=== PATIENT | male | born 1970 | race American Indian/Alaskan Native ===

== ENCOUNTER 2017-10-07 09:20 | Inpatient (IN) | payer BC, OTHER ==
[2017-10-07] MEDS ORDERED: NITROSTAT SL ONE (10:22)
--- NOTE | 2017-10-07 10:27 | Emergency Department Report ---
ED Chest Pain HPI - General Chief Complaint: Chest Pain Stated Complaint: UNRESPONSIVE Time Seen by Provider: 10/07/17 10:16 Source: patient, EMS Mode of arrival: Stretcher Limitations: No Limitations - History of Present Illness Initial Comments: Patient is 47 years old male history of diabetes and hypertension, presented via EMS with a chief complaint of left-sided chest pain, patient described his pain as pressure and sometimes sharp radiate to his neck and left upper extremity, pain associated with exertion. Patient stated that his pain has been going on for a while, but since last night it became more intense and more frequent,also associated with palpitation. Patient received aspirin and nitroglycerin by EMS. Patient stated that his pain is much better after the nitroglycerin. Patient also added that his is mother at age 51 from heart attack. MD Complaint: chest pain -: Last night Onset: during rest, during exertion Pain Location: left chest Pain Radiation: LUE, neck Severity: moderate Severity scale (0 -10): 6 Quality: heaviness, sharp Consistency: intermittent Improves With: nitroglycerin Worsens With: exertion Treatments Prior to Arrival: aspirin, nitroglycerin Aspirin use within the Past 7 Days: (0) No - Related Data Home Medications Medication Instructions Recorded Confirmed Last Taken Insulin Lispro Prot/Lispro 70 units SUB-Q QAM 10/07/17 10/07/17 10/07/17 [HumaLOG MIX 75/25] Insulin Lispro Prot/Lispro 25 units SUB-Q HS 10/07/17 10/07/17 Unknown [HumaLOG Mix 75/25 Vial] NIFEdipine [] 90 mg PO DAILY 10/07/17 10/07/17 10/07/17 Allergies Allergy/AdvReac Type Severity Reaction Status Date / Time No Known Allergies Allergy Verified 11/02/15 11:52 Heart Score - HEART Score History: Moderately suspicious EKG: Non-specific Age: 45-65 Risk factors: > 3 risk factors or hx of atherosclerotic disease Troponin: < normal limit HEART Score: 5 - Critical Actions Critical Actions: 4-6 pts:12-16.6% risk of adverse cardiac event. Should be admitted ED Review of Systems ROS: Stated complaint: UNRESPONSIVE Other details as noted in HPI Comment: All other systems reviewed and negative Constitutional: denies: chills, fever ENT: denies: throat pain Respiratory: shortness of breath, SOB with exertion. denies: cough, SOB at rest , stridor, wheezing Cardiovascular: chest pain, palpitations, dyspnea on exertion Gastrointestinal: denies: abdominal pain, nausea, vomiting, diarrhea, constipation, hematemesis, melena, hematochezia Genitourinary: denies: urgency, frequency Musculoskeletal: denies: back pain Neurological: denies: headache, weakness, numbness, paresthesias, confusion, abnormal gait, vertigo ED Past Medical Hx - Past Medical History Previous Medical History?: Yes Hx Hypertension: Yes Hx Diabetes: Yes Additional medical history: ENLARGED PROSTATE. high cholesterol. CAD - Surgical History Past Surgical History?: Yes Additional Surgical History: LEFT KNEE SURGERY - Social History Smoking Status: Never Smoker Substance Use Type: Alcohol - Medications Home Medications: Home Medications Medication Instructions Recorded Confirmed Last Taken Type Insulin Lispro Prot/Lispro 70 units SUB-Q QAM 10/07/17 10/07/17 10/07/17 History [HumaLOG MIX 75/25] Insulin Lispro Prot/Lispro 25 units SUB-Q HS 10/07/17 10/07/17 Unknown History [HumaLOG Mix 75/25 Vial] NIFEdipine [] 90 mg PO DAILY 10/07/17 10/07/17 10/07/17 History ED Physical Exam - General Limitations: No Limitations General appearance: alert, in no apparent distress - Head Head exam: Present: normocephalic, normal inspection - Eye Eye exam: Present: normal appearance, PERRL - ENT ENT exam: Present: normal exam, normal orophraynx, mucous membranes moist - Neck Neck exam: Present: normal inspection, full ROM. Absent: tenderness, meningismus, lymphadenopathy - Respiratory Respiratory exam: Present: normal lung sounds bilaterally. Absent: respiratory distress, wheezes, rales, rhonchi, stridor, chest wall tenderness, accessory muscle use, decreased breath sounds, prolonged expiratory - Cardiovascular Cardiovascular Exam: Present: regular rate, normal rhythm, normal heart sounds - GI/Abdominal GI/Abdominal exam: Present: soft, normal bowel sounds. Absent: distended, tenderness, guarding, rebound, rigid, organomegaly, mass, bruit, pulsatile mass , hernia - Extremities Exam Extremities exam: Present: normal inspection, full ROM, normal capillary refill. Absent: tenderness, pedal edema, joint swelling, calf tenderness - Back Exam Back exam: Present: normal inspection. Absent: CVA tenderness (R), CVA tenderness (L), muscle spasm, paraspinal tenderness, vertebral tenderness - Neurological Exam Neurological exam: Present: alert, oriented X3, CN II-XII intact, normal gait - Skin Skin exam: Present: warm, intact, normal color ED Course Vital Signs 10/07/17 10/07/17 10/07/17 10:12 10:15 10:30 Temperature Pulse Rate 99 H 97 H 94 H Respiratory 15 19 14 Rate Blood Pressure 165/105 Blood Pressure [Left] O2 Sat by Pulse 96 98 Oximetry 10/07/17 10/07/17 10/07/17 10:46 10:48 11:00 Temperature 98.4 F Pulse Rate 91 H 92 H Respiratory 13 20 17 Rate Blood Pressure 138/99 155/104 Blood Pressure 165/105 [Left] O2 Sat by Pulse 99 95 Oximetry 10/07/17 10/07/17 10/07/17 11:16 11:30 11:46 Temperature Pulse Rate 92 H 97 H 98 H Respiratory 18 19 16 Rate Blood Pressure 155/104 155/104 155/104 Blood Pressure [Left] O2 Sat by Pulse 97 97 96 Oximetry 10/07/17 10/07/17 10/07/17 12:00 12:16 12:30 Temperature Pulse Rate 90 90 91 H Respiratory 18 23 15 Rate Blood Pressure 149/98 149/98 149/98 Blood Pressure [Left] O2 Sat by Pulse 98 99 96 Oximetry 10/07/17 10/07/17 10/07/17 12:46 13:00 13:16 Temperature Pulse Rate 89 89 87 Respiratory 19 16 16 Rate Blood Pressure 149/98 138/106 149/98 Blood Pressure [Left] O2 Sat by Pulse 98 98 97 Oximetry 10/07/17 10/07/17 10/07/17 13:30 13:46 14:00 Temperature Pulse Rate 89 92 H 85 Respiratory 18 19 20 Rate Blood Pressure 149/98 138/106 139/91 Blood Pressure [Left] O2 Sat by Pulse 97 97 95 Oximetry 10/07/17 10/07/17 10/07/17 14:12 14:16 14:30 Temperature Pulse Rate 90 95 H 96 H Respiratory 17 17 13 Rate Blood Pressure 139/91 139/91 Blood Pressure 139/91 [Left] O2 Sat by Pulse 98 97 98 Oximetry 10/07/17 10/07/17 10/07/17 14:46 15:00 15:16 Temperature Pulse Rate 94 H 93 H 98 H Respiratory 19 18 14 Rate Blood Pressure 139/91 146/101 146/101 Blood Pressure [Left] O2 Sat by Pulse 96 97 97 Oximetry - Reevaluation(s) Reevaluation #1: 10/07/17 13:27 Patient stated that he is feeling much better after the medication. ED Medical Decision Making - Lab Data Result diagrams: 10/07/17 12:49 10/07/17 12:59 - EKG Data -: EKG Interpreted by Me EKG shows normal: sinus rhythm Rate: normal - EKG Data Interpretation: no acute changes - Radiology Data Radiology results: report reviewed Chest x-ray unremarkable for acute findings. - Medical Decision Making Discussed with Dr. Garcia, I presented the patient to him he agreed to admit the patient to his service. Critical care attestation.: If time is entered above; I have spent that time in minutes in the direct care of this critically ill patient, excluding procedure time. ED Disposition Clinical Impression: Chest pain with high risk of acute coronary syndrome, Malignant hypertension, Hyperglycemia due to type 2 diabetes mellitus Disposition: OP ADMIT IP TO THIS HOSP Is pt being admited?: Yes Condition: Stable
[2017-10-07 10:32] LABS: Basophils % (Auto) 0.8 % (0.0-1.8); Eosinophils % (Auto) 2.5 % (0.0-4.3); Hematocrit 39.3 % (35.5-45.6); Hemoglobin 13.6 gm/dl (11.8-15.2); Mean Corpuscular HGB Conc 35 % (32-34); Mean Corpuscular Hemoglobin 30 pg (28-32); Mean Corpuscular Volume 86 fl (84-94); Platelet Count 269 K/mm3 (140-440); Red Blood Count 4.54 M/mm3 (3.65-5.03)
[2017-10-07 10:53] LABS: Anion Gap 24 mmol/L; BUN/Creatinine Ratio 13; Blood Urea Nitrogen 14 mg/dL (9-20); Calcium 9.6 mg/dL (8.4-10.2); Carbon Dioxide 21 mmol/L (22-30); Chloride 91.6 mmol/L (98-107); Glucose 420 mg/dL (75-100); Potassium 4.5 mmol/L (3.6-5.0); Sodium 132 mmol/L (137-145)
[2017-10-07] MEDS ORDERED: LASIX IV ONE (11:09)
[2017-10-07 11:12] LABS: Bilirubin,Urine NEG (Negative); Blood,Urine SM (Negative); Ketones,Urine NEG (Negative); Leukocyte Esterase,Urine NEG (Negative); Mucus,Urine FEW /HPF; Nitrite,Urine NEG (Negative); Protein,Urine <15 mg/dL mg/dL (Negative); Urobilinogen,Urine < 2.0 mg/dL (<2.0)
--- NOTE | 2017-10-07 11:20 | XRay Report ---
AP CHEST: HISTORY: chest pain AP view of the chest demonstrates a normal mediastinal and cardiac contour with clear lungs and normal bony and soft tissue structures. No significant change since 04/18/16. IMPRESSION: Unremarkable AP chest.
--- NOTE | 2017-10-07 12:35 | History and Physical Report ---
History of Present Illness Chief complaint: My chest hurts real bad History of present illness: 47 YO Male with HTN, DM,HLD,Obesity, BPH, Metabolic syndrome presents to ED for evaluation. Pt states that he experienced chest pain for pasw 2 weeks, with an acute worsening of symptoms over the past 6 hours. Pain is 6-9/10, Localized to the left side of the chest, radiates to the laft arm and meck, sharp, and compressing in nature, and has become more intense over time. Pain is relieved with nitro, but worsened with exertion, and is also associated with intermittent shortness of breath. Pt denies diaphoresis, fever, chills, palpitation, NVD, syncope, prolonged immobility/travel, individual/family history of DVT/PE, Vertigo, Skin rash, productive cough, orthopnea/pnd, or recent ill contacts. Patient also added that he is mother at age 51 from heart attack. Pt seen and evaluated in ED and found to have symptoms consistent with ACS as well as New onset Systolic/Diastolic CHF. Pt admitted to telemetry, and treated IAW chest pain protocol. Past History Past Medical History: diabetes, hypertension, hyperlipidemia Past Surgical History: Other (Left Knee surgery) Social history: , lives with family. denies: smoking, alcohol abuse, prescription drug abuse Family history: diabetes, hypertension Medications and Allergies Allergies Allergy/AdvReac Type Severity Reaction Status Date / Time No Known Allergies Allergy Verified 11/02/15 11:52 Home Medications Medication Instructions Recorded Confirmed Last Taken Type Insulin Lispro Prot/Lispro 25 units SUB-Q HS 10/07/17 10/07/17 Unknown History [HumaLOG Mix 75/25 Vial] Insulin Lispro Prot/Lispro 70 units SUB-Q QAM 10/07/17 10/07/17 10/07/17 History [HumaLOG Mix 75/25 Vial] NIFEdipine [Nifedipine ER] 90 mg PO DAILY 10/07/17 10/07/17 10/07/17 History Nitroglycerin [Nitrostat] 0.4 mg SL Q5M PRN #20 tablet 10/09/17 Unknown Rx Valsartan [Diovan] 160 mg PO DAILY #30 tablet 10/09/17 Unknown Rx Review of Systems Constitutional: no weight loss, no weight gain, no fever, no chills Ears, nose, mouth and throat: no ear pain, no ear discharge, no tinnitis, no decreased hearing, no nose pain, no nasal congestion, no nasal discharge Cardiovascular: chest pain, shortness of breath, no palpitations, no edema, no syncope, no lightheadedness Respiratory: no cough, no cough with sputum, no excessive sputum, no hemoptysis Gastrointestinal: no abdominal pain, no nausea, no vomiting, no diarrhea, no constipation Genitourinary Male: no hematuria, no flank pain, no discharge, no urinary frequency, no urinary hesitancy Rectal: no pain, no incontinence, no bleeding Musculoskeletal: no neck stiffness, no neck pain, no shooting arm pain, no arm numbness/tingling, no low back pain Integumentary: no rash, no pruritis, no redness, no sores, no wounds Neurological: no head injury, no paralysis, no weakness, no parathesias, no numbness, no tingling, no seizures Psychiatric: no memory loss, no change in sleep habits, no sleep disturbances, no insomnia, no hypersomnia, no change in appetite, no change in libido Endocrine: no cold intolerance, no heat intolerance, no polyphagia, no excessive thirst, no polydipsia, no polyuria Hematologic/Lymphatic: no easy bruising, no easy bleeding Allergic/Immunologic: no urticaria, no allergic rhinitis, no wheezing Exam - Constitutional Vitals: Temp Pulse Resp BP Pulse Ox 98.4 F 95 H 20 165/105 95 10/07/17 10:46 10/07/17 10:46 10/07/17 10:48 10/07/17 10:46 10/07/17 10:48 General appearance: Present: mild distress, obese - EENT Eyes: Present: PERRL ENT: hearing intact, clear oral mucosa - Neck Neck: Present: supple, normal ROM - Respiratory Respiratory: bilateral: diminished, rhonchi - Cardiovascular Heart Sounds: Present: S1 & S2. Absent: rub, click - Extremities Extremities: pulses symmetrical, No edema Peripheral Pulses: within normal limits - Abdominal General gastrointestinal: Present: soft, non-tender, non-distended, normal bowel sounds Male genitourinary: Present: normal - Integumentary Integumentary: Present: clear, warm, dry - Musculoskeletal Musculoskeletal: gait normal, strength equal bilaterally - Psychiatric Psychiatric: appropriate mood/affect, intact judgment & insight - Neurologic Neurologic: CNII-XII intact, moves all extremities Results - Labs CBC & Chem 7: 10/07/17 12:49 10/09/17 04:00 Labs: Abnormal lab results 10/07/17 10/07/17 10/07/17 Range/Units 10:18 10:18 10:33 MCHC 35 H (32-34) % RDW 13.0 L (13.2-15.2) % Sodium 132 L (137-145) mmol/L Chloride 91.6 L (98-107) mmol/L Carbon Dioxide 21 L (22-30) mmol/L Glucose 420 H (75-100) mg/dL NT-Pro-B Natriuret Pep 1060 H (0-450) pg/mL Assessment and Plan - Patient Problems (1) CHF (congestive heart failure) Status: Acute Qualifiers: Congestive heart failure type: combined Congestive heart failure chronicity : acute Qualified Code(s): I50.41 - Acute combined systolic (congestive) and diastolic (congestive) heart failure Plan to address problem: Afterload reduction, fluid restriction, diuresis, monitor uop q shift, Cardiology consulted, cardiac enzymes, ekg, telemetry, (2) ACS (acute coronary syndrome) Status: Acute Plan to address problem: Chest Pain protocol: Serial cardiac enzymes, EKG, telemetry, Echo, Cardiology consulted, Morphine, supplemental oxygen, nitro tabs, aspirin, D dimer, Chest X ray. (3) Diabetes Status: Acute Plan to address problem: ADA diet, insulin, accu check (4) Accelerated hypertension Status: Acute Plan to address problem: Monitor BP q shift, IV hydralazine prn, continue medical management, diuresis with lasix. (5) Metabolic syndrome Status: Acute Plan to address problem: Low cholesterol diet, lipid panel, increased physical activity as discharge (6) DVT prophylaxis Status: Acute
[2017-10-07] MEDS ORDERED: D50W (25GM) Syringe IV PRN (12:37)
[2017-10-07] MEDS ORDERED: ASPIRIN PR ONE (12:37)
[2017-10-07] MEDS ORDERED: SODIUM CHLORIDE FLUSH SYRINGE 10 ML IV PRN (12:37)
[2017-10-07] MEDS ORDERED: ZOFRAN IV PRN (12:37)
[2017-10-07] MEDS ORDERED: TYLENOL PO PRN (12:37)
[2017-10-07] MEDS ORDERED: NITROSTAT SL PRN (12:37)
[2017-10-07] MEDS ORDERED: PROVENTIL IH PRN (12:37)
[2017-10-07] MEDS ORDERED: D50W (25GM) Vial IV ONE (13:00)
[2017-10-07 13:15] LABS: Basophils % (Auto) 0.7 % (0.0-1.8); Eosinophils % (Auto) 2.4 % (0.0-4.3); Hematocrit 39.3 % (35.5-45.6); Hemoglobin 13.7 gm/dl (11.8-15.2); Mean Corpuscular HGB Conc 35 % (32-34); Mean Corpuscular Hemoglobin 30 pg (28-32); Mean Corpuscular Volume 85 fl (84-94); Platelet Count 258 K/mm3 (140-440); Red Blood Count 4.61 M/mm3 (3.65-5.03); Red Cell Distribution Width 13.1 % (13.2-15.2); White Blood Count 7.7 K/mm3 (4.5-11.0)
[2017-10-07 13:37] LABS: Anion Gap 23 mmol/L; BUN/Creatinine Ratio 14; Blood Urea Nitrogen 15 mg/dL (9-20); Calcium 9.5 mg/dL (8.4-10.2); Carbon Dioxide 23 mmol/L (22-30); Chloride 90.1 mmol/L (98-107); Glucose 323 mg/dL (75-100); Potassium 4.1 mmol/L (3.6-5.0); Sodium 132 mmol/L (137-145)
[2017-10-07] MEDS ORDERED: MORPHINE IV PRN (17:10)
[2017-10-07] MEDS: LASIX IV SCH (19:17)
[2017-10-07] MEDS ORDERED: [UNRECOGNIZED DRUG - OTHER] SUB-Q SCH (22:00)
[2017-10-07] MEDS ORDERED: INSULIN LISPRO PROTAMINE SUB-Q SCH (22:00)
[2017-10-07] MEDS ORDERED: PERCOCET 5/325 ONE (23:21)
[2017-10-08] MEDS: LASIX IV SCH ×2 (06:17→18:28)
[2017-10-08] MEDS ORDERED: [UNRECOGNIZED DRUG - OTHER] SUB-Q SCH (10:00)
[2017-10-08] MEDS ORDERED: NON-FORMULARY (Nifedipine [Nifedipine Er] 90 MG) PO SCH (10:00)
[2017-10-08] MEDS ORDERED: INSULIN LISPRO PROTAMINE SUB-Q SCH (10:00)
[2017-10-08] MEDS: PERCOCET 5/325 PO PRN ×2 (10:55→21:41)
[2017-10-08] MEDS: PROCARDIA XL PO SCH (10:56)
--- NOTE | 2017-10-08 10:56 | Progress Note ---
<YOEL CRAIG - Last Filed: 10/08/17 14:20> Assessment and Plan Assessment and plan: 47 YO Male with HTN, DM,HLD,Obesity, BPH, Metabolic syndrome presents to ED for evaluation. Pt states that he experienced chest pain for pasw 2 weeks, with an acute worsening of symptoms over the past 6 hours. Pain is 6-9/10, Localized to the left side of the chest, radiates to the laft arm and meck, sharp, and compressing in nature, and has become more intense over time. Pain is relieved with nitro, but worsened with exertion, and is also associated with intermittent shortness of breath. Pt denies diaphoresis, fever, chills, palpitation, NVD, syncope, prolonged immobility/travel, individual/family history of DVT/PE, Vertigo, Skin rash, productive cough, orthopnea/pnd, or recent ill contacts. Patient also added that he is mother at age 51 from heart attack. Assessment and Plan CHF (congestive heart failure) Congestive heart failure type: combined Congestive heart failure chronicity : acute Qualified Code(s): I50.41 - Acute combined systolic (congestive) and diastolic (congestive) heart failure Chest Pain Echo EF 60-65% Nitro tabs PRN, Continue Aspirin Cardiology following - No significant coronary disease, EF 45% on C 03/2017 at [facility] No further ischemic cardiac workup is indicated at the current time per cardiology. Diabetes Mellitus with hyperglycemia Continue insulin Novolin QHS, QAM Accu check, ADA diet Hypertension Monitor BP q shift IV hydralazine prn, continue medical management, diuresis with lasix. Metabolic syndrome Low cholesterol diet, lipid panel, increased physical activity as discharge DVT prophylaxis SCDs History Interval history: Patient is awake and alert resting comfortably in bed. He denies chest pain, SOB , N/V. Only complains of L ankle pain, denies injury or prior pain. Pain 8-9/10 Hospitalist Physical - Constitutional Vitals: Temp Pulse Resp BP Pulse Ox 98.3 F 97 H 18 151/94 95 10/08/17 08:54 10/08/17 08:54 10/08/17 08:54 10/08/17 08:54 10/08/17 08:54 General appearance: Present: no acute distress, obese - EENT Eyes: Present: PERRL, EOM intact ENT: hearing intact, clear oral mucosa, dentition normal - Neck Neck: Present: supple, normal ROM - Respiratory Respiratory effort: normal Respiratory: bilateral: CTA - Cardiovascular Rhythm: regular Heart Sounds: Present: S1 & S2 - Extremities Extremities: No edema Extremity abnormal: other (L ankle pain and tenderness, mildly swollen) Peripheral Pulses: within normal limits - Abdominal General gastrointestinal: soft, non-tender - Integumentary Integumentary: Present: clear, warm, erythema - Psychiatric Psychiatric: appropriate mood/affect, cooperative - Neurologic Neurologic: CNII-XII intact, moves all extremities - Allied Health Allied health notes reviewed: nursing Results - Labs CBC & Chem 7: 10/07/17 12:49 10/07/17 12:59 Labs: Laboratory Last Values WBC 7.7 K/mm3 (4.5-11.0) 10/07/17 12:49 RBC 4.61 M/mm3 (3.65-5.03) 10/07/17 12:49 Hgb 13.7 gm/dl (11.8-15.2) 10/07/17 12:49 Hct 39.3 % (35.5-45.6) 10/07/17 12:49 MCV 85 fl (84-94) 10/07/17 12:49 MCH 30 pg (28-32) 10/07/17 12:49 MCHC 35 % (32-34) H 10/07/17 12:49 RDW 13.1 % (13.2-15.2) L 10/07/17 12:49 Plt Count 258 K/mm3 (140-440) 10/07/17 12:49 Lymph % (Auto) 27.7 % (13.4-35.0) 10/07/17 12:49 [place] % (Auto) 6.6 % (0.0-7.3) 10/07/17 12:49 Eos % (Auto) 2.4 % (0.0-4.3) 10/07/17 12:49 Baso % (Auto) 0.7 % (0.0-1.8) 10/07/17 12:49 Lymph # 2.1 K/mm3 (1.2-5.4) 10/07/17 12:49 [place] # 0.5 K/mm3 (0.0-0.8) 10/07/17 12:49 Eos # 0.2 K/mm3 (0.0-0.4) 10/07/17 12:49 Baso # 0.1 K/mm3 (0.0-0.1) 10/07/17 12:49 Seg Neutrophils % 62.6 % (40.0-70.0) 10/07/17 12:49 Seg Neutrophils # 4.8 K/mm3 (1.8-7.7) 10/07/17 12:49 D-Dimer < 135.00 ng/mlDDU (0-234) 10/07/17 12:49 Sodium 132 mmol/L (137-145) L 10/07/17 12:59 Potassium 4.1 mmol/L (3.6-5.0) 10/07/17 12:59 Chloride 90.1 mmol/L (98-107) L 10/07/17 12:59 Carbon Dioxide 23 mmol/L (22-30) 10/07/17 12:59 Anion Gap 23 mmol/L 10/07/17 12:59 BUN 15 mg/dL (9-20) 10/07/17 12:59 Creatinine 1.1 mg/dL (0.8-1.5) 10/07/17 12:59 Estimated GFR > 60 ml/min 10/07/17 12:59 BUN/Creatinine Ratio 14 % 10/07/17 12:59 Glucose 323 mg/dL (75-100) H 10/07/17 12:59 POC Glucose 415 (70-105) H 10/08/17 00:22 Hemoglobin A1c 12.1 % (4-6) H 10/07/17 12:49 Calcium 9.5 mg/dL (8.4-10.2) 10/07/17 12:59 Troponin T < 0.010 ng/mL (0.00-0.029) 10/07/17 20:08 NT-Pro-B Natriuret Pep 1060 pg/mL (0-450) H 10/07/17 10:33 Urine Color Yellow (Yellow) 10/07/17 10:11 Urine Turbidity Clear (Clear) 10/07/17 10:11 Urine pH 5.0 (5.0-7.0) 10/07/17 10:11 Ur Specific [place] 1.027 (1.003-1.030) 10/07/17 10:11 Urine Protein <15 mg/dl mg/dL (Negative) 10/07/17 10:11 Urine Glucose (UA) >=500 mg/dL (Negative) 10/07/17 10:11 Urine Ketones Neg mg/dL (Negative) 10/07/17 10:11 Urine Blood Sm (Negative) 10/07/17 10:11 Urine Nitrite Neg (Negative) 10/07/17 10:11 Urine Bilirubin Neg (Negative) 10/07/17 10:11 Urine Urobilinogen < 2.0 mg/dL (<2.0) 10/07/17 10:11 Ur Leukocyte Esterase Neg (Negative) 10/07/17 10:11 Urine WBC (Auto) 1.0 /HPF (0.0-6.0) 10/07/17 10:11 Urine RBC (Auto) 1.0 /HPF (0.0-6.0) 10/07/17 10:11 U Epithel Cells (Auto) < 1.0 /HPF (0-13.0) 10/07/17 10:11 Urine Mucus Few /HPF 10/07/17 10:11 - Imaging and Cardiology Chest x-ray: report reviewed (Unremarkable) Imaging and Cardiology: Echocardiogram EF 60-65% <JEFF HERNANDEZ - Last Filed: 10/08/17 17:29> Assessment and Plan Assessment and plan: I saw and evaluated the patient. I agree with the findings and the plan of care as documented in the Nurse Practitioner's~note, with the following corrections and additions. No further workup recommended by cardiology as patient had a recent heart cath and [facility] Patient's blood sugars are uncontrolled, secondary to noncompliance add sliding scale coverage with NovoLog high-dose and increase 7030 insulin dose Counseling done patient strongly advised to comply with medications, diet and follow-up visits Patient's hemoglobin A1c is more than 12, they recommend outpatient endocrine evaluation for better control of diabetes mellitus upon discharge in 1-2 days Hospitalist Physical - Constitutional Vitals: Temp Pulse Resp BP Pulse Ox 98.6 F 98 H 18 167/102 96 10/08/17 16:41 10/08/17 16:41 10/08/17 16:41 10/08/17 16:41 10/08/17 16:41 Results - Labs CBC & Chem 7: 10/07/17 12:49 10/07/17 12:59 Labs: Laboratory Last Values WBC 7.7 K/mm3 (4.5-11.0) 10/07/17 12:49 RBC 4.61 M/mm3 (3.65-5.03) 10/07/17 12:49 Hgb 13.7 gm/dl (11.8-15.2) 10/07/17 12:49 Hct 39.3 % (35.5-45.6) 10/07/17 12:49 MCV 85 fl (84-94) 10/07/17 12:49 MCH 30 pg (28-32) 10/07/17 12:49 MCHC 35 % (32-34) H 10/07/17 12:49 RDW 13.1 % (13.2-15.2) L 10/07/17 12:49 Plt Count 258 K/mm3 (140-440) 10/07/17 12:49 Lymph % (Auto) 27.7 % (13.4-35.0) 10/07/17 12:49 [place] % (Auto) 6.6 % (0.0-7.3) 10/07/17 12:49 Eos % (Auto) 2.4 % (0.0-4.3) 10/07/17 12:49 Baso % (Auto) 0.7 % (0.0-1.8) 10/07/17 12:49 Lymph # 2.1 K/mm3 (1.2-5.4) 10/07/17 12:49 [place] # 0.5 K/mm3 (0.0-0.8) 10/07/17 12:49 Eos # 0.2 K/mm3 (0.0-0.4) 10/07/17 12:49 Baso # 0.1 K/mm3 (0.0-0.1) 10/07/17 12:49 Seg Neutrophils % 62.6 % (40.0-70.0) 10/07/17 12:49 Seg Neutrophils # 4.8 K/mm3 (1.8-7.7) 10/07/17 12:49 D-Dimer < 135.00 ng/mlDDU (0-234) 10/07/17 12:49 Sodium 132 mmol/L (137-145) L 10/07/17 12:59 Potassium 4.1 mmol/L (3.6-5.0) 10/07/17 12:59 Chloride 90.1 mmol/L (98-107) L 10/07/17 12:59 Carbon Dioxide 23 mmol/L (22-30) 10/07/17 12:59 Anion Gap 23 mmol/L 10/07/17 12:59 BUN 15 mg/dL (9-20) 10/07/17 12:59 Creatinine 1.1 mg/dL (0.8-1.5) 10/07/17 12:59 Estimated GFR > 60 ml/min 10/07/17 12:59 BUN/Creatinine Ratio 14 % 10/07/17 12:59 Glucose 323 mg/dL (75-100) H 10/07/17 12:59 POC Glucose 326 (70-105) H 10/08/17 15:59 Hemoglobin A1c 12.1 % (4-6) H 10/07/17 12:49 Calcium 9.5 mg/dL (8.4-10.2) 10/07/17 12:59 Troponin T < 0.010 ng/mL (0.00-0.029) 10/07/17 20:08 NT-Pro-B Natriuret Pep 1060 pg/mL (0-450) H 10/07/17 10:33 Urine Color Yellow (Yellow) 10/07/17 10:11 Urine Turbidity Clear (Clear) 10/07/17 10:11 Urine pH 5.0 (5.0-7.0) 10/07/17 10:11 Ur Specific [place] 1.027 (1.003-1.030) 10/07/17 10:11 Urine Protein <15 mg/dl mg/dL (Negative) 10/07/17 10:11 Urine Glucose (UA) >=500 mg/dL (Negative) 10/07/17 10:11 Urine Ketones Neg mg/dL (Negative) 10/07/17 10:11 Urine Blood Sm (Negative) 10/07/17 10:11 Urine Nitrite Neg (Negative) 10/07/17 10:11 Urine Bilirubin Neg (Negative) 10/07/17 10:11 Urine Urobilinogen < 2.0 mg/dL (<2.0) 10/07/17 10:11 Ur Leukocyte Esterase Neg (Negative) 10/07/17 10:11 Urine WBC (Auto) 1.0 /HPF (0.0-6.0) 10/07/17 10:11 Urine RBC (Auto) 1.0 /HPF (0.0-6.0) 10/07/17 10:11 U Epithel Cells (Auto) < 1.0 /HPF (0-13.0) 10/07/17 10:11 Urine Mucus Few /HPF 10/07/17 10:11
--- NOTE | 2017-10-08 13:31 | Consultation ---
History of Present Illness Consult date: 10/08/17 Consult reason: chest pain History of present illness: This is a 47yr old man who presents to this hospital with complaints of chest pain. Patient associates chest pain with shortness of breath, left shoulder and neck pain. Patient has a history of Diabetes and Hypertension. Initial workup in the ER shows a blood glucose of 420. Serial troponins were negative. His ECG is a sinus rhythm with LVH. Cardiac consultation was requested for further evaluation of chest pain. Past History Past Medical History: diabetes, hypertension, hyperlipidemia Past Surgical History: Other (Left Knee surgery) Social history: , lives with family. denies: smoking, alcohol abuse, prescription drug abuse Family history: diabetes, hypertension Medications and Allergies Allergies Allergy/AdvReac Type Severity Reaction Status Date / Time No Known Allergies Allergy Verified 11/02/15 11:52 Home Medications Medication Instructions Recorded Confirmed Last Taken Type Insulin Lispro Prot/Lispro 70 units SUB-Q QAM 10/07/17 10/07/17 10/07/17 History [HumaLOG MIX 75/25] Insulin Lispro Prot/Lispro 25 units SUB-Q HS 10/07/17 10/07/17 Unknown History [HumaLOG Mix 75/25 Vial] NIFEdipine [] 90 mg PO DAILY 10/07/17 10/07/17 10/07/17 History Active Meds: Active Medications Acetaminophen (Tylenol) 650 mg PO Q4H PRN PRN Reason: Pain MILD(1-3)/Fever >100.5/VAUGHN Albuterol (Proventil) 2.5 mg IH Q4HRT PRN PRN Reason: Shortness Of Breath Furosemide (Lasix) 20 mg IV BID@0600,1800 [facility] Last Admin: 10/08/17 06:17 Dose: 20 mg Insulin Human Isoph/Insulin Regular (Novolin 70/30) 70 unit SUB-Q QAMDIAB [facility] Last Admin: 10/08/17 11:50 Dose: 70 unit Insulin Human Isoph/Insulin Regular (Novolin 70/30) 25 unit SUB-Q QHS [facility] Last Admin: 10/08/17 00:45 Dose: 25 unit Morphine Sulfate (Morphine) 2 mg IV Q4H PRN PRN Reason: Chest Pain Last Admin: 10/07/17 19:18 Dose: 2 mg Nifedipine (Procardia Xl) 90 mg PO QDAY [facility] Last Admin: 10/08/17 10:56 Dose: 90 mg Nitroglycerin (Nitrostat) 0.4 mg SL Q5M PRN PRN Reason: Chest Pain Ondansetron HCl (Zofran) 4 mg IV Q8H PRN PRN Reason: N/V unrelieved by Reglan Oxycodone/Acetaminophen (Percocet 5/325) 1 tab PO Q4H PRN PRN Reason: Pain, Moderate (4-6) Last Admin: 10/08/17 10:55 Dose: 1 tab Sodium Chloride (Sodium Chloride Flush Syringe 10 Ml) 10 ml IV PRN PRN PRN Reason: LINE FLUSH Physical Examination Vital Signs Pulse Resp Pulse Ox 99 H 15 96 10/07/17 10:12 10/07/17 10:12 10/07/17 10:12 General appearance: no acute distress HEENT: Positive: PERRL Cardiac: Positive: Reg Rate and Rhythm Lungs: Positive: Decreased Breath Sounds Neuro: Positive: Grossly Intact Results 10/07/17 12:49 10/07/17 12:59 Comprehensive Metabolic Panel 10/07/17 Range/Units 12:59 Sodium 132 L (137-145) mmol/L Potassium 4.1 (3.6-5.0) mmol/L Chloride 90.1 L (98-107) mmol/L Carbon Dioxide 23 (22-30) mmol/L BUN 15 (9-20) mg/dL Creatinine 1.1 (0.8-1.5) mg/dL Glucose 323 H (75-100) mg/dL Calcium 9.5 (8.4-10.2) mg/dL Assessment and Plan Atypical chest pain Hypertension Diabetes mellitus -uncontrolled EF 60-65% on echocardiogram this admission. No significant coronary disease, EF 45% on C 03/2017 at [facility].
[2017-10-08] MEDS ORDERED: D50W (25GM) Syringe IV PRN (17:39)
[2017-10-08] MEDS ORDERED: D50W (25GM) Vial IV ONE (18:00)
[2017-10-08] MEDS: NOVOLOG SUB-Q SCH (18:28)
[2017-10-08] MEDS ORDERED: NOVOLOG SUB-Q SCH (22:00)
[2017-10-09 06:05] LABS: Anion Gap 20 mmol/L; BUN/Creatinine Ratio 16; Blood Urea Nitrogen 16 mg/dL (9-20); Calcium 9.1 mg/dL (8.4-10.2); Carbon Dioxide 27 mmol/L (22-30); Chloride 92.4 mmol/L (98-107); Glucose 193 mg/dL (75-100); Potassium 3.7 mmol/L (3.6-5.0); Sodium 136 mmol/L (137-145)
[2017-10-09] MEDS: LASIX IV SCH (06:49)
--- NOTE | 2017-10-09 09:05 | Discharge Summary ---
<YOEL CRAIG - Last Filed: 10/09/17 09:57> Providers - Providers Date of Admission: 10/07/17 12:37 Date of discharge: 10/09/17 Attending physician: JEFF HERNANDEZ 10/07/17 Consult to Cardiac Rehabilitation [CONS] Routine Reason For Exam: Phase I 10/07/17 17:03 Consult to Physician [CONS] Routine Consulting Provider: OLGA TOLEDO Reason For Exam: acs Place consult to:: answering service Notified:: yes Phone number called:: [phone] Was contact made?: Yes If yes, spoke with:: Meka Time called:: 17:53 10/08/17 17:39 Consult to Dietitian/Nutrition [CONS] Routine Physician Instructions: Reason For Exam: Reason for Consult: Diet education Primary care physician: DATABASE MANAGEMENT SYSTEM SPECIALIST Hospitalization Condition: Stable Disposition: DC-01 TO HOME OR SELFCARE Exam - Constitutional Vitals: Temp Pulse Resp BP Pulse Ox 97.9 F 91 H 20 170/110 97 10/09/17 07:59 10/09/17 08:00 10/09/17 07:59 10/09/17 07:59 10/09/17 08:00 Plan Activity: fall precautions Weight Bearing Status: Weight Bear as Tolerated Diet: low fat, low cholesterol, low salt, diabetic Additional Instructions: Increase insulin dose to 80 units in the morning and 30 units at night. Compliance with medication and follow up appointments are pertinent in managing your diabetes. See [facility] for optimal control of diabetes Follow up with: PRIMARY MD ENRIQUE [Primary Care Provider] - 3-5 Days ALVA DAVEY MD [Staff Physician] - 7 Days OLGA TOLEDO MD [Staff Physician] - 7 Days Prescriptions: Nitroglycerin [Nitrostat] 0.4 mg SL Q5M PRN #20 tablet PRN Reason: Chest Pain Valsartan [Diovan] 160 mg PO DAILY #30 tablet <JEFF HERNANDEZ - Last Filed: 10/25/17 08:17> Providers - Providers Date of Admission: 10/07/17 12:37 Attending physician: JEFF HERNANDEZ 10/07/17 Consult to Cardiac Rehabilitation [CONS] Routine Reason For Exam: Phase I 10/07/17 17:03 Consult to Physician [CONS] Routine Consulting Provider: OLGA TOLEDO Reason For Exam: acs Place consult to:: answering service Notified:: yes Phone number called:: [phone] Was contact made?: Yes If yes, spoke with:: Meka Time called:: 17:53 10/08/17 17:39 Consult to Dietitian/Nutrition [CONS] Routine Physician Instructions: Reason For Exam: Reason for Consult: Diet education Primary care physician: DAT[employer] MANAGEMENT SYSTEM SPECIALIST Hospitalization Reason for admission: Chest pain/Malignant Hypertension Pertinent studies: ECHO CXR Hospital course: Patient was admitted with chest pain,symptomatically managed, Evaluated by organic preparation analyst, no further workup recommended by cardiology as patient had a recent heart cath and [facility] Patient's blood sugars were uncontrolled, secondary to noncompliance, medications optimised Diabetes was uncontrolled ,Insulin dose adjusted. Counseling done patient strongly advised to comply with medications, diet and follow-up visits Patient's hemoglobin A1c is more than 12, recommend outpatient endocrine evaluation for better control of diabetes mellitus upon discharge. Discharge Diagnosis : Atypical chest pain due to GERD Malignant Hypertension Uncontrolled DM type2[now well controlled] Medical non compliance Obesity :BMI 31.5 Time spent for discharge: 31 min Core Measure Documentation - Palliative Care Palliative Care/ Comfort Measures: Not Applicable - Core Measures Any of the following diagnoses?: none Exam - Constitutional Vitals: Temp Pulse Resp BP Pulse Ox 97.9 F 76 20 172/98 98 10/09/17 07:59 10/09/17 11:47 10/09/17 07:59 10/09/17 11:47 10/09/17 10:00 General appearance: Present: no acute distress, well-nourished, obese - EENT Eyes: Present: PERRL, EOM intact - Neck Neck: Present: supple, normal ROM - Respiratory Respiratory effort: normal Respiratory: bilateral: diminished, negative: rales, rhonchi, wheezing - Cardiovascular Rhythm: regular Heart Sounds: Present: S1 & S2 - Extremities Extremities: no ischemia, No edema - Abdominal General gastrointestinal: Present: soft, non-tender, non-distended, normal bowel sounds - Integumentary Integumentary: Present: clear, warm - Musculoskeletal Musculoskeletal: strength equal bilaterally - Psychiatric Psychiatric: appropriate mood/affect, cooperative - Neurologic Neurologic: moves all extremities Plan Activity: no restrictions Diet: low salt, diabetic
--- NOTE | 2017-10-09 11:35 | Progress Note ---
Assessment and Plan Atypical chest pain Hypertension - uncontrolled Diabetes mellitus -uncontrolled EF 60-65% on echocardiogram this admission. No significant coronary disease, EF 45% on [facility] 03/2017 at [facility]. Recommendations: Add valsartan to nifedipine therapy for better blood pressure control No further cardiac work-up Subjective Date of service: 10/09/17 Principal diagnosis: Chest Pain Interval history: Patient denies chest pain or shortness of breath Objective Vital Signs Temp Pulse Resp BP BP Pulse Ox 10/09/17 11:32 83 10/09/17 08:00 91 H 97 10/09/17 07:59 97.9 F 93 H 20 170/110 97 10/09/17 05:56 98.0 F 76 18 172/98 84 10/08/17 23:48 98.3 F 88 18 151/94 94 10/08/17 21:00 86 10/08/17 20:11 98.5 F 94 H 18 141/101 96 10/08/17 16:41 98.6 F 98 H 18 167/102 96 10/08/17 12:22 89 10/08/17 12:19 87 154/109 97 - Physical Examination HEENT: Positive: PERRL Neck: Positive: neck supple Cardiac: Positive: Reg Rate and Rhythm Lungs: Positive: Normal Exam Neuro: Positive: Grossly Intact - Labs and Meds Comprehensive Metabolic Panel 10/09/17 Range/Units 04:00 Sodium 136 L (137-145) mmol/L Potassium 3.7 (3.6-5.0) mmol/L Chloride 92.4 L (98-107) mmol/L Carbon Dioxide 27 (22-30) mmol/L BUN 16 (9-20) mg/dL Creatinine 1.0 (0.8-1.5) mg/dL Glucose 193 H (75-100) mg/dL Calcium 9.1 (8.4-10.2) mg/dL
[2017-10-09] MEDS: PROCARDIA XL PO SCH (11:45)
[2017-10-09] MEDS: NOVOLOG SUB-Q SCH (11:48)
[2017-10-09 11:51] VITALS: BP 172/98
[2017-10-09] MEDS ORDERED: DIOVAN PO SCH (12:00)
--- NOTE | 2017-10-15 13:31 | Query- Chest Pain ---
Rosa Ellis Jose Date:____10/15/17 Instruction Librarian/CDS: Matthew / Eulogio Phone#:___[phone] Exercise your independent professional judgment when responding to query. Questions asked do not imply a particular answer is desired or expected. We greatly appreciate your clarification on this issue. Clinical Documentation States: 47 year old male was admitted on 10/07/17 The H&P (Dr. Garcia) states " (2) ACS (acute coronary syndrome) Chest Pain protocol: Serial cardiac enzymes, EKG, telemetry, Echo, Cardiology consulted, Morphine, supplemental oxygen, nitro tabs, aspirin, D dimer, Chest X ray. " The cardiology progress note (Dr. Gallardo 10/09/17) states " Atypical chest pain Hypertension - uncontrolled Diabetes mellitus -uncontrolled EF 60-65% on echocardiogram this admission. No significant coronary disease " Please document the etiology of Chest Pain: [ ] Myocardial Infarction [ ] Pneumonia [ ] Mediastinitis [ ] Costochondritis [ ] Pulmonary Embolism [ ] Coronary Artery Disease [ x] GERD [ ] Other: [ ] Comment/Explanation: Present on Admission: [x ] Yes (Y) [ ] Clinically undeterminable (W) [ ] No(N) Please document response in your Progress Notes and/or Discharge Summary and indicate if the condition was present on admission. TEE
== END 2017-10-09 13:25 | disposition home or self-care (01) | DRG 391 ==
LOC: ED 09:20 → 4A 12:37
PROVIDERS: ADMIT Internal Medicine; ATTEND Internal Medicine
DX: K21.9 Gastro-esophageal reflux disease without esophagitis (principal); I50.41 Acute combined systolic (congestive) and diastolic (congestive) heart failure; E88.81 Metabolic syndrome and other insulin resistance; I11.0 Hypertensive heart disease with heart failure; E78.00 Pure hypercholesterolemia, unspecified; I25.10 Atherosclerotic heart disease of native coronary artery without angina pectoris; E11.65 Type 2 diabetes mellitus with hyperglycemia; E78.5 Hyperlipidemia, unspecified; N40.0 Benign prostatic hyperplasia without lower urinary tract symptoms; Z79.4 Long term (current) use of insulin; Z79.899 Other long term (current) drug therapy; Z83.3 Family history of diabetes mellitus; Z82.49 Family history of ischemic heart disease and other diseases of the circulatory system; Z91.19 Patient's noncompliance with other medical treatment and regimen
CPT/HCPCS: 36415; 71010; 80048; 81001; 82962; 83036; 83880; 84484; 85025; 85379; 93005; 93010; 93306; 96372; 96374; 96375; J1815; J1940; J2270

== ENCOUNTER 2019-01-31 02:07 | Inpatient (IN) | payer BC, OTHER ==
--- NOTE | 2019-01-31 03:16 | Emergency Department Report ---
ED Upper Extremity Inj HPI - General Chief Complaint: Extremity Injury, Upper Stated Complaint: LEFT HAND/ARM NUMBNESS Time Seen by Provider: 01/31/19 02:39 Source: patient Mode of arrival: Ambulatory Limitations: No Limitations - History of Present Illness Initial Comments: 48-year-old male, history of diabetes and hypertension, presents to the ED with complaint of left hand weakness. Patient states he awoke one hour, and was unable to lift his left wrist or fingers. Patient denies pain, numbness or tingling. Patient able to flex and extend at the left elbow, able to abduct and abduct at the left shoulder. Patient denies slurred speech or facial droop. MD Complaint: Injury to:: left, wrist -: hour(s) (1), During the night Place: home Improves With: none Worsens With: none Associated Symptoms: denies other symptoms - Related Data Home Medications Medication Instructions Recorded Confirmed Last Taken Valsartan 01/31/19 Unknown metFORMIN [Glucophage] 1,000 mg PO DAILY 01/31/19 01/31/19 Unknown Allergies Allergy/AdvReac Type Severity Reaction Status Date / Time No Known Allergies Allergy Verified 11/02/15 11:52 ED Review of Systems ROS: Stated complaint: LEFT HAND/ARM NUMBNESS Other details as noted in HPI Comment: All other systems reviewed and negative Neurological: weakness. denies: headache, numbness, paresthesias ED Past Medical Hx - Past Medical History Previous Medical History?: Yes Hx Hypertension: Yes Hx Congestive Heart Failure: No Hx Diabetes: Yes Hx Asthma: No Hx COPD: No Additional medical history: ENLARGED PROSTATE. high cholesterol. CAD, Heart stents - Surgical History Past Surgical History?: Yes Additional Surgical History: LEFT KNEE SURGERY - Social History Smoking Status: Never Smoker Substance Use Type: Alcohol - Medications Home Medications: Home Medications Medication Instructions Recorded Confirmed Last Taken Type Valsartan 01/31/19 Unknown History metFORMIN [Glucophage] 1,000 mg PO DAILY 01/31/19 01/31/19 Unknown History ED Physical Exam - General Limitations: No Limitations General appearance: alert, in no apparent distress - Head Head exam: Present: atraumatic, normocephalic - Eye Eye exam: Present: normal appearance - ENT ENT exam: Present: mucous membranes moist - Neck Neck exam: Present: normal inspection - Respiratory Respiratory exam: Present: normal lung sounds bilaterally. Absent: respiratory distress - Cardiovascular Cardiovascular Exam: Present: regular rate, normal rhythm - GI/Abdominal GI/Abdominal exam: Present: soft. Absent: distended, tenderness - Extremities Exam Extremities exam: Present: normal inspection - Neurological Exam Neurological exam: Present: alert, oriented X3, CN II-XII intact, motor sensory deficit (pt unable to extend left wrist or fingers), other (NIH=0) - Psychiatric Psychiatric exam: Present: normal affect, normal mood - Skin Skin exam: Present: warm, dry, intact, normal color. Absent: rash ED Course Vital Signs 01/31/19 01/31/19 01/31/19 02:13 02:49 04:46 Temperature 97.4 F L 98.2 F Pulse Rate 70 60 74 Respiratory 16 15 13 Rate Blood Pressure 137/75 125/73 Blood Pressure 117/72 [Right] O2 Sat by Pulse 100 100 98 Oximetry 01/31/19 01/31/19 01/31/19 05:00 06:00 07:04 Temperature Pulse Rate 60 62 Respiratory 14 13 Rate Blood Pressure 126/70 132/66 132/94 Blood Pressure [Right] O2 Sat by Pulse 99 96 100 Oximetry 01/31/19 01/31/19 01/31/19 07:06 07:08 07:10 Temperature Pulse Rate Respiratory Rate Blood Pressure 132/94 132/94 132/94 Blood Pressure [Right] O2 Sat by Pulse 99 99 98 Oximetry 01/31/19 01/31/19 01/31/19 07:12 07:14 07:16 Temperature Pulse Rate Respiratory Rate Blood Pressure 132/94 132/94 132/94 Blood Pressure [Right] O2 Sat by Pulse 99 99 99 Oximetry 01/31/19 01/31/19 01/31/19 07:18 07:20 07:22 Temperature Pulse Rate Respiratory Rate Blood Pressure 132/94 132/94 132/94 Blood Pressure [Right] O2 Sat by Pulse 99 99 96 Oximetry 01/31/19 01/31/19 01/31/19 07:24 07:26 07:28 Temperature Pulse Rate 74 76 Respiratory 16 16 Rate Blood Pressure 132/94 132/94 132/94 Blood Pressure [Right] O2 Sat by Pulse 99 99 99 Oximetry 01/31/19 01/31/19 01/31/19 07:30 07:32 07:34 Temperature Pulse Rate 69 83 76 Respiratory 19 17 19 Rate Blood Pressure 132/94 132/94 132/94 Blood Pressure [Right] O2 Sat by Pulse 99 100 100 Oximetry 01/31/19 01/31/19 01/31/19 07:36 07:38 07:40 Temperature Pulse Rate 82 70 77 Respiratory 18 12 14 Rate Blood Pressure 132/94 132/94 132/94 Blood Pressure [Right] O2 Sat by Pulse 99 99 99 Oximetry 01/31/19 01/31/19 01/31/19 07:42 07:44 07:46 Temperature Pulse Rate 75 72 81 Respiratory 19 15 16 Rate Blood Pressure 132/94 132/94 132/94 Blood Pressure [Right] O2 Sat by Pulse 99 100 99 Oximetry 01/31/19 01/31/19 01/31/19 07:48 07:50 07:52 Temperature Pulse Rate 78 75 81 Respiratory 16 15 16 Rate Blood Pressure 132/94 132/94 132/94 Blood Pressure [Right] O2 Sat by Pulse 99 99 100 Oximetry 01/31/19 01/31/19 01/31/19 07:54 07:56 07:58 Temperature Pulse Rate 68 78 73 Respiratory 12 12 10 L Rate Blood Pressure 132/94 132/94 132/94 Blood Pressure [Right] O2 Sat by Pulse 100 98 99 Oximetry 01/31/19 01/31/19 01/31/19 08:00 08:02 08:04 Temperature Pulse Rate 68 73 74 Respiratory 16 17 13 Rate Blood Pressure 129/76 129/76 129/76 Blood Pressure [Right] O2 Sat by Pulse 97 100 99 Oximetry 01/31/19 01/31/19 01/31/19 08:06 08:08 08:10 Temperature Pulse Rate 83 77 82 Respiratory 13 17 18 Rate Blood Pressure 129/76 129/76 129/76 Blood Pressure [Right] O2 Sat by Pulse 99 100 96 Oximetry 01/31/19 01/31/19 01/31/19 08:12 08:13 08:14 Temperature Pulse Rate 76 67 71 Respiratory 16 15 18 Rate Blood Pressure 129/76 129/76 129/76 Blood Pressure [Right] O2 Sat by Pulse 97 100 Oximetry - Consultations Consultation #1: 01/31/19 04:16 Pt seen and evaluated by teleneurologist. States seems to be radial nerve pals y, but there is a stroke syndrome that can mimic wrist drop, so wants admission for MRI. ED Medical Decision Making - Lab Data Result diagrams: 01/31/19 04:37 01/31/19 04:37 - Radiology Data Radiology results: report reviewed, image reviewed - Medical Decision Making 48-year-old male presents with weakness of the left arm. CT head negative. It appears to be left wrist drop. Patient is able to the left entire left arm drift, however when asked to extend the left wrist and fingers, he is unable to. Patient's NIH score is 0. Neurology consult was obtained, and feels that this is likely consistent with a radial nerve palsy, however like to get an MRI to r ule out CVA in a particular area of the brain that can mimic wrist drop. - Differential Diagnosis radial nerve palsy, CVA Critical care attestation.: If time is entered above; I have spent that time in minutes in the direct care of this critically ill patient, excluding procedure time. ED Disposition Clinical Impression: Wrist drop Disposition: -09 OP ADMIT IP TO THIS HOSP Is pt being admited?: Yes Condition: Stable Time of Disposition: 05:03
--- NOTE | 2019-01-31 04:31 | Emergency Department Report ---
ED Neuro Deficit HPI - General Chief Complaint: Extremity Injury, Upper Stated Complaint: LEFT HAND/ARM NUMBNESS Time Seen by Provider: 01/31/19 02:39 Source: patient Mode of arrival: Ambulatory Limitations: No Limitations - History of Present Illness Initial Comments: [facility] Impression: Wrist drop - Possibly peripheral, but cannot r/o central process- stroke - No sensory loss on dorsum of hand and brachioradialis seems spared on exam- reasonable to r/o stroke - Out of therapeutic window for tpa and not a candidate for neuro ir clinically not lvo Recommendations: admit stroke/telemetry neuro checks dvt prophy dysphagia screen asa if no contraindications head of bed flat iv fluids ns inhouse neurology consult for follow up further stroke workup per inhouse neurology and IM discussed with edmd CC: left hand weakness History of Present Illness: 48 year old man who comes to the hospital for left hand weakness. The patient describes that he fell asleep on his chair around 2300, before this he was fine. However, he then woke up later in the evening and noticed his left hand was weak. This has not improved. He denies any sensory loss or other focal symptoms. This has not happened before. Diagnostic Testing: Ct head without contrast: no acute findings per my read. Pending rad read Exam: Mental Status: Awake, alert, oriented Naming: Intact Repetition: Intact Speech: fluent Cranial Nerves: Extraocular movements: Intact in all cardinal gaze Ptosis: Absent Visual garza: Intact to finger counting Facial sensation: Intact to pin and light touch Facial movements: Intact and symmetric Motor Exam: No drift left wrist/finger extensors 2/5, flexor 5/5 proximal left arm 5/5 brachioradialis full strength on left Tremor/Abnormal Movements: Resting tremor: Absent Intention tremor: Absent Postural tremor: Absent Sensory Exam: Light touch: Intact Pinprick: Intact Coordination: Finger to nose: Intact Heel to oh: Intact Medical Decision Making: - Extensive number of diagnosis or management options are considered above. - Extensive amount of complex data reviewed. - High risk of complication and/or morbidity or mortality are associated with differential diagnostic considerations above. - There may be uncertain outcome and increased probability of prolonged functional impairment or high probability of severe prolonged functional impairment associated with some of these differential diagnosis. Medical Data Reviewed: 1.Data reviewed include clinical labs, radiology, Medical Tests; 2.Tests results discussed w/performing or interpreting physician; 3.Obtaining/reviewing old medical records; 4.Obtaining case history from another source; 5.Independent review of image, tracing or specimen. Patient was informed the Neurology Consult would happen via telehealth (remote video) and consented to receiving care in this manner. Place: home - Related Data Home Medications: Home Medications Medication Instructions Recorded Confirmed Last Taken Valsartan 01/31/19 Unknown metFORMIN [Glucophage] 1,000 mg PO DAILY 01/31/19 01/31/19 Unknown Allergies/Adverse Reactions: Allergies Allergy/AdvReac Type Severity Reaction Status Date / Time No Known Allergies Allergy Verified 11/02/15 11:52 ED Review of Systems ROS: Stated complaint: LEFT HAND/ARM NUMBNESS Other details as noted in HPI Neurological: weakness. denies: headache, numbness, paresthesias ED Past Medical Hx - Past Medical History Previous Medical History?: Yes Hx Hypertension: Yes Hx Congestive Heart Failure: No Hx Diabetes: Yes Hx Asthma: No Hx COPD: No Additional medical history: ENLARGED PROSTATE. high cholesterol. CAD, Heart stents - Surgical History Past Surgical History?: Yes Additional Surgical History: LEFT KNEE SURGERY - Social History Smoking Status: Never Smoker Substance Use Type: Alcohol - Medications Home Medications: Home Medications Medication Instructions Recorded Confirmed Last Taken Type Valsartan 01/31/19 Unknown History metFORMIN [Glucophage] 1,000 mg PO DAILY 01/31/19 01/31/19 Unknown History ED Neuro Physical Exam - General Limitations: No Limitations General appearance: alert, in no apparent distress Suspected Stroke: Yes - NIHSS Assessment Interval: Baseline 1a. Level of Consciousness: alert/keenly responsive 1b. LOC Questions: answers both correctly 1c. LOC Commands: performs tasks correctly 2. Best Gaze: normal 3. Visual: no visual loss 4. Facial Palsy: normal symmetrical movement 5b. Motor Arm Right: no drift 5a. Motor Arm Left: no drift 6a. Motor Leg Left: no drift 6b. Motor Leg Right: no drift 7. Limb Ataxia: absent 8. Sensory: normal 9. Best Language: no aphasia 10. Dysarthria: normal 11. Extinction/Inattention: no abnormality Total Score: 0 Stroke Severity: No Stroke Symptoms ED Course Vital Signs 01/31/19 01/31/19 02:13 02:49 Temperature 97.4 F L 98.2 F Pulse Rate 70 60 Respiratory 16 15 Rate Blood Pressure 137/75 Blood Pressure 117/72 [Right] O2 Sat by Pulse 100 100 Oximetry - Lab Data Lab Results 01/31/19 Range/Units 03:38 POC Glucose 163 H (70-105) Critical care attestation.: If time is entered above; I have spent that time in minutes in the direct care of this critically ill patient, excluding procedure time. ED Disposition Clinical Impression: Wrist drop Disposition: - OP ADMIT IP TO THIS HOSP Is pt being admited?: Yes Condition: Stable Referrals: ZACHARY SUAZO MD [Primary Care Provider] - 3-5 Days
--- NOTE | 2019-01-31 04:42 | Cat Scan Report ---
PROCEDURE: CT HEAD/BRAIN WO CON TECHNIQUE: CT imaging is obtained through the brain without contrast. HISTORY: left arm weakness COMPARISONS: None FINDINGS: The ventricles, cisterns and sulci are within normal limits. No intra parenchymal or extra-axial mas s, hemorrhage, or mass effect. Caruso and white-matter differentiation is within normal limits. Normal spherical shape of the globes. Paranasal sinuses and mastoid air cells are clear. No skull o r facial fracture visualized. IMPRESSION: No acute intracranial abnormality. This document is electronically signed by Abraham Barger MD., January 31 2019 04:40:41 AM ET
[2019-01-31 04:59] LABS: Hematocrit 34.6 % (35.5-45.6); Hemoglobin 11.6 gm/dl (11.8-15.2); Mean Corpuscular HGB Conc 34 % (32-34); Mean Corpuscular Volume 88 fl (84-94); Platelet Count 284 K/mm3 (140-440); Red Blood Count 3.91 M/mm3 (3.65-5.03); Red Cell Distribution Width 12.4 % (13.2-15.2)
[2019-01-31 05:08] LABS: INR 0.89 (0.87-1.13)
[2019-01-31 05:09] LABS: Partial Thromboplastin Time 24.3 Sec. (24.2-36.6)
[2019-01-31 05:20] LABS: Alanine Aminotransferase 25 units/L (7-56); Albumin 4.2 g/dL (3.9-5); BUN/Creatinine Ratio 14; Blood Urea Nitrogen 17 mg/dL (9-20); Calcium 9.6 mg/dL (8.4-10.2); Hemolysis Index 16
[2019-01-31] MEDS ORDERED: TYLENOL PO PRN (05:32)
[2019-01-31] MEDS ORDERED: ZOFRAN IV PRN (05:32)
[2019-01-31] MEDS ORDERED: MILK OF MAGNESIA PO PRN (05:32)
[2019-01-31] MEDS ORDERED: DULCOLAX PR PRN (05:32)
[2019-01-31] MEDS ORDERED: REGLAN PO PRN (05:32)
[2019-01-31] MEDS ORDERED: SODIUM CHLORIDE FLUSH SYRINGE 10 ML IV PRN (05:32)
[2019-01-31] MEDS ORDERED: D50W (25GM) Syringe IV PRN (05:35)
--- NOTE | 2019-01-31 05:36 | History and Physical Report ---
History of Present Illness Date of examination: 01/31/19 History of present illness: 48-year-old man with history of hypertension, diabetes, hyperlipidemia comes to emergency room complaining of left hand weakness started at 11:30. He came to the emergency room for further evaluation Review of systems Constitutional: no weight loss, chills, fever Ears, eyes, nose, mouth and throat: no nasal congestion, no nasal discharge, no sinus pressure, no vision change, no red eye. Neck: No neck pain or rigidity. Cardiovascular: no palpitations, chest pain Respiratory: no cough, shortness of breath Gastrointestinal: no hematochezia, abdominal pain Genitourinary : no frequency , no hematuria Musculoskeletal: no joint swelling or muscle ache Integumentary: no rash, no pruritis Neurological: no parathesias, + focal weakness Endocrine: no cold or heat intolerance, no polyuria or polydipsia Hematologic/Lymphatic: no easy bruising, no easy bleeding, no gland swelling Allergic/Immunologic: no urticaria, no angioedema. PAST MEDICAL HISTORY:hypertension, diabetes, hyperlipidemia PAST SURGICAL HISTORY: Left knee SOCIAL HISTORY: Denies alcohol, drugs, tobacco FAMILY HISTORY: Hypertension Medications and Allergies Allergies Allergy/AdvReac Type Severity Reaction Status Date / Time No Known Allergies Allergy Verified 11/02/15 11:52 Home Medications Medication Instructions Recorded Confirmed Last Taken Type Gabapentin [Neurontin] 800 mg PO QHS 01/31/19 01/31/19 Unknown History Valsartan 320 mg PO DAILY 01/31/19 01/31/19 Unknown History metFORMIN [Glucophage] 1,000 mg PO DAILY 01/31/19 01/31/19 Unknown History AtorvaSTATin [Lipitor] 40 mg PO QHS #30 tablet 02/01/19 Unknown Rx Insulin Glargine,Hum.rec.anlog 10 units SQ QHS #5 pen 02/01/19 Unknown Rx [Lantus Solostar] Active Meds: Active Medications Acetaminophen (Tylenol) 650 mg PO Q4H PRN PRN Reason: Pain, Mild (1-3) Aspirin (Aspirin) 325 mg PO QDAY [facility] Atorvastatin Calcium (Lipitor) 40 mg PO QHS TANIKA Bisacodyl (Dulcolax) 10 mg NC QDAY PRN PRN Reason: Constipation Enoxaparin Sodium (Lovenox) 30 mg SUB-Q QDAY TANIKA Exam - Physical Exam Narrative exam: General Apperance: The patient lying in bed, breathing comfortable HEENT: Normocephalic, atraumatic. Pupils equally round and reactive to light, E NATALIE, no sclericterus or JVD or thyromegaly or nodule. , no carotid bruit, mucous membranes moist, no exudate or erythema Heart: S1-S2, regular is rhythm Lungs: Clear to auscultation bilaterally, breathing comfortable Abdomen: Positive bowel sounds, soft, nontender, nondistended, no organomegaly Extremities: No edema cyanosis clubbing Skin: no rash, nodule, warm and dry Neuro: cranial nerves 2-12 intact, speech is fluent, Left hand 4/5 otherwise unremarkable/sensory intact - Constitutional Vitals: Temp Pulse Resp BP Pulse Ox 98.2 F 74 13 125/73 98 01/31/19 02:49 01/31/19 04:46 01/31/19 04:46 01/31/19 04:46 01/31/19 04:46 Results - Labs CBC & Chem 7: 01/31/19 04:37 01/31/19 04:37 Labs: Abnormal lab results 01/31/19 01/31/19 01/31/19 Range/Units 03:38 04:37 04:37 Hgb 11.6 L (11.8-15.2) gm/dl Hct 34.6 L (35.5-45.6) % RDW 12.4 L (13.2-15.2) % Carbon Dioxide 20 L (22-30) mmol/L Glucose 186 H (75-100) mg/dL POC Glucose 163 H (70-105) - Imaging and Cardiology CT Scan - head: report reviewed Assessment and Plan Assessment Acute CVA hypertension diabetes hyperlipidemia Plan Admit medicine Obtain MRI of the head, carotid Doppler, echo Doing neuro checks, swallow screen Consult physical therapy,neurology, occupational, urology Start aspirin, statin, IV hydralazine as needed for blood pressure control Check fingersticks, hemoglobin A1c, initiate insulin sliding scale DVT prophylaxis
[2019-01-31 06:06] LABS: Basophils % (Manual) 0 % (0.0-1.8); Platelet Estimate Consistent w Auto; RBC Morphology Normal; Total Cells Counted 100
[2019-01-31] MEDS ORDERED: APRESOLINE IV PRN (06:15)
[2019-01-31] MEDS ORDERED: LOVENOX SUB-Q ONE (07:52)
[2019-01-31] MEDS ORDERED: ASPIRIN ONE (07:53)
[2019-01-31] MEDS: HumaLOG SUB-Q SCH ×4 (07:59→22:22)
[2019-01-31] MEDS ORDERED: GLUCOPHAGE PO SCH (08:00)
--- NOTE | 2019-01-31 09:53 | Vascular Lab Report ---
EXAM: VL CAROTID DUPLEX BILAT HISTORY: stroke TECHNIQUE: The carotid arteries and vertebral arteries were interrogated with a high-frequency linear transducer, employing grayscale imaging, duplex Doppler and color flow Doppler imaging. COMPARISON: None available. FINDINGS: The common carotid arteries and carotid bulbs appear widely patent on grayscale imaging. There is imani dence for bilateral mural plaque formation in the carotid bulbs with mild luminal encroachments. Carotid velocities are as follows: RIGHT LEFT Distal CCA: 143 cm/s 174 cm/s Proximal ICA: 86 cm/s 88 cm/s ICA/CCA ratio: 0.6 0.51 The above findings constitute bilateral mild, less than 50%, nonhemodynamically significant ICA origi n stenosis. There is no hemodynamically significant ECA stenosis. Both vertebral arteries are patent and demonstrate antegrade blood flow and normal Doppler waveforms. There is an approximately 3.2 cm x 1.7 cm left thyroid mass incidentally noted. Recommend clinical co rrelation and follow-up dedicated nuclear medicine thyroid imaging to rule out a cold nodule or hyper functioning adenoma as clinically warranted. IMPRESSION: 1. Bilateral carotid bulb atherosclerotic mural plaques with mild luminal encroachment. 2. Estimated mild, less than 50%, bilateral ICA origin stenoses; no hemodynamically significant ICA or ECA stenosis. 3. Patent vertebral arteries with antegrade blood flow. 4. Approximately 3.2 cm x 1.7 cm left thyroid mass incidentally noted. Recommend clinical correlatio n and follow-up dedicated nuclear medicine thyroid imaging to rule out a cold nodule or hyperfunction ing adenoma as clinically warranted. This document is electronically signed by Rocío Duffy MD., January 31 2019 09:51:02 AM ET
[2019-01-31] MEDS ORDERED: ASPIRIN PO SCH (10:00)
[2019-01-31] MEDS ORDERED: LOVENOX SUB-Q SCH (10:00)
--- NOTE | 2019-01-31 13:26 | Magnetic Resonance Report ---
PROCEDURE: MR BRAIN WO CON TECHNIQUE: MRI brain examination without IV contrast HISTORY: stroke COMPARISONS: Head CT 01/31/2019 FINDINGS: Multifocal mucosal thickening is severe in the ethmoid sinuses, moderate in the maxillary sinuses, mo derate in the sphenoid sinuses, and slight to moderate in the frontal sinuses. Clear mastoid air cell s and middle ear cavities. No acute fluid level in the included air filled sinuses. The brain is without mass, mass effect, hemorrhage, or acute infarct. There is no midline shift or brain edema. There are no areas of brain restricted diffusion to suggest an acute ischemic infarct. Ventricles and sulci are age-appropriate. IMPRESSION: No acute CVA or brain mass Extensive paranasal sinus disease without MRI evidence of acute fluid level This document is electronically signed by Babar Perez MD., January 31 2019 01:24:26 PM ET
--- NOTE | 2019-01-31 13:31 | Magnetic Resonance Report ---
PROCEDURE: MRA HEAD WO CON TECHNIQUE: MRA examination of the brain HISTORY: cva COMPARISONS: Brain MRI 01/31/[address] 01/31/2019 FINDINGS: Note: Assessment of carotid artery stenosis is based on measurement of the distal internal carotid a rtery diameter as the denominator for stenosis calculations and the [place] Symptomatic Caroti d Endarterectomy Trial (NASCET) stenosis criteria. Intracranial vessels: Carotid siphon: Normal. Anterior cerebral: Normal. Middle cerebral: Normal. Posterior cerebral: Normal. Vertebral: Normal. Basilar: Normal. Occlusion: None. Vascular malformations: None. Aneurysm: None. Extensive paranasal sinus disease with mucosal thickening in the maxillary, ethmoid, sphenoid, and fr ontal sinuses. No acute fluid level noted. IMPRESSION: No MRA evidence of brain vascular pathology Extensive paranasal sinus disease without visible acute fluid level This document is electronically signed by Babar Perez MD., January 31 2019 01:29:08 PM ET
--- NOTE | 2019-01-31 15:01 | Progress Note ---
Subjective Date of service: 01/31/19 Interval history: the wrist and distal forearm exam is strongly c/w left radial nerve palsy likely contributed to by diabetes the MRI and MRA are both negative as is the CT of the head lab's indicate diabetes may be fitted with wrist splint and can be discharged to f/u in the office explained the dx to the patient I have dictated a full consult note on this patient Thanks Objective - Vital Sign Vital Signs - 12hr 01/31/19 01/31/19 01/31/19 04:46 05:00 06:00 Temperature Pulse Rate 74 60 62 Respiratory 13 14 13 Rate Respiratory Rate [chest] Blood Pressure 125/73 126/70 132/66 O2 Sat by Pulse 98 99 96 Oximetry 01/31/19 01/31/19 01/31/19 07:04 07:06 07:08 Temperature Pulse Rate Respiratory Rate Respiratory Rate [chest] Blood Pressure 132/94 132/94 132/94 O2 Sat by Pulse 100 99 99 Oximetry 01/31/19 01/31/19 01/31/19 07:10 07:12 07:14 Temperature Pulse Rate Respiratory Rate Respiratory Rate [chest] Blood Pressure 132/94 132/94 132/94 O2 Sat by Pulse 98 99 99 Oximetry 01/31/19 01/31/19 01/31/19 07:16 07:18 07:20 Temperature Pulse Rate Respiratory Rate Respiratory Rate [chest] Blood Pressure 132/94 132/94 132/94 O2 Sat by Pulse 99 99 99 Oximetry 01/31/19 01/31/19 01/31/19 07:22 07:24 07:26 Temperature Pulse Rate 74 Respiratory 16 Rate Respiratory Rate [chest] Blood Pressure 132/94 132/94 132/94 O2 Sat by Pulse 96 99 99 Oximetry 01/31/19 01/31/19 01/31/19 07:28 07:30 07:32 Temperature Pulse Rate 76 69 83 Respiratory 16 19 17 Rate Respiratory Rate [chest] Blood Pressure 132/94 132/94 132/94 O2 Sat by Pulse 99 99 100 Oximetry 01/31/19 01/31/19 01/31/19 07:34 07:36 07:38 Temperature Pulse Rate 76 82 70 Respiratory 19 18 12 Rate Respiratory Rate [chest] Blood Pressure 132/94 132/94 132/94 O2 Sat by Pulse 100 99 99 Oximetry 01/31/19 01/31/19 01/31/19 07:40 07:42 07:44 Temperature Pulse Rate 77 75 72 Respiratory 14 19 15 Rate Respiratory Rate [chest] Blood Pressure 132/94 132/94 132/94 O2 Sat by Pulse 99 99 100 Oximetry 01/31/19 01/31/19 01/31/19 07:46 07:48 07:50 Temperature Pulse Rate 81 78 75 Respiratory 16 16 15 Rate Respiratory Rate [chest] Blood Pressure 132/94 132/94 132/94 O2 Sat by Pulse 99 99 99 Oximetry 01/31/19 01/31/19 01/31/19 07:52 07:54 07:56 Temperature Pulse Rate 81 68 78 Respiratory 16 12 12 Rate Respiratory Rate [chest] Blood Pressure 132/94 132/94 132/94 O2 Sat by Pulse 100 100 98 Oximetry 01/31/19 01/31/19 01/31/19 07:58 08:00 08:02 Temperature Pulse Rate 73 68 73 Respiratory 10 L 16 17 Rate Respiratory Rate [chest] Blood Pressure 132/94 129/76 129/76 O2 Sat by Pulse 99 97 100 Oximetry 01/31/19 01/31/19 01/31/19 08:04 08:06 08:08 Temperature Pulse Rate 74 83 77 Respiratory 13 13 17 Rate Respiratory Rate [chest] Blood Pressure 129/76 129/76 129/76 O2 Sat by Pulse 99 99 100 Oximetry 01/31/19 01/31/19 01/31/19 08:10 08:12 08:13 Temperature Pulse Rate 82 76 67 Respiratory 18 16 15 Rate Respiratory Rate [chest] Blood Pressure 129/76 129/76 129/76 O2 Sat by Pulse 96 97 100 Oximetry 01/31/19 01/31/19 01/31/19 08:14 10:00 10:10 Temperature 97.9 F Pulse Rate 71 78 73 Respiratory 18 20 Rate Respiratory Rate [chest] Blood Pressure 129/76 140/87 O2 Sat by Pulse 98 Oximetry 01/31/19 11:30 Temperature Pulse Rate Respiratory 20 Rate Respiratory 18 Rate [chest] Blood Pressure O2 Sat by Pulse Oximetry - Laboratory Findings CBC and BMP: 01/31/19 04:37 01/31/19 04:37 Abnormal Lab Findings: Abnormal Labs 01/31/19 01/31/19 01/31/19 03:38 04:37 04:37 Hgb 11.6 L Hct 34.6 L RDW 12.4 L Seg Neuts % (Manual) 35.0 L Lymphocytes % (Manual) 52.0 H Monocytes % (Manual) 8.0 H Eosinophils % (Manual) 5.0 H Seg Neutrophils # Man 1.6 L Carbon Dioxide 20 L Glucose 186 H POC Glucose 163 H 01/31/19 07:49 Hgb Hct RDW Seg Neuts % (Manual) Lymphocytes % (Manual) Monocytes % (Manual) Eosinophils % (Manual) Seg Neutrophils # Man Carbon Dioxide Glucose POC Glucose 172 H
[2019-01-31] MEDS ORDERED: NEURONTIN PO SCH (22:00)
--- NOTE | 2019-02-01 03:38 | Consultation ---
HISTORY OF PRESENT ILLNESS: This is a 48-year-old black male who enters [facility] for onset of weakness of his left arm. He apparently awoke with his left arm being weak, numbness in hand, weakness in his distal left arm without speech difficulty, without facial weakness. Denied any headache. Apparently, he has been lifting weights recently, but did not injure his arm, did not injure his neck. He has no associated bowel or bladder symptoms. There is no associated weakness of limbs. The patient has at this point no noted allergies. Review of his MRA, MRI was unremarkable. He has also had a CT scan of the head, which has well been assessed and which has been entirely normal. In the interval since admission, he has had some improvement in strength. At this point, laboratories show his hematocrit to be 34.6. He has 8% monocytes. His chemistries show a sodium of 139, glucose of 186. Other glucose is 163 and 172. PHYSICAL EXAMINATION: VITAL SIGNS: His blood pressure is 114/80, pulse rate 80, respirations 18. NEUROLOGIC: Cranial nerves 2 through 12 are intact. Clearly, he does not have any facial weakness. He has a very clear cut wrist drop on the left side, doing a very detailed evaluation of distal muscles in his left arm. The extensor pollicis is weak to nonworking. He has weakness of his wrist dorsiflexion, but has minimal movement and he has also some minimal movement of his fingertip extension. He has no movement at all in his brachioradialis, but his biceps is very strong and easily flexes his arm, but on direct palpation of the brachioradialis muscle, there was no contractility of this muscle. I did a very careful palpation along the radial groove, ____. The nerve is not tender there. There is no cyst. No bony structures in the upper arm, posterior ulnar bone. He does not have Pillo's pupil. IMPRESSION: This patient has classical symptoms of a pure wrist drop; motor findings and sensory exam are also consistent with a radial palsy from the back of the forearm. I recommend ____ wrist drop. I do not think he has had a stroke at least based on MRI criteria and direct examination. I advised that he be started on ____ doses of B complex vitamins. I should note that he could be fitted with a distal wrist splint with occupational therapy. This often does improve recovery process. I explained the diagnosis to the patient, told him I do not think that this represents a stroke. Obviously, the patients who are diabetic, they are more prone to peripheral nerve injury and may have exacerbated weakness related to the presence of diabetes and glucose control with that and other medical management should be optimized. JOB# [id number] KARLEE/NTS
[2019-02-01 08:04] VITALS: BP 173/101
[2019-02-01 09:22] LABS: Chol/HDL Ratio 5.43 %
--- NOTE | 2019-02-01 09:23 | Discharge Summary ---
Providers - Providers Date of Admission: 01/31/19 05:32 Attending physician: RONALDO OLIVIA MD 01/31/19 Consult to Physician [CONS] Routine Comment: Consulting Provider: YORDY FERREIRA Physician Instructions: Reason For Exam: cvva 01/31/19 05:32 Occupational Therapy Evaluate and Treat [CONS] Routine Comment: Reason For Exam: Neuro deficits Physical Therapy Evaluation and Treat [CONS] Routine Comment: Reason For Exam: Neuro deficits Primary care physician: ZACHARY SUAZO Hospitalization Condition: Stable Hospital course: 48-year-old man with history of hypertension, diabetes and hyperlipidemia. Who presented to the hospital complaining of left hand weakness. The patient was admitted on stroke protocol. MRI and MRA of his head were negative. He received a neurology consult. His symptoms were consistent with left radial nerve palsy which is likely a consequence of uncontrolled diabetes. Neurology recommended re-splinting and outpatient follow-up -Patient had poorly controlled diabetes with hemoglobin A1c of 13.4, uncontrolled hyperlipidemia with LDL of 201. His medications were optimized and he was subsequently discharged. Diagnoses Stroke ruled out Left radial nerve palsy Uncontrolled type 2 diabetes Uncontrolled hyperlipidemia Hypertension Disposition: DC-01 TO HOME OR SELFCARE Time spent for discharge: 35 minutes Core Measure Documentation - Palliative Care Palliative Care/ Comfort Measures: Not Applicable - Core Measures Any of the following diagnoses?: none Exam - Constitutional Vitals: Temp Pulse Resp BP Pulse Ox 97.9 F 56 L 20 173/101 98 02/01/19 07:58 02/01/19 07:58 02/01/19 07:58 02/01/19 07:58 02/01/19 07:58 General appearance: Present: no acute distress, well-nourished - EENT Eyes: Present: PERRL ENT: hearing intact, clear oral mucosa - Neck Neck: Present: supple, normal ROM - Respiratory Respiratory effort: normal Respiratory: bilateral: CTA - Cardiovascular Heart Sounds: Present: S1 & S2. Absent: rub, click - Extremities Extremities: pulses symmetrical, No edema Peripheral Pulses: within normal limits - Abdominal General gastrointestinal: Present: soft, non-tender, non-distended, normal bowel sounds Male genitourinary: Present: normal - Integumentary Integumentary: Present: clear, warm, dry - Musculoskeletal Musculoskeletal: gait normal, strength equal bilaterally - Psychiatric Psychiatric: appropriate mood/affect, intact judgment & insight - Neurologic Neurologic: CNII-XII intact, moves all extremities Plan Follow up with: ZACHARY SUAZO MD [Primary Care Provider] - 3-5 Days YORDY FERREIRA MD [Staff Physician] - 7 Days Prescriptions: Insulin Glargine,Hum.rec.anlog [Lantus Solostar] 10 units SQ QHS #5 pen AtorvaSTATin [Lipitor] 40 mg PO QHS #30 tablet
== END 2019-02-01 13:10 | disposition home or self-care (01) | DRG 74 ==
LOC: ED 02:07 → SUATTDRO 02:07 → 4A 05:32
PROVIDERS: ADMIT Internal Medicine; ATTEND Internal Medicine
DX: G56.32 Lesion of radial nerve, left upper limb (principal); I10 Essential (primary) hypertension; E11.9 Type 2 diabetes mellitus without complications; I25.10 Atherosclerotic heart disease of native coronary artery without angina pectoris; M21.332 Wrist drop, left wrist; E78.5 Hyperlipidemia, unspecified; Z82.49 Family history of ischemic heart disease and other diseases of the circulatory system; Z79.899 Other long term (current) drug therapy; Z79.4 Long term (current) use of insulin; Z95.5 Presence of coronary angioplasty implant and graft; Z72.89 Other problems related to lifestyle
CPT/HCPCS: 36415; 70450; 70544; 70551; 80053; 80061; 82962; 83036; 85007; 85025; 85610; 85730; 93005; 93010; 93306; 93880; 96372; G0378; A9270-GY; J1650; J1815

== ENCOUNTER 2019-05-29 14:21 | Emergency (ER) | payer BC ==
--- NOTE | 2019-05-29 14:36 | Event Note ---
ED Screening Note Date of service: 05/29/19 Time: 14:31 ED Screening Note: This is a 48 y.o. M. that presents to the ER for elevated blood pressure and feeling jittery while at work. He checked blood pressure at [employer] while at work and reading 189/104. He remember taking multivitamins and insulin but can't recall if he took blood pressure medication. PMH of DM2 & HTN This initial assessment/diagnostic orders/clinical plan/treatment(s) is/are subject to change based on patients health status, clinical progression and re- assessment by fellow clinical providers in the ED. Further treatment and workup at subsequent clinical providers discretion. Patient/guardian urged not to elope from the ED as their condition may be serious if not clinically assessed and managed. Initial orders include: Accucheck 462 Labs
[2019-05-29] MEDS ORDERED: NACL 0.9% 1000 ML 1,000 ML IV ONE ×4 (14:52→16:50)
[2019-05-29] MEDS ORDERED: NORMODYNE IV ONE (14:52)
[2019-05-29] MEDS ORDERED: HumuLIN R IV ONE (14:52)
[2019-05-29 15:14] LABS: Basophils % (Auto) 0.8 % (0.0-1.8); Eosinophils # (Auto) 0.2 K/mm3 (0.0-0.4); Eosinophils % (Auto) 3.6 % (0.0-4.3); Hemoglobin 12.3 gm/dl (11.8-15.2); Lymphocytes # (Auto) 1.9 K/mm3 (1.2-5.4); Mean Corpuscular HGB Conc 34 % (32-34); Mean Corpuscular Volume 87 fl (84-94); Monocytes # (Auto) 0.4 K/mm3 (0.0-0.8); Monocytes % (Auto) 6.8 % (0.0-7.3); Platelet Count 289 K/mm3 (140-440); Red Blood Count 4.16 M/mm3 (3.65-5.03); Red Cell Distribution Width 13.4 % (13.2-15.2)
[2019-05-29 15:28] VITALS: BP 146/84
[2019-05-29 15:28] LABS: BUN/Creatinine Ratio 15; Blood Urea Nitrogen 16 mg/dL (9-20); Calcium 10.1 mg/dL (8.4-10.2); Hemolysis Index 9
[2019-05-29 16:06] LABS: Bilirubin,Urine NEG (Negative); Blood,Urine NEG (Negative); Color,Urine Colorless (Yellow); Protein,Urine <15 mg/dL mg/dL (Negative); Urobilinogen,Urine < 2.0 mg/dL (<2.0)
--- NOTE | 2019-05-29 16:55 | Emergency Department Report ---
ED General Adult HPI - General Chief complaint: High BP Stated complaint: HIGH BP Time Seen by Provider: 05/29/19 14:31 Source: patient Mode of arrival: Ambulatory Limitations: No Limitations - History of Present Illness Initial comments: Patient is a 48-year-old male with past medical history of insulin-dependent diabetes and hypertension who stated he felt very jittery earlier today. Patient states that after eating he stood up and felt as though he was going to pass out. The patient did not actually lose consciousness. Patient came to the emergency department to see with his issue may be. Patient states he did forget to take his blood pressure medicine this morning. Patient denies any chest pain shortness of breath fevers chills nausea vomiting. - Related Data Home Medications Medication Instructions Recorded Confirmed Last Taken Gabapentin [Neurontin] 800 mg PO QHS 01/31/19 01/31/19 Unknown Valsartan 320 mg PO DAILY 01/31/19 01/31/19 Unknown metFORMIN [Glucophage] 1,000 mg PO DAILY 01/31/19 01/31/19 Unknown Previous Rx's Medication Instructions Recorded Last Taken Type AtorvaSTATin [Lipitor] 40 mg PO QHS #30 tablet 02/01/19 Unknown Rx Insulin Glargine,Hum.rec.anlog 10 units SQ QHS #5 pen 02/01/19 Unknown Rx [Lantus Solostar] Allergies Allergy/AdvReac Type Severity Reaction Status Date / Time lisinopril Allergy Angioedema Verified 05/29/19 14:22 ED Review of Systems ROS: Stated complaint: HIGH BP Other details as noted in HPI Comment: All other systems reviewed and negative ED Past Medical Hx - Past Medical History Hx Hypertension: Yes Hx Congestive Heart Failure: No Hx Diabetes: Yes Hx Asthma: No Hx COPD: No Additional medical history: ENLARGED PROSTATE. high cholesterol. CAD, Heart stents - Surgical History Additional Surgical History: LEFT KNEE SURGERY - Social History Smoking Status: Never Smoker Substance Use Type: Alcohol - Medications Home Medications: Home Medications Medication Instructions Recorded Confirmed Last Taken Type Gabapentin [Neurontin] 800 mg PO QHS 01/31/19 01/31/19 Unknown History Valsartan 320 mg PO DAILY 01/31/19 01/31/19 Unknown History metFORMIN [Glucophage] 1,000 mg PO DAILY 01/31/19 01/31/19 Unknown History AtorvaSTATin [Lipitor] 40 mg PO QHS #30 tablet 02/01/19 Unknown Rx Insulin Glargine,Hum.rec.anlog 10 units SQ QHS #5 pen 02/01/19 Unknown Rx [Lantus Solostar] ED Physical Exam - General Limitations: No Limitations General appearance: alert, in no apparent distress - Head Head exam: Present: atraumatic, normocephalic - Eye Eye exam: Present: normal appearance - ENT ENT exam: Present: mucous membranes moist - Neck Neck exam: Present: normal inspection - Respiratory Respiratory exam: Present: normal lung sounds bilaterally. Absent: respiratory distress, wheezes, rales, rhonchi - Cardiovascular Cardiovascular Exam: Present: regular rate, normal rhythm. Absent: systolic murmur, diastolic murmur, rubs, gallop - GI/Abdominal GI/Abdominal exam: Present: soft, normal bowel sounds. Absent: distended, tenderness, guarding, rebound - Rectal Rectal exam: Present: deferred - Extremities Exam Extremities exam: Present: normal inspection - Back Exam Back exam: Present: normal inspection - Neurological Exam Neurological exam: Present: alert, oriented X3 - Psychiatric Psychiatric exam: Present: normal affect, normal mood - Skin Skin exam: Present: warm, dry, intact, normal color. Absent: rash ED Course Vital Signs 05/29/19 05/29/19 14:32 15:26 Temperature 98.0 F Pulse Rate 97 H 78 Respiratory 16 Rate Blood Pressure 184/98 146/84 O2 Sat by Pulse 99 Oximetry ED Medical Decision Making - Lab Data Result diagrams: 05/29/19 14:53 05/29/19 14:59 Lab Results 05/29/19 05/29/19 05/29/19 Range/Units 14:43 14:43 14:53 WBC 6.4 (4.5-11.0) K/mm3 RBC 4.16 (3.65-5.03) M/mm3 Hgb 12.3 (11.8-15.2) gm/dl Hct 36.0 (35.5-45.6) % MCV 87 (84-94) fl MCH 30 (28-32) pg MCHC 34 (32-34) % RDW 13.4 (13.2-15.2) % Plt Count 289 (140-440) K/mm3 Lymph % (Auto) 30.0 (13.4-35.0) % [place] % (Auto) 6.8 (0.0-7.3) % Eos % (Auto) 3.6 (0.0-4.3) % Baso % (Auto) 0.8 (0.0-1.8) % Lymph # 1.9 (1.2-5.4) K/mm3 [place] # 0.4 (0.0-0.8) K/mm3 Eos # 0.2 (0.0-0.4) K/mm3 Baso # 0.0 (0.0-0.1) K/mm3 Seg Neutrophils % 58.8 (40.0-70.0) % Seg Neutrophils # 3.7 (1.8-7.7) K/mm3 Sodium (137-145) mmol/L Potassium (3.6-5.0) mmol/L Chloride (98-107) mmol/L Carbon Dioxide (22-30) mmol/L Anion Gap mmol/L BUN (9-20) mg/dL Creatinine (0.8-1.5) mg/dL Estimated GFR ml/min BUN/Creatinine Ratio % Glucose (75-100) mg/dL POC Glucose 462 H (70-105) Calcium (8.4-10.2) mg/dL Urine Color Colorless (Yellow) Urine Turbidity Clear (Clear) Urine pH 6.0 (5.0-7.0) Ur Specific Morton 1.022 (1.003-1.030) Urine Protein <15 mg/dl (Negative) mg/dL Urine Glucose (UA) >=500 (Negative) mg/dL Urine Ketones Neg (Negative) mg/dL Urine Blood Neg (Negative) Urine Nitrite Neg (Negative) Urine Bilirubin Neg (Negative) Urine Urobilinogen < 2.0 (<2.0) mg/dL Ur Leukocyte Esterase Neg (Negative) Urine WBC (Auto) 0.0 (0.0-6.0) /HPF Urine RBC (Auto) 1.0 (0.0-6.0) /HPF 05/29/19 05/29/19 Range/Units 14:59 16:45 WBC (4.5-11.0) K/mm3 RBC (3.65-5.03) M/mm3 Hgb (11.8-15.2) gm/dl Hct (35.5-45.6) % MCV (84-94) fl MCH (28-32) pg MCHC (32-34) % RDW (13.2-15.2) % Plt Count (140-440) K/mm3 Lymph % (Auto) (13.4-35.0) % [place] % (Auto) (0.0-7.3) % Eos % (Auto) (0.0-4.3) % Baso % (Auto) (0.0-1.8) % Lymph # (1.2-5.4) K/mm3 [place] # (0.0-0.8) K/mm3 Eos # (0.0-0.4) K/mm3 Baso # (0.0-0.1) K/mm3 Seg Neutrophils % (40.0-70.0) % Seg Neutrophils # (1.8-7.7) K/mm3 Sodium 127 L (137-145) mmol/L Potassium 4.2 (3.6-5.0) mmol/L Chloride 88.9 L (98-107) mmol/L Carbon Dioxide 23 (22-30) mmol/L Anion Gap 19 mmol/L BUN 16 (9-20) mg/dL Creatinine 1.1 (0.8-1.5) mg/dL Estimated GFR > 60 ml/min BUN/Creatinine Ratio 15 % Glucose 460 H (75-100) mg/dL POC Glucose 289 H (70-105) Calcium 10.1 (8.4-10.2) mg/dL Urine Color (Yellow) Urine Turbidity (Clear) Urine pH (5.0-7.0) Ur Specific Morton (1.003-1.030) Urine Protein (Negative) mg/dL Urine Glucose (UA) (Negative) mg/dL Urine Ketones (Negative) mg/dL Urine Blood (Negative) Urine Nitrite (Negative) Urine Bilirubin (Negative) Urine Urobilinogen (<2.0) mg/dL Ur Leukocyte Esterase (Negative) Urine WBC (Auto) (0.0-6.0) /HPF Urine RBC (Auto) (0.0-6.0) /HPF - Medical Decision Making He is a 48-year-old male who is presenting with elevated blood pressure and hyperglycemia. Patient blood pressure did improve before needing aggressive antihypertensive therapies. Patient's did have a blood glucose of 46 2. Patient likely is very dehydrated secondary to the elevated pressure. Patient was given IV fluids and insulin and he is feeling much improved. Patient discharged home. Critical care attestation.: If time is entered above; I have spent that time in minutes in the direct care of this critically ill patient, excluding procedure time. ED Disposition Clinical Impression: Hyperglycemia, Dehydration, Hypertensive urgency Disposition: DC-01 TO HOME OR SELFCARE Is pt being admited?: No Does the pt Need Aspirin: No Condition: Stable Instructions: Diabetes Mellitus Type 2 in Adults (ED) Referrals: PRIMARY CARE, [Primary Care Provider] - 3-5 Days Time of Disposition: 16:56
== END 2019-05-29 17:48 | disposition home or self-care (01) ==
LOC: ED 14:21
DX: I16.0 Hypertensive urgency (principal); I10 Essential (primary) hypertension; E86.0 Dehydration; E11.65 Type 2 diabetes mellitus with hyperglycemia; E78.00 Pure hypercholesterolemia, unspecified; I25.10 Atherosclerotic heart disease of native coronary artery without angina pectoris; Z95.5 Presence of coronary angioplasty implant and graft; Z98.890 Other specified postprocedural states; Z79.899 Other long term (current) drug therapy; Z88.8 Allergy status to other drugs, medicaments and biological substances
CPT/HCPCS: 36415; 80048; 81001; 82962; 85025; 96361; 96374; 99283; J7030; J1815

== ENCOUNTER 2020-09-29 06:05 | Inpatient (IN) | payer BC ==
--- NOTE | 2020-09-29 06:51 | XRay Report ---
CHEST 1 VIEW INDICATION: Chest Pain. COMPARISON: 10/07/2017 FINDINGS: SUPPORT DEVICES: None. HEART: Within normal limits. LUNGS/PLEURA: Patchy right basilar airspace disease with otherwise clear lungs. ADDITIONAL FINDINGS: None. IMPRESSION: 1. Pulmonary findings as above. Signer Name: Lenin Carreno MD Signed: 09/29/2020 6:47 AM Workstation Name: [id number]
[2020-09-29] MEDS ORDERED: MORPHINE 4 MG/1 ML INJ IV ONE (06:57)
[2020-09-29] MEDS ORDERED: ONDANSETRON 4 MG/2 ML INJ IV ONE (06:57)
[2020-09-29] MEDS ORDERED: LACTATED RINGERS 500 ML IV ONE (06:57)
[2020-09-29] MEDS ORDERED: cefTRIAXone/NS 1 GM/50 ML 1 GM/50 ML BAG IV ONE (07:00)
[2020-09-29] MEDS ORDERED: SODIUM CHLORIDE 0.9% 1000 ML 1,000 ML IV ONE (07:01)
[2020-09-29] MEDS ORDERED: amLODIPine 5 MG TAB PO ONE (07:01)
--- NOTE | 2020-09-29 07:02 | Emergency Department Report ---
ED General Adult HPI - General Chief complaint: Chest Pain Stated complaint: RIGHT SIDE PAIN PUI?: No Time Seen by Provider: 09/29/20 06:37 Source: patient, RN notes reviewed, old records reviewed Mode of arrival: Ambulatory Limitations: No Limitations - History of Present Illness Initial comments: The patient was evaluated in the emergency department for symptoms described in the history of present illness. He/she was evaluated in the context of the global COVID-19 pandemic, which necessitated consideration that the patient might be at risk for infection with the virus that causes COVID-19. Institutional protocols and algorithms that pertain to the evaluation of patients at risk for COVID-19 are in a state of rapid change based on information released by regulatory bodies including the CDC and federal and state organizations. These policies and algorithms were followed during the patient's care in the emergency department. Please note that these policies, procedures and recommendations changed on a rapid basis. The patient is a 50-year-old gentleman. He is not known to myself previously. He does not have a primary care doctor currently. He is a past medical history of radial nerve palsy, hypertension, hyperlipidemia, type 2 diabetes. In 2017, had a cardiac catheterization at [facility], found to have ejection fraction 45 to 50%, with mild nonobstructive lesions of the LAD and circumflex vessels. The patient presents to the ER today with a complaint of nontraumatic right upper quadrant/right inferior thoracic, right lateral thoracic, and right posterior thoracic back pain. The pain increases with palpation, deep inspiration and coughing. No fever, no nausea, vomiting or diaphoresis, no central or left-sided chest pain, denies exertional shortness of breath, travel, surgery, oral contraceptive use, denies DVT and pulmonary embolism risk factors. He states that he is taking his friend's antihypertensive medication, occasionally. He does not have a primary care doctor at this time, and does not have prescriptions on his own that he is taking at this time. He has not really taken anything for pain. The patient states that he wears a mask at work, and has no loss of taste, no loss of smell. He has not been around any Covid positive individuals that he is aware of, and he also endorses that he frequently gets tested at work for Covid. -: Gradual, week(s) (1) Location: abdomen Radiation: back Quality: aching Consistency: constant Improves with: movement, rest, other (As per history of present illness) - Related Data Home Medications Medication Instructions Recorded Confirmed Last Taken Gabapentin [Neurontin] 800 mg PO QHS 01/31/19 01/31/19 Unknown metFORMIN [Glucophage] 1,000 mg PO DAILY 01/31/19 01/31/19 Unknown Previous Rx's Medication Instructions Recorded Last Taken Type AtorvaSTATin [Lipitor] 40 mg PO QHS #30 tablet 02/01/19 Unknown Rx Insulin Glargine,Hum.rec.anlog 10 units SQ QHS #5 pen 02/01/19 Unknown Rx [Lantus Solostar] Acetaminophen [Non-Aspirin Extra 500 mg PO Q6HR PRN #30 tablet 09/29/20 Unknown Rx Strength] Amlodipine Besylate [Norvasc] 5 mg PO QDAY #30 tablet 09/29/20 Unknown Rx Amoxicillin [Trimox CAP] 1,000 mg PO Q8H #28 capsule 09/29/20 Unknown Rx Azithromycin [Zithromax TAB] 250 mg PO QDAY #4 tablet 09/29/20 Unknown Rx Ibuprofen [Motrin] 400 mg PO Q8H PRN #30 tablet 09/29/20 Unknown Rx metFORMIN [Glucophage] 500 mg PO BID #60 tablet 09/29/20 Unknown Rx Allergies Allergy/AdvReac Type Severity Reaction Status Date / Time lisinopril Allergy Angioedema Verified 05/29/19 14:22 ED Review of Systems ROS: Stated complaint: RIGHT SIDE PAIN Other details as noted in HPI Constitutional: denies: fever, malaise, weakness Eyes: denies: vision change ENT: denies: epistaxis Respiratory: cough, shortness of breath Cardiovascular: denies: chest pain, palpitations, syncope Gastrointestinal: abdominal pain. denies: vomiting, hematemesis, melena, vinay tochezia Genitourinary: denies: urgency Musculoskeletal: back pain Skin: denies: lesions Neurological: denies: weakness Hematological/Lymphatic: denies: easy bleeding ED Past Medical Hx - Past Medical History Previous Medical History?: Yes Hx Hypertension: Yes Hx Congestive Heart Failure: No Hx Diabetes: Yes Hx Asthma: No Hx COPD: No Additional medical history: ENLARGED PROSTATE. high cholesterol. CAD, Heart stents - Surgical History Past Surgical History?: Yes Additional Surgical History: LEFT KNEE SURGERY - Social History Smoking Status: Never Smoker Substance Use Type: None - Medications Home Medications: Home Medications Medication Instructions Recorded Confirmed Last Taken Type Gabapentin [Neurontin] 800 mg PO QHS 01/31/19 01/31/19 Unknown History metFORMIN [Glucophage] 1,000 mg PO DAILY 01/31/19 01/31/19 Unknown History AtorvaSTATin [Lipitor] 40 mg PO QHS #30 tablet 02/01/19 Unknown Rx Insulin Glargine,Hum.rec.anlog 10 units SQ QHS #5 pen 02/01/19 Unknown Rx [Lantus Solostar] Acetaminophen [Non-Aspirin Extra 500 mg PO Q6HR PRN #30 tablet 09/29/20 Unknown Rx Strength] Amlodipine Besylate [Norvasc] 5 mg PO QDAY #30 tablet 09/29/20 Unknown Rx Amoxicillin [Trimox CAP] 1,000 mg PO Q8H #28 capsule 09/29/20 Unknown Rx Azithromycin [Zithromax TAB] 250 mg PO QDAY #4 tablet 09/29/20 Unknown Rx Ibuprofen [Motrin] 400 mg PO Q8H PRN #30 tablet 09/29/20 Unknown Rx metFORMIN [Glucophage] 500 mg PO BID #60 tablet 09/29/20 Unknown Rx ED Physical Exam - General Limitations: No Limitations General appearance: alert, in no apparent distress - Head Head exam: Present: atraumatic, normocephalic - Eye Eye exam: Present: normal appearance, EOMI. Absent: nystagmus - ENT ENT exam: Present: normal exam, normal orophraynx, mucous membranes moist, normal external ear exam - Neck Neck exam: Present: normal inspection, full ROM. Absent: tenderness, meningismus - Respiratory Respiratory exam: Present: rhonchi (Rhonchi noted in the right lower thorax, right posterior thorax, and right anterior thorax). Absent: respiratory distress, wheezes, rales, stridor - Cardiovascular Cardiovascular Exam: Present: normal rhythm, tachycardia, normal heart sounds. Absent: bradycardia, systolic murmur, diastolic murmur, rubs, gallop - GI/Abdominal GI/Abdominal exam: Present: soft, tenderness, normal bowel sounds, other (There is right upper quadrant tenderness.). Absent: distended, guarding, rebound, rigid, pulsatile mass - Rectal Rectal exam: Present: deferred - Extremities Exam Extremities exam: Present: normal inspection, full ROM, other (2+ pulses noted in the bilateral upper and lower extremities. There is no palpable cord. negative Homans sign. Muscular compartments are soft. The pelvis is stable.). Absent: pedal edema, calf tenderness - Back Exam Back exam: Present: normal inspection, full ROM. Absent: tenderness, CVA tenderness (R), CVA tenderness (L), paraspinal tenderness, vertebral tenderness - Neurological Exam Neurological exam: Present: alert, oriented X3, normal gait, other (No facial droop. Tongue midline. Extraocular movements intact bilaterally. Facial sensation intact to light touch in V1, V2, V3 distribution bilaterally. 5 and a 5 strength in 4 extremities. Sensation intact to light touch in 4 extremities.). Absent: motor sensory deficit - Psychiatric Psychiatric exam: Present: normal affect, normal mood - Skin Skin exam: Present: warm, dry, intact, normal color. Absent: rash ED Course Vital Signs 09/29/20 09/29/20 09/29/20 06:16 06:17 07:27 Temperature 98.2 F Pulse Rate 119 H Respiratory 18 18 Rate Blood Pressure 194/114 111/74 O2 Sat by Pulse 97 Oximetry 09/29/20 09/29/20 09/29/20 07:29 07:30 08:10 Temperature Pulse Rate 104 H 110 H 102 H Respiratory 22 28 H Rate Blood Pressure 111/74 126/104 O2 Sat by Pulse 95 95 Oximetry 09/29/20 09/29/20 09/29/20 08:16 08:32 08:46 Temperature Pulse Rate 104 H 102 H 103 H Respiratory 20 27 H 26 H Rate Blood Pressure 126/104 126/104 155/89 O2 Sat by Pulse 92 94 94 Oximetry 09/29/20 09/29/20 09:00 09:02 Temperature Pulse Rate 101 H Respiratory 21 18 Rate Blood Pressure 144/84 O2 Sat by Pulse 93 100 Oximetry - Reevaluation(s) Reevaluation #1: 09/29/20 07:26 Differential diagnosis, including but not limited to: Pneumonia, cholecystitis, medication noncompliance, hypoglycemia, electrolyte derangement Assessment and plan: 50-year-old gentleman with right inferior thoracic pain, increasing with coughing, right upper quadrant tenderness, has focal rhonchi in his right inferior hemithorax, suspicious for community-acquired pneumonia. He denies DVT and pulmonary embolism risk factors and I find him to be low risk by Wells criteria. Given history of noncompliance, check basic laboratory studies, obtain right upper quadrant ultrasound, initiate antibiotic therapy for clinical and radiographic pneumonia, and reassess. Not clinically suspect Covid at this time. Based off of the history, physical, EKG, do not suspect acute coronary syndrome at this time. Reevaluation #2: 09/29/20 08:34 Patient resting comfortably in stretcher at this time and in no acute distress. Right upper quadrant ultrasound negative for acute significant pathology, he did not have a sonographic Oscar sign, and his ultrasound is not suggestive of cholecystitis. I suspect that his right upper quadrant pain is secondary to diaphragmatic irritation, secondary to clinical and radiographic pneumonia. Hyponatremia is pseudohyponatremia, likely secondary to poorly controlled hyperglycemia. Insulin will be ordered, sodium correction is as follows: 132 mEq/L Corrected Sodium ([place], 1999) I have gone back to reevaluate the patient. He is increasing in his tachypnea, and he is tachycardic. He is ruling in for systemic inflammatory response syndrome, without severe sepsis, by manifestation of tachypnea, and tachycardia. He is also saturating at 91% on room air. He is not able to closely follow-up with an outpatient physician. Given presence of sepsis, hypoxia, it is my opinion that the patient would be best served by hospitalization for supportive care, fluids, antibiotics Do not suspect Covid at this time. I have discussed this plan of care with the patient, and he is amenable to adm ission/hospitalization. Inpatient team has requested Covid swab. Dr Wilton Hinojosa to admit Arterial blood gas is requested 09/29/20 08:38 09/29/20 08:40 09/29/20 08:41 09/29/20 08:57 09/29/20 09:41 Arterial blood gas demonstrates hypoxemic respiratory failure, PaO2 of 54.4 mmHg. Port/PSI score: 102 points Risk Class IV, 8.2-9.3% mortality. Hospitalization recommended based on risk. ED Medical Decision Making - Lab Data Result diagrams: 09/29/20 07:02 09/29/20 07:02 Vital Signs 09/29/20 09/29/20 06:16 06:17 Temperature 98.2 F Pulse Rate 119 H Respiratory 18 18 Rate Blood Pressure 194/114 O2 Sat by Pulse 97 Oximetry Lab Results 09/29/20 Range/Units 07:02 WBC 11.0 (4.5-11.0) K/mm3 RBC 3.66 (3.65-5.03) M/mm3 Hgb 10.9 L (11.8-15.2) gm/dl Hct 31.8 L (35.5-45.6) % MCV 87 (84-94) fl MCH 30 (28-32) pg MCHC 34 (32-34) % RDW 13.5 (13.2-15.2) % Plt Count 398 (140-440) K/mm3 Lymph % (Auto) 9.0 L (13.4-35.0) % [place] % (Auto) 5.8 (0.0-7.3) % Eos % (Auto) 0.7 (0.0-4.3) % Baso % (Auto) 0.3 (0.0-1.8) % Lymph # (Auto) 1.0 L (1.2-5.4) K/mm3 [place] # (Auto) 0.6 (0.0-0.8) K/mm3 Eos # (Auto) 0.1 (0.0-0.4) K/mm3 Baso # (Auto) 0.0 (0.0-0.1) K/mm3 Seg Neutrophils % 84.2 H (40.0-70.0) % Seg Neutrophils # 9.2 H (1.8-7.7) K/mm3 - EKG Data -: EKG Interpreted by Or EKG shows normal: sinus rhythm Rate: tachycardia - EKG Data Interpretation: unchanged when compared t 09/29/20 07:23 EKG today is compared to prior EKG from January 2019. Sinus tachycardia, rate 112 bpm, left axis deviation, left anterior fascicular block, poor R wave progression. Abnormal EKG. Not a STEMI. - Radiology Data Radiology results: report reviewed, image reviewed Print Report Referring Physician: KERRY GALAVIZ Patient Name: JOHNNA CORRAL Date of : 1970 Sex: Male Report Date: 2020-09-29 Report Status: Finalized Findings [facility] [address] [place] [address] XRay Report Signed Patient: JOHNNA CORRAL MR#: [id number] : 1970 Acct:[id number] Age/Sex: 50 / M ADM Date: 09/29/20 Loc: ED Attending Dr: Ordering Physician: KERRY GALAVIZ MD Date of Service: 09/29/20 Procedure(s): XR chest 1V ap Accession Number(s): [id number] cc: KERRY GALAVIZ MD Fluoro Time In Minutes: CHEST 1 VIEW INDICATION: Chest Pain. COMPARISON: 10/07/2017 FINDINGS: SUPPORT DEVICES: None. HEART: Within normal limits. LUNGS/PLEURA: Patchy right basilar airspace disease with otherwise clear lungs. ADDITIONAL FINDINGS: None. IMPRESSION: 1. Pulmonary findings as above. Signer Name: Lenin Carreno MD Signed: 09/29/2020 6:47 AM Workstation Name: [id number] Transcribed By: JW Dictated By: Lenin Carreno MD Electronically Authenticated By: Lenin Carreno MD Signed Date/Time: 09/29/20646 DD/ 5 Print Report Referring Physician: KERRY GALAVIZ Patient Name: JOHNNA CORRAL Date of : 1970 Sex: Male Report Date: 2020-09-29 Report Status: Finalized Findings [address] [address] Ultrasound Report Signed Patient: JOHNNA CORRAL MR#: [id number] : 1970 Acct:[id number] Age/Sex: 50 / M ADM Date: 09/29/20 Loc: ED Attending Dr: Ordering Physician: KERRY GALAVIZ MD Date of Service: 09/29/20 Procedure(s): US abdomen limited Accession Number(s): [id number] cc: KERRY GALAVIZ MD US abdomen limited INDICATION / CLINICAL INFORMATION: ruq pain. COMPARISON: None available. FINDINGS: Sludge are seen in the gallbladder with gallbladder wall thickness at the upper limits of normal measuring 3 mm. No definite stones are seen in the gallbladder. Common bile duct is normal measuring 5 mm. Diffuse fatty infiltration is seen in the liver without focal abnormality. The right kidney is normal in appearance. The pancreas was not well visualized. IMPRESSION: 1. Sludge in the gallbladder with gallbladder wall thickness at the upper limits of normal measuring 3 mm. No stones are seen in the gallbladder. 2. Diffuse fatty infiltration in the liver without focal abnormality Signer Name: Babar Zaldivar MD FACR Signed: 09/29/2020 8:24 AM Workstation Name: [id number] Transcribed By: MS Dictated By: Babar Zaldivar MD Electronically Authenticated By: Babar Zaldivar MD Signed Date/Time: 09/29/20823 DD/ 2 TD/TT: Critical care attestation.: If time is entered above; I have spent that time in minutes in the direct care of this critically ill patient, excluding procedure time. ED Disposition Clinical Impression: Non-compliance, Hyperglycemia, Elevated blood pressure reading, Right upper quadrant abdominal pain, SIRS (systemic inflammatory response syndrome), Acute hypoxemic respiratory failure Community acquired pneumonia Qualifiers: Laterality: right Lung location: lower lobe of lung Qualified Code(s): J18.9 - Pneumonia, unspecified organism Disposition: OP ADMIT IP TO THIS HOSP Is pt being admited?: Yes Does the pt Need Aspirin: No Condition: Fair
[2020-09-29 07:20] LABS: Basophils % (Auto) 0.3 % (0.0-1.8); Eosinophils # (Auto) 0.1 K/mm3 (0.0-0.4); Eosinophils % (Auto) 0.7 % (0.0-4.3); Hematocrit 31.8 % (35.5-45.6); Hemoglobin 10.9 gm/dl (11.8-15.2); Mean Corpuscular HGB Conc 34 % (32-34); Mean Corpuscular Volume 87 fl (84-94); Monocytes # (Auto) 0.6 K/mm3 (0.0-0.8); Monocytes % (Auto) 5.8 % (0.0-7.3); Platelet Count 398 K/mm3 (140-440); Red Blood Count 3.66 M/mm3 (3.65-5.03); Red Cell Distribution Width 13.5 % (13.2-15.2)
[2020-09-29] MEDS ORDERED: AZITHROMYCIN 500 MG in SODIUM CHLORIDE 0.9% 250ML 250 ML IV SCH (07:30)
[2020-09-29 07:34] LABS: INR 1.05 (0.87-1.13)
[2020-09-29 07:35] LABS: BUN/Creatinine Ratio 9; Blood Urea Nitrogen 9 mg/dL (9-20); Calcium 9.6 mg/dL (8.4-10.2); Hemolysis Index 2
[2020-09-29 07:37] LABS: Alanine Aminotransferase 12 units/L (7-56); Albumin 3.5 g/dL (3.9-5)
[2020-09-29 08:06] LABS: Bilirubin,Direct < 0.2 mg/dL (0-0.2)
--- NOTE | 2020-09-29 08:28 | Ultrasound Report ---
US abdomen limited INDICATION / CLINICAL INFORMATION: ruq pain. COMPARISON: None available. FINDINGS: Sludge are seen in the gallbladder with gallbladder wall thickness at the upper limits of normal fermin uring 3 mm. No definite stones are seen in the gallbladder. Common bile duct is normal measuring 5 mm . Diffuse fatty infiltration is seen in the liver without focal abnormality. The right kidney is norm al in appearance. The pancreas was not well visualized. IMPRESSION: 1. Sludge in the gallbladder with gallbladder wall thickness at the upper limits of normal measuring 3 mm. No stones are seen in the gallbladder. 2. Diffuse fatty infiltration in the liver without focal abnormality Signer Name: Babar Zaldivar MD FACR Signed: 09/29/2020 8:24 AM Workstation Name: [id number]
[2020-09-29] MEDS ORDERED: INSULIN REGULAR, HUMAN 100 UNIT/ML 3ML VIAL IV ONE (08:40)
[2020-09-29] MEDS ORDERED: INSULIN REGULAR, HUMAN 100 UNITS/1 ML ONE (09:00)
[2020-09-29] MEDS ORDERED: ONDANSETRON 4 MG/2 ML INJ IV PRN (09:20)
[2020-09-29] MEDS ORDERED: DEXTROSE 50% IN WATER (25GM) 50 ML SYRINGE IV PRN (09:20)
--- NOTE | 2020-09-29 09:43 | History and Physical Report ---
<HENRY WHITMAN - Last Filed: 09/29/20 11:22> History of Present Illness Date of examination: 09/29/20 History of present illness: This is 50 year old male with hypertension, diabetes, enlarged prostate, HLD, radial nerve palsy and noncompliance who presented to the emergency department with right sided pleurtic pain with right sided posterior and lateral with inspiration and movement for about 1 week associated with nonproductive cough and shortness of breath. Patient denies left sided chest pain, fevers, chills, hemoptysis, weight loss, fatigue, loss of sense of taste or smell, nausea, vomiting, or diarrhea. Patient denies any recent sick contacts or known exposure to COVID-19. Work-up in the emergency department included a CXR which shows patchy right lower lobe infiltrates, abdominal ultrasound shows sludge in the gallbladder with gallbladder wall thickness without cholelithiasis and diffuse fatty infiltration of the liver, labs show hyponatremiaat 129 (corrected sodium for hyperglycemia is 131), hypochloremia and 91.3, and hyperglycemia 226. COVID-19 PCR pending. Patient will be admitted to the hospital service for community-acquired pneumonia, COVID-19 PUI and infectious disease has been consulted. Prior visits reviewed, home medications reconciled and advanced care planning conducted in the emergency department Past History Past Medical History: diabetes, hypertension, hyperlipidemia Past Surgical History: Other (Meniscus tear repair) Social history: , lives with family, full code. denies: smoking, alcohol abuse, prescription drug abuse, IV drug use Family history: hypertension Medications and Allergies Allergies Allergy/AdvReac Type Severity Reaction Status Date / Time lisinopril Allergy Angioedema Verified 05/29/19 14:22 Home Medications Medication Instructions Recorded Confirmed Last Taken Type Lispro Insulin [HumaLOG] 10 unit SQ TID 09/29/20 09/29/20 Unknown History Valsartan/Hydrochlorothiazide 1 each PO QDAY 09/29/20 09/29/20 Unknown History [Valsartan-Hctz 80-12.5 mg Tab] Active Meds: Active Medications Acetaminophen (Tylenol) 650 mg PO Q4H PRN PRN Reason: Pain MILD(1-3)/Fever >100.5/VAUGHN Amlodipine Besylate (Amlodipine) 5 mg PO QDAY [facility] Atorvastatin Calcium (Lipitor) 40 mg PO QHS [facility] Dextrose (D50w (25gm) Syringe) 50 ml IV Q30MIN PRN; Protocol PRN Reason: Hypoglycemia Docusate Sodium (Colace) 100 mg PO BID [facility] Gabapentin (Gabapentin) 800 mg PO QHS [facility] Azithromycin 500 mg/ Sodium (Chloride) 250 mls @ 250 mls/hr IV ONCE [facility]; Protocol Stop: 09/29/20 10:30 Last Admin: 09/29/20 08:35 Dose: 250 mls/hr Documented by: Azithromycin 500 mg/ Sodium (Chloride) 250 mls @ 250 mls/hr IV Q24HR [facility]; Protocol Ceftriaxone Sodium (Rocephin/Ns 2 Gm/100 Ml) 2 gm in 100 mls @ 200 mls/hr IV Q24HR [facility]; Protocol Ceftriaxone Sodium (Rocephin/Ns 1 Gm/50 Ml) 1 gm in 50 mls @ 100 mls/hr IV ONCE [facility]; Protocol Stop: 09/29/20 12:00 Insulin Glargine (Lantus) 10 units SUB-Q QHS [facility] Insulin Human Lispro (Humalog) 0 unit SUB-Q ACHS [facility]; Protocol Ondansetron HCl (Zofran) 4 mg IV Q6HR PRN PRN Reason: Nausea And Vomiting Oxycodone/Acetaminophen (Percocet 5/325) 1 tab PO Q6H PRN PRN Reason: Pain, Moderate (4-6) Sodium Chloride (Sodium Chloride Flush Syringe 10 Ml) 10 ml IV BID [facility] Sodium Chloride (Sodium Chloride Flush Syringe 10 Ml) 10 ml IV PRN PRN PRN Reason: LINE FLUSH Review of Systems Constitutional: no weight loss, no weight gain, no fever, no chills, no sweats, no night sweats, no anorexia, no fatigue, no weakness, no malaise, no lethargy, no poor appetite Ears, nose, mouth and throat: no ear pain, no ear discharge, no tinnitis, no decreased hearing, no nose pain, no nasal congestion, no nasal discharge, no sinus pressure, no sinus pain, no epistaxis, no bleeding gums, no hoarseness, no sore throat Cardiovascular: shortness of breath, high blood pressure, no chest pain, no orthopnea, no palpitations, no rapid/irregular heart beat, no edema, no syncope, no lightheadedness, no leg edema Respiratory: cough, shortness of breath, pleurisy, pain on inspiration Gastrointestinal: no abdominal pain, no nausea, no vomiting, no diarrhea, no constipation, no change in bowel habits, no hematemesis, no coffee ground emesis, no BRBPR, no melena, no hematochezia, no loss of appetite, no heartburn Genitourinary Male: no dysuria, no hematuria, no flank pain, no discharge, no urinary frequency, no urinary hesitancy, no nocturia Rectal: no pain Musculoskeletal: no neck stiffness, no neck pain, no shooting arm pain, no arm numbness/tingling, no low back pain, no shooting leg pain, no leg numbness/tingling, no frequent falls, no fractures Integumentary: no rash, no pruritis, no redness, no sores, no wounds, no jaundice, no blisters Neurological: tingling, no head injury, no transient paralysis, no paralysis, no weakness, no parathesias, no numbness, no seizures, no syncope, no tremors, no vertigo, no headaches, no convulsions, no change in speech, no change in mentation, no changes in smell/taste, no sensory deficit, no double vision Psychiatric: no anxiety, no memory loss, no change in sleep habits, no sleep disturbances, no insomnia Endocrine: no cold intolerance, no heat intolerance, no polyphagia, no excessive thirst, no polydipsia, no polyuria, no nocturia, no excessive sweating, no high blood sugars, no low blood sugars Hematologic/Lymphatic: no easy bruising, no lymphadenopathy Allergic/Immunologic: no urticaria, no allergic rhinitis, no wheezing Exam - Constitutional Vitals: Temp Pulse Resp BP Pulse Ox 98.2 F 101 H 18 144/84 100 09/29/20 06:16 09/29/20 09:00 09/29/20 09:02 09/29/20 09:00 09/29/20 09:02 General appearance: Present: no acute distress - EENT Eyes: Present: PERRL, EOM intact ENT: hearing intact, clear oral mucosa - Neck Neck: Present: supple, normal ROM - Respiratory Respiratory effort: normal Respiratory: right: diminished - Cardiovascular Rhythm: regular Heart Sounds: Present: S1 & S2. Absent: systolic murmur, diastolic murmur - Extremities Extremities: no ischemia, pulses intact, pulses symmetrical, No edema, normal temperature, normal color, Full ROM Peripheral Pulses: within normal limits - Abdominal General gastrointestinal: Present: soft, non-tender, non-distended, normal bowel sounds - Integumentary Integumentary: Present: clear, warm, dry - Musculoskeletal Musculoskeletal: strength equal bilaterally - Psychiatric Psychiatric: cooperative - Neurologic Neurologic: CNII-XII intact, no focal deficits, moves all extremities - Allied Health Allied health notes reviewed: nursing HEART Score - HEART Score Troponin: WBC 11.0 K/mm3 (4.5-11.0) 09/29/20 07:02 RBC 3.66 M/mm3 (3.65-5.03) 09/29/20 07:02 Hgb 10.9 gm/dl (11.8-15.2) L 09/29/20 07:02 Hct 31.8 % (35.5-45.6) L 09/29/20 07:02 MCV 87 fl (84-94) 09/29/20 07:02 MCH 30 pg (28-32) 09/29/20 07:02 MCHC 34 % (32-34) 09/29/20 07:02 RDW 13.5 % (13.2-15.2) 09/29/20 07:02 Plt Count 398 K/mm3 (140-440) 09/29/20 07:02 Lymph % (Auto) 9.0 % (13.4-35.0) L 09/29/20 07:02 Cascade % (Auto) 5.8 % (0.0-7.3) 09/29/20 07:02 Eos % (Auto) 0.7 % (0.0-4.3) 09/29/20 07:02 Baso % (Auto) 0.3 % (0.0-1.8) 09/29/20 07:02 Lymph # (Auto) 1.0 K/mm3 (1.2-5.4) L 09/29/20 07:02 Cascade # (Auto) 0.6 K/mm3 (0.0-0.8) 09/29/20 07:02 Eos # (Auto) 0.1 K/mm3 (0.0-0.4) 09/29/20 07:02 Baso # (Auto) 0.0 K/mm3 (0.0-0.1) 09/29/20 07:02 Seg Neutrophils % 84.2 % (40.0-70.0) H 09/29/20 07:02 Seg Neutrophils # 9.2 K/mm3 (1.8-7.7) H 09/29/20 07:02 PT 13.5 Sec. (12.2-14.9) 09/29/20 07:02 INR 1.05 (0.87-1.13) 09/29/20 07:02 Sodium 129 mmol/L (137-145) L 09/29/20 07:02 Potassium 4.2 mmol/L (3.6-5.0) 09/29/20 07:02 Chloride 91.3 mmol/L (98-107) L 09/29/20 07:02 Carbon Dioxide 29 mmol/L (22-30) 09/29/20 07:02 Anion Gap 13 mmol/L 09/29/20 07:02 BUN 9 mg/dL (9-20) 09/29/20 07:02 Creatinine 1.0 mg/dL (0.8-1.3) 09/29/20 07:02 Estimated GFR > 60 ml/min 09/29/20 07:02 BUN/Creatinine Ratio 9 % 09/29/20 07:02 Glucose 226 mg/dL (75-100) H 09/29/20 07:02 Lactic Acid 1.80 mmol/L (0.7-2.0) 09/29/20 07:07 Calcium 9.6 mg/dL (8.4-10.2) 09/29/20 07:02 Magnesium 2.00 mg/dL (1.7-2.3) 09/29/20 07:02 Total Bilirubin 0.50 mg/dL (0.1-1.2) 09/29/20 07:02 Direct Bilirubin < 0.2 mg/dL (0-0.2) 09/29/20 07:02 Indirect Bilirubin 0.3 mg/dL 09/29/20 07:02 AST 12 units/L (5-40) 09/29/20 07:02 ALT 12 units/L (7-56) 09/29/20 07:02 Alkaline Phosphatase 120 units/L (35-129) 09/29/20 07:02 Total Creatine Kinase 127 units/L (55-170) 09/29/20 07:02 Troponin T < 0.010 ng/mL (0.00-0.029) 09/29/20 07:02 Total Protein 8.0 g/dL (6.3-8.2) 09/29/20 07:02 Albumin 3.5 g/dL (3.9-5) L 09/29/20 07:02 Albumin/Globulin Ratio 0.8 % 09/29/20 07:02 Lipase 19 units/L (13-60) 09/29/20 07:02 Results - Labs CBC & Chem 7: 09/29/20 07:02 09/29/20 07:02 Labs: Abnormal lab results 09/29/20 09/29/20 09/29/20 Range/Units 07:02 07:02 07:02 Hgb 10.9 L (11.8-15.2) gm/dl Hct 31.8 L (35.5-45.6) % Lymph % (Auto) 9.0 L (13.4-35.0) % Lymph # (Auto) 1.0 L (1.2-5.4) K/mm3 Seg Neutrophils % 84.2 H (40.0-70.0) % Seg Neutrophils # 9.2 H (1.8-7.7) K/mm3 Sodium 129 L (137-145) mmol/L Chloride 91.3 L (98-107) mmol/L Glucose 226 H (75-100) mg/dL Albumin 3.5 L (3.9-5) g/dL - Imaging and Cardiology Chest x-ray: report reviewed (Patchy right basilar airspace disease with otherwise clear lungs. ), image reviewed US - abdomen: report reviewed (1. Sludge in the gallbladder with gallbladder wall thickness at the upper limits of normal ) Assessment and Plan - Patient Problems (1) Sepsis Current Visit: Yes Status: Acute Plan to address problem: Presented with tachycardia, tachypnea, with pneumonia on CXR Antibiotic therapy Trend CBC Infectious disease consult 09/29 Blood culture x2 09/29 UA pending (2) Community acquired pneumonia Current Visit: Yes Status: Acute Qualifiers: Laterality: right Lung location: lower lobe of lung Qualified Code(s): J18.9 - Pneumonia, unspecified organism Plan to address problem: 10/26 CXR shows patchy right basilar airspace disease with otherwise clear lungs. Antibiotic therapy: Ceftriaxone, azithromycin Infectious disease consulted Supplementary oxygen as needed Pulmonary hygiene CXR Pneumonia protocol activated (3) Person under investigation for COVID-19 Current Visit: Yes Status: Acute Plan to address problem: 09/28 COVID-19 PCR pending Droplet/contact isolation OOB 3 times daily Patient is on room air therefore no indication for dexamethasone Azithromycin and ceftriaxone initiated Infectious disease Pulmonary hygiene Supplemental oxygenation as needed Trend Covid markers: LDH, ferritin, D-dimer, CRP, procalcitonin pending Continuous SPO2 monitoring (5) Diabetes mellitus Current Visit: Yes Status: Chronic Plan to address problem: Patient home blood glucose monitoring machine malfunctions intermittently 09/29 hemoglobin A1c pending CC cardiac diet Accu-Cheks before meals and at bedtime SSI Restarted home Lantus (6) Non-compliance Current Visit: Yes Status: Chronic Plan to address problem: Patient does not have a PCP Patient has been noncompliant with his medications Case management consult Patient states that his blood glucose monitor at home malfunctions occasionally (7) Hypertension Current Visit: Yes Status: Chronic Plan to address problem: S/p Norvasc in the ED for hypertension Takes valsartan at home however has been noncompliant Restarted home antihypertensive regimen Blood pressure monitoring per protocol Hydralazine IV as needed for SBP >160 (8) Hypochloremia Current Visit: Yes Status: Acute Plan to address problem: Presented with a chloride of 91.3 Continue to monitor s/p 1500 mL bolus in the emergency department Trend BMP (9) Hyponatremia Current Visit: No Status: Acute Plan to address problem: Presented with a sodium of 129 with hyperglycemia of 226 Corrected sodium 132 Continue to monitor s/p 1500 mL bolus in the emergency department Trend BMP (11) Hyperlipidemia Current Visit: No Status: Chronic Plan to address problem: Restarted home statin therapy (12) DVT prophylaxis Current Visit: No Status: Acute Plan to address problem: Heparin subcu SCDs to bilateral lower extremities while in bed (13) Full code status Current Visit: Yes Status: Acute <ARACELY PARRISH R - Last Filed: 10/01/20 01:18> History of Present Illness Date of admission: 09/30/20 11:30 Chief complaint: rightsided chest pain, cough and SOB Medications and Allergies Active Meds: Active Medications Acetaminophen (Tylenol) 650 mg PO Q4H PRN PRN Reason: Pain MILD(1-3)/Fever >100.5/VAUGHN Last Admin: 09/30/20 17:38 Dose: 650 mg Documented by: Atorvastatin Calcium (Lipitor) 40 mg PO QHS [facility] Last Admin: 09/30/20 22:04 Dose: 40 mg Documented by: Dextrose (D50w (25gm) Syringe) 50 ml IV Q30MIN PRN; Protocol PRN Reason: Hypoglycemia Docusate Sodium (Colace) 100 mg PO BID [facility] Last Admin: 09/30/20 22:04 Dose: 100 mg Documented by: Gabapentin (Gabapentin) 800 mg PO QHS [facility] Last Admin: 09/30/20 22:04 Dose: 800 mg Documented by: Heparin Sodium (Porcine) (Heparin) 5,000 unit SUB-Q Q8HR [facility] Last Admin: 09/30/20 22:05 Dose: 5,000 unit Documented by: Azithromycin 500 mg/ Sodium (Chloride) 250 mls @ 250 mls/hr IV Q24HR [facility]; Protocol Last Admin: 09/30/20 11:11 Dose: 250 mls/hr Documented by: Ceftriaxone Sodium (Rocephin/Ns 2 Gm/100 Ml) 2 gm in 100 mls @ 200 mls/hr IV Q24HR [facility]; Protocol Last Admin: 09/30/20 10:06 Dose: 200 mls/hr Documented by: Insulin Glargine (Lantus) 10 units SUB-Q QHS [facility] Last Admin: 10/01/20 00:34 Dose: Not Given Documented by: Insulin Human Lispro (Humalog) 0 unit SUB-Q [facility]; Protocol Last Admin: 10/01/20 00:33 Dose: Not Given Documented by: Morphine Sulfate (Morphine) 2 mg IV Q4H PRN PRN Reason: Pain, Moderate (4-6) Last Admin: 09/30/20 14:13 Dose: 2 mg Documented by: Ondansetron HCl (Zofran) 4 mg IV Q6HR PRN PRN Reason: Nausea And Vomiting Oxycodone/Acetaminophen (Percocet 5/325) 1 tab PO Q6H PRN PRN Reason: Pain, Moderate (4-6) Last Admin: 09/30/20 22:05 Dose: 1 tab Documented by: Sodium Chloride (Sodium Chloride Flush Syringe 10 Ml) 10 ml IV BID [facility] Last Admin: 10/01/20 00:35 Dose: 10 ml Documented by: Sodium Chloride (Sodium Chloride Flush Syringe 10 Ml) 10 ml IV PRN PRN PRN Reason: LINE FLUSH Tramadol HCl (Ultram) 50 mg PO Q6H PRN PRN Reason: Pain, Moderate (4-6) Last Admin: 09/30/20 13:00 Dose: 50 mg Documented by: Valsartan (Diovan) 80 mg PO QDAY [facility] Last Admin: 09/30/20 10:04 Dose: 80 mg Documented by: Exam - Constitutional Vitals: Temp Pulse Resp BP Pulse Ox 99.5 F 99 H 20 158/94 96 09/30/20 22:33 09/30/20 22:33 09/30/20 22:33 09/30/20 22:33 09/30/20 22:33 HEART Score - HEART Score Troponin: Troponin T < 0.010 ng/mL (0.00-0.029) 09/29/20 07:02 Results - Labs CBC & Chem 7: 09/30/20 05:11 09/30/20 05:11 Labs: Abnormal lab results 09/30/20 09/30/20 09/30/20 Range/Units 05:11 05:11 08:09 WBC 11.9 H (4.5-11.0) K/mm3 RBC 3.14 L (3.65-5.03) M/mm3 Hgb 9.0 L (11.8-15.2) gm/dl Hct 27.9 L (35.5-45.6) % Lymph % (Auto) 12.4 L (13.4-35.0) % Cascade % (Auto) 8.7 H (0.0-7.3) % Cascade # (Auto) 1.0 H (0.0-0.8) K/mm3 Seg Neutrophils % 77.8 H (40.0-70.0) % Seg Neutrophils # 9.2 H (1.8-7.7) K/mm3 Sodium 136 L D (137-145) mmol/L Chloride 96.1 L (98-107) mmol/L Glucose 136 H (75-100) mg/dL POC Glucose 112 H (70-105) mg/dL 09/30/20 Range/Units 12:09 WBC (4.5-11.0) K/mm3 RBC (3.65-5.03) M/mm3 Hgb (11.8-15.2) gm/dl Hct (35.5-45.6) % Lymph % (Auto) (13.4-35.0) % Cascade % (Auto) (0.0-7.3) % Cascade # (Auto) (0.0-0.8) K/mm3 Seg Neutrophils % (40.0-70.0) % Seg Neutrophils # (1.8-7.7) K/mm3 Sodium (137-145) mmol/L Chloride (98-107) mmol/L Glucose (75-100) mg/dL POC Glucose 181 H (70-105) mg/dL Assessment and Plan I saw and evaluated the patient. I agree with the findings and the plan of care as documented in the Nurse Practitioner's~note.
[2020-09-29] MEDS ORDERED: cefTRIAXone/NS 1 GM/50 ML 1 GM/50 ML BAG IV SCH (10:00)
[2020-09-29] MEDS ORDERED: VALSARTAN 40 MG TAB PO SCH (10:00)
[2020-09-29] MEDS ORDERED: cefTRIAXone/NS 2 GM/100 ML 2 GM/100 ML BAG IV SCH (10:00)
[2020-09-29] MEDS ORDERED: DOCUSATE SODIUM 100 MG CAP ONE (11:59)
[2020-09-29] MEDS: DOCUSATE SODIUM 100 MG CAP PO SCH ×2 (12:02→22:13)
[2020-09-29] MEDS: INSULIN LISPRO 100 UNIT/ML VIAL 3 mL SUB-Q SCH ×3 (12:03→22:20)
--- NOTE | 2020-09-29 12:42 | Consultation ---
History of Present Illness - Reason for Consult Consult date: 09/29/20 - History of Present Illness 50-year-old man past medical history hypertension, diabetes, BPH, hyperlipidemia presented to hospital complaining of right-sided pleuritic pain with associated cough and shortness of breath. Denies any fevers, sweats, chills. He denies any recent known exposures to Covid. Found to have right lower lobe infiltrates and hyponatremia on admission. Afebrile with a white count of 11. Covid testing pending blood cultures pending. Currently on ceftriaxone azithromycin. Imaging personally viewed: Chest x-ray: Patchy right basilar airspace disease. Abdominal ultrasound: Sludge in the gallbladder Review of Systems: Bold if positive, otherwise negative General: fevers, chills, rigors HEENT: visual disturbance, diplopia, eye pain Respiratory: cough, sputum, hemoptysis, shortness of breath Cardiovascular: chest pain, syncope Gastrointestinal: nausea, vomiting, diarrhea, abdominal pain Genitourinary: dysuria, hematuria, flank pain Musculoskeletal: neck pain, back pain, joint pain, edema Neurologic: headaches, seizures Hematologic: easy bruising or bleeding Endocrine: night sweats, acute weight loss Skin: rash, jaundice, redness Psychiatric: suicidal, homicidal ideation Past History Past Medical History: diabetes, hypertension, hyperlipidemia Past Surgical History: Other (Meniscus tear repair) Social history: , lives with family, full code. denies: smoking, alcohol abuse, prescription drug abuse, IV drug use Family history: hypertension Medications and Allergies Allergies Allergy/AdvReac Type Severity Reaction Status Date / Time lisinopril Allergy Angioedema Verified 05/29/19 14:22 Home Medications Medication Instructions Recorded Confirmed Last Taken Type Lispro Insulin [HumaLOG] 10 unit SQ TID 09/29/20 09/29/20 Unknown History Valsartan/Hydrochlorothiazide 1 each PO QDAY 09/29/20 09/29/20 Unknown History [Valsartan-Hctz 80-12.5 mg Tab] Active Meds: Active Medications Acetaminophen (Tylenol) 650 mg PO Q4H PRN PRN Reason: Pain MILD(1-3)/Fever >100.5/VAUGHN Atorvastatin Calcium (Lipitor) 40 mg PO QHS [facility] Dextrose (D50w (25gm) Syringe) 50 ml IV Q30MIN PRN; Protocol PRN Reason: Hypoglycemia Docusate Sodium (Colace) 100 mg PO BID [facility] Gabapentin (Gabapentin) 800 mg PO QHS [facility] Heparin Sodium (Porcine) (Heparin) 5,000 unit SUB-Q Q12HR [facility] Azithromycin 500 mg/ Sodium (Chloride) 250 mls @ 250 mls/hr IV Q24HR [facility]; Protocol Ceftriaxone Sodium (Rocephin/Ns 2 Gm/100 Ml) 2 gm in 100 mls @ 200 mls/hr IV Q24HR [facility]; Protocol Insulin Glargine (Lantus) 10 units SUB-Q QHS [facility] Insulin Human Lispro (Humalog) 0 unit SUB-Q ACHS [facility]; Protocol Last Admin: 09/29/20 12:03 Dose: Not Given Documented by: Ondansetron HCl (Zofran) 4 mg IV Q6HR PRN PRN Reason: Nausea And Vomiting Oxycodone/Acetaminophen (Percocet 5/325) 1 tab PO Q6H PRN PRN Reason: Pain, Moderate (4-6) Sodium Chloride (Sodium Chloride Flush Syringe 10 Ml) 10 ml IV BID [facility] Sodium Chloride (Sodium Chloride Flush Syringe 10 Ml) 10 ml IV PRN PRN PRN Reason: LINE FLUSH Valsartan (Diovan) 80 mg PO QDAY [facility] Physical Examination - Physical Exam Narrative exam: Physical exam deferred due to PPE conservation strategy. Please refer to primary team's note. - Constitutional Vitals: Vital Signs Temp Pulse Resp BP Pulse Ox 98.2 F 101 H 18 144/84 100 09/29/20 06:16 09/29/20 09:00 09/29/20 09:02 09/29/20 09:00 09/29/20 09:02 Temperature -Last 24 Hours Temperature 98.2 F Results - Labs CBC & Chem 7: 09/29/20 07:02 09/29/20 07:02 Labs: Abnormal lab results 09/29/20 09/29/20 09/29/20 Range/Units 07:02 07:02 07:02 Hgb 10.9 L (11.8-15.2) gm/dl Hct 31.8 L (35.5-45.6) % Lymph % (Auto) 9.0 L (13.4-35.0) % Lymph # (Auto) 1.0 L (1.2-5.4) K/mm3 Seg Neutrophils % 84.2 H (40.0-70.0) % Seg Neutrophils # 9.2 H (1.8-7.7) K/mm3 POC ABG pO2 (83-108) mmHg ABG Oxyhemoglobin (94-98) ABG Sodium (136.0-145.0) mmol/L ABG Chloride (98-107) mmol/L ABG Glucose (65-95) mg/dL Carboxyhemoglobin (0.5-1.5) Sodium 129 L (137-145) mmol/L Chloride 91.3 L (98-107) mmol/L Glucose 226 H (75-100) mg/dL Albumin 3.5 L (3.9-5) g/dL Arterial Blood Glucose (65-95) mg/dL 09/29/20 Range/Units 09:18 Hgb (11.8-15.2) gm/dl Hct (35.5-45.6) % Lymph % (Auto) (13.4-35.0) % Lymph # (Auto) (1.2-5.4) K/mm3 Seg Neutrophils % (40.0-70.0) % Seg Neutrophils # (1.8-7.7) K/mm3 POC ABG pO2 54.4 L (83-108) mmHg ABG Oxyhemoglobin 88.8 L (94-98) ABG Sodium 130.2 L (136.0-145.0) mmol/L ABG Chloride 97.0 L (98-107) mmol/L ABG Glucose 197 H (65-95) mg/dL Carboxyhemoglobin 1.6 H (0.5-1.5) Sodium (137-145) mmol/L Chloride (98-107) mmol/L Glucose (75-100) mg/dL Albumin (3.9-5) g/dL Arterial Blood Glucose 197 H (65-95) mg/dL Assessment and Plan Cultures: Blood culture 09/29/2020 pending A/P: 50-year-old man past medical history hypertension, diabetes, BPH, hype rlipidemia admitted as Covid PUI, right-sided pneumonia #Community-acquired pneumonia: Continue antibiotics pending procalcitonin #Covid PUI: Follow-up PCR #Diabetes: tight glycemic control for best outcomes. #Obesity: Associated with worse COVID-19 outcomes. Recs: -Follow-up Covid PCR -Follow-up procalcitonin, if less than 0.25, would stop ceftriaxone and azithromycin. -Continue isolation precautions pending Covid test -Further recommendations to follow Covid result. Thank you for the consult, we will continue to follow. Maureen Rai MD [facility] O: [phone] F: [phone]
[2020-09-29 13:03] LABS: C-Reactive Protein 26.3 mg/dL (0.00-1.30)
[2020-09-29] MEDS ORDERED: oxyCODONE /ACETAMINOPHEN 5-325MG TAB ONE (14:30)
[2020-09-29] MEDS: oxyCODONE /ACETAMINOPHEN 5-325MG TAB PO PRN ×2 (14:33→22:13)
--- NOTE | 2020-09-29 16:01 | Cat Scan Report ---
CTA CHEST WITH CONTRAST INDICATION / CLINICAL INFORMATION: r/o PE. TECHNIQUE: Axial CT images were obtained through the chest after injection of IV contrast. 3 plane MIP and/or 3D reconstructions were produced. All CT scans at this location are performed using CT dose reduction f or ALARA by means of automated exposure control. COMPARISON: Recent chest radiograph dated 09/29/2020. No prior CTA of the chest. FINDINGS: PULMONARY ARTERIES: No pulmonary emboli. THORACIC AORTA: Mild atherosclerotic calcification without acute abnormality. HEART: No right heart strain. CORONARY ARTERIES: Mild coronary artery calcic ages. MEDIASTINUM / ARNALDO: Reactive appearing lymph nodes in the mediastinum. PLEURA: Small partially loculated pleural effusion noted on the right. No pneumothorax. LUNGS: Consolidation is noted of the right lung base. Groundglass opacities noted in the right middle lobe. There is a focal area in the right lung base measuring 6.7 x 3.9 cm (series 2 image 63) which demonstrating complexity and internal air pocket. ADDITIONAL FINDINGS: None. UPPER ABDOMEN: No acute findings. SKELETAL STRUCTURES: No significant osseous abnormality. IMPRESSION: 1. No CT evidence for pulmonary embolism or right heart strain. 2. Findings consistent with right middle and lower lobe pneumonia. There is a well-formed air-fluid c ollection in the posterior aspect of the right lower lobe which appears to be within the pulmonary pa renchyma and may represent developing pulmonary abscess. 3. Partially loculated right pleural effusion. Signer Name: Khoa Bello MD Signed: 09/29/2020 3:57 PM Workstation Name: [id number]
--- NOTE | 2020-09-29 16:41 | Event Note ---
Patient's D-dimer resulted at 1450 and given symptoms of shortness of breath and pleuritic chest pain a CTA chest was obtained which showed no evidence of a pulmonary embolism or right heart strain, right middle lobe and lower lobe groundglass opacities consistent with pneumonia, partially loculated right pleural effusion and a well-formed air-fluid collection in the posterior aspect of the right lower lobe which appears to be within the pulmonary parenchyma and may represent developing pulmonary abscess. Therefore pulmonology was consulted. The patient is tachycardic and tachypneic however he remains on room air with SPO2 in the high 90s. We will continue to monitor.
--- NOTE | 2020-09-29 16:59 | Vascular Lab Report ---
VL venous duplex LE BILAT INDICATION / CLINICAL INFORMATION: r/o dvt. TECHNIQUE: Duplex doppler imaging was performed using venous compression and other maneuvers. COMPARISON: None available. FINDINGS: No venous thrombosis is identified within the visualized extremity vasculature. ADDITIONAL FINDINGS: None. IMPRESSION: 1. No sonographic evidence for DVT in the visualized bilateral lower extremity vasculature.. Signer Name: Peter Yeung MD Signed: 09/29/2020 4:54 PM Workstation Name: [id number]
[2020-09-29] MEDS: ACETAMINOPHEN 325 MG TAB PO PRN ×2 (17:39→22:21)
[2020-09-29] MEDS ORDERED: HEPARIN 5,000 UNIT/1 ML VIAL SUB-Q SCH (22:00)
[2020-09-29] MEDS: GABAPENTIN 400 MG CAP PO SCH (22:13)
[2020-09-29] MEDS: HEPARIN 5,000 UNIT/1 ML VIAL SUB-Q SCH (22:13)
[2020-09-29] MEDS: INSULIN GLARGINE 100 UNITS/ML SUB-Q SCH (23:21)
[2020-09-30 06:20] LABS: Basophils % (Auto) 0.3 % (0.0-1.8); Eosinophils # (Auto) 0.1 K/mm3 (0.0-0.4); Eosinophils % (Auto) 0.8 % (0.0-4.3); Hematocrit 27.9 % (35.5-45.6); Lymphocytes # (Auto) 1.5 K/mm3 (1.2-5.4); Lymphocytes % (Auto) 12.4 % (13.4-35.0); Mean Corpuscular HGB Conc 32 % (32-34); Mean Corpuscular Volume 89 fl (84-94); Monocytes % (Auto) 8.7 % (0.0-7.3); Platelet Count 341 K/mm3 (140-440); Red Blood Count 3.14 M/mm3 (3.65-5.03); Red Cell Distribution Width 13.4 % (13.2-15.2)
[2020-09-30 06:41] LABS: BUN/Creatinine Ratio 11; Blood Urea Nitrogen 10 mg/dL (9-20); Hemolysis Index 0
[2020-09-30] MEDS: HEPARIN 5,000 UNIT/1 ML VIAL SUB-Q SCH ×3 (08:07→22:05)
[2020-09-30] MEDS: oxyCODONE /ACETAMINOPHEN 5-325MG TAB PO PRN ×2 (08:07→22:05)
[2020-09-30] MEDS ORDERED: amLODIPine 5 MG TAB PO SCH (10:00)
[2020-09-30] MEDS: INSULIN LISPRO 100 UNIT/ML VIAL 3 mL SUB-Q SCH ×3 (10:01→17:38)
[2020-09-30] MEDS: DOCUSATE SODIUM 100 MG CAP PO SCH ×2 (10:04→22:04)
[2020-09-30] MEDS: VALSARTAN 40 MG TAB PO SCH (10:04)
[2020-09-30] MEDS: cefTRIAXone/NS 2 GM/100 ML 2 GM/100 ML BAG IV SCH (10:06)
[2020-09-30] MEDS: AZITHROMYCIN 500 MG in SODIUM CHLORIDE 0.9% 250ML 250 ML IV SCH (11:11)
[2020-09-30 12:16] LABS: Bilirubin,Urine NEG (Negative); Blood,Urine NEG (Negative); Color,Urine Yellow (Yellow); Mucus,Urine FEW /HPF; Urobilinogen,Urine < 2.0 mg/dL (<2.0)
--- NOTE | 2020-09-30 12:32 | Progress Note ---
<J CARLOSHENRY CamachoYolanda - Last Filed: 09/30/20 14:05> Assessment and Plan - Patient Problems (1) Sepsis Current Visit: Yes Status: Acute Plan to address problem: Presented with tachycardia, tachypnea, with pneumonia on CXR Antibiotic therapy Trend CBC Infectious disease consult 09/29 Blood culture x2 09/29 UA negative for leukocyte esterase and nitrates (2) Community acquired pneumonia Current Visit: Yes Status: Acute Qualifiers: Laterality: right Lung location: lower lobe of lung Qualified Code(s): J18.9 - Pneumonia, unspecified organism Plan to address problem: 10/26 CXR shows patchy right basilar airspace disease with otherwise clear l ungs. Antibiotic therapy: Ceftriaxone, azithromycin Infectious disease consulted Supplementary oxygen as needed Pulmonary hygiene CXR Pneumonia protocol activated (3) Person under investigation for COVID-19 Current Visit: Yes Status: Ruled-out Plan to address problem: 09/28 COVID-19 PCR negative (4) Loculated pleural effusion Current Visit: Yes Status: Acute Plan to address problem: 09/29 CTA chest shows no evidence of a pulmonary embolism or right heart strain, right middle lobe and lower lobe groundglass opacities consistent with pneumonia, partially loculated right pleural effusion and a well-formed air- fluid collection in the posterior aspect of the right lower lobe which appears to be within the pulmonary parenchyma and may represent developing pulmonary abscess. Pulmonology consulted Pulmonary hygiene Supplemental oxygen as needed (5) Diabetes mellitus Current Visit: Yes Status: Chronic Plan to address problem: Patient home blood glucose monitoring machine malfunctions intermittently 09/29 hemoglobin A1c 13.7 CC cardiac diet Accu-Cheks before meals and at bedtime SSI Restarted home Lantus (6) Non-compliance Current Visit: Yes Status: Chronic Plan to address problem: Patient does not have a PCP Patient has been noncompliant with his medications Case management consult Patient states that his blood glucose monitor at home malfunctions occasionally (7) Hypertension Current Visit: Yes Status: Chronic Plan to address problem: S/p Norvasc in the ED for hypertension Takes valsartan at home however has been noncompliant Restarted home antihypertensive regimen Blood pressure monitoring per protocol Hydralazine IV as needed for SBP >160 (8) Hypochloremia Current Visit: Yes Status: Acute Plan to address problem: Presented with a chloride of 91.3 , 09/30 Cl 96.1 Continue to monitor s/p 1500 mL bolus in the emergency department Trend BMP (9) Hyponatremia Current Visit: No Status: Acute Plan to address problem: Presented with a sodium of 129 with hyperglycemia of 226 Corrected sodium 132 Continue to monitor s/p 1500 mL bolus in the emergency department Trend BMP 09/30 Na 136 (10) Elevated d-dimer Current Visit: Yes Status: Acute Plan to address problem: 09/29 D-dimer 1450 09/29 CTA chest showed no pulmonary embolism 09/29 Bilateral lower extremity Dopplers showed no acute DVT or SVT (11) Hyperlipidemia Current Visit: No Status: Chronic Plan to address problem: Restarted home statin therapy (12) DVT prophylaxis Current Visit: No Status: Acute Plan to address problem: Heparin subcu SCDs to bilateral lower extremities while in bed History Interval history: This is 50 year old male with hypertension, diabetes, enlarged prostate, HLD, radial nerve palsy and noncompliance who presented to the emergency department with right sided pleurtic pain with right sided posterior and lateral back pain with inspiration and movement for about 1 week associated with nonproductive cough and shortness of breath. Work-up in the emergency department included a CXR which shows patchy right lower lobe infiltrates, abdominal ultrasound shows sludge in the gallbladder with gallbladder wall thickness without cholelithiasis and diffuse fatty infiltration of the liver, labs show hyponatremia at 129 (corrected sodium for hyperglycemia is 131), hypochloremia and 91.3, and hyperglycemia 226. COVID-19 PCR pending. Patient will be admitted to the hospital service for community-acquired pneumonia, COVID-19 PUI and infectious disease has been consulted. Pulmonology was consulted yesterday given CTA chest findings of loculated pleural effusion and possible pleural abscess. Patient's COVID-19 PCR resulted as negative today. Patient remains hyponatremic, hypochloremic and has leukocytosis. Today at the time of my examination he remains supplemental oxygenation and complains of right-sided thoracic, flank and back pain with inspiration and tramadol was started. 09/30: COVID 10 PCR negative Hospitalist Physical - Constitutional Vitals: Temp Pulse Resp BP Pulse Ox 99.3 F 93 H 18 147/88 94 09/30/20 06:03 09/30/20 06:03 09/30/20 06:03 09/30/20 10:04 09/30/20 06:03 General appearance: Present: no acute distress - EENT Eyes: Present: PERRL, EOM intact ENT: hearing intact, clear oral mucosa - Neck Neck: Present: normal ROM - Respiratory Respiratory effort: normal Respiratory: bilateral: CTA, diminished (Bilateral bases) - Cardiovascular Rhythm: regular Heart Sounds: Present: S1 & S2. Absent: systolic murmur, diastolic murmur - Extremities Extremities: no ischemia, pulses intact, pulses symmetrical, No edema, normal temperature, normal color, Full ROM Peripheral Pulses: within normal limits - Abdominal General gastrointestinal: soft, non-tender, non-distended, normal bowel sounds - Integumentary Integumentary: Present: clear, warm, dry - Psychiatric Psychiatric: appropriate mood/affect, cooperative - Neurologic Neurologic: CNII-XII intact, no focal deficits, moves all extremities - Allied Health Allied health notes reviewed: nursing HEART Score - HEART Score Troponin: Troponin T < 0.010 ng/mL (0.00-0.029) 09/29/20 07:02 Results - Labs CBC & Chem 7: 09/30/20 05:11 09/30/20 05:11 Labs: Laboratory Last Values WBC 11.9 K/mm3 (4.5-11.0) H 09/30/20 05:11 RBC 3.14 M/mm3 (3.65-5.03) L 09/30/20 05:11 Hgb 9.0 gm/dl (11.8-15.2) L 09/30/20 05:11 Hct 27.9 % (35.5-45.6) L 09/30/20 05:11 MCV 89 fl (84-94) 09/30/20 05:11 MCH 29 pg (28-32) 09/30/20 05:11 MCHC 32 % (32-34) 09/30/20 05:11 RDW 13.4 % (13.2-15.2) 09/30/20 05:11 Plt Count 341 K/mm3 (140-440) 09/30/20 05:11 Lymph % (Auto) 12.4 % (13.4-35.0) L 09/30/20 05:11 [place] % (Auto) 8.7 % (0.0-7.3) H 09/30/20 05:11 Eos % (Auto) 0.8 % (0.0-4.3) 09/30/20 05:11 Baso % (Auto) 0.3 % (0.0-1.8) 09/30/20 05:11 Lymph # (Auto) 1.5 K/mm3 (1.2-5.4) 09/30/20 05:11 [place] # (Auto) 1.0 K/mm3 (0.0-0.8) H 09/30/20 05:11 Eos # (Auto) 0.1 K/mm3 (0.0-0.4) 09/30/20 05:11 Baso # (Auto) 0.0 K/mm3 (0.0-0.1) 09/30/20 05:11 Seg Neutrophils % 77.8 % (40.0-70.0) H 09/30/20 05:11 Seg Neutrophils # 9.2 K/mm3 (1.8-7.7) H 09/30/20 05:11 PT 13.5 Sec. (12.2-14.9) 09/29/20 07:02 INR 1.05 (0.87-1.13) 09/29/20 07:02 D-Dimer 1450.54 ng/mlDDU (0-234) H 09/29/20 07:02 ABG pH 7.432 (7.320-7.450) 09/29/20 09:18 POC ABG pCO2 41.0 mmHg (32.0-48.0) 09/29/20 09:18 POC ABG pO2 54.4 mmHg (83-108) L 09/29/20 09:18 POC ABG HCO3 26.7 09/29/20 09:18 POC ABG Base Excess 2.3 09/29/20 09:18 ABG Hemoglobin 14.4 (12.0-17.5) 09/29/20 09:18 ABG Oxyhemoglobin 88.8 (94-98) L 09/29/20 09:18 ABG Methemoglobin 0 (0.0-1.5) 09/29/20 09:18 ABG Sodium 130.2 mmol/L (136.0-145.0) L 09/29/20 09:18 ABG Potassium 4.4 mmol/L (3.40-4.50) 09/29/20 09:18 ABG Chloride 97.0 mmol/L (98-107) L 09/29/20 09:18 ABG Glucose 197 mg/dL (65-95) H 09/29/20 09:18 Carboxyhemoglobin 1.6 (0.5-1.5) H 09/29/20 09:18 FiO2 21.0 09/29/20 09:18 Sodium 136 mmol/L (137-145) L D 09/30/20 05:11 Potassium 4.3 mmol/L (3.6-5.0) 09/30/20 05:11 Chloride 96.1 mmol/L (98-107) L 09/30/20 05:11 Carbon Dioxide 28 mmol/L (22-30) 09/30/20 05:11 Anion Gap 16 mmol/L 09/30/20 05:11 BUN 10 mg/dL (9-20) 09/30/20 05:11 Creatinine 0.9 mg/dL (0.8-1.3) 09/30/20 05:11 Estimated GFR > 60 ml/min 09/30/20 05:11 BUN/Creatinine Ratio 11 % 09/30/20 05:11 Glucose 136 mg/dL (75-100) H 09/30/20 05:11 POC Glucose 181 mg/dL (70-105) H 09/30/20 12:09 Hemoglobin A1c 13.7 % (4-6) H 09/29/20 07:20 Lactic Acid 1.80 mmol/L (0.7-2.0) 09/29/20 07:07 Calcium 9.0 mg/dL (8.4-10.2) 09/30/20 05:11 Magnesium 2.00 mg/dL (1.7-2.3) 09/29/20 07:02 Ferritin 408.7 ng/mL (30.0-300.0) H 09/29/20 12:05 Total Bilirubin 0.50 mg/dL (0.1-1.2) 09/29/20 07:02 Direct Bilirubin < 0.2 mg/dL (0-0.2) 09/29/20 07:02 Indirect Bilirubin 0.3 mg/dL 09/29/20 07:02 AST 12 units/L (5-40) 09/29/20 07:02 ALT 12 units/L (7-56) 09/29/20 07:02 Alkaline Phosphatase 120 units/L (35-129) 09/29/20 07:02 Lactate Dehydrogenase 154 units/L (91-180) 09/29/20 12:05 Total Creatine Kinase 127 units/L (55-170) 09/29/20 07:02 Troponin T < 0.010 ng/mL (0.00-0.029) 09/29/20 07:02 C-Reactive Protein 26.30 mg/dL (0.00-1.30) H 09/29/20 12:05 Total Protein 8.0 g/dL (6.3-8.2) 09/29/20 07:02 Albumin 3.5 g/dL (3.9-5) L 09/29/20 07:02 Albumin/Globulin Ratio 0.8 % 09/29/20 07:02 Lipase 19 units/L (13-60) 09/29/20 07:02 Arterial Blood Glucose 197 mg/dL (65-95) H 09/29/20 09:18 Arterial Blood Ionized Calcium 4.6 mg/dL (4.6-5.3) 09/29/20 09:18 Urine Color Yellow (Yellow) 09/30/20 Unknown Urine Turbidity Clear (Clear) 09/30/20 Unknown Urine pH 6.0 (5.0-7.0) 09/30/20 Unknown Ur Specific [place] 1.021 (1.003-1.030) 09/30/20 Unknown Urine Protein 100 mg/dl mg/dL (Negative) 09/30/20 Unknown Urine Glucose (UA) 50 mg/dL (Negative) 09/30/20 Unknown Urine Ketones Neg mg/dL (Negative) 09/30/20 Unknown Urine Blood Neg (Negative) 09/30/20 Unknown Urine Nitrite Neg (Negative) 09/30/20 Unknown Urine Bilirubin Neg (Negative) 09/30/20 Unknown Urine Urobilinogen < 2.0 mg/dL (<2.0) 09/30/20 Unknown Ur Leukocyte Esterase Neg (Negative) 09/30/20 Unknown Urine WBC (Auto) 1.0 /HPF (0.0-6.0) 09/30/20 Unknown Urine RBC (Auto) 1.0 /HPF (0.0-6.0) 09/30/20 Unknown U Epithel Cells (Auto) 1.0 /HPF (0-13.0) 09/30/20 Unknown Urine Mucus Few /HPF 09/30/20 Unknown Microbiology: Microbiology 09/29/20 07:02 Peripheral/Venous Blood Culture - Preliminary NO GROWTH AFTER 24 HOURS 09/29/20 07:02 Peripheral/Venous Blood Culture - Preliminary NO GROWTH AFTER 24 HOURS Marshall/IV: Voiding Method Toilet IV Catheter Type [Left Forearm INT / Saline Lock ] Active Medications - Current Medications Current Medications: Generic Name Dose Route Start Last Admin Trade Name Freq PRN Reason Stop Dose Admin Acetaminophen 650 mg 09/29/20 09:20 09/29/20 22:21 Tylenol PO 650 mg Q4H PRN Administration Pain MILD(1-3)/Fever >100.5/VAUGHN Atorvastatin Calcium 40 mg 09/29/20 22:00 09/29/20 22:13 Lipitor PO 40 mg QHS TANIKA Administration Dextrose 50 ml 09/29/20 09:20 D50w (25gm) Syringe IV Q30MIN PRN Hypoglycemia Protocol Docusate Sodium 100 mg 09/29/20 10:00 09/30/20 10:04 Colace PO 100 mg BID TANIKA Administration Gabapentin 800 mg 09/29/20 22:00 09/29/20 22:13 Gabapentin PO 800 mg QHS TANIKA Administration Heparin Sodium (Porcine) 5,000 unit 09/29/20 22:00 09/30/20 08:07 Heparin SUB-Q 5,000 unit Q8HR TANIKA Administration Azithromycin 500 mg/ Sodium 250 mls @ 250 mls/hr 09/30/20 10:00 09/30/20 11:11 Chloride IV 250 mls/hr Q24HR TANIKA Administration Protocol Ceftriaxone Sodium 2 gm in 100 mls @ 200 mls/hr 09/30/20 10:00 09/30/20 10:06 Rocephin/Ns 2 Gm/100 Ml IV 200 mls/hr Q24HR TANIKA Administration Protocol Insulin Glargine 10 units 09/29/20 22:00 09/29/20 23:21 Lantus SUB-Q 10 units QHS TANIKA Administration Insulin Human Lispro 0 unit 09/29/20 11:30 09/30/20 10:01 Humalog SUB-Q Not Given ACHS TANIKA Protocol Morphine Sulfate 2 mg 09/29/20 17:31 Morphine IV Q4H PRN Pain, Moderate (4-6) Ondansetron HCl 4 mg 09/29/20 09:20 Zofran IV Q6HR PRN Nausea And Vomiting Oxycodone/Acetaminophen 1 tab 09/29/20 09:20 09/30/20 08:07 Percocet 5/325 PO 1 tab Q6H PRN Administration Pain, Moderate (4-6) Sodium Chloride 10 ml 09/29/20 10:00 09/30/20 10:06 Sodium Chloride Flush Syringe 10 Ml IV 10 ml BID TANIKA Administration Sodium Chloride 10 ml 09/29/20 09:20 Sodium Chloride Flush Syringe 10 Ml IV PRN PRN LINE FLUSH Tramadol HCl 50 mg 09/30/20 12:00 Ultram PO Q6H PRN Pain, Moderate (4-6) Valsartan 80 mg 09/30/20 10:00 09/30/20 10:04 Diovan PO 80 mg QDAY TANIKA Administration <ARACELY PARRISH R - Last Filed: 09/30/20 15:31> Assessment and Plan Assessment and plan: I saw and evaluated the patient. I agree with the findings and the plan of care as documented in the Nurse Practitioner's~note, Hospitalist Physical - Constitutional Vitals: Temp Pulse Resp BP Pulse Ox 99.3 F 98 H 18 133/86 95 09/30/20 11:51 09/30/20 11:51 09/30/20 11:51 09/30/20 11:51 09/30/20 15:12 HEART Score - HEART Score Troponin: Troponin T < 0.010 ng/mL (0.00-0.029) 09/29/20 07:02 Results - Labs CBC & Chem 7: 09/30/20 05:11 09/30/20 05:11 Labs: Laboratory Last Values WBC 11.9 K/mm3 (4.5-11.0) H 09/30/20 05:11 RBC 3.14 M/mm3 (3.65-5.03) L 09/30/20 05:11 Hgb 9.0 gm/dl (11.8-15.2) L 09/30/20 05:11 Hct 27.9 % (35.5-45.6) L 09/30/20 05:11 MCV 89 fl (84-94) 09/30/20 05:11 MCH 29 pg (28-32) 09/30/20 05:11 MCHC 32 % (32-34) 09/30/20 05:11 RDW 13.4 % (13.2-15.2) 09/30/20 05:11 Plt Count 341 K/mm3 (140-440) 09/30/20 05:11 Lymph % (Auto) 12.4 % (13.4-35.0) L 09/30/20 05:11 [place] % (Auto) 8.7 % (0.0-7.3) H 09/30/20 05:11 Eos % (Auto) 0.8 % (0.0-4.3) 09/30/20 05:11 Baso % (Auto) 0.3 % (0.0-1.8) 09/30/20 05:11 Lymph # (Auto) 1.5 K/mm3 (1.2-5.4) 09/30/20 05:11 [place] # (Auto) 1.0 K/mm3 (0.0-0.8) H 09/30/20 05:11 Eos # (Auto) 0.1 K/mm3 (0.0-0.4) 09/30/20 05:11 Baso # (Auto) 0.0 K/mm3 (0.0-0.1) 09/30/20 05:11 Seg Neutrophils % 77.8 % (40.0-70.0) H 09/30/20 05:11 Seg Neutrophils # 9.2 K/mm3 (1.8-7.7) H 09/30/20 05:11 PT 13.5 Sec. (12.2-14.9) 09/29/20 07:02 INR 1.05 (0.87-1.13) 09/29/20 07:02 D-Dimer 1450.54 ng/mlDDU (0-234) H 09/29/20 07:02 ABG pH 7.432 (7.320-7.450) 09/29/20 09:18 POC ABG pCO2 41.0 mmHg (32.0-48.0) 09/29/20 09:18 POC ABG pO2 54.4 mmHg (83-108) L 09/29/20 09:18 POC ABG HCO3 26.7 09/29/20 09:18 POC ABG Base Excess 2.3 09/29/20 09:18 ABG Hemoglobin 14.4 (12.0-17.5) 09/29/20 09:18 ABG Oxyhemoglobin 88.8 (94-98) L 09/29/20 09:18 ABG Methemoglobin 0 (0.0-1.5) 09/29/20 09:18 ABG Sodium 130.2 mmol/L (136.0-145.0) L 09/29/20 09:18 ABG Potassium 4.4 mmol/L (3.40-4.50) 09/29/20 09:18 ABG Chloride 97.0 mmol/L (98-107) L 09/29/20 09:18 ABG Glucose 197 mg/dL (65-95) H 09/29/20 09:18 Carboxyhemoglobin 1.6 (0.5-1.5) H 09/29/20 09:18 FiO2 21.0 09/29/20 09:18 Sodium 136 mmol/L (137-145) L D 09/30/20 05:11 Potassium 4.3 mmol/L (3.6-5.0) 09/30/20 05:11 Chloride 96.1 mmol/L (98-107) L 09/30/20 05:11 Carbon Dioxide 28 mmol/L (22-30) 09/30/20 05:11 Anion Gap 16 mmol/L 09/30/20 05:11 BUN 10 mg/dL (9-20) 09/30/20 05:11 Creatinine 0.9 mg/dL (0.8-1.3) 09/30/20 05:11 Estimated GFR > 60 ml/min 09/30/20 05:11 BUN/Creatinine Ratio 11 % 09/30/20 05:11 Glucose 136 mg/dL (75-100) H 09/30/20 05:11 POC Glucose 181 mg/dL (70-105) H 09/30/20 12:09 Hemoglobin A1c 13.7 % (4-6) H 09/29/20 07:20 Lactic Acid 1.80 mmol/L (0.7-2.0) 09/29/20 07:07 Calcium 9.0 mg/dL (8.4-10.2) 09/30/20 05:11 Magnesium 2.00 mg/dL (1.7-2.3) 09/29/20 07:02 Ferritin 408.7 ng/mL (30.0-300.0) H 09/29/20 12:05 Total Bilirubin 0.50 mg/dL (0.1-1.2) 09/29/20 07:02 Direct Bilirubin < 0.2 mg/dL (0-0.2) 09/29/20 07:02 Indirect Bilirubin 0.3 mg/dL 09/29/20 07:02 AST 12 units/L (5-40) 09/29/20 07:02 ALT 12 units/L (7-56) 09/29/20 07:02 Alkaline Phosphatase 120 units/L (35-129) 09/29/20 07:02 Lactate Dehydrogenase 154 units/L (91-180) 09/29/20 12:05 Total Creatine Kinase 127 units/L (55-170) 09/29/20 07:02 Troponin T < 0.010 ng/mL (0.00-0.029) 09/29/20 07:02 C-Reactive Protein 26.30 mg/dL (0.00-1.30) H 09/29/20 12:05 Total Protein 8.0 g/dL (6.3-8.2) 09/29/20 07:02 Albumin 3.5 g/dL (3.9-5) L 09/29/20 07:02 Albumin/Globulin Ratio 0.8 % 09/29/20 07:02 Lipase 19 units/L (13-60) 09/29/20 07:02 Arterial Blood Glucose 197 mg/dL (65-95) H 09/29/20 09:18 Arterial Blood Ionized Calcium 4.6 mg/dL (4.6-5.3) 09/29/20 09:18 Urine Color Yellow (Yellow) 09/30/20 Unknown Urine Turbidity Clear (Clear) 09/30/20 Unknown Urine pH 6.0 (5.0-7.0) 09/30/20 Unknown Ur Specific [place] 1.021 (1.003-1.030) 09/30/20 Unknown Urine Protein 100 mg/dl mg/dL (Negative) 09/30/20 Unknown Urine Glucose (UA) 50 mg/dL (Negative) 09/30/20 Unknown Urine Ketones Neg mg/dL (Negative) 09/30/20 Unknown Urine Blood Neg (Negative) 09/30/20 Unknown Urine Nitrite Neg (Negative) 09/30/20 Unknown Urine Bilirubin Neg (Negative) 09/30/20 Unknown Urine Urobilinogen < 2.0 mg/dL (<2.0) 09/30/20 Unknown Ur Leukocyte Esterase Neg (Negative) 09/30/20 Unknown Urine WBC (Auto) 1.0 /HPF (0.0-6.0) 09/30/20 Unknown Urine RBC (Auto) 1.0 /HPF (0.0-6.0) 09/30/20 Unknown U Epithel Cells (Auto) 1.0 /HPF (0-13.0) 09/30/20 Unknown Urine Mucus Few /HPF 09/30/20 Unknown Coronavirus (PCR) Negative (Negative) 09/30/20 Unknown Microbiology: Microbiology 09/29/20 07:02 Peripheral/Venous Blood Culture - Preliminary NO GROWTH AFTER 24 HOURS 09/29/20 07:02 Peripheral/Venous Blood Culture - Preliminary NO GROWTH AFTER 24 HOURS Marshall/IV: Voiding Method Toilet IV Catheter Type [Left Forearm INT / Saline Lock ] Active Medications - Current Medications Current Medications: Generic Name Dose Route Start Last Admin Trade Name Freq PRN Reason Stop Dose Admin Acetaminophen 650 mg 09/29/20 09:20 09/29/20 22:21 Tylenol PO 650 mg Q4H PRN Administration Pain MILD(1-3)/Fever >100.5/VAUGHN Atorvastatin Calcium 40 mg 09/29/20 22:00 09/29/20 22:13 Lipitor PO 40 mg QHS TANIKA Administration Dextrose 50 ml 09/29/20 09:20 D50w (25gm) Syringe IV Q30MIN PRN Hypoglycemia Protocol Docusate Sodium 100 mg 09/29/20 10:00 09/30/20 10:04 Colace PO 100 mg BID TANIKA Administration Gabapentin 800 mg 09/29/20 22:00 09/29/20 22:13 Gabapentin PO 800 mg QHS TANIKA Administration Heparin Sodium (Porcine) 5,000 unit 09/29/20 22:00 09/30/20 14:16 Heparin SUB-Q 5,000 unit Q8HR TANIKA Administration Azithromycin 500 mg/ Sodium 250 mls @ 250 mls/hr 09/30/20 10:00 09/30/20 11:11 Chloride IV 250 mls/hr Q24HR TANIKA Administration Protocol Ceftriaxone Sodium 2 gm in 100 mls @ 200 mls/hr 09/30/20 10:00 09/30/20 10:06 Rocephin/Ns 2 Gm/100 Ml IV 200 mls/hr Q24HR TANIKA Administration Protocol Insulin Glargine 10 units 09/29/20 22:00 09/29/20 23:21 Lantus SUB-Q 10 units QHS TANIKA Administration Insulin Human Lispro 0 unit 09/29/20 11:30 09/30/20 12:57 Humalog SUB-Q 2 unit ACHS TANIKA Administration Protocol Morphine Sulfate 2 mg 09/29/20 17:31 09/30/20 14:13 Morphine IV 2 mg Q4H PRN Administration Pain, Moderate (4-6) Ondansetron HCl 4 mg 09/29/20 09:20 Zofran IV Q6HR PRN Nausea And Vomiting Oxycodone/Acetaminophen 1 tab 09/29/20 09:20 09/30/20 08:07 Percocet 5/325 PO 1 tab Q6H PRN Administration Pain, Moderate (4-6) Sodium Chloride 10 ml 09/29/20 10:00 09/30/20 10:06 Sodium Chloride Flush Syringe 10 Ml IV 10 ml BID TANIKA Administration Sodium Chloride 10 ml 09/29/20 09:20 Sodium Chloride Flush Syringe 10 Ml IV PRN PRN LINE FLUSH Tramadol HCl 50 mg 09/30/20 12:00 09/30/20 13:00 Ultram PO 50 mg Q6H PRN Administration Pain, Moderate (4-6) Valsartan 80 mg 09/30/20 10:00 09/30/20 10:04 Diovan PO 80 mg QDAY TANIKA Administration
[2020-09-30] MEDS: traMADol 50 MG TAB PO PRN (13:00)
--- NOTE | 2020-09-30 13:15 | Consultation ---
History of Present Illness Consult date: 09/30/20 Requesting physician: HENRY WHITMAN Reason for consult: pleural effusion (Loculated) History of present illness: PCCM CONSULT NOTE (Full dictation # [id number]) Please see dictated notes for full details - get diagnostic thoracentesis - he will likely need transfer for VATS procedure with CTSU facility - empiric AB's to cover anerobes Past History Past Medical History: diabetes, hypertension, hyperlipidemia Past Surgical History: Other (Meniscus tear repair) Social history: , lives with family, full code. denies: smoking, alcohol abuse, prescription drug abuse, IV drug use Family history: hypertension Medications and Allergies Allergies Allergy/AdvReac Type Severity Reaction Status Date / Time lisinopril Allergy Angioedema Verified 05/29/19 14:22 Home Medications Medication Instructions Recorded Confirmed Last Taken Type Lispro Insulin [HumaLOG] 10 unit SQ TID 09/29/20 09/29/20 Unknown History Valsartan/Hydrochlorothiazide 1 each PO QDAY 09/29/20 09/29/20 Unknown History [Valsartan-Hctz 80-12.5 mg Tab] Active Meds: Active Medications Acetaminophen (Tylenol) 650 mg PO Q4H PRN PRN Reason: Pain MILD(1-3)/Fever >100.5/VAUGHN Last Admin: 09/29/20 22:21 Dose: 650 mg Documented by: Atorvastatin Calcium (Lipitor) 40 mg PO QHS [facility] Last Admin: 09/29/20 22:13 Dose: 40 mg Documented by: Dextrose (D50w (25gm) Syringe) 50 ml IV Q30MIN PRN; Protocol PRN Reason: Hypoglycemia Docusate Sodium (Colace) 100 mg PO BID [facility] Last Admin: 09/30/20 10:04 Dose: 100 mg Documented by: Gabapentin (Gabapentin) 800 mg PO QHS [facility] Last Admin: 09/29/20 22:13 Dose: 800 mg Documented by: Heparin Sodium (Porcine) (Heparin) 5,000 unit SUB-Q Q8HR [facility] Last Admin: 09/30/20 08:07 Dose: 5,000 unit Documented by: Azithromycin 500 mg/ Sodium (Chloride) 250 mls @ 250 mls/hr IV Q24HR [facility]; Protocol Last Admin: 09/30/20 11:11 Dose: 250 mls/hr Documented by: Ceftriaxone Sodium (Rocephin/Ns 2 Gm/100 Ml) 2 gm in 100 mls @ 200 mls/hr IV Q 24HR [facility]; Protocol Last Admin: 09/30/20 10:06 Dose: 200 mls/hr Documented by: Insulin Glargine (Lantus) 10 units SUB-Q QHS [facility] Last Admin: 09/29/20 23:21 Dose: 10 units Documented by: Insulin Human Lispro (Humalog) 0 unit SUB-Q ACHS [facility]; Protocol Last Admin: 09/30/20 12:57 Dose: 2 unit Documented by: Morphine Sulfate (Morphine) 2 mg IV Q4H PRN PRN Reason: Pain, Moderate (4-6) Ondansetron HCl (Zofran) 4 mg IV Q6HR PRN PRN Reason: Nausea And Vomiting Oxycodone/Acetaminophen (Percocet 5/325) 1 tab PO Q6H PRN PRN Reason: Pain, Moderate (4-6) Last Admin: 09/30/20 08:07 Dose: 1 tab Documented by: Sodium Chloride (Sodium Chloride Flush Syringe 10 Ml) 10 ml IV BID [facility] Last Admin: 09/30/20 10:06 Dose: 10 ml Documented by: Sodium Chloride (Sodium Chloride Flush Syringe 10 Ml) 10 ml IV PRN PRN PRN Reason: LINE FLUSH Tramadol HCl (Ultram) 50 mg PO Q6H PRN PRN Reason: Pain, Moderate (4-6) Last Admin: 09/30/20 13:00 Dose: 50 mg Documented by: Valsartan (Diovan) 80 mg PO QDAY [facility] Last Admin: 09/30/20 10:04 Dose: 80 mg Documented by: Physical Examination Vital signs: Vital Signs Temp Resp BP 98.2 F 18 194/114 09/29/20 06:16 09/29/20 06:16 09/29/20 06:16 Results - Laboratory Findings CBC and BMP: 10/01/20 04:55 10/01/20 04:55 ABG ABG pH 7.432 (7.320-7.450) 09/29/20 09:18 POC ABG pCO2 41.0 mmHg (32.0-48.0) 09/29/20 09:18 POC ABG pO2 54.4 mmHg (83-108) L 09/29/20 09:18 POC ABG HCO3 26.7 09/29/20 09:18 PT/INR, D-dimer PT 13.5 Sec. (12.2-14.9) 09/29/20 07:02 INR 1.05 (0.87-1.13) 09/29/20 07:02 D-Dimer 1450.54 ng/mlDDU (0-234) H 09/29/20 07:02 Abnormal lab findings: Abnormal Labs 09/29/20 09/29/20 09/29/20 07:02 07:02 07:02 WBC RBC Hgb 10.9 L Hct 31.8 L Lymph % (Auto) 9.0 L [place] % (Auto) Lymph # (Auto) 1.0 L [place] # (Auto) Seg Neutrophils % 84.2 H Seg Neutrophils # 9.2 H D-Dimer POC ABG pO2 ABG Oxyhemoglobin ABG Sodium ABG Chloride ABG Glucose Carboxyhemoglobin Sodium 129 L Chloride 91.3 L Glucose 226 H POC Glucose Hemoglobin A1c Ferritin C-Reactive Protein Albumin 3.5 L Arterial Blood Glucose 09/29/20 09/29/20 09/29/20 07:02 07:20 09:18 WBC RBC Hgb Hct Lymph % (Auto) [place] % (Auto) Lymph # (Auto) [place] # (Auto) Seg Neutrophils % Seg Neutrophils # D-Dimer 1450.54 H POC ABG pO2 54.4 L ABG Oxyhemoglobin 88.8 L ABG Sodium 130.2 L ABG Chloride 97.0 L ABG Glucose 197 H Carboxyhemoglobin 1.6 H Sodium Chloride Glucose POC Glucose Hemoglobin A1c 13.7 H Ferritin C-Reactive Protein Albumin Arterial Blood Glucose 197 H 09/29/20 09/29/20 09/29/20 12:05 12:05 17:33 WBC RBC Hgb Hct Lymph % (Auto) [place] % (Auto) Lymph # (Auto) [place] # (Auto) Seg Neutrophils % Seg Neutrophils # D-Dimer POC ABG pO2 ABG Oxyhemoglobin ABG Sodium ABG Chloride ABG Glucose Carboxyhemoglobin Sodium Chloride Glucose 203 H POC Glucose 201 H Hemoglobin A1c Ferritin 408.7 H C-Reactive Protein 26.30 H Albumin Arterial Blood Glucose 09/29/20 09/30/20 09/30/20 21:17 05:11 05:11 WBC 11.9 H RBC 3.14 L Hgb 9.0 L Hct 27.9 L Lymph % (Auto) 12.4 L [place] % (Auto) 8.7 H Lymph # (Auto) [place] # (Auto) 1.0 H Seg Neutrophils % 77.8 H Seg Neutrophils # 9.2 H D-Dimer POC ABG pO2 ABG Oxyhemoglobin ABG Sodium ABG Chloride ABG Glucose Carboxyhemoglobin Sodium 136 L D Chloride 96.1 L Glucose 136 H POC Glucose 243 H Hemoglobin A1c Ferritin C-Reactive Protein Albumin Arterial Blood Glucose 09/30/20 09/30/20 08:09 12:09 WBC RBC Hgb Hct Lymph % (Auto) [place] % (Auto) Lymph # (Auto) [place] # (Auto) Seg Neutrophils % Seg Neutrophils # D-Dimer POC ABG pO2 ABG Oxyhemoglobin ABG Sodium ABG Chloride ABG Glucose Carboxyhemoglobin Sodium Chloride Glucose POC Glucose 112 H 181 H Hemoglobin A1c Ferritin C-Reactive Protein Albumin Arterial Blood Glucose
[2020-09-30] MEDS: MORPHINE 2 MG/1 ML INJ IV PRN (14:13)
--- NOTE | 2020-09-30 15:06 | Event Note ---
I spoke to his , Mitchell Anders, and updated her about test results and treatment plan. All questions answered. Her number is [phone] and asked RN to get it updated in the system. The number listed is not Mrs. Pozo.
--- NOTE | 2020-09-30 15:42 | Progress Note ---
Assessment and Plan Cultures: Blood culture 09/29/2020 pending COVID-19 negative A/P: 50-year-old man past medical history hypertension, diabetes, BPH, hyperli pidemia admitted as Covid PUI, right-sided pneumonia #Community-acquired pneumonia: Continue antibiotics pending procalcitonin #Pulmonary abscess: Possibly developing, needs follow-up imaging and potential long-term antibiotics. #Diabetes: tight glycemic control for best outcomes. #Obesity: Associated with worse COVID-19 outcomes. Recs: -Continue ceftriaxone azithromycin. Total duration depending on abscess development. -Follow-up procalcitonin, though with possible developing abscess would not recommend stopping at this time. Dr. Vazquez taking over tomorrow Thank you for the consult, we will continue to follow. Maureen Rai MD [facility] O: [phone] F: [phone] Subjective Date of service: 09/30/20 Interval history: Last night but afebrile since waking elevated at 12. COVID-19 negative. Currently on 2 L nasal cannula. Imaging personally reviewed: Chest CTA: No PE, right middle and lower lobe pneumonia. Possible developing pulmonary abscess. Objective - Exam Narrative Exam: Physical exam deferred due to PPE conservation strategy. Please refer to primary team's note. - Constitutional Vitals: Vital Signs Temp Pulse Resp BP Pulse Ox 99.3 F 98 H 18 133/86 95 09/30/20 11:51 09/30/20 11:51 09/30/20 11:51 09/30/20 11:51 09/30/20 15:12 Temperature -Last 24 Hours Temperature 99.3 F Temperature 99.3 F Temperature 99.1 F Temperature 100.3 F Temperature 100.9 F - Labs CBC & Chem 7: 09/30/20 05:11 09/30/20 05:11 Labs: Abnormal lab results 09/29/20 09/29/20 09/30/20 Range/Units 17:33 21:17 05:11 WBC 11.9 H (4.5-11.0) K/mm3 RBC 3.14 L (3.65-5.03) M/mm3 Hgb 9.0 L (11.8-15.2) gm/dl Hct 27.9 L (35.5-45.6) % Lymph % (Auto) 12.4 L (13.4-35.0) % [place] % (Auto) 8.7 H (0.0-7.3) % [place] # (Auto) 1.0 H (0.0-0.8) K/mm3 Seg Neutrophils % 77.8 H (40.0-70.0) % Seg Neutrophils # 9.2 H (1.8-7.7) K/mm3 Sodium (137-145) mmol/L Chloride (98-107) mmol/L Glucose (75-100) mg/dL POC Glucose 201 H 243 H (70-105) mg/dL 09/30/20 09/30/20 09/30/20 Range/Units 05:11 08:09 12:09 WBC (4.5-11.0) K/mm3 RBC (3.65-5.03) M/mm3 Hgb (11.8-15.2) gm/dl Hct (35.5-45.6) % Lymph % (Auto) (13.4-35.0) % [place] % (Auto) (0.0-7.3) % [place] # (Auto) (0.0-0.8) K/mm3 Seg Neutrophils % (40.0-70.0) % Seg Neutrophils # (1.8-7.7) K/mm3 Sodium 136 L D (137-145) mmol/L Chloride 96.1 L (98-107) mmol/L Glucose 136 H (75-100) mg/dL POC Glucose 112 H 181 H (70-105) mg/dL
[2020-09-30] MEDS: ACETAMINOPHEN 325 MG TAB PO PRN (17:38)
--- NOTE | 2020-09-30 18:00 | Ultrasound Report ---
RIGHT CHEST ULTRASOUND HISTORY: Pleural effusion. COMPARISON: CT chest angiogram 09/29/2020 TECHNIQUE: Multiple real-time ultrasonographic grayscale images were obtained of the right chest. FINDINGS: Pleural fluid: Moderate-large amount of loculated right pleural fluid. Additional findings: None. IMPRESSION: 1. Moderate-large amount of right-sided loculated pleural fluid likely similar when compared to CT an giogram from 09/29/2020. Signer Name: Mejia Pang MD Signed: 09/30/2020 5:55 PM Workstation Name: [id number]
[2020-09-30] MEDS: GABAPENTIN 400 MG CAP PO SCH (22:04)
[2020-10-01] MEDS: INSULIN LISPRO 100 UNIT/ML VIAL 3 mL SUB-Q SCH ×4 (00:33→18:00)
[2020-10-01] MEDS: INSULIN GLARGINE 100 UNITS/ML SUB-Q SCH (00:34)
[2020-10-01 06:33] LABS: Hematocrit 26.5 % (35.5-45.6); Hemoglobin 9.4 gm/dl (11.8-15.2); Mean Corpuscular HGB Conc 36 % (32-34); Mean Corpuscular Volume 87 fl (84-94); Platelet Count 390 K/mm3 (140-440); Red Blood Count 3.05 M/mm3 (3.65-5.03)
[2020-10-01] MEDS: HEPARIN 5,000 UNIT/1 ML VIAL SUB-Q SCH ×3 (06:59→23:58)
[2020-10-01 07:06] LABS: BUN/Creatinine Ratio 10; Blood Urea Nitrogen 9 mg/dL (9-20); Calcium 9.4 mg/dL (8.4-10.2); Hemolysis Index 0
--- NOTE | 2020-10-01 08:12 | Progress Note ---
Assessment and Plan - Patient Problems (1) Sepsis Current Visit: Yes Status: Acute Plan to address problem: Presented with tachycardia, tachypnea, with pneumonia on CXR Antibiotic therapy - Sepsis is resolved Trend CBC Infectious disease consult 09/29 Blood culture x2 09/29 UA negative for leukocyte esterase and nitrates (2) Community acquired pneumonia Current Visit: Yes Status: Acute Qualifiers: Laterality: right Lung location: lower lobe of lung Qualified Code(s): J18.9 - Pneumonia, unspecified organism Plan to address problem: 10/26 CXR shows patchy right basilar airspace disease with otherwise clear lungs. Antibiotic therapy: Ceftriaxone, azithromycin Infectious disease consulted Supplementary oxygen as needed Pulmonary hygiene CXR Pneumonia protocol activated (3) Person under investigation for COVID-19 Current Visit: Yes Status: Ruled-out Plan to address problem: 09/28 COVID-19 PCR negative (4) Loculated pleural effusion Current Visit: Yes Status: Acute Plan to address problem: 09/29 CTA chest shows no evidence of a pulmonary embolism or right heart strain, right middle lobe and lower lobe groundglass opacities consistent with pneumonia, partially loculated right pleural effusion and a well-formed air- fluid collection in the posterior aspect of the right lower lobe which appears to be within the pulmonary parenchyma and may represent developing pulmonary abscess. Pulmonology consulted Pulmonary hygiene Supplemental oxygen as needed (5) Diabetes mellitus Current Visit: Yes Status: Chronic Plan to address problem: Patient home blood glucose monitoring machine malfunctions intermittently 09/29 hemoglobin A1c 13.7 uncontrolled. May more susceptible to loculated pleural effusion and abscess. CC cardiac diet Accu-Cheks before meals and at bedtime SSI Restarted home Lantus (6) Non-compliance Current Visit: Yes Status: Chronic Plan to address problem: Patient does not have a PCP Patient has been noncompliant with his medications Case management consult Patient states that his blood glucose monitor at home malfunctions occasionally (7) Hypertension Current Visit: Yes Status: Chronic Plan to address problem: -Uncontrolled start back on Norvasc today 10 mg. Takes valsartan at home however has been noncompliant Restarted home antihypertensive regimen Blood pressure monitoring per protocol Hydralazine IV as needed for SBP >160. Patient's blood pressure remains high despite valsartan. (8) Hypochloremia Current Visit: Yes Status: Acute Plan to address problem: Presented with a chloride of 91.3 , 09/30 Cl 96.1 Continue to monitor s/p 1500 mL bolus in the emergency department Trend BMP (9) Hyponatremia Current Visit: No Status: Acute Plan to address problem: Presented with a sodium of 129 with hyperglycemia of 226 Corrected sodium 132 Continue to monitor s/p 1500 mL bolus in the emergency department Trend BMP 09/30 Na 136 (10) Elevated d-dimer Current Visit: Yes Status: Acute Plan to address problem: 09/29 D-dimer 1450 09/29 CTA chest showed no pulmonary embolism 09/29 Bilateral lower extremity Dopplers showed no acute DVT or SVT (11) Hyperlipidemia Current Visit: No Status: Chronic Plan to address problem: Restarted home statin therapy (12) DVT prophylaxis Current Visit: No Status: Acute Plan to address problem: Heparin subcu SCDs to bilateral lower extremities while in bed Subjective Date of service: 10/01/20 Principal diagnosis: Chest pain loculated pleural effusion Interval history: his is 50 year old male with hypertension, diabetes, enlarged prostate, HLD, radial nerve palsy and noncompliance who presented to the emergency department with right sided pleurtic pain with right sided posterior and lateral back pain with inspiration and movement for about 1 week associated with nonproductive cough and shortness of breath. Work-up in the emergency department included a CXR which shows patchy right lower lobe infiltrates, abdominal ultrasound shows sludge in the gallbladder with gallbladder wall thickness without cholelithiasis and diffuse fatty infiltration of the liver, labs show hyponatremia at 129 (corrected sodium for hyperglycemia is 131), hypochloremia and 91.3, and hyperglycemia 226. COVID-19 PCR pending. Patient will be admitted to the hospital service for community-acquired pneumonia, COVID-19 PUI and infectious disease has been consulted. Pulmonology was consulted yesterday given CTA chest findings of loculated pleural effusion and possible pleural absces. Patient has significant right-sided pleuritic pain every time he coughs. Pain is severe. Will add Cheratussin. Objective - Constitutional Vitals: Vital Signs - 12hr 09/30/20 09/30/20 10/01/20 20:32 22:33 05:22 Temperature 99.5 F 98.8 F Pulse Rate 99 H 97 H Respiratory 20 18 Rate Blood Pressure 158/94 174/101 O2 Sat by Pulse 97 96 93 Oximetry 10/01/20 06:59 Temperature Pulse Rate 97 H Respiratory Rate Blood Pressure 174/97 O2 Sat by Pulse Oximetry General appearance: Present: mild distress, well-nourished - EENT Eyes: PERRL, EOM intact - Respiratory Respiratory: bilateral: diminished, rhonchi - Cardiovascular Rhythm: regular Heart Sounds: Present: S1 & S2 Extremities: pulses intact, No edema, normal color, Full ROM - Gastrointestinal General gastrointestinal: Present: soft, non-tender, non-distended, normal bowel sounds - Integumentary Integumentary: clear, warm, dry - Musculoskeletal Musculoskeletal: strength equal bilaterally, other (Right-sided pain with minimal inspiration and cough.) - Psychiatric Psychiatric: memory intact, appropriate mood/affect, intact judgment & insight - Labs CBC & Chem 7: 10/01/20 04:55 10/01/20 04:55 Labs: Abnormal lab results 09/30/20 10/01/20 10/01/20 Range/Units 12:09 04:55 04:55 RBC (3.65-5.03) M/mm3 Hgb (11.8-15.2) gm/dl Hct (35.5-45.6) % MCHC (32-34) % D-Dimer 2130.42 H (0-234) ng/mlDDU Sodium 133 L (137-145) mmol/L Chloride 94.0 L (98-107) mmol/L Carbon Dioxide 31 H (22-30) mmol/L Glucose 111 H (75-100) mg/dL POC Glucose 181 H (70-105) mg/dL Ferritin (30.0-300.0) ng/mL C-Reactive Protein 42.40 H (0.00-1.30) mg/dL 10/01/20 10/01/20 Range/Units 04:55 04:55 RBC 3.05 L (3.65-5.03) M/mm3 Hgb 9.4 L (11.8-15.2) gm/dl Hct 26.5 L (35.5-45.6) % MCHC 36 H (32-34) % D-Dimer (0-234) ng/mlDDU Sodium (137-145) mmol/L Chloride (98-107) mmol/L Carbon Dioxide (22-30) mmol/L Glucose (75-100) mg/dL POC Glucose (70-105) mg/dL Ferritin 665.1 H (30.0-300.0) ng/mL C-Reactive Protein (0.00-1.30) mg/dL HEART Score - HEART Score Troponin: Troponin T < 0.010 ng/mL (0.00-0.029) 09/29/20 07:02
[2020-10-01] MEDS: MORPHINE 2 MG/1 ML INJ IV PRN (11:02)
[2020-10-01] MEDS: cefTRIAXone/NS 2 GM/100 ML 2 GM/100 ML BAG IV SCH (11:09)
[2020-10-01] MEDS: VALSARTAN 40 MG TAB PO SCH (11:18)
[2020-10-01] MEDS: DOCUSATE SODIUM 100 MG CAP PO SCH (11:19)
[2020-10-01] MEDS: AZITHROMYCIN 500 MG in SODIUM CHLORIDE 0.9% 250ML 250 ML IV SCH (11:21)
[2020-10-01] MEDS: ACETAMINOPHEN 325 MG TAB PO PRN (11:53)
--- NOTE | 2020-10-01 13:13 | Progress Note ---
Assessment and Plan Community acquired pneumonia Chest Pain (Pleuritic) Person under investigation for COVID-19 Loculated pleural effusion (Para-pneumonic vs Empyema) Hypertensive Urgency DM II Obesity H/O Medical Non-compliance Hypochloremia Hyponatremia (SIADH) Elevated d-dimer Hyperlipidemia - continue empiric CAP AB's and de-escalate based on clinical but also radiographic propgress - US chest reveals pocket for thoracentesis - will likely need CTSU management (determination once thoracentesis done and results back) - prn supplemental oxygen to keep O2 sats > 90% - prn bronchodilators (ABRAM) with pulm hygiene per RT - avoid nephrotoxins, renally dose all medications - mobility protocols to prevent pressure ulcers - PT/OT as tolerated - prn analgesia per pain score - accuchecks with glycemic control per SSI for target blood glucose < 180 mg/dL - GI & VTE prophylaxis - Flu & pneumovax per protocol - continue other care per attending / other consultants ... re-evaluate in am & prn Subjective Date of service: 10/01/20 Principal diagnosis: CAP; Chest Pain; PUI COVID-19; Loculated R. pleural effusion; DM II;Obesity Interval history: Patient is seen today for: CAP; Chest Pain; PUI COVID-19; Loculated R. pleural effusion; Hypertensive Urgency; DM II; Obesity Seen and examined at bedside; 24hour events reviewed; nursing and respiratory care staff consulted; no adverse overnight events reported to me; resting in bed; feels a little better; pleurisy improving; no hemoptysis Objective Vital Signs - 12hr 10/01/20 10/01/20 10/01/20 05:22 06:59 11:18 Temperature 98.8 F Pulse Rate 97 H 97 H 104 H Respiratory 18 Rate Blood Pressure 174/101 174/97 165/90 O2 Sat by Pulse 93 Oximetry Constitutional: appears uncomfortable (less so), other (middle aged obese male with mildly increased respiratory effort at rest) Eyes: non-icteric ENT: oropharynx moist, other (mallampati 3) Neck: supple, no lymphadenopathy, no JVD, other (large circumference) Effort: mildly labored Ascultation: Right: diminished breath sounds (base), rales (scant) Percussion: Right: dull (base) Cardiovascular: regular rate and rhythm Gastrointestinal: normoactive bowel sounds, soft, non-tender, non-distended (protuberant) Integumentary: normal Extremities: no cyanosis, no edema, pulses normal, no ischemia or petechiae Neurologic: normal mental status, non-focal exam, pupils equal and round, motor strength normal and Psychiatric: mood appropriate, affect normal CBC and BMP: 10/01/20 04:55 10/01/20 04:55 ABG, PT/INR, D-dimer: ABG ABG pH 7.432 (7.320-7.450) 09/29/20 09:18 POC ABG pCO2 41.0 mmHg (32.0-48.0) 09/29/20 09:18 POC ABG pO2 54.4 mmHg (83-108) L 09/29/20 09:18 POC ABG HCO3 26.7 09/29/20 09:18 PT/INR, D-dimer PT 13.5 Sec. (12.2-14.9) 09/29/20 07:02 INR 1.05 (0.87-1.13) 09/29/20 07:02 D-Dimer 2130.42 ng/mlDDU (0-234) H 10/01/20 04:55 Abnormal lab findings: Abnormal Labs 09/29/20 09/29/20 09/29/20 07:02 07:02 07:02 WBC RBC Hgb 10.9 L Hct 31.8 L MCHC Lymph % (Auto) 9.0 L [place] % (Auto) Lymph # (Auto) 1.0 L [place] # (Auto) Seg Neutrophils % 84.2 H Seg Neutrophils # 9.2 H D-Dimer POC ABG pO2 ABG Oxyhemoglobin ABG Sodium ABG Chloride ABG Glucose Carboxyhemoglobin Sodium 129 L Chloride 91.3 L Carbon Dioxide Glucose 226 H POC Glucose Hemoglobin A1c Ferritin C-Reactive Protein Albumin 3.5 L Arterial Blood Glucose 09/29/20 09/29/20 09/29/20 07:02 07:20 09:18 WBC RBC Hgb Hct MCHC Lymph % (Auto) [place] % (Auto) Lymph # (Auto) [place] # (Auto) Seg Neutrophils % Seg Neutrophils # D-Dimer 1450.54 H POC ABG pO2 54.4 L ABG Oxyhemoglobin 88.8 L ABG Sodium 130.2 L ABG Chloride 97.0 L ABG Glucose 197 H Carboxyhemoglobin 1.6 H Sodium Chloride Carbon Dioxide Glucose POC Glucose Hemoglobin A1c 13.7 H Ferritin C-Reactive Protein Albumin Arterial Blood Glucose 197 H 09/29/20 09/29/20 09/29/20 12:05 12:05 17:33 WBC RBC Hgb Hct MCHC Lymph % (Auto) [place] % (Auto) Lymph # (Auto) [place] # (Auto) Seg Neutrophils % Seg Neutrophils # D-Dimer POC ABG pO2 ABG Oxyhemoglobin ABG Sodium ABG Chloride ABG Glucose Carboxyhemoglobin Sodium Chloride Carbon Dioxide Glucose 203 H POC Glucose 201 H Hemoglobin A1c Ferritin 408.7 H C-Reactive Protein 26.30 H Albumin Arterial Blood Glucose 09/29/20 09/30/20 09/30/20 21:17 05:11 05:11 WBC 11.9 H RBC 3.14 L Hgb 9.0 L Hct 27.9 L MCHC Lymph % (Auto) 12.4 L [place] % (Auto) 8.7 H Lymph # (Auto) [place] # (Auto) 1.0 H Seg Neutrophils % 77.8 H Seg Neutrophils # 9.2 H D-Dimer POC ABG pO2 ABG Oxyhemoglobin ABG Sodium ABG Chloride ABG Glucose Carboxyhemoglobin Sodium 136 L D Chloride 96.1 L Carbon Dioxide Glucose 136 H POC Glucose 243 H Hemoglobin A1c Ferritin C-Reactive Protein Albumin Arterial Blood Glucose 09/30/20 09/30/20 10/01/20 08:09 12:09 04:55 WBC RBC Hgb Hct MCHC Lymph % (Auto) [place] % (Auto) Lymph # (Auto) [place] # (Auto) Seg Neutrophils % Seg Neutrophils # D-Dimer 2130.42 H POC ABG pO2 ABG Oxyhemoglobin ABG Sodium ABG Chloride ABG Glucose Carboxyhemoglobin Sodium Chloride Carbon Dioxide Glucose POC Glucose 112 H 181 H Hemoglobin A1c Ferritin C-Reactive Protein Albumin Arterial Blood Glucose 10/01/20 10/01/20 10/01/20 04:55 04:55 04:55 WBC RBC 3.05 L Hgb 9.4 L Hct 26.5 L MCHC 36 H Lymph % (Auto) [place] % (Auto) Lymph # (Auto) [place] # (Auto) Seg Neutrophils % Seg Neutrophils # D-Dimer POC ABG pO2 ABG Oxyhemoglobin ABG Sodium ABG Chloride ABG Glucose Carboxyhemoglobin Sodium 133 L Chloride 94.0 L Carbon Dioxide 31 H Glucose 111 H POC Glucose Hemoglobin A1c Ferritin 665.1 H C-Reactive Protein 42.40 H Albumin Arterial Blood Glucose 10/01/20 11:28 WBC RBC Hgb Hct MCHC Lymph % (Auto) [place] % (Auto) Lymph # (Auto) [place] # (Auto) Seg Neutrophils % Seg Neutrophils # D-Dimer POC ABG pO2 ABG Oxyhemoglobin ABG Sodium ABG Chloride ABG Glucose Carboxyhemoglobin Sodium Chloride Carbon Dioxide Glucose POC Glucose 161 H Hemoglobin A1c Ferritin C-Reactive Protein Albumin Arterial Blood Glucose Prior PFT's, U/S of legs: other (US Chest with complex moderate effusion) Allied health notes reviewed: nursing
[2020-10-01] MEDS ORDERED: amLODIPine 5 MG TAB PO ONE (15:14)
[2020-10-01] MEDS: oxyCODONE /ACETAMINOPHEN 5-325MG TAB PO PRN (18:18)
[2020-10-01] MEDS: GABAPENTIN 400 MG CAP PO SCH (23:57)
[2020-10-01] MEDS: traMADol 50 MG TAB PO PRN (23:58)
[2020-10-01] MEDS: guaiFENesin/CODEINE 100-10MG ORAL LIQD 5 ML PO PRN (23:59)
[2020-10-02] MEDS: INSULIN GLARGINE 100 UNITS/ML SUB-Q SCH ×2 (00:04→22:31)
[2020-10-02] MEDS: INSULIN LISPRO 100 UNIT/ML VIAL 3 mL SUB-Q SCH ×5 (00:08→22:34)
[2020-10-02] MEDS: DOCUSATE SODIUM 100 MG CAP PO SCH ×3 (00:10→22:29)
[2020-10-02] MEDS: HEPARIN 5,000 UNIT/1 ML VIAL SUB-Q SCH ×3 (06:09→22:29)
[2020-10-02] MEDS: oxyCODONE /ACETAMINOPHEN 5-325MG TAB PO PRN ×2 (06:09→18:22)
--- NOTE | 2020-10-02 09:26 | Progress Note ---
Assessment and Plan - Patient Problems (1) Sepsis Current Visit: Yes Status: Acute Plan to address problem: Presented with tachycardia, tachypnea, with pneumonia on CXR Sepsis has now resolved. Continue empiric antibiotic therapy for loculated effusion. Antibiotic therapy - Sepsis is resolved CBC stable Infectious disease consult 09/29 Blood culture x2 09/29 UA negative for leukocyte esterase and nitrates (2) Community acquired pneumonia Current Visit: Yes Status: Acute Qualifiers: Laterality: right Lung location: lower lobe of lung Qualified Code(s): J18.9 - Pneumonia, unspecified organism Plan to address problem: 10/26 CXR shows patchy right basilar airspace disease with otherwise clear lungs. Antibiotic therapy: Ceftriaxone, azithromycin Continue present antibiotic coverage transfer for VATS procedure [place] Saturday. Oxygen now as needed Pulmonary hygiene CXR Pneumonia protocol activated (3) Person under investigation for COVID-19 Current Visit: Yes Status: Ruled-out Plan to address problem: 09/28 COVID-19 PCR negative (4) Loculated pleural effusion Current Visit: Yes Status: Acute Plan to address problem: 09/29 CTA chest shows no evidence of a pulmonary embolism or right heart strain, right middle lobe and lower lobe groundglass opacities consistent with pn eumonia, partially loculated right pleural effusion and a well-formed air-fluid collection in the posterior aspect of the right lower lobe which appears to be within the pulmonary parenchyma and may represent developing pulmonary abscess. Pulmonology consulted plan is to transfer for VATS procedure Saturday. Pulmonary hygiene Supplemental oxygen as needed (5) Diabetes mellitus Current Visit: Yes Status: Chronic Plan to address problem: Patient home blood glucose monitoring machine malfunctions intermittently 09/29 hemoglobin A1c 13.7 uncontrolled. May more susceptible to loculated pleural effusion and abscess. CC cardiac diet Accu-Cheks before meals and at bedtime SSI Restarted home Lantus Much better control since restarted on her home Lantus. Accu-Cheks 10 8-1 28. (6) Non-compliance Current Visit: Yes Status: Chronic Plan to address problem: Patient does not have a PCP Patient has been noncompliant with his medications Case management consult Patient states that his blood glucose monitor at home malfunctions occasionally (7) Hypertension Current Visit: Yes Status: Chronic Plan to address problem: -Uncontrolled start back on Norvasc today 10 mg. Takes valsartan at home however has been noncompliant Remains suboptimal will increase valsartan to 160 mg. Blood pressure monitoring per protocol Hydralazine IV as needed (8) Hypochloremia Current Visit: Yes Status: Acute Plan to address problem: Presented with a chloride of 91.3 , 09/30 Cl 96.1 Continue to monitor s/p 1500 mL bolus in the emergency department Trend BMP (9) Hyponatremia Current Visit: No Status: Acute Plan to address problem: Presented with a sodium of 129 with hyperglycemia of 226 Corrected sodium 132 Continue to monitor s/p 1500 mL bolus in the emergency department Trend BMP 09/30 Na 136 -10/01 sodium 133 this is with hyperglycemia controlled. Short trial of normal saline. (10) Elevated d-dimer Current Visit: Yes Status: Acute Plan to address problem: 09/29 D-dimer 1450 09/29 CTA chest showed no pulmonary embolism 09/29 Bilateral lower extremity Dopplers showed no acute DVT or SVT (11) Hyperlipidemia Current Visit: No Status: Chronic Plan to address problem: Restarted home statin therapy (12) DVT prophylaxis Current Visit: No Status: Acute Plan to address problem: Heparin subcu SCDs to bilateral lower extremities while in bed Subjective Date of service: 10/02/20 Principal diagnosis: Chest pain loculated pleural effusion Interval history: his is 50 year old male with hypertension, diabetes, enlarged prostate, HLD, radial nerve palsy and noncompliance who presented to the emergency department with right sided pleurtic pain with right sided posterior and lateral back pain with inspiration and movement for about 1 week associated with nonproductive cough and shortness of breath. Work-up in the emergency department included a CXR which shows patchy right lower lobe infiltrates, abdominal ultrasound shows sludge in the gallbladder with gallbladder wall thickness without cholelithiasis and diffuse fatty infiltration of the liver, labs show hyponatremia at 129 (corrected sodium for hyperglycemia is 131), hypochloremia and 91.3, and hyperglycemia 226. COVID-19 PCR pending. Patient will be admitted to the hospital service for community-acquired pneumonia, Patient is Covid negative. Patient today feels much better since starting Robitussin-AC and cough is limited. The majority of patient's pain was secondary to pleuritic chest pain. Plans is to transfer to [place] for VATS procedure on Saturday. Accu-Cheks much better this a.m. average 10 8-1 28. Afebrile. Objective - Constitutional Vitals: Vital Signs - 12hr 10/01/20 10/01/20 10/01/20 21:42 22:00 23:45 Temperature 101.0 F H Pulse Rate 106 H Respiratory 18 Rate Respiratory 15 Rate [chest] Blood Pressure 173/99 Blood Pressure [Right] O2 Sat by Pulse 94 96 Oximetry 10/01/20 10/01/20 10/02/20 23:52 23:58 00:58 Temperature 99.1 F Pulse Rate 97 H Respiratory 17 17 16 Rate Respiratory Rate [chest] Blood Pressure Blood Pressure 160/95 [Right] O2 Sat by Pulse 96 Oximetry 10/02/20 10/02/20 10/02/20 02:00 05:28 06:05 Temperature 98.8 F Pulse Rate 106 H 106 H Respiratory 16 17 Rate Respiratory Rate [chest] Blood Pressure 184/93 Blood Pressure 145/87 [Right] O2 Sat by Pulse 96 93 97 Oximetry 10/02/20 10/02/20 06:09 07:09 Temperature Pulse Rate Respiratory 17 17 Rate Respiratory Rate [chest] Blood Pressure Blood Pressure [Right] O2 Sat by Pulse Oximetry General appearance: Present: no acute distress, well-nourished - EENT Eyes: PERRL, EOM intact ENT: hearing intact, clear oral mucosa Ears: bilateral: normal - Neck Neck: supple, normal ROM - Respiratory Respiratory effort: normal Respiratory: right: diminished, rhonchi - Breasts Breasts: normal - Cardiovascular Rhythm: regular Heart Sounds: Present: S1 & S2. Absent: gallop, rub Extremities: pulses intact, No edema, normal color, Full ROM - Gastrointestinal General gastrointestinal: Present: soft, non-tender, non-distended, normal bowel sounds - Genitourinary Male genitourinary: normal - Integumentary Integumentary: clear, warm, dry - Musculoskeletal Musculoskeletal: 1, strength equal bilaterally - Neurologic Neurologic: moves all extremities - Psychiatric Psychiatric: memory intact, appropriate mood/affect, intact judgment & insight - Labs CBC & Chem 7: 10/01/20 04:55 10/01/20 04:55 Labs: Abnormal lab results 10/01/20 10/01/20 10/01/20 Range/Units 11:28 16:22 22:46 POC Glucose 161 H 174 H 134 H (70-105) mg/dL 10/02/20 Range/Units 07:58 POC Glucose 129 H (70-105) mg/dL HEART Score - HEART Score Troponin: Troponin T < 0.010 ng/mL (0.00-0.029) 09/29/20 07:02
[2020-10-02] MEDS: cefTRIAXone/NS 2 GM/100 ML 2 GM/100 ML BAG IV SCH (09:30)
[2020-10-02] MEDS: VALSARTAN 40 MG TAB PO SCH (09:31)
[2020-10-02] MEDS: AZITHROMYCIN 250 MG TAB PO SCH (09:32)
[2020-10-02] MEDS ORDERED: VALSARTAN 40 MG TAB PO SCH (13:18)
--- NOTE | 2020-10-02 14:05 | Progress Note ---
Assessment and Plan Community acquired pneumonia Chest Pain (Pleuritic) Person under investigation for COVID-19 Loculated pleural effusion (Para-pneumonic vs Empyema) Hypertensive Urgency DM II Obesity H/O Medical Non-compliance Hypochloremia Hyponatremia (SIADH) Elevated d-dimer Hyperlipidemia - for thoracentesis in am (US chest reveals pocket for thoracentesis) - hold am Heparin dose - continue empiric CAP AB's and de-escalate based on clinical but also radiographic progress - continue care as below otherwise; - will likely need CTSU management (determination once thoracentesis done and results back) - prn supplemental oxygen to keep O2 sats > 90% - prn bronchodilators (ABRAM) with pulm hygiene per RT - avoid nephrotoxins, renally dose all medications - mobility protocols to prevent pressure ulcers - PT/OT as tolerated - prn analgesia per pain score - accuchecks with glycemic control per SSI for target blood glucose < 180 mg/dL - GI & VTE prophylaxis - Flu & pneumovax per protocol - continue other care per attending / other consultants ... re-evaluate in am & prn Subjective Date of service: 10/02/20 Principal diagnosis: CAP; Chest Pain; PUI COVID-19; Loculated R. pleural effusion; DM II;Obesity Interval history: Patient is seen today for: CAP; Chest Pain; PUI COVID-19; Loculated R. pleural effusion; Hypertensive Urgency; DM II; Obesity Seen and examined at bedside; 24hour events reviewed; nursing and respiratory care staff consulted; no adverse overnight events reported to me; resting in bed; feels a lot better; no chest pain; No N/V/F/C Objective Vital Signs - 12hr 10/02/20 10/02/20 10/02/20 05:28 06:05 06:09 Temperature 98.8 F Pulse Rate 106 H 106 H Respiratory 16 17 17 Rate Blood Pressure 184/93 Blood Pressure 145/87 [Right] O2 Sat by Pulse 93 97 Oximetry 10/02/20 10/02/20 10/02/20 07:09 09:10 09:31 Temperature Pulse Rate 100 H Respiratory 17 Rate Blood Pressure 155/90 Blood Pressure [Right] O2 Sat by Pulse 93 Oximetry 10/02/20 11:22 Temperature 98.6 F Pulse Rate 98 H Respiratory 20 Rate Blood Pressure 149/94 Blood Pressure [Right] O2 Sat by Pulse 96 Oximetry Constitutional: no acute distress, other (middle aged obese male with mildly increased respiratory effort at rest) Eyes: non-icteric ENT: oropharynx moist, other (mallampati 3) Neck: supple, no lymphadenopathy, no JVD, other (large circumference) Effort: mildly labored Ascultation: Right: diminished breath sounds (base), rales (scant) Percussion: Right: dull (base) Cardiovascular: regular rate and rhythm Gastrointestinal: normoactive bowel sounds, soft, non-tender, non-distended (protuberant) Integumentary: normal Extremities: no cyanosis, no edema, pulses normal, no ischemia or petechiae Neurologic: normal mental status, non-focal exam, pupils equal and round, motor strength normal and Psychiatric: mood appropriate, affect normal CBC and BMP: 10/01/20 04:55 10/01/20 04:55 ABG, PT/INR, D-dimer: ABG ABG pH 7.432 (7.320-7.450) 09/29/20 09:18 POC ABG pCO2 41.0 mmHg (32.0-48.0) 09/29/20 09:18 POC ABG pO2 54.4 mmHg (83-108) L 09/29/20 09:18 POC ABG HCO3 26.7 09/29/20 09:18 PT/INR, D-dimer PT 13.5 Sec. (12.2-14.9) 09/29/20 07:02 INR 1.05 (0.87-1.13) 09/29/20 07:02 D-Dimer 2130.42 ng/mlDDU (0-234) H 10/01/20 04:55 Abnormal lab findings: Abnormal Labs 09/29/20 09/29/20 09/29/20 07:02 07:02 07:02 WBC RBC Hgb 10.9 L Hct 31.8 L MCHC Lymph % (Auto) 9.0 L [place] % (Auto) Lymph # (Auto) 1.0 L [place] # (Auto) Seg Neutrophils % 84.2 H Seg Neutrophils # 9.2 H D-Dimer POC ABG pO2 ABG Oxyhemoglobin ABG Sodium ABG Chloride ABG Glucose Carboxyhemoglobin Sodium 129 L Chloride 91.3 L Carbon Dioxide Glucose 226 H POC Glucose Hemoglobin A1c Ferritin C-Reactive Protein Albumin 3.5 L Arterial Blood Glucose 09/29/20 09/29/20 09/29/20 07:02 07:20 09:18 WBC RBC Hgb Hct MCHC Lymph % (Auto) [place] % (Auto) Lymph # (Auto) [place] # (Auto) Seg Neutrophils % Seg Neutrophils # D-Dimer 1450.54 H POC ABG pO2 54.4 L ABG Oxyhemoglobin 88.8 L ABG Sodium 130.2 L ABG Chloride 97.0 L ABG Glucose 197 H Carboxyhemoglobin 1.6 H Sodium Chloride Carbon Dioxide Glucose POC Glucose Hemoglobin A1c 13.7 H Ferritin C-Reactive Protein Albumin Arterial Blood Glucose 197 H 09/29/20 09/29/20 09/29/20 12:05 12:05 17:33 WBC RBC Hgb Hct MCHC Lymph % (Auto) [place] % (Auto) Lymph # (Auto) [place] # (Auto) Seg Neutrophils % Seg Neutrophils # D-Dimer POC ABG pO2 ABG Oxyhemoglobin ABG Sodium ABG Chloride ABG Glucose Carboxyhemoglobin Sodium Chloride Carbon Dioxide Glucose 203 H POC Glucose 201 H Hemoglobin A1c Ferritin 408.7 H C-Reactive Protein 26.30 H Albumin Arterial Blood Glucose 09/29/20 09/30/20 09/30/20 21:17 05:11 05:11 WBC 11.9 H RBC 3.14 L Hgb 9.0 L Hct 27.9 L MCHC Lymph % (Auto) 12.4 L [place] % (Auto) 8.7 H Lymph # (Auto) [place] # (Auto) 1.0 H Seg Neutrophils % 77.8 H Seg Neutrophils # 9.2 H D-Dimer POC ABG pO2 ABG Oxyhemoglobin ABG Sodium ABG Chloride ABG Glucose Carboxyhemoglobin Sodium 136 L D Chloride 96.1 L Carbon Dioxide Glucose 136 H POC Glucose 243 H Hemoglobin A1c Ferritin C-Reactive Protein Albumin Arterial Blood Glucose 09/30/20 09/30/20 10/01/20 08:09 12:09 04:55 WBC RBC Hgb Hct MCHC Lymph % (Auto) [place] % (Auto) Lymph # (Auto) [place] # (Auto) Seg Neutrophils % Seg Neutrophils # D-Dimer 2130.42 H POC ABG pO2 ABG Oxyhemoglobin ABG Sodium ABG Chloride ABG Glucose Carboxyhemoglobin Sodium Chloride Carbon Dioxide Glucose POC Glucose 112 H 181 H Hemoglobin A1c Ferritin C-Reactive Protein Albumin Arterial Blood Glucose 10/01/20 10/01/20 10/01/20 04:55 04:55 04:55 WBC RBC 3.05 L Hgb 9.4 L Hct 26.5 L MCHC 36 H Lymph % (Auto) [place] % (Auto) Lymph # (Auto) [place] # (Auto) Seg Neutrophils % Seg Neutrophils # D-Dimer POC ABG pO2 ABG Oxyhemoglobin ABG Sodium ABG Chloride ABG Glucose Carboxyhemoglobin Sodium 133 L Chloride 94.0 L Carbon Dioxide 31 H Glucose 111 H POC Glucose Hemoglobin A1c Ferritin 665.1 H C-Reactive Protein 42.40 H Albumin Arterial Blood Glucose 10/01/20 10/01/20 10/01/20 11:28 16:22 22:46 WBC RBC Hgb Hct MCHC Lymph % (Auto) [place] % (Auto) Lymph # (Auto) [place] # (Auto) Seg Neutrophils % Seg Neutrophils # D-Dimer POC ABG pO2 ABG Oxyhemoglobin ABG Sodium ABG Chloride ABG Glucose Carboxyhemoglobin Sodium Chloride Carbon Dioxide Glucose POC Glucose 161 H 174 H 134 H Hemoglobin A1c Ferritin C-Reactive Protein Albumin Arterial Blood Glucose 10/02/20 10/02/20 07:58 11:21 WBC RBC Hgb Hct MCHC Lymph % (Auto) [place] % (Auto) Lymph # (Auto) [place] # (Auto) Seg Neutrophils % Seg Neutrophils # D-Dimer POC ABG pO2 ABG Oxyhemoglobin ABG Sodium ABG Chloride ABG Glucose Carboxyhemoglobin Sodium Chloride Carbon Dioxide Glucose POC Glucose 129 H 177 H Hemoglobin A1c Ferritin C-Reactive Protein Albumin Arterial Blood Glucose Allied health notes reviewed: nursing
[2020-10-02] MEDS: SODIUM CHLORIDE 0.9% 1000 ML 1,000 ML IV SCH (14:34)
[2020-10-02] MEDS: guaiFENesin/CODEINE 100-10MG ORAL LIQD 5 ML PO PRN (14:55)
[2020-10-02] MEDS: ACETAMINOPHEN 325 MG TAB PO PRN (16:46)
[2020-10-02] MEDS: GABAPENTIN 400 MG CAP PO SCH (22:29)
[2020-10-02] MEDS: traMADol 50 MG TAB PO PRN (22:36)
--- NOTE | 2020-10-03 05:34 | Consultation ---
PULMONARY CONSULTATION CONSULTING PHYSICIAN: Dr. Lizet Andres. REASON FOR CONSULTATION: Loculated pleural effusion. CHIEF COMPLAINT AND HISTORY OF PRESENT ILLNESS: The patient is a 50-year-old male with a past medical history significant amongst other things for a diagnosis of obesity and diabetes and some element of noncompliance. According to the records, he presented to the Emergency Department yesterday complaining of right-sided pleuritic chest pain that really had been going on for about a week. He had a nonproductive cough, shortness of breath. He denied any gross or streaky hemoptysis. He denied significant weight loss. He denied anosmia or loss of taste. He denied nausea, vomiting, diarrhea. Denied any known exposure to COVID-19. Denied tobacco use or abuse whatsoever. He was evaluated in the Emergency Room amongst other things. He was found with hyponatremia where the chest x-ray essentially revealed a loculated right pleural effusion that was confirmed by a CT angiogram which was negative for pulmonary emboli. He was admitted to the hospital with a diagnosis of loculated effusion, community-acquired pneumonia, put under investigation for COVID-19 infection. We are asked to assist with management. When I stopped by to see him, he was sitting up on the side of the bed, still complaining of [id number] pleuritic-type chest pain. Still no hemoptysis. Denies any history of venous thromboembolic phenomena. As mentioned above, nonsmoker. No new onset of leg pain or swelling either unilaterally or bilaterally. No recent long distance travel. He denies any new lumps, bumps or swellings on his body otherwise. There really is not as much of the history of presentation as I have. PAST MEDICAL HISTORY: Diabetes, hypertension, hyperlipidemia, benign prostatic hyperplasia, radial nerve palsy, reported medication noncompliance and obesity. PAST SURGICAL HISTORY: He had a repair of meniscus. MEDICATIONS: Medications he was on at the time I stopped by to see him were reviewed. Pertinent meds included the following: Tylenol 650 mg p.o. q. 4 hours p.r.n. mild pain or fevers, Lipitor 40 mg p.o. at bedtime, Neurontin 800 mg p.o. at bedtime, heparin 5000 units subQ q. 8 hours, Zithromax 500 mg IV daily, Rocephin 2 g IV daily, Lantus insulin 10 units subQ at bedtime as well as insulin via sliding scale, morphine sulfate 2 mg IV q. 4 hours p.r.n. moderate pain as well as p.r.n. Percocet 5/325 for moderate pain, Diovan 80 mg p.o. daily. ALLERGIES: LISINOPRIL, nature of this allergy is unknown. DIET: Obese gentleman. Denies significant weight loss or gain preceding few weeks to months. FAMILY AND SOCIAL HISTORY: Lives in the community. , nonsmoker. Denies illicit drug use or abuse. Denies alcohol abuse. There is a family history of hypertension. REVIEW OF SYSTEMS: No loss of consciousness. No new onset of seizures. No new onset of focal weakness. No gross hematochezia or melena. No gross hematuria or dysuria. No hematemesis. No hemoptysis, no seizures. He denies polydipsia or polyuria. Denies heat or cold intolerance. Complete 13-system review of systems obtained. Pertinent positives and/or negatives as in body of history above, otherwise they are noncontributory. PHYSICAL EXAMINATION: VITAL SIGNS: At presentation in the Emergency Room, he was afebrile, temperature 98.2 degrees Fahrenheit with a pulse of 119, respiratory rate of 18, blood pressure 194/114. O2 sats were 97%. Inspired oxygen concentration at the time was not recorded. When I stopped by to see him, his O2 sats were 98%, that was on 2 liters nasal cannula. Of note, he has had low-grade fevers up to 100.9 degrees Fahrenheit. GENERAL: This is a middle-aged obese gentleman, normocephalic, atraumatic, talking to me with mildly increased respiratory effort at rest. HEAD, EYES, EARS, NOSE AND THROAT: Anicteric. No conjunctival erythema. Oropharynx was moist. Mallampati #3 oropharynx. NECK: No gross jugular venous distention. No thyromegaly. He does have a large neck circumference. Grossly, there were no palpable lymph nodes in the supraclavicular or submandibular lymph node chains. LUNGS: Auscultation of both lung garza revealed diminished right lower lobe air entry, right lower lobe rales. No wheezing. HEART: Heart sounds 1 and 2 are heard, regular rate and rhythm at the time of my evaluation without overt rubs or murmurs. ABDOMEN: Soft, full, protuberant. Bowel sounds are positive, nontender, no palpable hepatosplenomegaly. EXTREMITIES: Without overt digital clubbing or cyanosis, no pedal edema. Pedal pulses were 2+ bilaterally. NEUROLOGIC: Pupils are equal, round, about 4 mm, reactive to light. Extraocular muscle movements were intact. He moves all 4 extremities spontaneously. SKIN: Normal turgor without overt cellulitis or rash. Please see the wound care nurse's notes for full description of his skin. PSYCHIATRIC: Mood and affect were anxious. LABORATORY DATA: From my review are as follows: On admission, white cell count 11,000, hemoglobin 10.9, hematocrit 31.8, platelet count 398. No manual differential. D-dimer elevated at 1450. Arterial blood gas showed a pH of 7.43, pCO2 of 41 and a pO2 of 54 on room air. Serum sodium was 129, potassium 4.2, chloride 91, bicarb 29, BUN 9, creatinine 1.0, glucose 226. Hemoglobin A1c 13.7. Liver function test within normal limits. CRP was up at 26.3. COVID-19 test was negative. Two sets of blood cultures, no growth to date. I have reviewed the chest x-ray and the CT angio. I do agree with the radiologist's interpretation. I do not see any gross filling defects compatible with large order pulmonary emboli; however, the contrast phase timing is ____and I cannot rule out smaller pulmonary emboli. He does have a loculated pleural effusion that does not lay appropriately, perhaps approachable more towards the mid lung zone areas. No gross pneumothorax, no gross bony fractures. Perhaps the development of air fluid level in the right lower lobe loculation, but no real consolidation that I can see. The left lung is relatively free of disease. ASSESSMENT: 1. Acute hypoxemic respiratory failure, likely secondary to community-acquired pneumonia with loculated pleural effusion. 2. Parapneumonic effusion versus empyema versus other pathology. 3. Obesity. 4. Diabetes type 2, poorly controlled. 5. History of noncompliance. 6. Hypertension. 7. Benign prostatic hypertrophy. 8. History of radial nerve palsy. 9. Elevated serum D-dimers. 10. Likely SIADH, syndrome of inappropriate antidiuretic hormone secretion. 11. Hyponatremia. PLAN: I actually do believe this gentleman will need to see a cardiothoracic surgeon for likely VATS procedure and lysis of adhesions. In the meantime, we will go for thoracentesis to try and get a diagnostic impression of the fluid. I will also be sending the fluid for cytology in addition to cultures and other routine tests to determine whether it is transudative or exudative. In the meantime, I will also get an upright ultrasound of the chest to better evaluate if there is going to be a safe window for thoracentesis. Oxygen should be weaned to keep sats greater than or equal to about 90%. Aspiration precautions should be maintained. He will benefit from p.r.n. bilevel positive air pressure ventilation therapy and I have also encouraged an outpatient sleep study. I will also get a procalcitonin level. He should be placed on GI prophylaxis. He is on DVT prophylaxis. Flu and pneumonia vaccination will be addressed per protocol. Thank you very much for the consult. We will follow along and make further recommendations as the picture progresses/becomes clearer. Continued tobacco abstinence has been encouraged. I will defer to the attending physician for improvement in his glycemic control. JOB# [id number] AMANDEEP/STACEY
[2020-10-03] MEDS: HEPARIN 5,000 UNIT/1 ML VIAL SUB-Q SCH ×3 (06:08→21:22)
[2020-10-03] MEDS: SODIUM CHLORIDE 0.9% 1000 ML 1,000 ML IV SCH (06:13)
[2020-10-03 06:35] LABS: Basophils % (Auto) 0.2 % (0.0-1.8); Eosinophils # (Auto) 0.2 K/mm3 (0.0-0.4); Eosinophils % (Auto) 1.6 % (0.0-4.3); Hematocrit 29.4 % (35.5-45.6); Hemoglobin 9.8 gm/dl (11.8-15.2); Lymphocytes % (Auto) 10.1 % (13.4-35.0); Mean Corpuscular HGB Conc 33 % (32-34); Mean Corpuscular Volume 88 fl (84-94); Monocytes # (Auto) 1.3 K/mm3 (0.0-0.8); Monocytes % (Auto) 12.4 % (0.0-7.3); Platelet Count 558 K/mm3 (140-440); Red Blood Count 3.33 M/mm3 (3.65-5.03)
[2020-10-03 06:57] LABS: BUN/Creatinine Ratio 11; Blood Urea Nitrogen 10 mg/dL (9-20); Calcium 9.7 mg/dL (8.4-10.2); Hemolysis Index 16
[2020-10-03] MEDS: ACETAMINOPHEN 325 MG TAB PO PRN (07:03)
[2020-10-03 07:22] LABS: C-Reactive Protein 40.1 mg/dL (0.00-1.30)
[2020-10-03] MEDS: MORPHINE 2 MG/1 ML INJ IV PRN ×2 (08:39→17:38)
[2020-10-03] MEDS: INSULIN LISPRO 100 UNIT/ML VIAL 3 mL SUB-Q SCH ×4 (08:45→22:14)
--- NOTE | 2020-10-03 09:13 | Procedure Note ---
Date of procedure: 10/03/20 Pre-op diagnosis: right pleural effusion Post-op diagnosis: same Procedure: US thoracentesis Findings: small complex right pleural effusion Anesthesia: local Surgeon: AMERICA ZAMUDIO Estimated blood loss: none Pathology: list (120cc) Specimen disposition: to lab Condition: stable Disposition: floor
--- NOTE | 2020-10-03 09:35 | Ultrasound Report ---
Ultrasound-guided thoracentesis HISTORY: right complex effusion; diagnostic. COMPARISON: PROCEDURE: The risks (including but not limited to bleeding, infection, and pneumothorax) and benefi ts were explained to the patient and informed consent was obtained. A time out procedure was perform ed. Ultrasound was used to evaluate the right pleural effusion and locate the optimal site for needle ent ry. Images of the right pleural effusion demonstrate moderate complexity with multiple fine internal septa. Once the skin was marked, the procedure site was prepped and draped in the usual sterile fashi on and lidocaine was used for local anesthesia. A skin larissa was made and a 6-Kazakh thoracentesis ca theter was placed. The patient was monitored closely throughout the procedure, and a total of 200 mL of yellow, slightly cloudy fluid was aspirated. Samples were sent to the lab for further evaluation per the primary clinicians orders. The patient tolerated the procedure well with no complications. A post-procedure chest x-ray was imm ediately ordered. IMPRESSION: Successful thoracentesis as above with a total of 200 mL of yellow, slightly cloudy fluid aspirated. Signer Name: Du Covington Jr, MD Signed: 10/03/2020 9:30 AM Workstation Name: [id number]
--- NOTE | 2020-10-03 09:51 | XRay Report ---
XR chest 1V ap INDICATION / CLINICAL INFORMATION: complex right pleural effusion, recent thora. COMPARISON: Ultrasound from 09/30/2020. CTA from 09/29/2020. FINDINGS: SUPPORT DEVICES: None HEART /PULMONARY VASCULATURE: Unchanged. LUNGS / PLEURA: Slight improvement in right basilar pleural fluid collection status post thoracentesi s. Right basilar airspace opacity remains. Left lung is clear. No evidence of pneumothorax. ADDITIONAL FINDINGS: No significant additional findings. IMPRESSION: Slight improvement in right basilar pleural fluid collection status post thoracentesis. No pneumothor ax. Signer Name: Zoltan Johnson MD Signed: 10/03/2020 9:47 AM Workstation Name: [id number]
[2020-10-03] MEDS ORDERED: amLODIPine 5 MG TAB PO SCH ×2 (10:00→17:21)
[2020-10-03] MEDS: DOCUSATE SODIUM 100 MG CAP PO SCH ×2 (10:10→21:22)
[2020-10-03] MEDS: VALSARTAN 160MG TAB PO SCH (10:10)
[2020-10-03] MEDS: cefTRIAXone/NS 2 GM/100 ML 2 GM/100 ML BAG IV SCH (10:11)
[2020-10-03] MEDS: AZITHROMYCIN 250 MG TAB PO SCH (10:12)
[2020-10-03] MEDS: oxyCODONE /ACETAMINOPHEN 5-325MG TAB PO PRN (13:30)
--- NOTE | 2020-10-03 14:16 | Progress Note ---
Assessment and Plan Patient alert, awake. Complaining joint pains. O 2 litres O2. O2 saturation 93%. ABG on room air. ABG pH 7.432 (7.320-7.450) 09/29/20 09:18 POC ABG pCO2 41.0 mmHg (32.0-48.0) 09/29/20 09:18 POC ABG pO2 54.4 mmHg (83-108) L 09/29/20 09:18 POC ABG HCO3 26.7 09/29/20 09:18 Patient placed on 2 litres O2. Patient complaining cough which is non productive and has some shortness of breath. Patient afebrile. No leukocytosis. Chest xray done to day 10/03/20 reported Slight improvement in right basilar pleural fluid collection status post thoracentesis. No pneumothorax. Patient is on Zosyn. No history of smoking, or drug abuse. Patient says drinks alcohol. Works for [employer]. . Children 1. Allergic to lisinopril. - Patient Problems (1) Acute hypoxemic respiratory failure Current Visit: Yes Status: Acute Plan to address problem: O2 2 litres via nasal canula. Albuterol/atrovent aerosol treatments q 6 hours. Continue Zosyn. Continue S/C heparin. (2) Community acquired pneumonia Current Visit: Yes Status: Acute Qualifiers: Laterality: right Lung location: lower lobe of lung Qualified Code(s): J18.9 - Pneumonia, unspecified organism Plan to address problem: Patient is on zosyn. (3) Loculated pleural effusion Current Visit: Yes Status: Acute Plan to address problem: Patient undergone thoracentesis. Pleural fluid cell count wbc 193, RBC 695 Rest of the pleural fluid results pending. (4) Hypertension Current Visit: Yes Status: Chronic (5) Person under investigation for COVID-19 Current Visit: Yes Status: Ruled-out Plan to address problem: Ricardo virus reported negative. (6) Accelerated hypertension Current Visit: No Status: Acute Plan to address problem: Management as per primary care. (7) CHF (congestive heart failure) Current Visit: No Status: Acute Plan to address problem: Management as per cardiology. Subjective Date of service: 10/03/20 Principal diagnosis: CAP; Chest Pain; PUI COVID-19; Loculated R. pleural effusion; DM II;Obesity Interval history: Patient alert, awake. Complaining joint pains. O 2 litres O2. O2 saturation 93%. ABG on room air. ABG pH 7.432 (7.320-7.450) 09/29/20 09:18 POC ABG pCO2 41.0 mmHg (32.0-48.0) 09/29/20 09:18 POC ABG pO2 54.4 mmHg (83-108) L 09/29/20 09:18 POC ABG HCO3 26.7 09/29/20 09:18 Patient placed on 2 litres O2. Patient complaining cough which is non productive and has some shortness of breath. Patient afebrile. No leukocytosis. Chest xray done to day 10/03/20 reported Slight improvement in right basilar pleural fluid collection status post thoracentesis. No pneumothorax. Patient is on Zosyn. No history of smoking, or drug abuse. Patient says drinks alcohol. Works for [employer] . Children 1. Allergic to lisinopril. Objective Vital Signs - 12hr 10/03/20 10/03/20 10/03/20 06:44 07:03 07:05 Temperature 100.1 F H Pulse Rate 106 H 105 H Respiratory 20 17 17 Rate Blood Pressure 179/92 Blood Pressure 162/94 [Right] O2 Sat by Pulse 95 96 Oximetry 10/03/20 10/03/20 10/03/20 08:03 10:10 13:11 Temperature 98.3 F Pulse Rate 92 H 101 H Respiratory 17 20 Rate Blood Pressure 141/79 163/92 Blood Pressure [Right] O2 Sat by Pulse 96 Oximetry Constitutional: alert, appears uncomfortable, other (Complaining joint pains.) Eyes: non-icteric ENT: oropharynx moist, other (mallampati 3) Neck: supple, no lymphadenopathy, no JVD, other (large circumference) Effort: mildly labored Ascultation: Right: diminished breath sounds (base), rales (scant) Percussion: Right: dull (base) Cardiovascular: regular rate and rhythm Gastrointestinal: normoactive bowel sounds, soft, non-tender, non-distended (protuberant) Integumentary: normal Extremities: no cyanosis, no edema, pulses normal, no ischemia or petechiae Neurologic: normal mental status, non-focal exam, pupils equal and round, motor strength normal and Psychiatric: mood appropriate, affect normal CBC and BMP: 10/03/20 05:35 10/03/20 05:35 ABG, PT/INR, D-dimer: ABG ABG pH 7.432 (7.320-7.450) 09/29/20 09:18 POC ABG pCO2 41.0 mmHg (32.0-48.0) 09/29/20 09:18 POC ABG pO2 54.4 mmHg (83-108) L 09/29/20 09:18 POC ABG HCO3 26.7 09/29/20 09:18 PT/INR, D-dimer PT 13.5 Sec. (12.2-14.9) 09/29/20 07:02 INR 1.05 (0.87-1.13) 09/29/20 07:02 D-Dimer 6409.06 ng/mlDDU (0-234) H 10/03/20 05:35 Abnormal lab findings: Abnormal Labs 09/29/20 09/29/20 09/29/20 07:02 07:02 07:02 WBC RBC Hgb 10.9 L Hct 31.8 L MCHC Plt Count Lymph % (Auto) 9.0 L [place] % (Auto) Lymph # (Auto) 1.0 L [place] # (Auto) Seg Neutrophils % 84.2 H Seg Neutrophils # 9.2 H D-Dimer POC ABG pO2 ABG Oxyhemoglobin ABG Sodium ABG Chloride ABG Glucose Carboxyhemoglobin Sodium 129 L Chloride 91.3 L Carbon Dioxide Glucose 226 H POC Glucose Hemoglobin A1c Ferritin C-Reactive Protein Albumin 3.5 L Arterial Blood Glucose 09/29/20 09/29/20 09/29/20 07:02 07:20 09:18 WBC RBC Hgb Hct MCHC Plt Count Lymph % (Auto) [place] % (Auto) Lymph # (Auto) [place] # (Auto) Seg Neutrophils % Seg Neutrophils # D-Dimer 1450.54 H POC ABG pO2 54.4 L ABG Oxyhemoglobin 88.8 L ABG Sodium 130.2 L ABG Chloride 97.0 L ABG Glucose 197 H Carboxyhemoglobin 1.6 H Sodium Chloride Carbon Dioxide Glucose POC Glucose Hemoglobin A1c 13.7 H Ferritin C-Reactive Protein Albumin Arterial Blood Glucose 197 H 09/29/20 09/29/20 09/29/20 12:05 12:05 17:33 WBC RBC Hgb Hct MCHC Plt Count Lymph % (Auto) [place] % (Auto) Lymph # (Auto) [place] # (Auto) Seg Neutrophils % Seg Neutrophils # D-Dimer POC ABG pO2 ABG Oxyhemoglobin ABG Sodium ABG Chloride ABG Glucose Carboxyhemoglobin Sodium Chloride Carbon Dioxide Glucose 203 H POC Glucose 201 H Hemoglobin A1c Ferritin 408.7 H C-Reactive Protein 26.30 H Albumin Arterial Blood Glucose 09/29/20 09/30/20 09/30/20 21:17 05:11 05:11 WBC 11.9 H RBC 3.14 L Hgb 9.0 L Hct 27.9 L MCHC Plt Count Lymph % (Auto) 12.4 L [place] % (Auto) 8.7 H Lymph # (Auto) [place] # (Auto) 1.0 H Seg Neutrophils % 77.8 H Seg Neutrophils # 9.2 H D-Dimer POC ABG pO2 ABG Oxyhemoglobin ABG Sodium ABG Chloride ABG Glucose Carboxyhemoglobin Sodium 136 L D Chloride 96.1 L Carbon Dioxide Glucose 136 H POC Glucose 243 H Hemoglobin A1c Ferritin C-Reactive Protein Albumin Arterial Blood Glucose 09/30/20 09/30/20 10/01/20 08:09 12:09 04:55 WBC RBC Hgb Hct MCHC Plt Count Lymph % (Auto) [place] % (Auto) Lymph # (Auto) [place] # (Auto) Seg Neutrophils % Seg Neutrophils # D-Dimer 2130.42 H POC ABG pO2 ABG Oxyhemoglobin ABG Sodium ABG Chloride ABG Glucose Carboxyhemoglobin Sodium Chloride Carbon Dioxide Glucose POC Glucose 112 H 181 H Hemoglobin A1c Ferritin C-Reactive Protein Albumin Arterial Blood Glucose 10/01/20 10/01/20 10/01/20 04:55 04:55 04:55 WBC RBC 3.05 L Hgb 9.4 L Hct 26.5 L MCHC 36 H Plt Count Lymph % (Auto) [place] % (Auto) Lymph # (Auto) [place] # (Auto) Seg Neutrophils % Seg Neutrophils # D-Dimer POC ABG pO2 ABG Oxyhemoglobin ABG Sodium ABG Chloride ABG Glucose Carboxyhemoglobin Sodium 133 L Chloride 94.0 L Carbon Dioxide 31 H Glucose 111 H POC Glucose Hemoglobin A1c Ferritin 665.1 H C-Reactive Protein 42.40 H Albumin Arterial Blood Glucose 10/01/20 10/01/20 10/01/20 11:28 16:22 22:46 WBC RBC Hgb Hct MCHC Plt Count Lymph % (Auto) [place] % (Auto) Lymph # (Auto) [place] # (Auto) Seg Neutrophils % Seg Neutrophils # D-Dimer POC ABG pO2 ABG Oxyhemoglobin ABG Sodium ABG Chloride ABG Glucose Carboxyhemoglobin Sodium Chloride Carbon Dioxide Glucose POC Glucose 161 H 174 H 134 H Hemoglobin A1c Ferritin C-Reactive Protein Albumin Arterial Blood Glucose 10/02/20 10/02/20 10/02/20 07:58 11:21 16:33 WBC RBC Hgb Hct MCHC Plt Count Lymph % (Auto) [place] % (Auto) Lymph # (Auto) [place] # (Auto) Seg Neutrophils % Seg Neutrophils # D-Dimer POC ABG pO2 ABG Oxyhemoglobin ABG Sodium ABG Chloride ABG Glucose Carboxyhemoglobin Sodium Chloride Carbon Dioxide Glucose POC Glucose 129 H 177 H 149 H Hemoglobin A1c Ferritin C-Reactive Protein Albumin Arterial Blood Glucose 10/02/20 10/03/20 10/03/20 21:11 05:35 05:35 WBC RBC Hgb Hct MCHC Plt Count Lymph % (Auto) [place] % (Auto) Lymph # (Auto) [place] # (Auto) Seg Neutrophils % Seg Neutrophils # D-Dimer 6409.06 H POC ABG pO2 ABG Oxyhemoglobin ABG Sodium ABG Chloride ABG Glucose Carboxyhemoglobin Sodium Chloride Carbon Dioxide Glucose 146 H POC Glucose 208 H Hemoglobin A1c Ferritin C-Reactive Protein 40.10 H Albumin Arterial Blood Glucose 10/03/20 10/03/20 10/03/20 05:35 05:35 05:35 WBC RBC 3.33 L Hgb 9.8 L Hct 29.4 L MCHC Plt Count 558 H Lymph % (Auto) 10.1 L [place] % (Auto) 12.4 H Lymph # (Auto) 1.0 L [place] # (Auto) 1.3 H Seg Neutrophils % 75.7 H Seg Neutrophils # 7.8 H D-Dimer POC ABG pO2 ABG Oxyhemoglobin ABG Sodium ABG Chloride ABG Glucose Carboxyhemoglobin Sodium 133 L Chloride 93.2 L Carbon Dioxide Glucose 146 H POC Glucose Hemoglobin A1c Ferritin 895.9 H C-Reactive Protein Albumin Arterial Blood Glucose 10/03/20 10/03/20 07:52 12:26 WBC RBC Hgb Hct MCHC Plt Count Lymph % (Auto) [place] % (Auto) Lymph # (Auto) [place] # (Auto) Seg Neutrophils % Seg Neutrophils # D-Dimer POC ABG pO2 ABG Oxyhemoglobin ABG Sodium ABG Chloride ABG Glucose Carboxyhemoglobin Sodium Chloride Carbon Dioxide Glucose POC Glucose 147 H 200 H Hemoglobin A1c Ferritin C-Reactive Protein Albumin Arterial Blood Glucose Chest x-ray: report reviewed, image reviewed Additional Studies: XR chest 1V ap 10/03/20 INDICATION / CLINICAL INFORMATION: complex right pleural effusion, recent thora. COMPARISON: Ultrasound from 09/30/2020. CTA from 09/29/2020. FINDINGS: SUPPORT DEVICES: None HEART /PULMONARY VASCULATURE: Unchanged. LUNGS / PLEURA: Slight improvement in right basilar pleural fluid collection status post thoracentesis. Right basilar airspace opacity remains. Left lung is clear. No evidence of pneumothorax. ADDITIONAL FINDINGS: No significant additional findings. IMPRESSION: Slight improvement in right basilar pleural fluid collection status post thoracentesis. No pneumothorax. Allied health notes reviewed: nursing
--- NOTE | 2020-10-03 14:47 | Progress Note ---
Assessment and Plan Cultures: Blood culture 09/29/2020 no growth today COVID-19 negative A/P: 50-year-old man past medical history hypertension, diabetes, BPH, hyperlipidemia admitted as Covid PUI, right-sided pneumonia #Sepsis: With persistent high fever ? Pneumonia/pulmonary abscess +/- gouty attack #Complicated pneumonia with right loculated pleural effusion/lung abscess: Status post thoracentesis 100 cc out 10/03/2020, worsening procalcitonin and CRP at 40 #Pulmonary abscess: Possibly developing, needs follow-up imaging and potential long-term antibiotics. #Diabetes: tight glycemic control for best outcomes. #Obesity #Polarticular gouty attack Recs: -Follow pleural fluid studies and cultures -Stop ceftriaxone azithromycin -Start Zosyn -Check MRSA PCR -Consult CT surgery -Treat gouty attack D/w Dr Hinojosa will follow MD [facility] ([facility]) Office [phone] Subjective Date of service: 10/03/20 Principal diagnosis: CAP; Chest Pain; PUI COVID-19; Loculated R. pleural effusion; DM II;Obesity Interval history: Remains with fever, c/o severe right elbow and left knee pain and edema Objective - Exam Narrative Exam: eneral appearance: Alert in NAD pleasant Eyes: anicteric sclerae, moist conjunctivae; no lid-lag; PERRLA HENT: Normocephalic, Atraumatic; normal external ears, nares open, oropharynx clear Neck: supple, tracheal midline, no JVD Lungs: diminished breath sounds codi CV: RRR no murmur Abdomen: Soft, non-tender; no masses or hepatosplenomegaly Extremities: left knee severe edema and tenderness, right elbow edema and tendernes Skin: right mastectomy Psych: no agitated Neuro: alert and oriented x 3. Moving all extermities - Constitutional Vitals: Vital Signs Temp Pulse Resp BP Pulse Ox 98.3 F 101 H 20 163/92 95 10/03/20 13:11 10/03/20 13:11 10/03/20 13:11 10/03/20 13:11 10/03/20 14:05 Temperature -Last 24 Hours Temperature 98.3 F Temperature 100.1 F Temperature 98.9 F Temperature 98.5 F Temperature 102.2 F - Labs CBC & Chem 7: 10/03/20 05:35 10/03/20 05:35 Labs: Abnormal lab results 10/02/20 10/02/20 10/03/20 Range/Units 16:33 21:11 05:35 RBC (3.65-5.03) M/mm3 Hgb (11.8-15.2) gm/dl Hct (35.5-45.6) % Plt Count (140-440) K/mm3 Lymph % (Auto) (13.4-35.0) % [place] % (Auto) (0.0-7.3) % Lymph # (Auto) (1.2-5.4) K/mm3 [place] # (Auto) (0.0-0.8) K/mm3 Seg Neutrophils % (40.0-70.0) % Seg Neutrophils # (1.8-7.7) K/mm3 D-Dimer 6409.06 H (0-234) ng/mlDDU Sodium (137-145) mmol/L Chloride (98-107) mmol/L Glucose (75-100) mg/dL POC Glucose 149 H 208 H (70-105) mg/dL Ferritin (30.0-300.0) ng/mL C-Reactive Protein (0.00-1.30) mg/dL 10/03/20 10/03/20 10/03/20 Range/Units 05:35 05:35 05:35 RBC 3.33 L (3.65-5.03) M/mm3 Hgb 9.8 L (11.8-15.2) gm/dl Hct 29.4 L (35.5-45.6) % Plt Count 558 H (140-440) K/mm3 Lymph % (Auto) 10.1 L (13.4-35.0) % [place] % (Auto) 12.4 H (0.0-7.3) % Lymph # (Auto) 1.0 L (1.2-5.4) K/mm3 [place] # (Auto) 1.3 H (0.0-0.8) K/mm3 Seg Neutrophils % 75.7 H (40.0-70.0) % Seg Neutrophils # 7.8 H (1.8-7.7) K/mm3 D-Dimer (0-234) ng/mlDDU Sodium (137-145) mmol/L Chloride (98-107) mmol/L Glucose 146 H (75-100) mg/dL POC Glucose (70-105) mg/dL Ferritin 895.9 H (30.0-300.0) ng/mL C-Reactive Protein 40.10 H (0.00-1.30) mg/dL 10/03/20 10/03/20 10/03/20 Range/Units 05:35 07:52 12:26 RBC (3.65-5.03) M/mm3 Hgb (11.8-15.2) gm/dl Hct (35.5-45.6) % Plt Count (140-440) K/mm3 Lymph % (Auto) (13.4-35.0) % [place] % (Auto) (0.0-7.3) % Lymph # (Auto) (1.2-5.4) K/mm3 [place] # (Auto) (0.0-0.8) K/mm3 Seg Neutrophils % (40.0-70.0) % Seg Neutrophils # (1.8-7.7) K/mm3 D-Dimer (0-234) ng/mlDDU Sodium 133 L (137-145) mmol/L Chloride 93.2 L (98-107) mmol/L Glucose 146 H (75-100) mg/dL POC Glucose 147 H 200 H (70-105) mg/dL Ferritin (30.0-300.0) ng/mL C-Reactive Protein (0.00-1.30) mg/dL
[2020-10-03] MEDS ORDERED: hydrALAZINE 20 MG/1 ML INJ IV PRN (16:39)
--- NOTE | 2020-10-03 16:57 | Progress Note ---
<J CARLOSHENRY CamachoYolanda - Last Filed: 10/03/20 17:27> Assessment and Plan - Patient Problems (1) Sepsis Current Visit: Yes Status: Resolved Plan to address problem: Presented with tachycardia, tachypnea, with pneumonia on CXR Antibiotic therapy Trend CBC Infectious disease consult 09/29 Blood culture x2 09/29 UA negative for leukocyte esterase and nitrates (2) Community acquired pneumonia Current Visit: Yes Status: Acute Qualifiers: Laterality: right Lung location: lower lobe of lung Qualified Code(s): J18.9 - Pneumonia, unspecified organism Plan to address problem: 10/26 CXR shows patchy right basilar airspace disease with otherwise clear lungs. Antibiotic therapy: Ceftriaxone, azithromycin; stopped 10/03 Infectious disease consulted Supplementary oxygen as needed Pulmonary hygiene Pneumonia protocol activated (3) Loculated pleural effusion Current Visit: Yes Status: Acute Plan to address problem: 09/29 CTA chest shows no evidence of a pulmonary embolism or right heart strain, right middle lobe and lower lobe groundglass opacities consistent with pneumonia, partially loculated right pleural effusion and a well-formed air-fluid collection in the posterior aspect of the right lower lobe which appears to be within the pulmonary parenchyma and may represent developing pulmonary abscess. Pulmonology consulted Pulmonary hygiene Supplemental oxygen as needed 10/03 CT-guided thoracentesis with drainage of 200 mL of pleural fluid; follow- up studies 10/03 ceftriaxone and azithromycin stopped and started on Zosyn given worsening procalcitonin and CRP at 40 10/03 MRSA PCR pending Possible consult to CTS 10/03 post thoracentesis CXR shows slight improvement in right basilar pleural fluid collection status post thoracentesis. No pneumothorax. (4) Hypochloremia Current Visit: Yes Status: Acute Plan to address problem: Presented with a chloride of 91.3 , 09/30 Cl 96.1, 10/01 chloride 94, 10/03 chloride 93.2 Continue to monitor S/p 1500 mL bolus in the emergency department S/p MIVF with normal saline which was stopped due to recent hypotension on 10/03 Trend BMP (5) Hyponatremia Current Visit: No Status: Acute Plan to address problem: Presented with a sodium of 129 with hyperglycemia of 226 Corrected sodium 132 Continue to monitor s/p 1500 mL bolus in the emergency department and MIVF x1 day for patient's hyponatremia which was stopped on 10/03 for hypertension Trend BMP 09/30 Na 136, 10/01 sodium 133, 10/03 sodium 133-corrected sodium is 134 (6) Gout flare Current Visit: Yes Status: Acute Qualifiers: Gout site: knee Plan to address problem: Patient has a history of gout however states he has not had an attack in several years and is not on any maintenance medication 10/03 patient complains of erythema, swelling and hypothermia to left knee and right elbow Started on colchine and Indocin Supportive care (7) Elevated d-dimer Current Visit: Yes Status: Acute Plan to address problem: 09/29 D-dimer 1450 09/29 CTA chest showed no pulmonary embolism 09/29 Bilateral lower extremity Dopplers showed no acute DVT or SVT (8) Hyperlipidemia Current Visit: No Status: Chronic Plan to address problem: Restarted home statin therapy (9) Hypertension Current Visit: Yes Status: Chronic Plan to address problem: S/p Norvasc in the ED for hypertension Takes valsartan at home however has been noncompliant Valsartan, Norvasc; titrate as needed Blood pressure monitoring per protocol Hydralazine IV as needed for SBP >160 10/03 patient is hypertensive with systolic blood pressure in the 200s/100s; on e-time dose of labetalol ordered Patient was on IV fluids for persistent hyponatremia which was stopped on 10/03 (10) Non-compliance Current Visit: Yes Status: Chronic Plan to address problem: Patient does not have a PCP Patient has been noncompliant with his medications Case management consult Patient states that his blood glucose monitor at home malfunctions occasionally (11) Diabetes mellitus Current Visit: Yes Status: Chronic Plan to address problem: Patient home blood glucose monitoring machine malfunctions intermittently 09/29 hemoglobin A1c 13.7 CC cardiac diet Accu-Cheks before meals and at bedtime SSI Restarted home Lantus Nutrition consult (12) DVT prophylaxis Current Visit: No Status: Acute Plan to address problem: Heparin subcu SCDs to bilateral lower extremities while in bed History Interval history: This is 50 year old male with hypertension, diabetes, enlarged prostate, gout, HLD, radial nerve palsy and noncompliance who presented to the emergency department on 09/29 with right sided pleurtic pain with right sided posterior and lateral back pain with inspiration and movement for about 1 week associated with nonproductive cough and shortness of breath. Work-up in the emergency department included a CXR which shows patchy right lower lobe infiltrates, abdominal ultrasound shows sludge in the gallbladder with gallbladder wall thickness without cholelithiasis and diffuse fatty infiltration of the liver, labs show hyponatremia at 129 (corrected sodium for hyperglycemia is 131), hypochloremia and 91.3, and hyperglycemia 226. COVID-19 PCR pending. Patient will be admitted to the hospital service for community-acquired pneumonia, COVID-19 PUI and infectious disease has been consulted. Pulmonology was consulted given CTA chest findings of loculated pleural effusion and possible pleural abscess. Patient received a CT-guided thoracentesis today which removed 200 mL of drainage. Cytology and chemistries to follow. Patient still experiencing persistent fevers since yesterday afternoon. Today he complains of left knee and right elbow swelling and hypothermia. Patient states that he has a history of gout. 09/30: COVID 19 PCR negative, tramadol started, pulmonary consulted on 10/26 p.m. 10/01 Robitussin added due to persistent cough 10/02: Pulmonary CTS intervention with possible transfer to [place] for [facility] Hospitalist Physical - Constitutional Vitals: Temp Pulse Resp BP Pulse Ox 98.9 F 105 H 20 207/113 93 10/03/20 15:40 10/03/20 15:40 10/03/20 13:11 10/03/20 15:40 10/03/20 15:40 General appearance: Present: no acute distress, well-nourished - EENT Eyes: Present: PERRL, EOM intact ENT: hearing intact, clear oral mucosa - Neck Neck: Present: supple, normal ROM - Respiratory Respiratory effort: normal Respiratory: bilateral: diminished - Cardiovascular Rhythm: regular Heart Sounds: Present: S1 & S2. Absent: systolic murmur, diastolic murmur - Extremities Extremities: no ischemia, pulses intact, pulses symmetrical, normal color Extremity abnormal: edema, tenderness (L knee/R elbow), other (hyperthermia to L knee/R elbow) Peripheral Pulses: within normal limits - Abdominal General gastrointestinal: soft, non-tender, non-distended - Integumentary Integumentary: Present: warm, dry - Psychiatric Psychiatric: appropriate mood/affect, cooperative - Neurologic Neurologic: CNII-XII intact, no focal deficits, moves all extremities - Allied Health Allied health notes reviewed: nursing HEART Score - HEART Score Troponin: Troponin T < 0.010 ng/mL (0.00-0.029) 09/29/20 07:02 Results - Labs CBC & Chem 7: 10/03/20 05:35 10/03/20 05:35 Labs: Laboratory Last Values WBC 10.4 K/mm3 (4.5-11.0) 10/03/20 05:35 RBC 3.33 M/mm3 (3.65-5.03) L 10/03/20 05:35 Hgb 9.8 gm/dl (11.8-15.2) L 10/03/20 05:35 Hct 29.4 % (35.5-45.6) L 10/03/20 05:35 MCV 88 fl (84-94) 10/03/20 05:35 MCH 29 pg (28-32) 10/03/20 05:35 MCHC 33 % (32-34) 10/03/20 05:35 RDW 14.0 % (13.2-15.2) 10/03/20 05:35 Plt Count 558 K/mm3 (140-440) H 10/03/20 05:35 Lymph % (Auto) 10.1 % (13.4-35.0) L 10/03/20 05:35 [place] % (Auto) 12.4 % (0.0-7.3) H 10/03/20 05:35 Eos % (Auto) 1.6 % (0.0-4.3) 10/03/20 05:35 Baso % (Auto) 0.2 % (0.0-1.8) 10/03/20 05:35 Lymph # (Auto) 1.0 K/mm3 (1.2-5.4) L 10/03/20 05:35 [place] # (Auto) 1.3 K/mm3 (0.0-0.8) H 10/03/20 05:35 Eos # (Auto) 0.2 K/mm3 (0.0-0.4) 10/03/20 05:35 Baso # (Auto) 0.0 K/mm3 (0.0-0.1) 10/03/20 05:35 Seg Neutrophils % 75.7 % (40.0-70.0) H 10/03/20 05:35 Seg Neutrophils # 7.8 K/mm3 (1.8-7.7) H 10/03/20 05:35 PT 13.5 Sec. (12.2-14.9) 09/29/20 07:02 INR 1.05 (0.87-1.13) 09/29/20 07:02 D-Dimer 6409.06 ng/mlDDU (0-234) H 10/03/20 05:35 ABG pH 7.432 (7.320-7.450) 09/29/20 09:18 POC ABG pCO2 41.0 mmHg (32.0-48.0) 09/29/20 09:18 POC ABG pO2 54.4 mmHg (83-108) L 09/29/20 09:18 POC ABG HCO3 26.7 09/29/20 09:18 POC ABG Base Excess 2.3 09/29/20 09:18 ABG Hemoglobin 14.4 (12.0-17.5) 09/29/20 09:18 ABG Oxyhemoglobin 88.8 (94-98) L 09/29/20 09:18 ABG Methemoglobin 0 (0.0-1.5) 09/29/20 09:18 ABG Sodium 130.2 mmol/L (136.0-145.0) L 09/29/20 09:18 ABG Potassium 4.4 mmol/L (3.40-4.50) 09/29/20 09:18 ABG Chloride 97.0 mmol/L (98-107) L 09/29/20 09:18 ABG Glucose 197 mg/dL (65-95) H 09/29/20 09:18 Carboxyhemoglobin 1.6 (0.5-1.5) H 09/29/20 09:18 FiO2 21.0 09/29/20 09:18 Sodium 133 mmol/L (137-145) L 10/03/20 05:35 Potassium 4.6 mmol/L (3.6-5.0) 10/03/20 05:35 Chloride 93.2 mmol/L (98-107) L 10/03/20 05:35 Carbon Dioxide 29 mmol/L (22-30) 10/03/20 05:35 Anion Gap 15 mmol/L 10/03/20 05:35 BUN 10 mg/dL (9-20) 10/03/20 05:35 Creatinine 0.9 mg/dL (0.8-1.3) 10/03/20 05:35 Estimated GFR > 60 ml/min 10/03/20 05:35 BUN/Creatinine Ratio 11 % 10/03/20 05:35 Glucose 146 mg/dL (75-100) H 10/03/20 05:35 Glucose 146 mg/dL (75-100) H 10/03/20 05:35 POC Glucose 155 mg/dL (70-105) H 10/03/20 15:38 Hemoglobin A1c 13.7 % (4-6) H 09/29/20 07:20 Lactic Acid 1.80 mmol/L (0.7-2.0) 09/29/20 07:07 Calcium 9.7 mg/dL (8.4-10.2) 10/03/20 05:35 Magnesium 2.00 mg/dL (1.7-2.3) 09/29/20 07:02 Ferritin 895.9 ng/mL (30.0-300.0) H 10/03/20 05:35 Total Bilirubin 0.50 mg/dL (0.1-1.2) 09/29/20 07:02 Direct Bilirubin < 0.2 mg/dL (0-0.2) 09/29/20 07:02 Indirect Bilirubin 0.3 mg/dL 09/29/20 07:02 AST 12 units/L (5-40) 09/29/20 07:02 ALT 12 units/L (7-56) 09/29/20 07:02 Alkaline Phosphatase 120 units/L (35-129) 09/29/20 07:02 Lactate Dehydrogenase 135 units/L (91-180) 10/03/20 05:35 Total Creatine Kinase 127 units/L (55-170) 09/29/20 07:02 Troponin T < 0.010 ng/mL (0.00-0.029) 09/29/20 07:02 C-Reactive Protein 40.10 mg/dL (0.00-1.30) H 10/03/20 05:35 Total Protein 8.0 g/dL (6.3-8.2) 09/29/20 07:02 Albumin 3.5 g/dL (3.9-5) L 09/29/20 07:02 Albumin/Globulin Ratio 0.8 % 09/29/20 07:02 Lipase 19 units/L (13-60) 09/29/20 07:02 Procalcitonin 1.25 ng/mL (<0.15) 09/30/20 13:58 Arterial Blood Glucose 197 mg/dL (65-95) H 09/29/20 09:18 Arterial Blood Ionized Calcium 4.6 mg/dL (4.6-5.3) 09/29/20 09:18 Urine Color Yellow (Yellow) 09/30/20 Unknown Urine Turbidity Clear (Clear) 09/30/20 Unknown Urine pH 6.0 (5.0-7.0) 09/30/20 Unknown Ur Specific [place] 1.021 (1.003-1.030) 09/30/20 Unknown Urine Protein 100 mg/dl mg/dL (Negative) 09/30/20 Unknown Urine Glucose (UA) 50 mg/dL (Negative) 09/30/20 Unknown Urine Ketones Neg mg/dL (Negative) 09/30/20 Unknown Urine Blood Neg (Negative) 09/30/20 Unknown Urine Nitrite Neg (Negative) 09/30/20 Unknown Urine Bilirubin Neg (Negative) 09/30/20 Unknown Urine Urobilinogen < 2.0 mg/dL (<2.0) 09/30/20 Unknown Ur Leukocyte Esterase Neg (Negative) 09/30/20 Unknown Urine WBC (Auto) 1.0 /HPF (0.0-6.0) 09/30/20 Unknown Urine RBC (Auto) 1.0 /HPF (0.0-6.0) 09/30/20 Unknown U Epithel Cells (Auto) 1.0 /HPF (0-13.0) 09/30/20 Unknown Urine Mucus Few /HPF 09/30/20 Unknown Coronavirus (PCR) Negative (Negative) 09/30/20 Unknown Microbiology: Microbiology 10/03/20 Unknown Pleural Fluid - Pleura,Rt Lung Body Fluid Culture - Preliminary 09/29/20 07:02 Peripheral/Venous Blood Culture - Preliminary NO GROWTH AFTER 4 DAYS 09/29/20 07:02 Peripheral/Venous Blood Culture - Preliminary NO GROWTH AFTER 4 DAYS Marshall/IV: Voiding Method Urinal IV Catheter Type [Left Forearm INT / Saline Lock ] Active Medications - Current Medications Current Medications: Generic Name Dose Route Start Last Admin Trade Name Freq PRN Reason Stop Dose Admin Acetaminophen 650 mg 09/29/20 09:20 10/03/20 07:03 Tylenol PO 650 mg Q4H PRN Administration Pain MILD(1-3)/Fever >100.5/VAUGHN Amlodipine Besylate 5 mg 10/03/20 10:00 10/03/20 10:10 Amlodipine PO 5 mg QDAY TANIKA Administration Atorvastatin Calcium 40 mg 09/29/20 22:00 10/02/20 22:29 Lipitor PO 40 mg QHS TANIKA Administration Dextrose 50 ml 09/29/20 09:20 D50w (25gm) Syringe IV Q30MIN PRN Hypoglycemia Protocol Docusate Sodium 100 mg 09/29/20 10:00 10/03/20 10:10 Colace PO 100 mg BID TANIKA Administration Gabapentin 800 mg 09/29/20 22:00 10/02/20 22:29 Gabapentin PO 800 mg QHS TANIKA Administration Heparin Sodium (Porcine) 5,000 unit 09/29/20 22:00 10/03/20 13:31 Heparin SUB-Q 5,000 unit Q8HR TANIKA Administration Hydralazine HCl 10 mg 10/03/20 16:39 Apresoline IV Q4HR PRN hypertension Piperacillin Sod/Tazobactam Sod 4.5 gm in 100 mls @ 200 mls/hr 10/03/20 15:00 Zosyn/Ns 4.5gm/100ml IV Q8HR [facility] Protocol Insulin Glargine 10 units 09/29/20 22:00 10/02/20 22:31 Lantus SUB-Q 10 units QHS [facility] Administration Insulin Human Lispro 0 unit 09/29/20 11:30 10/03/20 13:21 Humalog SUB-Q 3 unit ACHS [facility] Administration Protocol Morphine Sulfate 2 mg 09/29/20 17:31 10/03/20 08:39 Morphine IV 2 mg Q4H PRN Administration Pain, Moderate (4-6) Ondansetron HCl 4 mg 09/29/20 09:20 Zofran IV Q6HR PRN Nausea And Vomiting Oxycodone/Acetaminophen 1 tab 09/29/20 09:20 10/03/20 13:30 Percocet 5/325 PO 1 tab Q6H PRN Administration Pain, Moderate (4-6) Pseudoephedrine/Acetam/Chlorphenir 10 ml 10/01/20 18:20 10/02/20 14:55 Robitussin Ac PO 10 ml Q4H PRN Administration Cough Sodium Chloride 10 ml 09/29/20 10:00 10/03/20 10:11 Sodium Chloride Flush Syringe 10 Ml IV 10 ml BID TANIKA Administration Sodium Chloride 10 ml 09/29/20 09:20 Sodium Chloride Flush Syringe 10 Ml IV PRN PRN LINE FLUSH Tramadol HCl 50 mg 09/30/20 12:00 10/02/20 22:36 Ultram PO 50 mg Q6H PRN Administration Pain, Moderate (4-6) Valsartan 160 mg 10/03/20 10:00 10/03/20 10:10 Diovan PO 160 mg QDAY TANIKA Administration <ARACELY PARRISH - Last Filed: 10/04/20 09:54> Assessment and Plan Assessment and plan: I saw and evaluated the patient. I agree with the findings and the plan of care as documented in the Nurse Practitioner's~note, with the following corrections and additions. Status post thoracentesis today, will follow up the result of pleural fluid study c/o severe right elbow and left knee pain and edema Continue IV antibiotics, will check uric acid level for possible gout -we will give 1 dose of Solu-Medrol IV Hospitalist Physical - Constitutional Vitals: Temp Pulse Resp BP Pulse Ox 98.9 F 99 H 18 162/84 96 10/03/20 15:40 10/03/20 21:39 10/04/20 02:00 10/03/20 21:39 10/04/20 02:00 HEART Score - HEART Score Troponin: Troponin T < 0.010 ng/mL (0.00-0.029) 09/29/20 07:02 Results - Labs CBC & Chem 7: 10/03/20 05:35 10/03/20 05:35 Labs: Laboratory Last Values WBC 10.4 K/mm3 (4.5-11.0) 10/03/20 05:35 RBC 3.33 M/mm3 (3.65-5.03) L 10/03/20 05:35 Hgb 9.8 gm/dl (11.8-15.2) L 10/03/20 05:35 Hct 29.4 % (35.5-45.6) L 10/03/20 05:35 MCV 88 fl (84-94) 10/03/20 05:35 MCH 29 pg (28-32) 10/03/20 05:35 MCHC 33 % (32-34) 10/03/20 05:35 RDW 14.0 % (13.2-15.2) 10/03/20 05:35 Plt Count 558 K/mm3 (140-440) H 10/03/20 05:35 Lymph % (Auto) 10.1 % (13.4-35.0) L 10/03/20 05:35 [place] % (Auto) 12.4 % (0.0-7.3) H 10/03/20 05:35 Eos % (Auto) 1.6 % (0.0-4.3) 10/03/20 05:35 Baso % (Auto) 0.2 % (0.0-1.8) 10/03/20 05:35 Lymph # (Auto) 1.0 K/mm3 (1.2-5.4) L 10/03/20 05:35 [place] # (Auto) 1.3 K/mm3 (0.0-0.8) H 10/03/20 05:35 Eos # (Auto) 0.2 K/mm3 (0.0-0.4) 10/03/20 05:35 Baso # (Auto) 0.0 K/mm3 (0.0-0.1) 10/03/20 05:35 Seg Neutrophils % 75.7 % (40.0-70.0) H 10/03/20 05:35 Seg Neutrophils # 7.8 K/mm3 (1.8-7.7) H 10/03/20 05:35 PT 13.5 Sec. (12.2-14.9) 09/29/20 07:02 INR 1.05 (0.87-1.13) 09/29/20 07:02 D-Dimer 6409.06 ng/mlDDU (0-234) H 10/03/20 05:35 ABG pH 7.432 (7.320-7.450) 09/29/20 09:18 POC ABG pCO2 41.0 mmHg (32.0-48.0) 09/29/20 09:18 POC ABG pO2 54.4 mmHg (83-108) L 09/29/20 09:18 POC ABG HCO3 26.7 09/29/20 09:18 POC ABG Base Excess 2.3 09/29/20 09:18 ABG Hemoglobin 14.4 (12.0-17.5) 09/29/20 09:18 ABG Oxyhemoglobin 88.8 (94-98) L 09/29/20 09:18 ABG Methemoglobin 0 (0.0-1.5) 09/29/20 09:18 ABG Sodium 130.2 mmol/L (136.0-145.0) L 09/29/20 09:18 ABG Potassium 4.4 mmol/L (3.40-4.50) 09/29/20 09:18 ABG Chloride 97.0 mmol/L (98-107) L 09/29/20 09:18 ABG Glucose 197 mg/dL (65-95) H 09/29/20 09:18 Carboxyhemoglobin 1.6 (0.5-1.5) H 09/29/20 09:18 FiO2 21.0 09/29/20 09:18 Sodium 133 mmol/L (137-145) L 10/03/20 05:35 Potassium 4.6 mmol/L (3.6-5.0) 10/03/20 05:35 Chloride 93.2 mmol/L (98-107) L 10/03/20 05:35 Carbon Dioxide 29 mmol/L (22-30) 10/03/20 05:35 Anion Gap 15 mmol/L 10/03/20 05:35 BUN 10 mg/dL (9-20) 10/03/20 05:35 Creatinine 0.9 mg/dL (0.8-1.3) 10/03/20 05:35 Estimated GFR > 60 ml/min 10/03/20 05:35 BUN/Creatinine Ratio 11 % 10/03/20 05:35 Glucose 146 mg/dL (75-100) H 10/03/20 05:35 Glucose 146 mg/dL (75-100) H 10/03/20 05:35 POC Glucose 190 mg/dL (70-105) H 10/04/20 08:22 Hemoglobin A1c 13.7 % (4-6) H 09/29/20 07:20 Lactic Acid 1.80 mmol/L (0.7-2.0) 09/29/20 07:07 Uric Acid 5.0 mg/dL (3.5-7.6) 10/03/20 05:35 Calcium 9.7 mg/dL (8.4-10.2) 10/03/20 05:35 Magnesium 2.00 mg/dL (1.7-2.3) 09/29/20 07:02 Ferritin 895.9 ng/mL (30.0-300.0) H 10/03/20 05:35 Total Bilirubin 0.50 mg/dL (0.1-1.2) 09/29/20 07:02 Direct Bilirubin < 0.2 mg/dL (0-0.2) 09/29/20 07:02 Indirect Bilirubin 0.3 mg/dL 09/29/20 07:02 AST 12 units/L (5-40) 09/29/20 07:02 ALT 12 units/L (7-56) 09/29/20 07:02 Alkaline Phosphatase 120 units/L (35-129) 09/29/20 07:02 Lactate Dehydrogenase 135 units/L (91-180) 10/03/20 05:35 Total Creatine Kinase 127 units/L (55-170) 09/29/20 07:02 Troponin T < 0.010 ng/mL (0.00-0.029) 09/29/20 07:02 C-Reactive Protein 40.10 mg/dL (0.00-1.30) H 10/03/20 05:35 Total Protein 8.0 g/dL (6.3-8.2) 09/29/20 07:02 Albumin 3.5 g/dL (3.9-5) L 09/29/20 07:02 Albumin/Globulin Ratio 0.8 % 09/29/20 07:02 Lipase 19 units/L (13-60) 09/29/20 07:02 Procalcitonin 1.25 ng/mL (<0.15) 09/30/20 13:58 Arterial Blood Glucose 197 mg/dL (65-95) H 09/29/20 09:18 Arterial Blood Ionized Calcium 4.6 mg/dL (4.6-5.3) 09/29/20 09:18 Urine Color Yellow (Yellow) 09/30/20 Unknown Urine Turbidity Clear (Clear) 09/30/20 Unknown Urine pH 6.0 (5.0-7.0) 09/30/20 Unknown Ur Specific [place] 1.021 (1.003-1.030) 09/30/20 Unknown Urine Protein 100 mg/dl mg/dL (Negative) 09/30/20 Unknown Urine Glucose (UA) 50 mg/dL (Negative) 09/30/20 Unknown Urine Ketones Neg mg/dL (Negative) 09/30/20 Unknown Urine Blood Neg (Negative) 09/30/20 Unknown Urine Nitrite Neg (Negative) 09/30/20 Unknown Urine Bilirubin Neg (Negative) 09/30/20 Unknown Urine Urobilinogen < 2.0 mg/dL (<2.0) 09/30/20 Unknown Ur Leukocyte Esterase Neg (Negative) 09/30/20 Unknown Urine WBC (Auto) 1.0 /HPF (0.0-6.0) 09/30/20 Unknown Urine RBC (Auto) 1.0 /HPF (0.0-6.0) 09/30/20 Unknown U Epithel Cells (Auto) 1.0 /HPF (0-13.0) 09/30/20 Unknown Urine Mucus Few /HPF 09/30/20 Unknown Fluid Type Thoracentesis 10/03/20 Unknown Fluid Color Yellow 10/03/20 Unknown Fluid Appearance Hazy 10/03/20 Unknown Fluid WBC 193 /mm3 10/03/20 Unknown Fluid RBC 695 /mm3 10/03/20 Unknown Fluid Seg Neutrophils 52.0 % 10/03/20 Unknown Fluid Lymphocytes 38.0 % 10/03/20 Unknown Fluid Reactive Lymphs 0 % 10/03/20 Unknown Fluid Monocytes 10.0 % 10/03/20 Unknown Fluid Eosinophils 0 % 10/03/20 Unknown Fluid Basophils 0 % 10/03/20 Unknown Coronavirus (PCR) Negative (Negative) 09/30/20 Unknown Microbiology: Microbiology 09/29/20 07:02 Peripheral/Venous Blood Culture - Final NO GROWTH AFTER 5 DAYS 09/29/20 07:02 Peripheral/Venous Blood Culture - Final NO GROWTH AFTER 5 DAYS 10/03/20 Unknown Pleural Fluid - Pleura,Rt Lung Body Fluid Culture - Preliminary Marshall/IV: Voiding Method Toilet IV Catheter Type [Left Forearm INT / Saline Lock ] Active Medications - Current Medications Current Medications: Generic Name Dose Route Start Last Admin Trade Name Freq PRN Reason Stop Dose Admin Acetaminophen 650 mg 09/29/20 09:20 10/03/20 07:03 Tylenol PO 650 mg Q4H PRN Administration Pain MILD(1-3)/Fever >100.5/VAUGHN Amlodipine Besylate 10 mg 10/03/20 18:00 10/04/20 09:08 Amlodipine PO 10 mg DAILY TANIKA Administration Atorvastatin Calcium 40 mg 09/29/20 22:00 10/03/20 21:27 Lipitor PO 40 mg QHS TANIKA Administration Colchicine 0.6 mg 10/03/20 22:00 10/04/20 09:09 Colchicine PO 0.6 mg BID TANIKA Administration Dextrose 50 ml 09/29/20 09:20 D50w (25gm) Syringe IV Q30MIN PRN Hypoglycemia Protocol Docusate Sodium 100 mg 09/29/20 10:00 10/04/20 09:08 Colace PO 100 mg BID TANIKA Administration Gabapentin 800 mg 09/29/20 22:00 10/03/20 21:27 Gabapentin PO 800 mg QHS TANIKA Administration Heparin Sodium (Porcine) 5,000 unit 09/29/20 22:00 10/04/20 06:29 Heparin SUB-Q 5,000 unit Q8HR TANIKA Administration Hydralazine HCl 10 mg 10/03/20 16:39 Apresoline IV Q4HR PRN hypertension Hydromorphone HCl 0.5 mg 10/03/20 20:08 10/04/20 00:45 Dilaudid IM 0.5 mg Q4H PRN Administration Pain , Severe (7-10) Piperacillin Sod/Tazobactam Sod 4.5 gm in 100 mls @ 200 mls/hr 10/03/20 15:00 10/04/20 06:27 Zosyn/Ns 4.5gm/100ml IV 200 mls/hr Q8HR TANIKA Administration Protocol Indomethacin 50 mg 10/03/20 22:00 10/04/20 09:09 Indocin PO 50 mg Q12HR TANIKA Administration Insulin Glargine 10 units 09/29/20 22:00 10/03/20 22:14 Lantus SUB-Q Not Given QHS [facility] Insulin Human Lispro 0 unit 09/29/20 11:30 10/04/20 09:07 Humalog SUB-Q 2 unit ACHS TANIKA Administration Protocol Morphine Sulfate 2 mg 09/29/20 17:31 10/03/20 17:38 Morphine IV 2 mg Q4H PRN Administration Pain, Moderate (4-6) Ondansetron HCl 4 mg 09/29/20 09:20 Zofran IV Q6HR PRN Nausea And Vomiting Oxycodone/Acetaminophen 1 tab 09/29/20 09:20 10/04/20 06:43 Percocet 5/325 PO 1 tab Q6H PRN Administration Pain, Moderate (4-6) Pseudoephedrine/Acetam/Chlorphenir 10 ml 10/01/20 18:20 10/02/20 14:55 Robitussin Ac PO 10 ml Q4H PRN Administration Cough Sodium Chloride 10 ml 09/29/20 10:00 10/04/20 09:12 Sodium Chloride Flush Syringe 10 Ml IV 10 ml BID TANIKA Administration Sodium Chloride 10 ml 09/29/20 09:20 Sodium Chloride Flush Syringe 10 Ml IV PRN PRN LINE FLUSH Tramadol HCl 50 mg 09/30/20 12:00 10/02/20 22:36 Ultram PO 50 mg Q6H PRN Administration Pain, Moderate (4-6) Valsartan 160 mg 10/03/20 10:00 10/03/20 10:10 Diovan PO 160 mg QDAY TANIKA Administration
[2020-10-03 17:15] LABS: Total Cells Counted 100 /mm3
[2020-10-03] MEDS: amLODIPine 10 MG TAB PO SCH (17:51)
[2020-10-03] MEDS: PIPERACIL/TAZOBACTA 4.5/NS 100 4.5 GM/100 ML VIAL IV SCH ×2 (18:01→22:38)
[2020-10-03] MEDS ORDERED: methylPREDNISolone Sod Succinate 40 MG/1 ML INJ IV ONE (20:21)
[2020-10-03] MEDS: HYDROmorphone 1 MG/1 ML INJ IM PRN (20:48)
[2020-10-03] MEDS: INDOMETHACIN 25 MG CAP PO SCH (21:22)
[2020-10-03] MEDS: GABAPENTIN 400 MG CAP PO SCH (21:27)
[2020-10-03] MEDS: COLCHICINE 0.6 MG CAP PO SCH (21:28)
[2020-10-03] MEDS: INSULIN GLARGINE 100 UNITS/ML SUB-Q SCH (22:14)
[2020-10-04] MEDS: HYDROmorphone 1 MG/1 ML INJ IM PRN (00:45)
[2020-10-04] MEDS: PIPERACIL/TAZOBACTA 4.5/NS 100 4.5 GM/100 ML VIAL IV SCH ×3 (06:27→23:02)
[2020-10-04] MEDS: HEPARIN 5,000 UNIT/1 ML VIAL SUB-Q SCH ×3 (06:29→23:05)
[2020-10-04] MEDS: oxyCODONE /ACETAMINOPHEN 5-325MG TAB PO PRN (06:43)
[2020-10-04] MEDS: INSULIN LISPRO 100 UNIT/ML VIAL 3 mL SUB-Q SCH ×4 (09:07→23:04)
[2020-10-04] MEDS: DOCUSATE SODIUM 100 MG CAP PO SCH ×2 (09:08→23:03)
[2020-10-04] MEDS: amLODIPine 10 MG TAB PO SCH (09:08)
[2020-10-04] MEDS: INDOMETHACIN 25 MG CAP PO SCH ×2 (09:09→23:03)
[2020-10-04] MEDS: COLCHICINE 0.6 MG CAP PO SCH ×2 (09:09→23:03)
[2020-10-04] MEDS: predniSONE 20 MG TAB PO SCH (10:20)
[2020-10-04] MEDS: VALSARTAN 160MG TAB PO SCH (10:23)
--- NOTE | 2020-10-04 10:57 | Progress Note ---
Assessment and Plan Patient alert, awake. Resting on O 2 litres O2. O2 saturation 96%. ABG on room air. ABG pH 7.432 (7.320-7.450) 09/29/20 09:18 POC ABG pCO2 41.0 mmHg (32.0-48.0) 09/29/20 09:18 POC ABG pO2 54.4 mmHg (83-108) L 09/29/20 09:18 POC ABG HCO3 26.7 09/29/20 09:18 Patient placed on 2 litres O2. Patient complaining slight cough which is non productive . Denies chest pain and shortness of breath. Patient afebrile. No leukocytosis. Patient undergone thoracentesis. Pleural fluid cell count wbc 193, RBC 695 Rest of the pleural fluid results pending. Chest xray done to day 10/03/20 reported Slight improvement in right basilar pleural fluid collection status post thoracentesis. No pneumothorax. Patient is on Zosyn. No history of smoking, or drug abuse. Patient says drinks alcohol. Works for [employer] Advise Only. . Children 1. Allergic to lisinopril. - Patient Problems (1) Acute hypoxemic respiratory failure Current Visit: Yes Status: Acute Plan to address problem: O2 2 litres via nasal canula. Albuterol/atrovent aerosol treatments q 6 hours. Continue Zosyn. Continue S/C heparin. (2) Community acquired pneumonia Current Visit: Yes Status: Acute Qualifiers: Laterality: right Lung location: lower lobe of lung Qualified Code(s): J18.9 - Pneumonia, unspecified organism Plan to address problem: Patient is on zosyn. (3) Loculated pleural effusion Current Visit: Yes Status: Acute Plan to address problem: Patient undergone thoracentesis. Pleural fluid cell count wbc 193, RBC 695 Rest of the pleural fluid results pending. (4) Hypertension Current Visit: Yes Status: Chronic Plan to address problem: Management as per primary care. (5) Person under investigation for COVID-19 Current Visit: Yes Status: Ruled-out Plan to address problem: Ricardo virus reported negative. (6) Accelerated hypertension Current Visit: No Status: Acute Plan to address problem: Management as per primary care. (7) CHF (congestive heart failure) Current Visit: No Status: Acute Plan to address problem: Management as per cardiology. Subjective Date of service: 10/04/20 Principal diagnosis: CAP; Chest Pain; PUI COVID-19; Loculated R. pleural effusion; DM II;Obesity Interval history: Patient alert, awake. Resting on O 2 litres O2. O2 saturation 96%. ABG on room air. ABG pH 7.432 (7.320-7.450) 09/29/20 09:18 POC ABG pCO2 41.0 mmHg (32.0-48.0) 09/29/20 09:18 POC ABG pO2 54.4 mmHg (83-108) L 09/29/20 09:18 POC ABG HCO3 26.7 09/29/20 09:18 Patient placed on 2 litres O2. Patient complaining slight cough which is non productive . Denies chest pain and shortness of breath. Patient afebrile. No leukocytosis. Patient undergone thoracentesis. Pleural fluid cell count wbc 193, RBC 695 Rest of the pleural fluid results pending. Chest xray done to day 10/03/20 reported Slight improvement in right basilar pleural fluid collection status post thoracentesis. No pneumothorax. Patient is on Zosyn. No history of smoking, or drug abuse. Patient says drinks alcohol. Works for [employer] . Children 1. Allergic to lisinopril. Objective Vital Signs - 12hr 10/04/20 10/04/20 10/04/20 02:00 04:31 10:23 Temperature 98.1 F Pulse Rate 85 Respiratory 18 18 Rate Blood Pressure 135/79 157/96 O2 Sat by Pulse 96 98 Oximetry Constitutional: alert, appears uncomfortable, other (Complaining joint pains.) Eyes: non-icteric ENT: oropharynx moist, other (mallampati 3) Neck: supple, no lymphadenopathy, no JVD, other (large circumference) Effort: mildly labored Ascultation: Right: diminished breath sounds (base), rales (scant) Percussion: Right: dull (base) Cardiovascular: regular rate and rhythm Gastrointestinal: normoactive bowel sounds, soft, non-tender, non-distended (protuberant) Integumentary: normal Extremities: no cyanosis, no edema, pulses normal, no ischemia or petechiae Neurologic: normal mental status, non-focal exam, pupils equal and round, motor strength normal and Psychiatric: mood appropriate, affect normal CBC and BMP: 10/03/20 05:35 10/03/20 05:35 ABG, PT/INR, D-dimer: ABG ABG pH 7.432 (7.320-7.450) 09/29/20 09:18 POC ABG pCO2 41.0 mmHg (32.0-48.0) 09/29/20 09:18 POC ABG pO2 54.4 mmHg (83-108) L 09/29/20 09:18 POC ABG HCO3 26.7 09/29/20 09:18 PT/INR, D-dimer PT 13.5 Sec. (12.2-14.9) 09/29/20 07:02 INR 1.05 (0.87-1.13) 09/29/20 07:02 D-Dimer 6409.06 ng/mlDDU (0-234) H 10/03/20 05:35 Abnormal lab findings: Abnormal Labs 09/29/20 09/29/20 09/29/20 07:02 07:02 07:02 WBC RBC Hgb 10.9 L Hct 31.8 L MCHC Plt Count Lymph % (Auto) 9.0 L Moffat % (Auto) Lymph # (Auto) 1.0 L Moffat # (Auto) Seg Neutrophils % 84.2 H Seg Neutrophils # 9.2 H D-Dimer POC ABG pO2 ABG Oxyhemoglobin ABG Sodium ABG Chloride ABG Glucose Carboxyhemoglobin Sodium 129 L Chloride 91.3 L Carbon Dioxide Glucose 226 H POC Glucose Hemoglobin A1c Ferritin C-Reactive Protein Albumin 3.5 L Arterial Blood Glucose 09/29/20 09/29/20 09/29/20 07:02 07:20 09:18 WBC RBC Hgb Hct MCHC Plt Count Lymph % (Auto) Moffat % (Auto) Lymph # (Auto) Moffat # (Auto) Seg Neutrophils % Seg Neutrophils # D-Dimer 1450.54 H POC ABG pO2 54.4 L ABG Oxyhemoglobin 88.8 L ABG Sodium 130.2 L ABG Chloride 97.0 L ABG Glucose 197 H Carboxyhemoglobin 1.6 H Sodium Chloride Carbon Dioxide Glucose POC Glucose Hemoglobin A1c 13.7 H Ferritin C-Reactive Protein Albumin Arterial Blood Glucose 197 H 09/29/20 09/29/20 09/29/20 12:05 12:05 17:33 WBC RBC Hgb Hct MCHC Plt Count Lymph % (Auto) Moffat % (Auto) Lymph # (Auto) Moffat # (Auto) Seg Neutrophils % Seg Neutrophils # D-Dimer POC ABG pO2 ABG Oxyhemoglobin ABG Sodium ABG Chloride ABG Glucose Carboxyhemoglobin Sodium Chloride Carbon Dioxide Glucose 203 H POC Glucose 201 H Hemoglobin A1c Ferritin 408.7 H C-Reactive Protein 26.30 H Albumin Arterial Blood Glucose 09/29/20 09/30/20 09/30/20 21:17 05:11 05:11 WBC 11.9 H RBC 3.14 L Hgb 9.0 L Hct 27.9 L MCHC Plt Count Lymph % (Auto) 12.4 L Moffat % (Auto) 8.7 H Lymph # (Auto) Moffat # (Auto) 1.0 H Seg Neutrophils % 77.8 H Seg Neutrophils # 9.2 H D-Dimer POC ABG pO2 ABG Oxyhemoglobin ABG Sodium ABG Chloride ABG Glucose Carboxyhemoglobin Sodium 136 L D Chloride 96.1 L Carbon Dioxide Glucose 136 H POC Glucose 243 H Hemoglobin A1c Ferritin C-Reactive Protein Albumin Arterial Blood Glucose 09/30/20 09/30/20 10/01/20 08:09 12:09 04:55 WBC RBC Hgb Hct MCHC Plt Count Lymph % (Auto) Moffat % (Auto) Lymph # (Auto) Moffat # (Auto) Seg Neutrophils % Seg Neutrophils # D-Dimer 2130.42 H POC ABG pO2 ABG Oxyhemoglobin ABG Sodium ABG Chloride ABG Glucose Carboxyhemoglobin Sodium Chloride Carbon Dioxide Glucose POC Glucose 112 H 181 H Hemoglobin A1c Ferritin C-Reactive Protein Albumin Arterial Blood Glucose 10/01/20 10/01/20 10/01/20 04:55 04:55 04:55 WBC RBC 3.05 L Hgb 9.4 L Hct 26.5 L MCHC 36 H Plt Count Lymph % (Auto) Moffat % (Auto) Lymph # (Auto) Moffat # (Auto) Seg Neutrophils % Seg Neutrophils # D-Dimer POC ABG pO2 ABG Oxyhemoglobin ABG Sodium ABG Chloride ABG Glucose Carboxyhemoglobin Sodium 133 L Chloride 94.0 L Carbon Dioxide 31 H Glucose 111 H POC Glucose Hemoglobin A1c Ferritin 665.1 H C-Reactive Protein 42.40 H Albumin Arterial Blood Glucose 10/01/20 10/01/20 10/01/20 11:28 16:22 22:46 WBC RBC Hgb Hct MCHC Plt Count Lymph % (Auto) Moffat % (Auto) Lymph # (Auto) Moffat # (Auto) Seg Neutrophils % Seg Neutrophils # D-Dimer POC ABG pO2 ABG Oxyhemoglobin ABG Sodium ABG Chloride ABG Glucose Carboxyhemoglobin Sodium Chloride Carbon Dioxide Glucose POC Glucose 161 H 174 H 134 H Hemoglobin A1c Ferritin C-Reactive Protein Albumin Arterial Blood Glucose 10/02/20 10/02/20 10/02/20 07:58 11:21 16:33 WBC RBC Hgb Hct MCHC Plt Count Lymph % (Auto) Moffat % (Auto) Lymph # (Auto) Moffat # (Auto) Seg Neutrophils % Seg Neutrophils # D-Dimer POC ABG pO2 ABG Oxyhemoglobin ABG Sodium ABG Chloride ABG Glucose Carboxyhemoglobin Sodium Chloride Carbon Dioxide Glucose POC Glucose 129 H 177 H 149 H Hemoglobin A1c Ferritin C-Reactive Protein Albumin Arterial Blood Glucose 10/02/20 10/03/20 10/03/20 21:11 05:35 05:35 WBC RBC Hgb Hct MCHC Plt Count Lymph % (Auto) Moffat % (Auto) Lymph # (Auto) Moffat # (Auto) Seg Neutrophils % Seg Neutrophils # D-Dimer 6409.06 H POC ABG pO2 ABG Oxyhemoglobin ABG Sodium ABG Chloride ABG Glucose Carboxyhemoglobin Sodium Chloride Carbon Dioxide Glucose 146 H POC Glucose 208 H Hemoglobin A1c Ferritin C-Reactive Protein 40.10 H Albumin Arterial Blood Glucose 10/03/20 10/03/20 10/03/20 05:35 05:35 05:35 WBC RBC 3.33 L Hgb 9.8 L Hct 29.4 L MCHC Plt Count 558 H Lymph % (Auto) 10.1 L Moffat % (Auto) 12.4 H Lymph # (Auto) 1.0 L Moffat # (Auto) 1.3 H Seg Neutrophils % 75.7 H Seg Neutrophils # 7.8 H D-Dimer POC ABG pO2 ABG Oxyhemoglobin ABG Sodium ABG Chloride ABG Glucose Carboxyhemoglobin Sodium 133 L Chloride 93.2 L Carbon Dioxide Glucose 146 H POC Glucose Hemoglobin A1c Ferritin 895.9 H C-Reactive Protein Albumin Arterial Blood Glucose 10/03/20 10/03/20 10/03/20 07:52 12:26 15:38 WBC RBC Hgb Hct MCHC Plt Count Lymph % (Auto) Moffat % (Auto) Lymph # (Auto) Moffat # (Auto) Seg Neutrophils % Seg Neutrophils # D-Dimer POC ABG pO2 ABG Oxyhemoglobin ABG Sodium ABG Chloride ABG Glucose Carboxyhemoglobin Sodium Chloride Carbon Dioxide Glucose POC Glucose 147 H 200 H 155 H Hemoglobin A1c Ferritin C-Reactive Protein Albumin Arterial Blood Glucose 10/03/20 10/04/20 21:37 08:22 WBC RBC Hgb Hct MCHC Plt Count Lymph % (Auto) Moffat % (Auto) Lymph # (Auto) Moffat # (Auto) Seg Neutrophils % Seg Neutrophils # D-Dimer POC ABG pO2 ABG Oxyhemoglobin ABG Sodium ABG Chloride ABG Glucose Carboxyhemoglobin Sodium Chloride Carbon Dioxide Glucose POC Glucose 145 H 190 H Hemoglobin A1c Ferritin C-Reactive Protein Albumin Arterial Blood Glucose Allied health notes reviewed: nursing
--- NOTE | 2020-10-04 11:49 | Progress Note ---
Assessment and Plan Cultures: Blood culture 09/29/2020 no growth today COVID-19 negative Pleural fluid 10/03/2020 no growth today A/P: 50-year-old man past medical history hypertension, diabetes, BPH, hyperlipidemia admitted as Covid PUI, right-sided pneumonia #Sepsis: With persistent high fever ? Pneumonia/pulmonary abscess +/- gouty attack #Complicated pneumonia with right loculated pleural effusion/lung abscess: Status post thoracentesis 100 cc out 10/03/2020, worsening procalcitonin and CRP at 40 #Pulmonary abscess: Possibly developing, needs follow-up imaging and potential long-term antibiotics. #Diabetes: tight glycemic control for best outcomes. 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 pleural effusion; DM II;Obesity Interval history: Reports feeling better left elbow and right knee tenderness better, edema no better Objective - Exam Narrative Exam: eneral appearance: Alert in NAD pleasant Eyes: anicteric sclerae, moist conjunctivae; no lid-lag; PERRLA HENT: Normocephalic, Atraumatic; normal external ears, nares open, oropharynx clear Neck: supple, tracheal midline, no JVD Lungs: diminished breath sounds codi CV: RRR no murmur Abdomen: Soft, non-tender; no masses or hepatosplenomegaly Extremities: left knee severe edema and tenderness, right elbow edema and tendernes Skin: right mastectomy Psych: no agitated Neuro: alert and oriented x 3. Moving all extermities - Constitutional Vitals: Vital Signs Temp Pulse Resp BP Pulse Ox 98.1 F 85 18 157/96 98 10/04/20 04:31 10/04/20 04:31 10/04/20 04:31 10/04/20 10:23 10/04/20 04:31 Temperature -Last 24 Hours Temperature 98.1 F Temperature 98.9 F Temperature 98.3 F - Labs CBC & Chem 7: 10/03/20 05:35 10/03/20 05:35 Labs: Abnormal lab results 10/03/20 10/03/20 10/03/20 Range/Units 12:26 15:38 21:37 POC Glucose 200 H 155 H 145 H (70-105) mg/dL 10/04/20 10/04/20 Range/Units 08:22 11:13 POC Glucose 190 H 199 H (70-105) mg/dL
--- NOTE | 2020-10-04 14:09 | Progress Note ---
<J CARLOSHENRY CamachoYolanda - Last Filed: 10/04/20 16:51> Assessment and Plan - Patient Problems (1) Sepsis Current Visit: Yes Status: Resolved Plan to address problem: Presented with tachycardia, tachypnea, with pneumonia on CXR Antibiotic therapy Trend CBC Infectious disease consult 09/29 Blood culture x2 09/29 UA negative for leukocyte esterase and nitrates (2) Community acquired pneumonia Current Visit: Yes Status: Acute Qualifiers: Laterality: right Lung location: lower lobe of lung Qualified Code(s): J18.9 - Pneumonia, unspecified organism Plan to address problem: 10/26 CXR shows patchy right basilar airspace disease with otherwise clear lungs. Antibiotic therapy: Ceftriaxone, azithromycin; stopped 10/03 Infectious disease consulted Supplementary oxygen as needed Pulmonary hygiene Pneumonia protocol activated (3) Loculated pleural effusion Current Visit: Yes Status: Acute Plan to address problem: 09/29 CTA chest shows no evidence of a pulmonary embolism or right heart strain, right middle lobe and lower lobe ground glass opacities consistent with pneumonia, partially loculated right pleural effusion and a well-formed air-flui d collection in the posterior aspect of the right lower lobe which appears to be within the pulmonary parenchyma and may represent developing pulmonary abscess. Pulmonology consulted, appreciate recommendations Pulmonary hygiene Supplemental oxygen as needed 10/03 CT-guided thoracentesis with drainage of 200 mL of pleural fluid; follow- up studies 10/03 ceftriaxone and azithromycin stopped and started on Zosyn given worsening procalcitonin and CRP at 40 10/03 MRSA PCR pending Possible consult to CTS 10/03 post thoracentesis CXR shows slight improvement in right basilar pleural fluid collection status post thoracentesis. No pneumothorax. 10/04 surgery consulted, appreciate recommendations (4) Hypochloremia Current Visit: Yes Status: Acute Plan to address problem: Presented with a chloride of 91.3 , 09/30 Cl 96.1, 10/01 chloride 94, 10/03 chloride 93.2 Continue to monitor S/p 1500 mL bolus in the emergency department S/p MIVF with normal saline which was stopped due to recent hypotension on 10/03 Trend BMP (5) Hyponatremia Current Visit: No Status: Acute Plan to address problem: Presented with a sodium of 129 with hyperglycemia of 226 Corrected sodium 132 Continue to monitor s/p 1500 mL bolus in the emergency department and MIVF x1 day for patient's hyponatremia which was stopped on 10/03 for hypertension Trend BMP 09/30 Na 136, 10/01 sodium 133, 10/03 sodium 133-corrected sodium is 134 (6) Gout flare Current Visit: Yes Status: Acute Qualifiers: Gout site: knee Plan to address problem: Patient has a history of gout however states he has not had an attack in several years and is not on any maintenance medication 10/03 patient complains of erythema, swelling and hypothermia to left knee and right elbow 10/03 started on colchine and Indocin Supportive care 10/04 started on steroids (7) Elevated d-dimer Current Visit: Yes Status: Acute Plan to address problem: 09/29 D-dimer 1450 09/29 CTA chest showed no pulmonary embolism 09/29 Bilateral lower extremity Dopplers showed no acute DVT or SVT (8) Hyperlipidemia Current Visit: No Status: Chronic Plan to address problem: Restarted home statin therapy (9) Hypertension Current Visit: Yes Status: Chronic Plan to address problem: S/p Norvasc in the ED for hypertension Takes valsartan at home however has been noncompliant Valsartan, Norvasc; titrate as needed Blood pressure monitoring per protocol Hydralazine IV as needed for SBP >160 10/03 patient is hypertensive with systolic blood pressure in the 200s/100s; one-time dose of labetalol ordered Patient was on IV fluids for persistent hyponatremia which was stopped on 10/03 (10) Non-compliance Current Visit: Yes Status: Chronic Plan to address problem: Patient does not have a PCP Patient has been noncompliant with his medications Case management consult Patient states that his blood glucose monitor at home malfunctions occasionally (11) DVT prophylaxis Current Visit: No Status: Acute Plan to address problem: Heparin subcu SCDs to bilateral lower extremities while in bed History Interval history: This is 50 year old male with hypertension, diabetes, enlarged prostate, gout, HLD, radial nerve palsy and noncompliance who presented to the emergency department on 09/29 with right sided pleurtic pain with right sided posterior and lateral back pain with inspiration and movement for about 1 week associated with nonproductive cough and shortness of breath. Work-up in the emergency department included a CXR which shows patchy right lower lobe infiltrates, abdominal ultrasound shows sludge in the gallbladder with gallbladder wall thickness without cholelithiasis and diffuse fatty infiltration of the liver, labs show hyponatremia at 129 (corrected sodium for hyperglycemia is 131), hypochloremia and 91.3, and hyperglycemia 226. COVID-19 PCR pending. Patient will be admitted to the hospital service for community-acquired pneumonia, COVID-19 PUI and infectious disease, pulmonology has been consulted. Patient's uric acid was normal therefore pain and swelling can be reactive and he was started on steroids. Surgery was consulted today. 09/30: COVID 19 PCR negative, tramadol started, pulmonary consulted on 10/26 p.m. 10/01 Robitussin added due to persistent cough 10/02: Pulmonary recommends CTS intervention with possible transfer to [place] for VATS 10/03: CT-guided thoracentesis removed 200 mL of drainage, cytology sent, she is to follow, persistent fever since yesterday afternoon, left knee/right elbow swelling and hyperthermia with a history of gout (initiated on Indocin and colchicine) Hospitalist Physical - Constitutional Vitals: Temp Pulse Resp BP Pulse Ox 97.9 F 76 20 146/87 96 10/04/20 11:17 10/04/20 11:17 10/04/20 11:17 10/04/20 11:17 10/04/20 11:17 General appearance: Present: no acute distress, well-nourished - EENT Eyes: Present: EOM intact ENT: hearing intact, clear oral mucosa - Neck Neck: Present: supple, normal ROM - Respiratory Respiratory effort: normal Respiratory: bilateral: diminished - Cardiovascular Rhythm: regular Heart Sounds: Present: S1 & S2. Absent: systolic murmur, diastolic murmur - Extremities Extremities: no ischemia, pulses intact, pulses symmetrical, No edema, normal temperature, normal color, Full ROM Peripheral Pulses: within normal limits - Abdominal General gastrointestinal: soft, non-tender, non-distended, normal bowel sounds - Integumentary Integumentary: Present: clear, warm, dry - Psychiatric Psychiatric: cooperative - Neurologic Neurologic: CNII-XII intact, no focal deficits, moves all extremities - Allied Health Allied health notes reviewed: nursing HEART Score - HEART Score Troponin: Troponin T < 0.010 ng/mL (0.00-0.029) 09/29/20 07:02 Results - Labs CBC & Chem 7: 10/03/20 05:35 10/03/20 05:35 Labs: Laboratory Last Values WBC 10.4 K/mm3 (4.5-11.0) 10/03/20 05:35 RBC 3.33 M/mm3 (3.65-5.03) L 10/03/20 05:35 Hgb 9.8 gm/dl (11.8-15.2) L 10/03/20 05:35 Hct 29.4 % (35.5-45.6) L 10/03/20 05:35 MCV 88 fl (84-94) 10/03/20 05:35 MCH 29 pg (28-32) 10/03/20 05:35 MCHC 33 % (32-34) 10/03/20 05:35 RDW 14.0 % (13.2-15.2) 10/03/20 05:35 Plt Count 558 K/mm3 (140-440) H 10/03/20 05:35 Lymph % (Auto) 10.1 % (13.4-35.0) L 10/03/20 05:35 [place] % (Auto) 12.4 % (0.0-7.3) H 10/03/20 05:35 Eos % (Auto) 1.6 % (0.0-4.3) 10/03/20 05:35 Baso % (Auto) 0.2 % (0.0-1.8) 10/03/20 05:35 Lymph # (Auto) 1.0 K/mm3 (1.2-5.4) L 10/03/20 05:35 [place] # (Auto) 1.3 K/mm3 (0.0-0.8) H 10/03/20 05:35 Eos # (Auto) 0.2 K/mm3 (0.0-0.4) 10/03/20 05:35 Baso # (Auto) 0.0 K/mm3 (0.0-0.1) 10/03/20 05:35 Seg Neutrophils % 75.7 % (40.0-70.0) H 10/03/20 05:35 Seg Neutrophils # 7.8 K/mm3 (1.8-7.7) H 10/03/20 05:35 PT 13.5 Sec. (12.2-14.9) 09/29/20 07:02 INR 1.05 (0.87-1.13) 09/29/20 07:02 D-Dimer 6409.06 ng/mlDDU (0-234) H 10/03/20 05:35 ABG pH 7.432 (7.320-7.450) 09/29/20 09:18 POC ABG pCO2 41.0 mmHg (32.0-48.0) 09/29/20 09:18 POC ABG pO2 54.4 mmHg (83-108) L 09/29/20 09:18 POC ABG HCO3 26.7 09/29/20 09:18 POC ABG Base Excess 2.3 09/29/20 09:18 ABG Hemoglobin 14.4 (12.0-17.5) 09/29/20 09:18 ABG Oxyhemoglobin 88.8 (94-98) L 09/29/20 09:18 ABG Methemoglobin 0 (0.0-1.5) 09/29/20 09:18 ABG Sodium 130.2 mmol/L (136.0-145.0) L 09/29/20 09:18 ABG Potassium 4.4 mmol/L (3.40-4.50) 09/29/20 09:18 ABG Chloride 97.0 mmol/L (98-107) L 09/29/20 09:18 ABG Glucose 197 mg/dL (65-95) H 09/29/20 09:18 Carboxyhemoglobin 1.6 (0.5-1.5) H 09/29/20 09:18 FiO2 21.0 09/29/20 09:18 Sodium 133 mmol/L (137-145) L 10/03/20 05:35 Potassium 4.6 mmol/L (3.6-5.0) 10/03/20 05:35 Chloride 93.2 mmol/L (98-107) L 10/03/20 05:35 Carbon Dioxide 29 mmol/L (22-30) 10/03/20 05:35 Anion Gap 15 mmol/L 10/03/20 05:35 BUN 10 mg/dL (9-20) 10/03/20 05:35 Creatinine 0.9 mg/dL (0.8-1.3) 10/03/20 05:35 Estimated GFR > 60 ml/min 10/03/20 05:35 BUN/Creatinine Ratio 11 % 10/03/20 05:35 Glucose 146 mg/dL (75-100) H 10/03/20 05:35 Glucose 146 mg/dL (75-100) H 10/03/20 05:35 POC Glucose 199 mg/dL (70-105) H 10/04/20 11:13 Hemoglobin A1c 13.7 % (4-6) H 09/29/20 07:20 Lactic Acid 1.80 mmol/L (0.7-2.0) 09/29/20 07:07 Uric Acid 5.0 mg/dL (3.5-7.6) 10/03/20 05:35 Calcium 9.7 mg/dL (8.4-10.2) 10/03/20 05:35 Magnesium 2.00 mg/dL (1.7-2.3) 09/29/20 07:02 Ferritin 895.9 ng/mL (30.0-300.0) H 10/03/20 05:35 Total Bilirubin 0.50 mg/dL (0.1-1.2) 09/29/20 07:02 Direct Bilirubin < 0.2 mg/dL (0-0.2) 09/29/20 07:02 Indirect Bilirubin 0.3 mg/dL 09/29/20 07:02 AST 12 units/L (5-40) 09/29/20 07:02 ALT 12 units/L (7-56) 09/29/20 07:02 Alkaline Phosphatase 120 units/L (35-129) 09/29/20 07:02 Lactate Dehydrogenase 135 units/L (91-180) 10/03/20 05:35 Total Creatine Kinase 127 units/L (55-170) 09/29/20 07:02 Troponin T < 0.010 ng/mL (0.00-0.029) 09/29/20 07:02 C-Reactive Protein 40.10 mg/dL (0.00-1.30) H 10/03/20 05:35 Total Protein 8.0 g/dL (6.3-8.2) 09/29/20 07:02 Albumin 3.5 g/dL (3.9-5) L 09/29/20 07:02 Albumin/Globulin Ratio 0.8 % 09/29/20 07:02 Lipase 19 units/L (13-60) 09/29/20 07:02 Procalcitonin 1.25 ng/mL (<0.15) 09/30/20 13:58 Arterial Blood Glucose 197 mg/dL (65-95) H 09/29/20 09:18 Arterial Blood Ionized Calcium 4.6 mg/dL (4.6-5.3) 09/29/20 09:18 Urine Color Yellow (Yellow) 09/30/20 Unknown Urine Turbidity Clear (Clear) 09/30/20 Unknown Urine pH 6.0 (5.0-7.0) 09/30/20 Unknown Ur Specific [place] 1.021 (1.003-1.030) 09/30/20 Unknown Urine Protein 100 mg/dl mg/dL (Negative) 09/30/20 Unknown Urine Glucose (UA) 50 mg/dL (Negative) 09/30/20 Unknown Urine Ketones Neg mg/dL (Negative) 09/30/20 Unknown Urine Blood Neg (Negative) 09/30/20 Unknown Urine Nitrite Neg (Negative) 09/30/20 Unknown Urine Bilirubin Neg (Negative) 09/30/20 Unknown Urine Urobilinogen < 2.0 mg/dL (<2.0) 09/30/20 Unknown Ur Leukocyte Esterase Neg (Negative) 09/30/20 Unknown Urine WBC (Auto) 1.0 /HPF (0.0-6.0) 09/30/20 Unknown Urine RBC (Auto) 1.0 /HPF (0.0-6.0) 09/30/20 Unknown U Epithel Cells (Auto) 1.0 /HPF (0-13.0) 09/30/20 Unknown Urine Mucus Few /HPF 09/30/20 Unknown Fluid Type Thoracentesis 10/03/20 Unknown Fluid Color Yellow 10/03/20 Unknown Fluid Appearance Hazy 10/03/20 Unknown Fluid WBC 193 /mm3 10/03/20 Unknown Fluid RBC 695 /mm3 10/03/20 Unknown Fluid Seg Neutrophils 52.0 % 10/03/20 Unknown Fluid Lymphocytes 38.0 % 10/03/20 Unknown Fluid Reactive Lymphs 0 % 10/03/20 Unknown Fluid Monocytes 10.0 % 10/03/20 Unknown Fluid Eosinophils 0 % 10/03/20 Unknown Fluid Basophils 0 % 10/03/20 Unknown Coronavirus (PCR) Negative (Negative) 09/30/20 Unknown Microbiology: Microbiology 09/29/20 07:02 Peripheral/Venous Blood Culture - Final NO GROWTH AFTER 5 DAYS 09/29/20 07:02 Peripheral/Venous Blood Culture - Final NO GROWTH AFTER 5 DAYS 10/03/20 Unknown Pleural Fluid - Pleura,Rt Lung Body Fluid Culture - Preliminary Marshall/IV: Voiding Method Urinal IV Catheter Type [Left Forearm INT / Saline Lock ] Active Medications - Current Medications Current Medications: Generic Name Dose Route Start Last Admin Trade Name Freq PRN Reason Stop Dose Admin Acetaminophen 650 mg 09/29/20 09:20 10/03/20 07:03 Tylenol PO 650 mg Q4H PRN Administration Pain MILD(1-3)/Fever >100.5/VAUGHN Amlodipine Besylate 10 mg 10/03/20 18:00 10/04/20 09:08 Amlodipine PO 10 mg DAILY TANIKA Administration Atorvastatin Calcium 40 mg 09/29/20 22:00 10/03/20 21:27 Lipitor PO 40 mg QHS TANIKA Administration Colchicine 0.6 mg 10/03/20 22:00 10/04/20 09:09 Colchicine PO 0.6 mg BID TANIKA Administration Dextrose 50 ml 09/29/20 09:20 D50w (25gm) Syringe IV Q30MIN PRN Hypoglycemia Protocol Docusate Sodium 100 mg 09/29/20 10:00 10/04/20 09:08 Colace PO 100 mg BID TANIKA Administration Gabapentin 800 mg 09/29/20 22:00 10/03/20 21:27 Gabapentin PO 800 mg QHS TANIKA Administration Heparin Sodium (Porcine) 5,000 unit 09/29/20 22:00 10/04/20 13:21 Heparin SUB-Q 5,000 unit Q8HR TANIKA Administration Hydralazine HCl 10 mg 10/03/20 16:39 Apresoline IV Q4HR PRN hypertension Hydromorphone HCl 0.5 mg 10/03/20 20:08 10/04/20 00:45 Dilaudid IM 0.5 mg Q4H PRN Administration Pain , Severe (7-10) Piperacillin Sod/Tazobactam Sod 4.5 gm in 100 mls @ 200 mls/hr 10/03/20 15:00 10/04/20 13:22 Zosyn/Ns 4.5gm/100ml IV 200 mls/hr Q8HR TANIKA Administration Protocol Indomethacin 50 mg 10/03/20 22:00 10/04/20 09:09 Indocin PO 50 mg Q12HR TANIKA Administration Insulin Glargine 10 units 09/29/20 22:00 10/03/20 22:14 Lantus SUB-Q Not Given QHS [facility] Insulin Human Lispro 0 unit 09/29/20 11:30 10/04/20 12:25 Humalog SUB-Q 3 unit ACHS TANIKA Administration Protocol Morphine Sulfate 2 mg 09/29/20 17:31 10/03/20 17:38 Morphine IV 2 mg Q4H PRN Administration Pain, Moderate (4-6) Ondansetron HCl 4 mg 09/29/20 09:20 Zofran IV Q6HR PRN Nausea And Vomiting Oxycodone/Acetaminophen 1 tab 09/29/20 09:20 10/04/20 06:43 Percocet 5/325 PO 1 tab Q6H PRN Administration Pain, Moderate (4-6) Prednisone 40 mg 10/04/20 10:00 10/04/20 10:20 Deltasone PO 40 mg QDAY TANIKA Administration Pseudoephedrine/Acetam/Chlorphenir 10 ml 10/01/20 18:20 10/02/20 14:55 Robitussin Ac PO 10 ml Q4H PRN Administration Cough Sodium Chloride 10 ml 09/29/20 10:00 10/04/20 09:12 Sodium Chloride Flush Syringe 10 Ml IV 10 ml BID TANIKA Administration Sodium Chloride 10 ml 09/29/20 09:20 Sodium Chloride Flush Syringe 10 Ml IV PRN PRN LINE FLUSH Tramadol HCl 50 mg 09/30/20 12:00 10/02/20 22:36 Ultram PO 50 mg Q6H PRN Administration Pain, Moderate (4-6) Valsartan 160 mg 10/03/20 10:00 10/04/20 10:23 Diovan PO 160 mg QDAY TANIKA Administration <ARACELY PARRISH R - Last Filed: 10/04/20 18:54> Assessment and Plan Assessment and plan: I saw and evaluated the patient. I agree with the findings and the plan of care as documented in the Nurse Practitioner's~note, Hospitalist Physical - Constitutional Vitals: Temp Pulse Resp BP Pulse Ox 97.9 F 86 20 170/110 98 10/04/20 15:51 10/04/20 17:32 10/04/20 15:51 10/04/20 17:33 10/04/20 17:32 HEART Score - HEART Score Troponin: Troponin T < 0.010 ng/mL (0.00-0.029) 09/29/20 07:02 Results - Labs CBC & Chem 7: 10/03/20 05:35 10/03/20 05:35 Labs: Laboratory Last Values WBC 10.4 K/mm3 (4.5-11.0) 10/03/20 05:35 RBC 3.33 M/mm3 (3.65-5.03) L 10/03/20 05:35 Hgb 9.8 gm/dl (11.8-15.2) L 10/03/20 05:35 Hct 29.4 % (35.5-45.6) L 10/03/20 05:35 MCV 88 fl (84-94) 10/03/20 05:35 MCH 29 pg (28-32) 10/03/20 05:35 MCHC 33 % (32-34) 10/03/20 05:35 RDW 14.0 % (13.2-15.2) 10/03/20 05:35 Plt Count 558 K/mm3 (140-440) H 10/03/20 05:35 Lymph % (Auto) 10.1 % (13.4-35.0) L 10/03/20 05:35 [place] % (Auto) 12.4 % (0.0-7.3) H 10/03/20 05:35 Eos % (Auto) 1.6 % (0.0-4.3) 10/03/20 05:35 Baso % (Auto) 0.2 % (0.0-1.8) 10/03/20 05:35 Lymph # (Auto) 1.0 K/mm3 (1.2-5.4) L 10/03/20 05:35 [place] # (Auto) 1.3 K/mm3 (0.0-0.8) H 10/03/20 05:35 Eos # (Auto) 0.2 K/mm3 (0.0-0.4) 10/03/20 05:35 Baso # (Auto) 0.0 K/mm3 (0.0-0.1) 10/03/20 05:35 Seg Neutrophils % 75.7 % (40.0-70.0) H 10/03/20 05:35 Seg Neutrophils # 7.8 K/mm3 (1.8-7.7) H 10/03/20 05:35 PT 13.5 Sec. (12.2-14.9) 09/29/20 07:02 INR 1.05 (0.87-1.13) 09/29/20 07:02 D-Dimer 6409.06 ng/mlDDU (0-234) H 10/03/20 05:35 ABG pH 7.432 (7.320-7.450) 09/29/20 09:18 POC ABG pCO2 41.0 mmHg (32.0-48.0) 09/29/20 09:18 POC ABG pO2 54.4 mmHg (83-108) L 09/29/20 09:18 POC ABG HCO3 26.7 09/29/20 09:18 POC ABG Base Excess 2.3 09/29/20 09:18 ABG Hemoglobin 14.4 (12.0-17.5) 09/29/20 09:18 ABG Oxyhemoglobin 88.8 (94-98) L 09/29/20 09:18 ABG Methemoglobin 0 (0.0-1.5) 09/29/20 09:18 ABG Sodium 130.2 mmol/L (136.0-145.0) L 09/29/20 09:18 ABG Potassium 4.4 mmol/L (3.40-4.50) 09/29/20 09:18 ABG Chloride 97.0 mmol/L (98-107) L 09/29/20 09:18 ABG Glucose 197 mg/dL (65-95) H 09/29/20 09:18 Carboxyhemoglobin 1.6 (0.5-1.5) H 09/29/20 09:18 FiO2 21.0 09/29/20 09:18 Sodium 133 mmol/L (137-145) L 10/03/20 05:35 Potassium 4.6 mmol/L (3.6-5.0) 10/03/20 05:35 Chloride 93.2 mmol/L (98-107) L 10/03/20 05:35 Carbon Dioxide 29 mmol/L (22-30) 10/03/20 05:35 Anion Gap 15 mmol/L 10/03/20 05:35 BUN 10 mg/dL (9-20) 10/03/20 05:35 Creatinine 0.9 mg/dL (0.8-1.3) 10/03/20 05:35 Estimated GFR > 60 ml/min 10/03/20 05:35 BUN/Creatinine Ratio 11 % 10/03/20 05:35 Glucose 146 mg/dL (75-100) H 10/03/20 05:35 Glucose 146 mg/dL (75-100) H 10/03/20 05:35 POC Glucose 192 mg/dL (70-105) H 10/04/20 16:48 Hemoglobin A1c 13.7 % (4-6) H 09/29/20 07:20 Lactic Acid 1.80 mmol/L (0.7-2.0) 09/29/20 07:07 Uric Acid 5.0 mg/dL (3.5-7.6) 10/03/20 05:35 Calcium 9.7 mg/dL (8.4-10.2) 10/03/20 05:35 Magnesium 2.00 mg/dL (1.7-2.3) 09/29/20 07:02 Ferritin 895.9 ng/mL (30.0-300.0) H 10/03/20 05:35 Total Bilirubin 0.50 mg/dL (0.1-1.2) 09/29/20 07:02 Direct Bilirubin < 0.2 mg/dL (0-0.2) 09/29/20 07:02 Indirect Bilirubin 0.3 mg/dL 09/29/20 07:02 AST 12 units/L (5-40) 09/29/20 07:02 ALT 12 units/L (7-56) 09/29/20 07:02 Alkaline Phosphatase 120 units/L (35-129) 09/29/20 07:02 Lactate Dehydrogenase 135 units/L (91-180) 10/03/20 05:35 Total Creatine Kinase 127 units/L (55-170) 09/29/20 07:02 Troponin T < 0.010 ng/mL (0.00-0.029) 09/29/20 07:02 C-Reactive Protein 40.10 mg/dL (0.00-1.30) H 10/03/20 05:35 Total Protein 8.0 g/dL (6.3-8.2) 09/29/20 07:02 Albumin 3.5 g/dL (3.9-5) L 09/29/20 07:02 Albumin/Globulin Ratio 0.8 % 09/29/20 07:02 Lipase 19 units/L (13-60) 09/29/20 07:02 Procalcitonin 1.25 ng/mL (<0.15) 09/30/20 13:58 Arterial Blood Glucose 197 mg/dL (65-95) H 09/29/20 09:18 Arterial Blood Ionized Calcium 4.6 mg/dL (4.6-5.3) 09/29/20 09:18 Urine Color Yellow (Yellow) 09/30/20 Unknown Urine Turbidity Clear (Clear) 09/30/20 Unknown Urine pH 6.0 (5.0-7.0) 09/30/20 Unknown Ur Specific [place] 1.021 (1.003-1.030) 09/30/20 Unknown Urine Protein 100 mg/dl mg/dL (Negative) 09/30/20 Unknown Urine Glucose (UA) 50 mg/dL (Negative) 09/30/20 Unknown Urine Ketones Neg mg/dL (Negative) 09/30/20 Unknown Urine Blood Neg (Negative) 09/30/20 Unknown Urine Nitrite Neg (Negative) 09/30/20 Unknown Urine Bilirubin Neg (Negative) 09/30/20 Unknown Urine Urobilinogen < 2.0 mg/dL (<2.0) 09/30/20 Unknown Ur Leukocyte Esterase Neg (Negative) 09/30/20 Unknown Urine WBC (Auto) 1.0 /HPF (0.0-6.0) 09/30/20 Unknown Urine RBC (Auto) 1.0 /HPF (0.0-6.0) 09/30/20 Unknown U Epithel Cells (Auto) 1.0 /HPF (0-13.0) 09/30/20 Unknown Urine Mucus Few /HPF 09/30/20 Unknown Fluid Type Thoracentesis 10/03/20 Unknown Fluid Color Yellow 10/03/20 Unknown Fluid Appearance Hazy 10/03/20 Unknown Fluid WBC 193 /mm3 10/03/20 Unknown Fluid RBC 695 /mm3 10/03/20 Unknown Fluid Seg Neutrophils 52.0 % 10/03/20 Unknown Fluid Lymphocytes 38.0 % 10/03/20 Unknown Fluid Reactive Lymphs 0 % 10/03/20 Unknown Fluid Monocytes 10.0 % 10/03/20 Unknown Fluid Eosinophils 0 % 10/03/20 Unknown Fluid Basophils 0 % 10/03/20 Unknown Coronavirus (PCR) Negative (Negative) 09/30/20 Unknown Microbiology: Microbiology 09/29/20 07:02 Peripheral/Venous Blood Culture - Final NO GROWTH AFTER 5 DAYS 09/29/20 07:02 Peripheral/Venous Blood Culture - Final NO GROWTH AFTER 5 DAYS 10/03/20 Unknown Pleural Fluid - Pleura,Rt Lung Body Fluid Culture - Preliminary Marshall/IV: Voiding Method Urinal IV Catheter Type [Left Forearm INT / Saline Lock ] Active Medications - Current Medications Current Medications: Generic Name Dose Route Start Last Admin Trade Name Freq PRN Reason Stop Dose Admin Acetaminophen 650 mg 09/29/20 09:20 10/03/20 07:03 Tylenol PO 650 mg Q4H PRN Administration Pain MILD(1-3)/Fever >100.5/VAUGHN Amlodipine Besylate 10 mg 10/03/20 18:00 10/04/20 09:08 Amlodipine PO 10 mg DAILY TANIKA Administration Atorvastatin Calcium 40 mg 09/29/20 22:00 10/03/20 21:27 Lipitor PO 40 mg QHS TANIKA Administration Colchicine 0.6 mg 10/03/20 22:00 10/04/20 09:09 Colchicine PO 0.6 mg BID TANIKA Administration Dextrose 50 ml 09/29/20 09:20 D50w (25gm) Syringe IV Q30MIN PRN Hypoglycemia Protocol Docusate Sodium 100 mg 09/29/20 10:00 10/04/20 09:08 Colace PO 100 mg BID TANIKA Administration Gabapentin 800 mg 09/29/20 22:00 10/03/20 21:27 Gabapentin PO 800 mg QHS TANIKA Administration Heparin Sodium (Porcine) 5,000 unit 09/29/20 22:00 10/04/20 13:21 Heparin SUB-Q 5,000 unit Q8HR TANIKA Administration Hydralazine HCl 10 mg 10/03/20 16:39 10/04/20 17:33 Apresoline IV 10 mg Q4HR PRN Administration hypertension Hydromorphone HCl 0.5 mg 10/03/20 20:08 10/04/20 00:45 Dilaudid IM 0.5 mg Q4H PRN Administration Pain , Severe (7-10) Piperacillin Sod/Tazobactam Sod 4.5 gm in 100 mls @ 200 mls/hr 10/03/20 15:00 10/04/20 13:22 Zosyn/Ns 4.5gm/100ml IV 200 mls/hr Q8HR TANIKA Administration Protocol Indomethacin 50 mg 10/03/20 22:00 10/04/20 09:09 Indocin PO 50 mg Q12HR TANIKA Administration Insulin Glargine 10 units 09/29/20 22:00 10/03/20 22:14 Lantus SUB-Q Not Given QHS [facility] Insulin Human Lispro 0 unit 09/29/20 11:30 10/04/20 17:33 Humalog SUB-Q 2 unit ACHS [facility] Administration Protocol Morphine Sulfate 2 mg 09/29/20 17:31 10/03/20 17:38 Morphine IV 2 mg Q4H PRN Administration Pain, Moderate (4-6) Ondansetron HCl 4 mg 09/29/20 09:20 Zofran IV Q6HR PRN Nausea And Vomiting Oxycodone/Acetaminophen 1 tab 09/29/20 09:20 10/04/20 06:43 Percocet 5/325 PO 1 tab Q6H PRN Administration Pain, Moderate (4-6) Prednisone 40 mg 10/04/20 10:00 10/04/20 10:20 Deltasone PO 40 mg QDAY TANIKA Administration Pseudoephedrine/Acetam/Chlorphenir 10 ml 10/01/20 18:20 10/02/20 14:55 Robitussin Ac PO 10 ml Q4H PRN Administration Cough Sodium Chloride 10 ml 09/29/20 10:00 10/04/20 09:12 Sodium Chloride Flush Syringe 10 Ml IV 10 ml BID TANIKA Administration Sodium Chloride 10 ml 09/29/20 09:20 Sodium Chloride Flush Syringe 10 Ml IV PRN PRN LINE FLUSH Tramadol HCl 50 mg 09/30/20 12:00 10/02/20 22:36 Ultram PO 50 mg Q6H PRN Administration Pain, Moderate (4-6) Valsartan 160 mg 10/03/20 10:00 10/04/20 10:23 Diovan PO 160 mg QDAY TANIKA Administration
--- NOTE | 2020-10-04 18:08 | Consultation ---
History of Present Illness Consult date: 10/04/20 Reason for consult: other (loculated pleural effusion) - History of present illness History of present illness: 50 year old male who presented to ED several days ago with a 1 week hx of right sided chest/back pain with shortness of breath. He had a CTA as part of his work up that showed a loculated right pleural effusion and was diagnosed with CAP. He had a successful thoracentisis yesterday and the fluid was sent for cytology and micro. Upon interview and exam today pt says that he is feeling improved compared to when he presented to ED and wants to see how his breathing is without oxygen. Pt has not had a fever in over 24 hours. Past History Past Medical History: diabetes, hypertension, hyperlipidemia Past Surgical History: Other (Meniscus tear repair) Social history: , lives with family, full code. denies: smoking, alcohol abuse, prescription drug abuse, IV drug use Family history: hypertension Medications and Allergies Allergies Allergy/AdvReac Type Severity Reaction Status Date / Time lisinopril Allergy Angioedema Verified 05/29/19 14:22 Home Medications Medication Instructions Recorded Confirmed Last Taken Type Lispro Insulin [HumaLOG] 10 unit SQ TID 09/29/20 09/29/20 Unknown History Valsartan/Hydrochlorothiazide 1 each PO QDAY 09/29/20 09/29/20 Unknown History [Valsartan-Hctz 80-12.5 mg Tab] Active Meds: Active Medications Acetaminophen (Tylenol) 650 mg PO Q4H PRN PRN Reason: Pain MILD(1-3)/Fever >100.5/VAUGHN Last Admin: 10/03/20 07:03 Dose: 650 mg Documented by: Amlodipine Besylate (Amlodipine) 10 mg PO DAILY [facility] Last Admin: 10/04/20 09:08 Dose: 10 mg Documented by: Atorvastatin Calcium (Lipitor) 40 mg PO QHS [facility] Last Admin: 10/03/20 21:27 Dose: 40 mg Documented by: Colchicine (Colchicine) 0.6 mg PO BID [facility] Last Admin: 10/04/20 09:09 Dose: 0.6 mg Documented by: Dextrose (D50w (25gm) Syringe) 50 ml IV Q30MIN PRN; Protocol PRN Reason: Hypoglycemia Docusate Sodium (Colace) 100 mg PO BID [facility] Last Admin: 10/04/20 09:08 Dose: 100 mg Documented by: Gabapentin (Gabapentin) 800 mg PO QHS [facility] Last Admin: 10/03/20 21:27 Dose: 800 mg Documented by: Heparin Sodium (Porcine) (Heparin) 5,000 unit SUB-Q Q8HR [facility] Last Admin: 10/04/20 13:21 Dose: 5,000 unit Documented by: Hydralazine HCl (Apresoline) 10 mg IV Q4HR PRN PRN Reason: hypertension Last Admin: 10/04/20 17:33 Dose: 10 mg Documented by: Hydromorphone HCl (Dilaudid) 0.5 mg IM Q4H PRN PRN Reason: Pain , Severe (7-10) Last Admin: 10/04/20 00:45 Dose: 0.5 mg Documented by: Piperacillin Sod/Tazobactam Sod (Zosyn/Ns 4.5gm/100ml) 4.5 gm in 100 mls @ 200 mls/hr IV Q8HR [facility]; Protocol Last Admin: 10/04/20 13:22 Dose: 200 mls/hr Documented by: Indomethacin (Indocin) 50 mg PO Q12HR [facility] Last Admin: 10/04/20 09:09 Dose: 50 mg Documented by: Insulin Glargine (Lantus) 10 units SUB-Q QHS [facility] Last Admin: 10/03/20 22:14 Dose: Not Given Documented by: Insulin Human Lispro (Humalog) 0 unit SUB-Q [facility]; Protocol Last Admin: 10/04/20 17:33 Dose: 2 unit Documented by: Morphine Sulfate (Morphine) 2 mg IV Q4H PRN PRN Reason: Pain, Moderate (4-6) Last Admin: 10/03/20 17:38 Dose: 2 mg Documented by: Ondansetron HCl (Zofran) 4 mg IV Q6HR PRN PRN Reason: Nausea And Vomiting Oxycodone/Acetaminophen (Percocet 5/325) 1 tab PO Q6H PRN PRN Reason: Pain, Moderate (4-6) Last Admin: 10/04/20 06:43 Dose: 1 tab Documented by: Prednisone (Deltasone) 40 mg PO QDAY [facility] Last Admin: 10/04/20 10:20 Dose: 40 mg Documented by: Pseudoephedrine/Acetam/Chlorphenir (Robitussin Ac) 10 ml PO Q4H PRN PRN Reason: Cough Last Admin: 10/02/20 14:55 Dose: 10 ml Documented by: Sodium Chloride (Sodium Chloride Flush Syringe 10 Ml) 10 ml IV BID [facility] Last Admin: 10/04/20 09:12 Dose: 10 ml Documented by: Sodium Chloride (Sodium Chloride Flush Syringe 10 Ml) 10 ml IV PRN PRN PRN Reason: LINE FLUSH Tramadol HCl (Ultram) 50 mg PO Q6H PRN PRN Reason: Pain, Moderate (4-6) Last Admin: 10/02/20 22:36 Dose: 50 mg Documented by: Valsartan (Diovan) 160 mg PO QDAY [facility] Last Admin: 10/04/20 10:23 Dose: 160 mg Documented by: Review of Systems - Constitutional no fever, no chills - Cardiovascular no chest pain, no shortness of breath - Respiratory no cough - Gastrointestinal no abdominal pain Exam Vital Signs Temp Resp BP 98.2 F 18 194/114 09/29/20 06:16 09/29/20 06:16 09/29/20 06:16 - General physical appearance Positive: well developed, well nourished, no distress - Respiratory Positive: normal expansion, normal respiratory effort, other (on 2L NC) - Extremities Extremities: no ischemia - Abdomen Abdomen: Present: soft. Absent: tender Results - Labs 10/03/20 05:35 10/03/20 05:35 Abnormal lab results 10/03/20 10/04/20 10/04/20 Range/Units 21:37 08:22 11:13 POC Glucose 145 H 190 H 199 H (70-105) mg/dL 10/04/20 Range/Units 16:48 POC Glucose 192 H (70-105) mg/dL - Imaging Chest x-ray: report reviewed, image reviewed CT scan - chest: report reviewed, image reviewed Assessment and Plan 50 year old male with CAP and right side loculated pleural effusion s/p thoracentisis with some improvement seen on CXR today. Clinically stable and afebrile. Patient would benefit from CT surgery consultation for recommendations regarding loculation. Services are not available at this hospital. If he continues to be stable and shows improvement may consider out patient referral. A blind placed chest tube is likely not to be effective as the fluid amount is not very large, and best suited for grossly gravity dependent collections. If pt continues to spike fevers or fluid further compromises breathing, would recommend consulting IR for image guided drainage of loculation. No general surgery intervention indicated at this time.
[2020-10-04] MEDS: MORPHINE 2 MG/1 ML INJ IV PRN (21:24)
[2020-10-04] MEDS: GABAPENTIN 400 MG CAP PO SCH (23:03)
[2020-10-04] MEDS: INSULIN GLARGINE 100 UNITS/ML SUB-Q SCH (23:04)
[2020-10-04] MEDS: METOPROLOL TARTRATE 50 MG TAB PO SCH (23:04)
[2020-10-05] MEDS: PIPERACIL/TAZOBACTA 4.5/NS 100 4.5 GM/100 ML VIAL IV SCH ×3 (05:38→23:12)
[2020-10-05] MEDS: HEPARIN 5,000 UNIT/1 ML VIAL SUB-Q SCH ×3 (05:39→23:14)
--- NOTE | 2020-10-05 07:52 | Progress Note ---
Assessment and Plan Cultures: Blood culture 09/29/2020 no growth today COVID-19 negative Pleural fluid 10/03/2020 no growth today A/P: 50-year-old man past medical history hypertension, diabetes, BPH, hyperlipidemia admitted as Covid PUI, right-sided pneumonia #Sepsis: No fever for 48 hours, likely secondary to pneumonia/pulmonary abscess +/- gouty attack #Complicated pneumonia with right loculated pleural effusion/lung abscess: Status post thoracentesis 100 cc out 10/03/2020, worsening procalcitonin and CRP at 40 #Pulmonary abscess: Possibly developing, needs follow-up imaging and potential long-term antibiotics. #Diabetes: tight glycemic control for best outcomes. #Obesity #Polarticular gouty attack on colchicine: Improving Recs: -Follow pleural fluid studies and cultures -Repeat chest CT tomorrow -to evaluate interval resolution -CT surgery evaluation requested however no CT surgery available in this hospital -Repeat procalcitonin and CRP -Continue Zosyn D3 -Check MRSA PCR pending, reordered -Treat gouty attack -Monitor fever will follow Latonya Vazquez MD [facility] ([facility]) Office [phone] Subjective Date of service: 10/05/20 Principal diagnosis: CAP; Chest Pain; PUI COVID-19; Loculated R. pleural effusion; DM II;Obesity Interval history: Patient reports feeling better, remarkable decreased of right elbow and left knee edema and tenderness, no fever, cough is better, no chest pain Objective - Exam Narrative Exam: eneral appearance: Alert in NAD pleasant Eyes: anicteric sclerae, moist conjunctivae; no lid-lag; PERRLA HENT: Normocephalic, Atraumatic; normal external ears, nares open, oropharynx clear Neck: supple, tracheal midline, no JVD Lungs: diminished breath sounds codi, right lower lobe crackles CV: RRR no murmur Abdomen: Soft, non-tender; no masses or hepatosplenomegaly Extremities: left knee severe edema and tenderness, right elbow edema and tendernes Skin: right mastectomy Psych: no agitated Neuro: alert and oriented x 3. Moving all extermities - Constitutional Vitals: Vital Signs Temp Pulse Resp BP Pulse Ox 98.0 F 66 18 145/83 98 10/05/20 05:37 10/05/20 05:37 10/05/20 05:37 10/05/20 05:37 10/05/20 05:37 Temperature -Last 24 Hours Temperature 98.0 F Temperature 98.1 F Temperature 97.9 F Temperature 97.9 F - Labs CBC & Chem 7: 10/03/20 05:35 10/03/20 05:35 Labs: Abnormal lab results 10/04/20 10/04/20 10/04/20 Range/Units 08:22 11:13 16:48 POC Glucose 190 H 199 H 192 H (70-105) mg/dL 10/04/20 Range/Units 21:27 POC Glucose 194 H (70-105) mg/dL
[2020-10-05] MEDS: INSULIN LISPRO 100 UNIT/ML VIAL 3 mL SUB-Q SCH ×4 (08:38→23:13)
[2020-10-05] MEDS: COLCHICINE 0.6 MG CAP PO SCH ×2 (09:30→23:18)
[2020-10-05] MEDS: amLODIPine 10 MG TAB PO SCH (09:31)
[2020-10-05] MEDS: DOCUSATE SODIUM 100 MG CAP PO SCH ×3 (09:31→23:32)
[2020-10-05] MEDS: METOPROLOL TARTRATE 50 MG TAB PO SCH ×2 (09:32→23:12)
[2020-10-05] MEDS: predniSONE 20 MG TAB PO SCH ×2 (09:32→17:18)
[2020-10-05] MEDS: INDOMETHACIN 25 MG CAP PO SCH ×2 (09:35→23:12)
[2020-10-05] MEDS: VALSARTAN 160MG TAB PO SCH (09:35)
[2020-10-05] MEDS: guaiFENesin/CODEINE 100-10MG ORAL LIQD 5 ML PO PRN ×2 (12:32→23:11)
--- NOTE | 2020-10-05 13:00 | Progress Note ---
Assessment and Plan Patient alert, awake. Resting on room air. O2 saturation recorded 100%. Denies chest pain and shortness of breath or cough at this time.Patient sitting up by the side of the bed. Patient afebrile. No leukocytosis. Patient undergone thoracentesis. Pleural fluid cell count wbc 193, RBC 695 Rest of the pleural fluid results pending. Chest xray done to day 10/03/20 reported Slight improvement in right basilar pleural fluid collection status post thoracentesis. No pneumothorax. Patient is on Zosyn. No history of smoking, or drug abuse. Patient says drinks alcohol. Works for [employer] . Children 1. Allergic to lisinopril. Patient has CAT scan of chest to day. Results pending. - Patient Problems (1) Acute hypoxemic respiratory failure Current Visit: Yes Status: Acute Plan to address problem: O2 2 litres via nasal canula as needed. Albuterol/atrovent aerosol treatments q 6 hours. Patient is on PO prednisone. Continue Zosyn. Continue S/C heparin. (2) Community acquired pneumonia Current Visit: Yes Status: Acute Qualifiers: Laterality: right Lung location: lower lobe of lung Qualified Code(s): J18.9 - Pneumonia, unspecified organism Plan to address problem: Patient is on zosyn. Chest PT qid. (3) Loculated pleural effusion Current Visit: Yes Status: Acute Plan to address problem: Patient undergone thoracentesis. Pleural fluid cell count wbc 193, RBC 695 Rest of the pleural fluid results pending. (4) Hypertension Current Visit: Yes Status: Chronic Plan to address problem: Management as per primary care. (5) Person under investigation for COVID-19 Current Visit: Yes Status: Ruled-out Plan to address problem: Ricardo virus reported negative. (6) Accelerated hypertension Current Visit: No Status: Acute Plan to address problem: Management as per primary care. (7) CHF (congestive heart failure) Current Visit: No Status: Acute Plan to address problem: Management as per cardiology. Subjective Date of service: 10/05/20 Principal diagnosis: CAP; Chest Pain; PUI COVID-19; Loculated R. pleural effusion; DM II;Obesity Interval history: Patient alert, awake. Resting on room air. O2 saturation recorded 100%. Denies chest pain and shortness of breath or cough at this time.Patient sitting up by the side of the bed. Patient afebrile. No leukocytosis. Patient undergone thoracentesis. Pleural fluid cell count wbc 193, RBC 695 Rest of the pleural fluid results pending. Chest xray done to day 10/03/20 reported Slight improvement in right basilar pleural fluid collection status post thoracentesis. No pneumothorax. Patient is on Zosyn. No history of smoking, or drug abuse. Patient says drinks alcohol. Works for [employer]. . Children 1. Allergic to lisinopril. Patient has CAT scan of chest to day. Results pending. Objective Vital Signs - 12hr 10/05/20 10/05/20 10/05/20 05:37 09:31 09:32 Temperature 98.0 F Pulse Rate 66 Respiratory 18 Rate Blood Pressure 145/83 133/77 133/77 O2 Sat by Pulse 98 Oximetry 10/05/20 10/05/20 09:35 11:34 Temperature Pulse Rate Respiratory Rate Blood Pressure 133/77 O2 Sat by Pulse 100 Oximetry Constitutional: no acute distress, alert Eyes: non-icteric ENT: oropharynx moist, other (mallampati 3) Neck: supple, no lymphadenopathy, no JVD, other (large circumference) Effort: mildly labored Ascultation: Right: diminished breath sounds (base), rales (scant) Percussion: Right: dull (base) Cardiovascular: regular rate and rhythm Gastrointestinal: normoactive bowel sounds, soft, non-tender, non-distended (protuberant) Integumentary: normal Extremities: no cyanosis, no edema, pulses normal, no ischemia or petechiae Neurologic: normal mental status, non-focal exam, pupils equal and round, motor strength normal and Psychiatric: mood appropriate, affect normal CBC and BMP: 10/03/20 05:35 10/03/20 05:35 ABG, PT/INR, D-dimer: ABG ABG pH 7.432 (7.320-7.450) 09/29/20 09:18 POC ABG pCO2 41.0 mmHg (32.0-48.0) 09/29/20 09:18 POC ABG pO2 54.4 mmHg (83-108) L 09/29/20 09:18 POC ABG HCO3 26.7 09/29/20 09:18 PT/INR, D-dimer PT 13.5 Sec. (12.2-14.9) 09/29/20 07:02 INR 1.05 (0.87-1.13) 09/29/20 07:02 D-Dimer 6409.06 ng/mlDDU (0-234) H 10/03/20 05:35 Abnormal lab findings: Abnormal Labs 09/29/20 09/29/20 09/29/20 07:02 07:02 07:02 WBC RBC Hgb 10.9 L Hct 31.8 L MCHC Plt Count Lymph % (Auto) 9.0 L Lander % (Auto) Lymph # (Auto) 1.0 L Lander # (Auto) Seg Neutrophils % 84.2 H Seg Neutrophils # 9.2 H D-Dimer POC ABG pO2 ABG Oxyhemoglobin ABG Sodium ABG Chloride ABG Glucose Carboxyhemoglobin Sodium 129 L Chloride 91.3 L Carbon Dioxide Glucose 226 H POC Glucose Hemoglobin A1c Ferritin C-Reactive Protein Albumin 3.5 L Arterial Blood Glucose 09/29/20 09/29/20 09/29/20 07:02 07:20 09:18 WBC RBC Hgb Hct MCHC Plt Count Lymph % (Auto) Lander % (Auto) Lymph # (Auto) Lander # (Auto) Seg Neutrophils % Seg Neutrophils # D-Dimer 1450.54 H POC ABG pO2 54.4 L ABG Oxyhemoglobin 88.8 L ABG Sodium 130.2 L ABG Chloride 97.0 L ABG Glucose 197 H Carboxyhemoglobin 1.6 H Sodium Chloride Carbon Dioxide Glucose POC Glucose Hemoglobin A1c 13.7 H Ferritin C-Reactive Protein Albumin Arterial Blood Glucose 197 H 09/29/20 09/29/20 09/29/20 12:05 12:05 17:33 WBC RBC Hgb Hct MCHC Plt Count Lymph % (Auto) Lander % (Auto) Lymph # (Auto) Lander # (Auto) Seg Neutrophils % Seg Neutrophils # D-Dimer POC ABG pO2 ABG Oxyhemoglobin ABG Sodium ABG Chloride ABG Glucose Carboxyhemoglobin Sodium Chloride Carbon Dioxide Glucose 203 H POC Glucose 201 H Hemoglobin A1c Ferritin 408.7 H C-Reactive Protein 26.30 H Albumin Arterial Blood Glucose 09/29/20 09/30/20 09/30/20 21:17 05:11 05:11 WBC 11.9 H RBC 3.14 L Hgb 9.0 L Hct 27.9 L MCHC Plt Count Lymph % (Auto) 12.4 L Lander % (Auto) 8.7 H Lymph # (Auto) Lander # (Auto) 1.0 H Seg Neutrophils % 77.8 H Seg Neutrophils # 9.2 H D-Dimer POC ABG pO2 ABG Oxyhemoglobin ABG Sodium ABG Chloride ABG Glucose Carboxyhemoglobin Sodium 136 L D Chloride 96.1 L Carbon Dioxide Glucose 136 H POC Glucose 243 H Hemoglobin A1c Ferritin C-Reactive Protein Albumin Arterial Blood Glucose 09/30/20 09/30/20 10/01/20 08:09 12:09 04:55 WBC RBC Hgb Hct MCHC Plt Count Lymph % (Auto) Lander % (Auto) Lymph # (Auto) Lander # (Auto) Seg Neutrophils % Seg Neutrophils # D-Dimer 2130.42 H POC ABG pO2 ABG Oxyhemoglobin ABG Sodium ABG Chloride ABG Glucose Carboxyhemoglobin Sodium Chloride Carbon Dioxide Glucose POC Glucose 112 H 181 H Hemoglobin A1c Ferritin C-Reactive Protein Albumin Arterial Blood Glucose 10/01/20 10/01/20 10/01/20 04:55 04:55 04:55 WBC RBC 3.05 L Hgb 9.4 L Hct 26.5 L MCHC 36 H Plt Count Lymph % (Auto) Lander % (Auto) Lymph # (Auto) Lander # (Auto) Seg Neutrophils % Seg Neutrophils # D-Dimer POC ABG pO2 ABG Oxyhemoglobin ABG Sodium ABG Chloride ABG Glucose Carboxyhemoglobin Sodium 133 L Chloride 94.0 L Carbon Dioxide 31 H Glucose 111 H POC Glucose Hemoglobin A1c Ferritin 665.1 H C-Reactive Protein 42.40 H Albumin Arterial Blood Glucose 10/01/20 10/01/20 10/01/20 11:28 16:22 22:46 WBC RBC Hgb Hct MCHC Plt Count Lymph % (Auto) Lander % (Auto) Lymph # (Auto) Lander # (Auto) Seg Neutrophils % Seg Neutrophils # D-Dimer POC ABG pO2 ABG Oxyhemoglobin ABG Sodium ABG Chloride ABG Glucose Carboxyhemoglobin Sodium Chloride Carbon Dioxide Glucose POC Glucose 161 H 174 H 134 H Hemoglobin A1c Ferritin C-Reactive Protein Albumin Arterial Blood Glucose 10/02/20 10/02/20 10/02/20 07:58 11:21 16:33 WBC RBC Hgb Hct MCHC Plt Count Lymph % (Auto) Lander % (Auto) Lymph # (Auto) Lander # (Auto) Seg Neutrophils % Seg Neutrophils # D-Dimer POC ABG pO2 ABG Oxyhemoglobin ABG Sodium ABG Chloride ABG Glucose Carboxyhemoglobin Sodium Chloride Carbon Dioxide Glucose POC Glucose 129 H 177 H 149 H Hemoglobin A1c Ferritin C-Reactive Protein Albumin Arterial Blood Glucose 10/02/20 10/03/20 10/03/20 21:11 05:35 05:35 WBC RBC Hgb Hct MCHC Plt Count Lymph % (Auto) Lander % (Auto) Lymph # (Auto) Lander # (Auto) Seg Neutrophils % Seg Neutrophils # D-Dimer 6409.06 H POC ABG pO2 ABG Oxyhemoglobin ABG Sodium ABG Chloride ABG Glucose Carboxyhemoglobin Sodium Chloride Carbon Dioxide Glucose 146 H POC Glucose 208 H Hemoglobin A1c Ferritin C-Reactive Protein 40.10 H Albumin Arterial Blood Glucose 10/03/20 10/03/20 10/03/20 05:35 05:35 05:35 WBC RBC 3.33 L Hgb 9.8 L Hct 29.4 L MCHC Plt Count 558 H Lymph % (Auto) 10.1 L Lander % (Auto) 12.4 H Lymph # (Auto) 1.0 L Lander # (Auto) 1.3 H Seg Neutrophils % 75.7 H Seg Neutrophils # 7.8 H D-Dimer POC ABG pO2 ABG Oxyhemoglobin ABG Sodium ABG Chloride ABG Glucose Carboxyhemoglobin Sodium 133 L Chloride 93.2 L Carbon Dioxide Glucose 146 H POC Glucose Hemoglobin A1c Ferritin 895.9 H C-Reactive Protein Albumin Arterial Blood Glucose 10/03/20 10/03/20 10/03/20 07:52 12:26 15:38 WBC RBC Hgb Hct MCHC Plt Count Lymph % (Auto) Lander % (Auto) Lymph # (Auto) Lander # (Auto) Seg Neutrophils % Seg Neutrophils # D-Dimer POC ABG pO2 ABG Oxyhemoglobin ABG Sodium ABG Chloride ABG Glucose Carboxyhemoglobin Sodium Chloride Carbon Dioxide Glucose POC Glucose 147 H 200 H 155 H Hemoglobin A1c Ferritin C-Reactive Protein Albumin Arterial Blood Glucose 10/03/20 10/04/20 10/04/20 21:37 08:22 11:13 WBC RBC Hgb Hct MCHC Plt Count Lymph % (Auto) Lander % (Auto) Lymph # (Auto) Lander # (Auto) Seg Neutrophils % Seg Neutrophils # D-Dimer POC ABG pO2 ABG Oxyhemoglobin ABG Sodium ABG Chloride ABG Glucose Carboxyhemoglobin Sodium Chloride Carbon Dioxide Glucose POC Glucose 145 H 190 H 199 H Hemoglobin A1c Ferritin C-Reactive Protein Albumin Arterial Blood Glucose 10/04/20 10/04/20 10/05/20 16:48 21:27 08:20 WBC RBC Hgb Hct MCHC Plt Count Lymph % (Auto) Lander % (Auto) Lymph # (Auto) Lander # (Auto) Seg Neutrophils % Seg Neutrophils # D-Dimer POC ABG pO2 ABG Oxyhemoglobin ABG Sodium ABG Chloride ABG Glucose Carboxyhemoglobin Sodium Chloride Carbon Dioxide Glucose POC Glucose 192 H 194 H 203 H Hemoglobin A1c Ferritin C-Reactive Protein Albumin Arterial Blood Glucose 10/05/20 10/05/20 10:46 11:11 WBC RBC Hgb Hct MCHC Plt Count Lymph % (Auto) Lander % (Auto) Lymph # (Auto) Lander # (Auto) Seg Neutrophils % Seg Neutrophils # D-Dimer POC ABG pO2 ABG Oxyhemoglobin ABG Sodium ABG Chloride ABG Glucose Carboxyhemoglobin Sodium Chloride Carbon Dioxide Glucose POC Glucose 285 H Hemoglobin A1c Ferritin C-Reactive Protein 33.00 H Albumin Arterial Blood Glucose Allied health notes reviewed: nursing
--- NOTE | 2020-10-05 14:40 | Cat Scan Report ---
CT chest without contrast INDICATION : right pleural effusion. TECHNIQUE: Axial imaging performed through the chest without the use of intravenous contrast. All C T scans at this location are performed using CT dose reduction for ALARA by means of automated exposu re control. COMPARISON: Chest x-ray from 2 days prior FINDINGS: There is a small right-sided pleural effusion which appears to be partially loculated in t he right mid lung region. Specifically the effusion does not extend into the right lung base as would be expected with a free flowing effusion. There is underlying patchy consolidation throughout the ri ght lung. The left lung is clear. There are shotty mediastinal lymph nodes which are most likely reac tive. There is mild atherosclerotic disease in the coronary arteries. Normal heart size. There is a trace p ericardial effusion. Limited imaging of the upper abdomen shows nothing acute. There are degenerative changes in the spine with nothing acute. IMPRESSION: Small loculated right-sided pleural effusion with underlying patchy airspace disease thro ughout the right lung at least in part representing pneumonia but there is surely some underlying com pressive atelectasis as well. Shoddy mediastinal lymph nodes are most likely reactive in this setting . Signer Name: Lenin Carreno MD Signed: 10/05/2020 2:36 PM Workstation Name: [id number]
--- NOTE | 2020-10-05 14:59 | Progress Note ---
<J CARLOSHENRY HYolanda - Last Filed: 10/05/20 14:55> Assessment and Plan - Patient Problems (1) Sepsis Current Visit: Yes Status: Resolved Plan to address problem: Presented with tachycardia, tachypnea, with pneumonia on CXR Antibiotic therapy Trend CBC Infectious disease consult 09/29 Blood culture x2 09/29 UA negative for leukocyte esterase and nitrates (2) Community acquired pneumonia Current Visit: Yes Status: Acute Qualifiers: Laterality: right Lung location: lower lobe of lung Qualified Code(s): J18.9 - Pneumonia, unspecified organism Plan to address problem: 10/26 CXR shows patchy right basilar airspace disease with otherwise clear lungs. Antibiotic therapy: Ceftriaxone, azithromycin; stopped 10/03 Infectious disease consulted Supplementary oxygen as needed Pulmonary hygiene Pneumonia protocol activated (3) Loculated pleural effusion Current Visit: Yes Status: Acute Plan to address problem: 09/29 CTA chest shows no evidence of a pulmonary embolism or right heart strain, right middle lobe and lower lobe ground glass opacities consistent with pneumonia, partially loculated right pleural effusion and a well-formed air-flui d collection in the posterior aspect of the right lower lobe which appears to be within the pulmonary parenchyma and may represent developing pulmonary abscess. Pulmonology consulted, appreciate recommendations Pulmonary hygiene Supplemental oxygen as needed 10/03 CT-guided thoracentesis with drainage of 200 mL of pleural fluid; follow- up studies 10/03 ceftriaxone and azithromycin stopped and started on Zosyn given worsening procalcitonin and CRP at 40 10/03 MRSA PCR pending Possible consult to CTS 10/03 post thoracentesis CXR shows slight improvement in right basilar pleural fluid collection status post thoracentesis. No pneumothorax. 10/04 surgery consulted, appreciate recommendations; does not recommend chest tube at this time to monitor the patient if his respiratory status decreases or spikes a high fever then surgery will reconsider 10/[address] chest shows small right-sided pleural effusion which appears to be partially loculated in the right mid lung region. There is underlying patchy consolidation throughout the right lung. The left lung is clear. There are shotty mediastinal lymph nodes which are most likely reactive. There is mild atherosclerotic disease in the coronary arteries. There is a trace pericardial effusion (4) Hypochloremia Current Visit: Yes Status: Acute Plan to address problem: Presented with a chloride of 91.3 , 09/30 Cl 96.1, 10/01 chloride 94, 10/03 chloride 93.2 Continue to monitor S/p 1500 mL bolus in the emergency department S/p MIVF with normal saline which was stopped due to recent hypotension on 10/03 Trend BMP (5) Hyponatremia Current Visit: No Status: Acute Plan to address problem: Presented with a sodium of 129 with hyperglycemia of 226 Corrected sodium 132 Continue to monitor s/p 1500 mL bolus in the emergency department and MIVF x1 day for patient's hyponatremia which was stopped on 10/03 for hypertension Trend BMP 09/30 Na 136, 10/01 sodium 133, 10/03 sodium 133-corrected sodium is 134 (6) Gout flare Current Visit: Yes Status: Acute Qualifiers: Gout site: knee Plan to address problem: Patient has a history of gout however states he has not had an attack in several years and is not on any maintenance medication 10/03 patient complains of erythema, swelling and hypothermia to left knee and right elbow 10/03 started on colchine and Indocin Supportive care 10/04 started on steroids (7) Elevated d-dimer Current Visit: Yes Status: Acute Plan to address problem: 09/29 D-dimer 1450 09/29 CTA chest showed no pulmonary embolism 09/29 Bilateral lower extremity Dopplers showed no acute DVT or SVT (8) Hyperlipidemia Current Visit: No Status: Chronic Plan to address problem: Restarted home statin therapy (9) Hypertension Current Visit: Yes Status: Chronic Plan to address problem: S/p Norvasc in the ED for hypertension Takes valsartan at home however has been noncompliant Valsartan, Norvasc; titrate as needed Blood pressure monitoring per protocol Hydralazine IV as needed for SBP >160 10/03 patient is hypertensive with systolic blood pressure in the 200s/100s; one-time dose of labetalol ordered Patient was on IV fluids for persistent hyponatremia which was stopped on 10/03 (10) Non-compliance Current Visit: Yes Status: Chronic Plan to address problem: Patient does not have a PCP Patient has been noncompliant with his medications Case management consult Patient states that his blood glucose monitor at home malfunctions occasionally (11) DVT prophylaxis Current Visit: No Status: Acute Plan to address problem: Heparin subcu SCDs to bilateral lower extremities while in bed History Interval history: This is 50 year old male with hypertension, diabetes, enlarged prostate, gout, HLD, radial nerve palsy and noncompliance who presented to the emergency department on 09/29 with right sided pleurtic pain with right sided posterior and lateral back pain with inspiration and movement for about 1 week associated with nonproductive cough and shortness of breath. Work-up in the emergency department included a CXR which shows patchy right lower lobe infiltrates, abdominal ultrasound shows sludge in the gallbladder with gallbladder wall thickness without cholelithiasis and diffuse fatty infiltration of the liver, labs show hyponatremia at 129 (corrected sodium for hyperglycemia is 131), hypochloremia and 91.3, and hyperglycemia 226. COVID-19 PCR pending. Patient will be admitted to the hospital service for community-acquired pneumonia, COVID-19 PUI and infectious disease, pulmonology has been consulted. At the time my exa mination patient is on room air with no acute distress. Patient remains afebrile. Repeat chest CT ordered for today. Follow-up BMP/CBC in the am. 09/30: COVID 19 PCR negative, tramadol started, pulmonary consulted on 10/26 p.m. 10/01 Robitussin added due to persistent cough 10/02: Pulmonary recommends CTS intervention with possible transfer to [place] for VATS 10/03: CT-guided thoracentesis removed 200 mL of drainage, cytology sent, she is to follow, persistent fever since yesterday afternoon, left knee/right elbow swelling and hyperthermia with a history of gout (initiated on Indocin and colch icine) 10/04: Surgery consulted, started on steroids Hospitalist Physical - Constitutional Vitals: Temp Pulse Resp BP Pulse Ox 98.2 F 63 18 142/75 100 10/05/20 11:13 10/05/20 11:13 10/05/20 11:13 10/05/20 11:13 10/05/20 11:34 General appearance: Present: no acute distress, well-nourished - EENT Eyes: Present: PERRL, EOM intact ENT: hearing intact, clear oral mucosa - Neck Neck: Present: supple, normal ROM - Respiratory Respiratory effort: normal Respiratory: bilateral: CTA, diminished - Cardiovascular Rhythm: regular Heart Sounds: Present: S1 & S2. Absent: systolic murmur, diastolic murmur - Extremities Extremities: no ischemia, pulses intact, pulses symmetrical, No edema, normal temperature, normal color, Full ROM - Abdominal General gastrointestinal: soft, non-tender, non-distended, normal bowel sounds - Integumentary Integumentary: Present: clear, warm, dry - Psychiatric Psychiatric: appropriate mood/affect, agitated - Neurologic Neurologic: CNII-XII intact, no focal deficits, moves all extremities - Allied Health Allied health notes reviewed: nursing HEART Score - HEART Score Troponin: Troponin T < 0.010 ng/mL (0.00-0.029) 09/29/20 07:02 Results - Labs CBC & Chem 7: 10/03/20 05:35 10/03/20 05:35 Labs: Laboratory Last Values WBC 10.4 K/mm3 (4.5-11.0) 10/03/20 05:35 RBC 3.33 M/mm3 (3.65-5.03) L 10/03/20 05:35 Hgb 9.8 gm/dl (11.8-15.2) L 10/03/20 05:35 Hct 29.4 % (35.5-45.6) L 10/03/20 05:35 MCV 88 fl (84-94) 10/03/20 05:35 MCH 29 pg (28-32) 10/03/20 05:35 MCHC 33 % (32-34) 10/03/20 05:35 RDW 14.0 % (13.2-15.2) 10/03/20 05:35 Plt Count 558 K/mm3 (140-440) H 10/03/20 05:35 Lymph % (Auto) 10.1 % (13.4-35.0) L 10/03/20 05:35 Carter % (Auto) 12.4 % (0.0-7.3) H 10/03/20 05:35 Eos % (Auto) 1.6 % (0.0-4.3) 10/03/20 05:35 Baso % (Auto) 0.2 % (0.0-1.8) 10/03/20 05:35 Lymph # (Auto) 1.0 K/mm3 (1.2-5.4) L 10/03/20 05:35 Carter # (Auto) 1.3 K/mm3 (0.0-0.8) H 10/03/20 05:35 Eos # (Auto) 0.2 K/mm3 (0.0-0.4) 10/03/20 05:35 Baso # (Auto) 0.0 K/mm3 (0.0-0.1) 10/03/20 05:35 Seg Neutrophils % 75.7 % (40.0-70.0) H 10/03/20 05:35 Seg Neutrophils # 7.8 K/mm3 (1.8-7.7) H 10/03/20 05:35 PT 13.5 Sec. (12.2-14.9) 09/29/20 07:02 INR 1.05 (0.87-1.13) 09/29/20 07:02 D-Dimer 6409.06 ng/mlDDU (0-234) H 10/03/20 05:35 ABG pH 7.432 (7.320-7.450) 09/29/20 09:18 POC ABG pCO2 41.0 mmHg (32.0-48.0) 09/29/20 09:18 POC ABG pO2 54.4 mmHg (83-108) L 09/29/20 09:18 POC ABG HCO3 26.7 09/29/20 09:18 POC ABG Base Excess 2.3 09/29/20 09:18 ABG Hemoglobin 14.4 (12.0-17.5) 09/29/20 09:18 ABG Oxyhemoglobin 88.8 (94-98) L 09/29/20 09:18 ABG Methemoglobin 0 (0.0-1.5) 09/29/20 09:18 ABG Sodium 130.2 mmol/L (136.0-145.0) L 09/29/20 09:18 ABG Potassium 4.4 mmol/L (3.40-4.50) 09/29/20 09:18 ABG Chloride 97.0 mmol/L (98-107) L 09/29/20 09:18 ABG Glucose 197 mg/dL (65-95) H 09/29/20 09:18 Carboxyhemoglobin 1.6 (0.5-1.5) H 09/29/20 09:18 FiO2 21.0 09/29/20 09:18 Sodium 133 mmol/L (137-145) L 10/03/20 05:35 Potassium 4.6 mmol/L (3.6-5.0) 10/03/20 05:35 Chloride 93.2 mmol/L (98-107) L 10/03/20 05:35 Carbon Dioxide 29 mmol/L (22-30) 10/03/20 05:35 Anion Gap 15 mmol/L 10/03/20 05:35 BUN 10 mg/dL (9-20) 10/03/20 05:35 Creatinine 0.9 mg/dL (0.8-1.3) 10/03/20 05:35 Estimated GFR > 60 ml/min 10/03/20 05:35 BUN/Creatinine Ratio 11 % 10/03/20 05:35 Glucose 146 mg/dL (75-100) H 10/03/20 05:35 Glucose 146 mg/dL (75-100) H 10/03/20 05:35 POC Glucose 285 mg/dL (70-105) H 10/05/20 11:11 Hemoglobin A1c 13.7 % (4-6) H 09/29/20 07:20 Lactic Acid 1.80 mmol/L (0.7-2.0) 09/29/20 07:07 Uric Acid 5.0 mg/dL (3.5-7.6) 10/03/20 05:35 Calcium 9.7 mg/dL (8.4-10.2) 10/03/20 05:35 Magnesium 2.00 mg/dL (1.7-2.3) 09/29/20 07:02 Ferritin 895.9 ng/mL (30.0-300.0) H 10/03/20 05:35 Total Bilirubin 0.50 mg/dL (0.1-1.2) 09/29/20 07:02 Direct Bilirubin < 0.2 mg/dL (0-0.2) 09/29/20 07:02 Indirect Bilirubin 0.3 mg/dL 09/29/20 07:02 AST 12 units/L (5-40) 09/29/20 07:02 ALT 12 units/L (7-56) 09/29/20 07:02 Alkaline Phosphatase 120 units/L (35-129) 09/29/20 07:02 Lactate Dehydrogenase 135 units/L (91-180) 10/03/20 05:35 Total Creatine Kinase 127 units/L (55-170) 09/29/20 07:02 Troponin T < 0.010 ng/mL (0.00-0.029) 09/29/20 07:02 C-Reactive Protein 33.00 mg/dL (0.00-1.30) H 10/05/20 10:46 Total Protein 8.0 g/dL (6.3-8.2) 09/29/20 07:02 Albumin 3.5 g/dL (3.9-5) L 09/29/20 07:02 Albumin/Globulin Ratio 0.8 % 09/29/20 07:02 Lipase 19 units/L (13-60) 09/29/20 07:02 Procalcitonin 0.49 ng/mL (<0.15) 10/05/20 10:46 Arterial Blood Glucose 197 mg/dL (65-95) H 09/29/20 09:18 Arterial Blood Ionized Calcium 4.6 mg/dL (4.6-5.3) 09/29/20 09:18 Urine Color Yellow (Yellow) 09/30/20 Unknown Urine Turbidity Clear (Clear) 09/30/20 Unknown Urine pH 6.0 (5.0-7.0) 09/30/20 Unknown Ur Specific [place] 1.021 (1.003-1.030) 09/30/20 Unknown Urine Protein 100 mg/dl mg/dL (Negative) 09/30/20 Unknown Urine Glucose (UA) 50 mg/dL (Negative) 09/30/20 Unknown Urine Ketones Neg mg/dL (Negative) 09/30/20 Unknown Urine Blood Neg (Negative) 09/30/20 Unknown Urine Nitrite Neg (Negative) 09/30/20 Unknown Urine Bilirubin Neg (Negative) 09/30/20 Unknown Urine Urobilinogen < 2.0 mg/dL (<2.0) 09/30/20 Unknown Ur Leukocyte Esterase Neg (Negative) 09/30/20 Unknown Urine WBC (Auto) 1.0 /HPF (0.0-6.0) 09/30/20 Unknown Urine RBC (Auto) 1.0 /HPF (0.0-6.0) 09/30/20 Unknown U Epithel Cells (Auto) 1.0 /HPF (0-13.0) 09/30/20 Unknown Urine Mucus Few /HPF 09/30/20 Unknown Fluid Type Thoracentesis 10/03/20 Unknown Fluid Color Yellow 10/03/20 Unknown Fluid Appearance Hazy 10/03/20 Unknown Fluid WBC 193 /mm3 10/03/20 Unknown Fluid RBC 695 /mm3 10/03/20 Unknown Fluid Seg Neutrophils 52.0 % 10/03/20 Unknown Fluid Lymphocytes 38.0 % 10/03/20 Unknown Fluid Reactive Lymphs 0 % 10/03/20 Unknown Fluid Monocytes 10.0 % 10/03/20 Unknown Fluid Eosinophils 0 % 10/03/20 Unknown Fluid Basophils 0 % 10/03/20 Unknown Coronavirus (PCR) Negative (Negative) 09/30/20 Unknown Marshall/IV: Voiding Method Toilet IV Catheter Type [Right INT / Saline Lock Forearm] IV Catheter Type [Left Forearm INT / Saline Lock ] Active Medications - Current Medications Current Medications: Generic Name Dose Route Start Last Admin Trade Name Freq PRN Reason Stop Dose Admin Acetaminophen 650 mg 09/29/20 09:20 10/03/20 07:03 Tylenol PO 650 mg Q4H PRN Administration Pain MILD(1-3)/Fever >100.5/VAUGHN Amlodipine Besylate 10 mg 10/03/20 18:00 10/05/20 09:31 Amlodipine PO 10 mg DAILY TANIKA Administration Atorvastatin Calcium 40 mg 09/29/20 22:00 10/04/20 23:04 Lipitor PO 40 mg QHS TANIKA Administration Colchicine 0.6 mg 10/03/20 22:00 10/05/20 09:30 Colchicine PO 0.6 mg BID TANIKA Administration Dextrose 50 ml 09/29/20 09:20 D50w (25gm) Syringe IV Q30MIN PRN Hypoglycemia Protocol Docusate Sodium 100 mg 09/29/20 10:00 10/05/20 09:31 Colace PO 100 mg BID TANIKA Administration Gabapentin 800 mg 09/29/20 22:00 10/04/20 23:03 Gabapentin PO 800 mg QHS TANIKA Administration Heparin Sodium (Porcine) 5,000 unit 09/29/20 22:00 10/05/20 14:00 Heparin SUB-Q 5,000 unit Q8HR TANIKA Administration Hydralazine HCl 10 mg 10/03/20 16:39 10/04/20 17:33 Apresoline IV 10 mg Q4HR PRN Administration hypertension Hydromorphone HCl 0.5 mg 10/03/20 20:08 10/04/20 00:45 Dilaudid IM 0.5 mg Q4H PRN Administration Pain , Severe (7-10) Piperacillin Sod/Tazobactam Sod 4.5 gm in 100 mls @ 200 mls/hr 10/03/20 15:00 10/05/20 14:00 Zosyn/Ns 4.5gm/100ml IV 200 mls/hr Q8HR TANIKA Administration Protocol Indomethacin 50 mg 10/03/20 22:00 10/05/20 09:35 Indocin PO 50 mg Q12HR TANIKA Administration Insulin Glargine 10 units 09/29/20 22:00 10/04/20 23:04 Lantus SUB-Q 10 units QHS TANIKA Administration Insulin Human Lispro 0 unit 09/29/20 11:30 10/05/20 12:28 Humalog SUB-Q 4 unit ACHS TANIKA Administration Protocol Metoprolol Tartrate 50 mg 10/04/20 22:00 10/05/20 09:32 Metoprolol PO 50 mg BID TANIKA Administration Morphine Sulfate 2 mg 09/29/20 17:31 10/04/20 21:24 Morphine IV 2 mg Q4H PRN Administration Pain, Moderate (4-6) Ondansetron HCl 4 mg 09/29/20 09:20 Zofran IV Q6HR PRN Nausea And Vomiting Oxycodone/Acetaminophen 1 tab 09/29/20 09:20 10/04/20 06:43 Percocet 5/325 PO 1 tab Q6H PRN Administration Pain, Moderate (4-6) Prednisone 40 mg 10/04/20 10:00 10/05/20 09:32 Deltasone PO 40 mg QDAY TANIKA Administration Pseudoephedrine/Acetam/Chlorphenir 10 ml 10/01/20 18:20 10/05/20 12:32 Robitussin Ac PO 10 ml Q4H PRN Administration Cough Sodium Chloride 10 ml 09/29/20 10:00 10/05/20 09:32 Sodium Chloride Flush Syringe 10 Ml IV 10 ml BID TANIKA Administration Sodium Chloride 10 ml 09/29/20 09:20 Sodium Chloride Flush Syringe 10 Ml IV PRN PRN LINE FLUSH Tramadol HCl 50 mg 09/30/20 12:00 10/02/20 22:36 Ultram PO 50 mg Q6H PRN Administration Pain, Moderate (4-6) Valsartan 160 mg 10/03/20 10:00 10/05/20 09:35 Diovan PO 160 mg QDAY TANIKA Administration <ARACELY PARRISH R - Last Filed: 10/05/20 19:12> Assessment and Plan Assessment and plan: I saw and evaluated the patient. I agree with the findings and the plan of care as documented in the Nurse Practitioner's~note, with the following corrections and additions. Repeat CT chest showed stable small right pleural effusion patient resting on RA today Discussed with ID, pleural fluid cx pending if clinically stable possible d/c in the am with oral abx Hospitalist Physical - Constitutional Vitals: Temp Pulse Resp BP Pulse Ox 98.0 F 72 18 148/86 98 10/05/20 15:46 10/05/20 15:46 10/05/20 15:46 10/05/20 15:46 10/05/20 15:46 HEART Score - HEART Score Troponin: Troponin T < 0.010 ng/mL (0.00-0.029) 09/29/20 07:02 Results - Labs CBC & Chem 7: 10/03/20 05:35 10/03/20 05:35 Labs: Laboratory Last Values WBC 10.4 K/mm3 (4.5-11.0) 10/03/20 05:35 RBC 3.33 M/mm3 (3.65-5.03) L 10/03/20 05:35 Hgb 9.8 gm/dl (11.8-15.2) L 10/03/20 05:35 Hct 29.4 % (35.5-45.6) L 10/03/20 05:35 MCV 88 fl (84-94) 10/03/20 05:35 MCH 29 pg (28-32) 10/03/20 05:35 MCHC 33 % (32-34) 10/03/20 05:35 RDW 14.0 % (13.2-15.2) 10/03/20 05:35 Plt Count 558 K/mm3 (140-440) H 10/03/20 05:35 Lymph % (Auto) 10.1 % (13.4-35.0) L 10/03/20 05:35 Carter % (Auto) 12.4 % (0.0-7.3) H 10/03/20 05:35 Eos % (Auto) 1.6 % (0.0-4.3) 10/03/20 05:35 Baso % (Auto) 0.2 % (0.0-1.8) 10/03/20 05:35 Lymph # (Auto) 1.0 K/mm3 (1.2-5.4) L 10/03/20 05:35 Carter # (Auto) 1.3 K/mm3 (0.0-0.8) H 10/03/20 05:35 Eos # (Auto) 0.2 K/mm3 (0.0-0.4) 10/03/20 05:35 Baso # (Auto) 0.0 K/mm3 (0.0-0.1) 10/03/20 05:35 Seg Neutrophils % 75.7 % (40.0-70.0) H 10/03/20 05:35 Seg Neutrophils # 7.8 K/mm3 (1.8-7.7) H 10/03/20 05:35 PT 13.5 Sec. (12.2-14.9) 09/29/20 07:02 INR 1.05 (0.87-1.13) 09/29/20 07:02 D-Dimer 6409.06 ng/mlDDU (0-234) H 10/03/20 05:35 ABG pH 7.432 (7.320-7.450) 09/29/20 09:18 POC ABG pCO2 41.0 mmHg (32.0-48.0) 09/29/20 09:18 POC ABG pO2 54.4 mmHg (83-108) L 09/29/20 09:18 POC ABG HCO3 26.7 09/29/20 09:18 POC ABG Base Excess 2.3 09/29/20 09:18 ABG Hemoglobin 14.4 (12.0-17.5) 09/29/20 09:18 ABG Oxyhemoglobin 88.8 (94-98) L 09/29/20 09:18 ABG Methemoglobin 0 (0.0-1.5) 09/29/20 09:18 ABG Sodium 130.2 mmol/L (136.0-145.0) L 09/29/20 09:18 ABG Potassium 4.4 mmol/L (3.40-4.50) 09/29/20 09:18 ABG Chloride 97.0 mmol/L (98-107) L 09/29/20 09:18 ABG Glucose 197 mg/dL (65-95) H 09/29/20 09:18 Carboxyhemoglobin 1.6 (0.5-1.5) H 09/29/20 09:18 FiO2 21.0 09/29/20 09:18 Sodium 133 mmol/L (137-145) L 10/03/20 05:35 Potassium 4.6 mmol/L (3.6-5.0) 10/03/20 05:35 Chloride 93.2 mmol/L (98-107) L 10/03/20 05:35 Carbon Dioxide 29 mmol/L (22-30) 10/03/20 05:35 Anion Gap 15 mmol/L 10/03/20 05:35 BUN 10 mg/dL (9-20) 10/03/20 05:35 Creatinine 0.9 mg/dL (0.8-1.3) 10/03/20 05:35 Estimated GFR > 60 ml/min 10/03/20 05:35 BUN/Creatinine Ratio 11 % 10/03/20 05:35 Glucose 146 mg/dL (75-100) H 10/03/20 05:35 Glucose 146 mg/dL (75-100) H 10/03/20 05:35 POC Glucose 295 mg/dL (70-105) H 10/05/20 15:44 Hemoglobin A1c 13.7 % (4-6) H 09/29/20 07:20 Lactic Acid 1.80 mmol/L (0.7-2.0) 09/29/20 07:07 Uric Acid 5.0 mg/dL (3.5-7.6) 10/03/20 05:35 Calcium 9.7 mg/dL (8.4-10.2) 10/03/20 05:35 Magnesium 2.00 mg/dL (1.7-2.3) 09/29/20 07:02 Ferritin 895.9 ng/mL (30.0-300.0) H 10/03/20 05:35 Total Bilirubin 0.50 mg/dL (0.1-1.2) 09/29/20 07:02 Direct Bilirubin < 0.2 mg/dL (0-0.2) 09/29/20 07:02 Indirect Bilirubin 0.3 mg/dL 09/29/20 07:02 AST 12 units/L (5-40) 09/29/20 07:02 ALT 12 units/L (7-56) 09/29/20 07:02 Alkaline Phosphatase 120 units/L (35-129) 09/29/20 07:02 Lactate Dehydrogenase 135 units/L (91-180) 10/03/20 05:35 Total Creatine Kinase 127 units/L (55-170) 09/29/20 07:02 Troponin T < 0.010 ng/mL (0.00-0.029) 09/29/20 07:02 C-Reactive Protein 33.00 mg/dL (0.00-1.30) H 10/05/20 10:46 Total Protein 8.0 g/dL (6.3-8.2) 09/29/20 07:02 Albumin 3.5 g/dL (3.9-5) L 09/29/20 07:02 Albumin/Globulin Ratio 0.8 % 09/29/20 07:02 Lipase 19 units/L (13-60) 09/29/20 07:02 Procalcitonin 0.49 ng/mL (<0.15) 10/05/20 10:46 Arterial Blood Glucose 197 mg/dL (65-95) H 09/29/20 09:18 Arterial Blood Ionized Calcium 4.6 mg/dL (4.6-5.3) 09/29/20 09:18 Urine Color Yellow (Yellow) 09/30/20 Unknown Urine Turbidity Clear (Clear) 09/30/20 Unknown Urine pH 6.0 (5.0-7.0) 09/30/20 Unknown Ur Specific [place] 1.021 (1.003-1.030) 09/30/20 Unknown Urine Protein 100 mg/dl mg/dL (Negative) 09/30/20 Unknown Urine Glucose (UA) 50 mg/dL (Negative) 09/30/20 Unknown Urine Ketones Neg mg/dL (Negative) 09/30/20 Unknown Urine Blood Neg (Negative) 09/30/20 Unknown Urine Nitrite Neg (Negative) 09/30/20 Unknown Urine Bilirubin Neg (Negative) 09/30/20 Unknown Urine Urobilinogen < 2.0 mg/dL (<2.0) 09/30/20 Unknown Ur Leukocyte Esterase Neg (Negative) 09/30/20 Unknown Urine WBC (Auto) 1.0 /HPF (0.0-6.0) 09/30/20 Unknown Urine RBC (Auto) 1.0 /HPF (0.0-6.0) 09/30/20 Unknown U Epithel Cells (Auto) 1.0 /HPF (0-13.0) 09/30/20 Unknown Urine Mucus Few /HPF 09/30/20 Unknown Fluid Type Thoracentesis 10/03/20 Unknown Fluid Color Yellow 10/03/20 Unknown Fluid Appearance Hazy 10/03/20 Unknown Fluid WBC 193 /mm3 10/03/20 Unknown Fluid RBC 695 /mm3 10/03/20 Unknown Fluid Seg Neutrophils 52.0 % 10/03/20 Unknown Fluid Lymphocytes 38.0 % 10/03/20 Unknown Fluid Reactive Lymphs 0 % 10/03/20 Unknown Fluid Monocytes 10.0 % 10/03/20 Unknown Fluid Eosinophils 0 % 10/03/20 Unknown Fluid Basophils 0 % 10/03/20 Unknown Coronavirus (PCR) Negative (Negative) 09/30/20 Unknown Microbiology: Microbiology 10/03/20 Unknown Pleural Fluid - Pleura,Rt Lung Body Fluid Culture - Preliminary Marshall/IV: Voiding Method Toilet IV Catheter Type [Right INT / Saline Lock Forearm] IV Catheter Type [Left Forearm INT / Saline Lock ] Active Medications - Current Medications Current Medications: Generic Name Dose Route Start Last Admin Trade Name Freq PRN Reason Stop Dose Admin Acetaminophen 650 mg 09/29/20 09:20 10/03/20 07:03 Tylenol PO 650 mg Q4H PRN Administration Pain MILD(1-3)/Fever >100.5/VAUGHN Amlodipine Besylate 10 mg 10/03/20 18:00 10/05/20 09:31 Amlodipine PO 10 mg DAILY TANIKA Administration Atorvastatin Calcium 40 mg 09/29/20 22:00 10/04/20 23:04 Lipitor PO 40 mg QHS TANIKA Administration Colchicine 0.6 mg 10/03/20 22:00 10/05/20 09:30 Colchicine PO 0.6 mg BID TANIKA Administration Dextrose 50 ml 09/29/20 09:20 D50w (25gm) Syringe IV Q30MIN PRN Hypoglycemia Protocol Docusate Sodium 100 mg 09/29/20 10:00 10/05/20 09:31 Colace PO 100 mg BID TANIKA Administration Gabapentin 800 mg 09/29/20 22:00 10/04/20 23:03 Gabapentin PO 800 mg QHS TANIKA Administration Heparin Sodium (Porcine) 5,000 unit 09/29/20 22:00 10/05/20 14:00 Heparin SUB-Q 5,000 unit Q8HR TANIKA Administration Hydralazine HCl 10 mg 10/03/20 16:39 10/04/20 17:33 Apresoline IV 10 mg Q4HR PRN Administration hypertension Hydromorphone HCl 0.5 mg 10/03/20 20:08 10/04/20 00:45 Dilaudid IM 0.5 mg Q4H PRN Administration Pain , Severe (7-10) Piperacillin Sod/Tazobactam Sod 4.5 gm in 100 mls @ 200 mls/hr 10/03/20 15:00 10/05/20 14:00 Zosyn/Ns 4.5gm/100ml IV 200 mls/hr Q8HR TANIKA Administration Protocol Indomethacin 50 mg 10/03/20 22:00 10/05/20 09:35 Indocin PO 50 mg Q12HR TANIKA Administration Insulin Glargine 10 units 09/29/20 22:00 10/04/20 23:04 Lantus SUB-Q 10 units QHS TANIKA Administration Insulin Human Lispro 0 unit 09/29/20 11:30 10/05/20 17:18 Humalog SUB-Q 4 unit ACHS TANIKA Administration Protocol Metoprolol Tartrate 50 mg 10/04/20 22:00 10/05/20 09:32 Metoprolol PO 50 mg BID TANIKA Administration Morphine Sulfate 2 mg 09/29/20 17:31 10/04/20 21:24 Morphine IV 2 mg Q4H PRN Administration Pain, Moderate (4-6) Ondansetron HCl 4 mg 09/29/20 09:20 Zofran IV Q6HR PRN Nausea And Vomiting Oxycodone/Acetaminophen 1 tab 09/29/20 09:20 10/04/20 06:43 Percocet 5/325 PO 1 tab Q6H PRN Administration Pain, Moderate (4-6) Prednisone 10 mg 10/05/20 17:53 10/05/20 17:18 Deltasone PO 10 mg QDAY TANIKA Administration Pseudoephedrine/Acetam/Chlorphenir 10 ml 10/01/20 18:20 10/05/20 12:32 Robitussin Ac PO 10 ml Q4H PRN Administration Cough Sodium Chloride 10 ml 09/29/20 10:00 10/05/20 09:32 Sodium Chloride Flush Syringe 10 Ml IV 10 ml BID TANIKA Administration Sodium Chloride 10 ml 09/29/20 09:20 Sodium Chloride Flush Syringe 10 Ml IV PRN PRN LINE FLUSH Tramadol HCl 50 mg 09/30/20 12:00 10/02/20 22:36 Ultram PO 50 mg Q6H PRN Administration Pain, Moderate (4-6) Valsartan 160 mg 10/03/20 10:00 10/05/20 09:35 Diovan PO 160 mg QDAY TANIKA Administration
[2020-10-05] MEDS: GABAPENTIN 400 MG CAP PO SCH (23:12)
[2020-10-05] MEDS: INSULIN GLARGINE 100 UNITS/ML SUB-Q SCH (23:14)
[2020-10-06 06:27] LABS: Hematocrit 27.7 % (35.5-45.6); Hemoglobin 9.2 gm/dl (11.8-15.2); Mean Corpuscular HGB Conc 33 % (32-34); Mean Corpuscular Volume 88 fl (84-94); Platelet Count 855 K/mm3 (140-440); Red Blood Count 3.17 M/mm3 (3.65-5.03)
[2020-10-06 07:04] LABS: BUN/Creatinine Ratio 20; Blood Urea Nitrogen 18 mg/dL (9-20); Calcium 9.8 mg/dL (8.4-10.2); Hemolysis Index 0
[2020-10-06] MEDS ORDERED: METOPROLOL TARTRATE 50 MG TAB PO SCH (08:02)
--- NOTE | 2020-10-06 09:11 | Progress Note ---
Assessment and Plan Cultures: Blood culture 09/29/2020 no growth today COVID-19 negative Pleural fluid 10/03/2020 no growth today A/P: 50-year-old man past medical history hypertension, diabetes, BPH, hyperlipidemia admitted as Covid PUI, right-sided pneumonia #Sepsis: No fever for 3 days, likely secondary to pneumonia/pulmonary abscess +/- gouty attack #Complicated pneumonia with right loculated pleural effusion/lung abscess: Status post thoracentesis 100 cc out 10/03/2020, worsening procalcitonin and CRP at 40, improving #Pulmonary abscess: Possibly developing, needs follow-up imaging and potential long-term antibiotics.Repeat CT shows Small loculated right-sided pleural effusion with underlying patchy airspace disease throughout the right lung at least in part representing pneumonia but there is surely some underlying compressive atelectasis as well. Shoddy mediastinal lymph nodes are most likely reactive in this setting. #Diabetes: tight glycemic control for best outcomes. 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 pleural e ffusion; DM II;Obesity Interval history: Patient reports feeling much better, wants to go home Objective - Exam Narrative Exam: eneral appearance: Alert in NAD pleasant Eyes: anicteric sclerae, moist conjunctivae; no lid-lag; PERRLA HENT: Normocephalic, Atraumatic; normal external ears, nares open, oropharynx clear Neck: supple, tracheal midline, no JVD Lungs: diminished breath sounds codi, right lower lobe crackles CV: RRR no murmur Abdomen: Soft, non-tender; no masses or hepatosplenomegaly Extremities: left knee severe edema and tenderness, right elbow edema and tendernes Skin: right mastectomy Psych: no agitated Neuro: alert and oriented x 3. Moving all extermities - Constitutional Vitals: Vital Signs Temp Pulse Resp BP Pulse Ox 98.7 F 82 20 150/82 94 10/05/20 22:51 10/05/20 23:12 10/05/20 22:51 10/05/20 23:12 10/06/20 08:26 Temperature -Last 24 Hours Temperature 98.7 F Temperature 98.0 F Temperature 98.2 F - Labs CBC & Chem 7: 10/06/20 04:00 10/06/20 05:16 Labs: Abnormal lab results 10/05/20 10/05/20 10/05/20 Range/Units 10:46 11:11 15:44 RBC (3.65-5.03) M/mm3 Hgb (11.8-15.2) gm/dl Hct (35.5-45.6) % Plt Count (140-440) K/mm3 Sodium (137-145) mmol/L Glucose (75-100) mg/dL POC Glucose 285 H 295 H (70-105) mg/dL C-Reactive Protein 33.00 H (0.00-1.30) mg/dL 10/05/20 10/06/20 10/06/20 Range/Units 21:27 04:00 05:16 RBC 3.17 L (3.65-5.03) M/mm3 Hgb 9.2 L (11.8-15.2) gm/dl Hct 27.7 L (35.5-45.6) % Plt Count 855 H (140-440) K/mm3 Sodium 135 L (137-145) mmol/L Glucose 267 H (75-100) mg/dL POC Glucose 274 H (70-105) mg/dL C-Reactive Protein (0.00-1.30) mg/dL 10/06/20 Range/Units 07:32 RBC (3.65-5.03) M/mm3 Hgb (11.8-15.2) gm/dl Hct (35.5-45.6) % Plt Count (140-440) K/mm3 Sodium (137-145) mmol/L Glucose (75-100) mg/dL POC Glucose 216 H (70-105) mg/dL C-Reactive Protein (0.00-1.30) mg/dL
[2020-10-06] MEDS: amLODIPine 10 MG TAB PO SCH (09:18)
[2020-10-06] MEDS: DOCUSATE SODIUM 100 MG CAP PO SCH (09:19)
[2020-10-06] MEDS: predniSONE 20 MG TAB PO SCH (09:28)
[2020-10-06] MEDS: INSULIN LISPRO 100 UNIT/ML VIAL 3 mL SUB-Q SCH ×2 (09:29→12:54)
[2020-10-06] MEDS: COLCHICINE 0.6 MG CAP PO SCH (09:29)
[2020-10-06] MEDS: VALSARTAN 160MG TAB PO SCH (09:31)
[2020-10-06] MEDS ORDERED: METOPROLOL TARTRATE 100 MG TAB PO SCH (10:00)
--- NOTE | 2020-10-06 10:52 | Discharge Summary ---
<J CARLOSHENRYYolanda - Last Filed: 10/06/20 11:10> Providers - Providers Date of Admission: 09/30/20 11:30 Attending physician: ARACELY PARRISH 09/29/20 09:20 Consult to Physician [CONS] Routine Comment: Consulting Provider: OMAR QUIJANO Physician Instructions: Reason For Exam: COVID PUI, CAP 09/29/20 16:00 Consult to Physician [CONS] Routine Comment: Consulting Provider: BESSIE ARTHUR Physician Instructions: Reason For Exam: loculated effusion 10/04/20 09:55 Consult to Physician [CONS] Routine Comment: Consulting Provider: FEDE ANGUIANO Physician Instructions: Reason For Exam: right pleural effusion/empyema Primary care physician: BATTERY LOADER Hospitalization Condition: Fair Hospital course: This is 50 year old male with hypertension, diabetes, enlarged prostate, gout, HLD, radial nerve palsy and noncompliance who presented to the emergency department on 09/29 with right sided pleurtic pain with right sided posterior and lateral back pain with inspiration and movement for about 1 week associated with nonproductive cough and shortness of breath. Work-up in the emergency department included a CXR which shows patchy right lower lobe infiltrates, abdominal ultrasound shows sludge in the gallbladder with gallbladder wall thickness without cholelithiasis and diffuse fatty infiltration of the liver, labs show hyponatremia at 129 (corrected sodium for hyperglycemia is 131), hypochloremia and 91.3, and hyperglycemia 226. COVID-19 PCR was negative. Durign his stay infectious disease, pulmonology, and general surgery were consulted. On 10/[address]-guided thoracentesis with removal of 200 mL of drainage and he was started on medication for the gout attack. Patient will be discharged with antibiotic therapy and steroids. You will need to obtain a follow-up chest CT in 2 weeks and follow-up with cardiothoracic surgery and infectious disease in 2 weeks after the chest CT. It is imperative that you follow-up with the services and obtain a chest CT. You will need to establish a primary care physician and it is recommended that you follow-up with them post discharge. - Patient Problems (1) Sepsis Current Visit: Yes Status: Resolved Plan to address problem: Presented with tachycardia, tachypnea, with pneumonia on CXR Antibiotic therapy Trend CBC Infectious disease consult 09/29 Blood culture x2 09/29 UA negative for leukocyte esterase and nitrates (2) Community acquired pneumonia Current Visit: Yes Status: Acute Qualifiers: Laterality: right Lung location: lower lobe of lung Qualified Code(s): J18.9 - Pneumonia, unspecified organism Plan to address problem: 10/26 CXR shows patchy right basilar airspace disease with otherwise clear lungs. Antibiotic therapy: Ceftriaxone, azithromycin; stopped 10/03 Patient will be discharged with Augmentin for 3 weeks for his loculated pleural effusion (3) Loculated pleural effusion Current Visit: Yes Status: Acute Plan to address problem: 09/29 CTA chest shows no evidence of a pulmonary embolism or right heart strain, right middle lobe and lower lobe ground glass opacities consistent with pneumonia, partially loculated right pleural effusion and a well-formed air- fluid collection in the posterior aspect of the right lower lobe which appears to be within the pulmonary parenchyma and may represent developing pulmonary abscess. Pulmonology consulted, appreciate recommendations Continue pulmonary hygiene 10/03 CT-guided thoracentesis with drainage of 200 mL of pleural fluid; follow- up studies 10/03 ceftriaxone and azithromycin stopped and started on Zosyn given worsening procalcitonin and CRP at 40 10/03 MRSA PCR pending 10/03 post thoracentesis CXR shows slight improvement in right basilar pleural fluid collection status post thoracentesis. No pneumothorax. 10/04 surgery consulted, appreciate recommendations; does not recommend chest tube at this time to monitor the patient if his respiratory status decreases or spikes a high fever then surgery will reconsider 10/[address] chest shows small right-sided pleural effusion which appears to be partially loculated in the right mid lung region. There is underlying patchy consolidation throughout the right lung. The left lung is clear. There are shotty mediastinal lymph nodes which are most likely reactive. There is mild atherosclerotic disease in the coronary arteries. There is a trace pericardial effusion Patient will be discharged with Augmentin for 3 weeks and he will need to obtain a chest CT within 2 weeks. Follow-up with ID and cardiothoracic surgery after the CT (4) Hypochloremia Current Visit: Yes Status: Acute Plan to address problem: Presented with a chloride of 91.3 , 09/30 Cl 96.1, 10/01 chloride 94, 10/03 chloride 93.2 Continue to monitor S/p 1500 mL bolus in the emergency department S/p MIVF with normal saline which was stopped due to recent hypotension on 10/03 (5) Hyponatremia Current Visit: No Status: Acute Plan to address problem: Presented with a sodium of 129 with hyperglycemia of 226 Corrected sodium 132 Continue to monitor s/p 1500 mL bolus in the emergency department and MIVF x1 day for patient's hyponatremia which was stopped on 10/03 for hypertension 09/30 Na 136, 10/01 sodium 133, 10/03 sodium 133-corrected sodium is 134 (6) Gout flare Current Visit: Yes Status: Acute Qualifiers: Gout site: knee Plan to address problem: Patient has a history of gout however states he has not had an attack in several years and is not on any maintenance medication 10/03 patient complains of erythema, swelling and hypothermia to left knee and right elbow 10/03 started on colchine and Indocin 10/04 started on steroids Will be discharged with a 3-day course of steroids (7) Elevated d-dimer Current Visit: Yes Status: Acute Plan to address problem: 09/29 D-dimer 1450 09/29 CTA chest showed no pulmonary embolism 09/29 Bilateral lower extremity Dopplers showed no acute DVT or SVT (8) Hyperlipidemia Current Visit: No Status: Chronic Plan to address problem: Restarted home statin therapy (9) Hypertension Current Visit: Yes Status: Chronic Plan to address problem: S/p Norvasc in the ED for hypertension Continue antihypertensive regimen Follow-up with the primary care physician Blood pressure monitoring per primary care physician instructions (10) Non-compliance Current Visit: Yes Status: Chronic Plan to address problem: Patient does not have a PCP Patient has been noncompliant with his medications It is imperative that you establish a primary care physician upon discharge Patient states that his blood glucose monitor at home malfunctions occasionally Disposition: DC-01 TO HOME OR SELFCARE Time spent for discharge: 35 Core Measure Documentation - Palliative Care Palliative Care/ Comfort Measures: Not Applicable - Core Measures Any of the following diagnoses?: none Exam - Constitutional Vitals: Temp Pulse Resp BP Pulse Ox 98.7 F 82 20 142/78 94 10/05/20 22:51 10/05/20 23:12 10/05/20 22:51 10/06/20 09:32 10/06/20 08:26 Plan Activity: advance as tolerated Diet: low cholesterol, low salt, diabetic Special Instructions: record daily BP diary, record blood sugar diary Additional Instructions: Present to nearest emergency department contact or contact your primary care physician if experience worsening symptoms. You will need to obtain a chest CT in 2 weeks and follow-up with infectious disease and cardiothoracic surgery after your chest CT is completed. You will be discharged with antibiotic therapy for 2 weeks. It is imperative that you obtain this follow-up chest CT, follow-up with infectious disease and cardiothoracic surgery and establish a primary care physician. Follow up with: [facility] [Provider Group] - 3-5 Days ZACHARY SUAZO MD [Staff Physician] - 3-5 Days KELSIE BIRCH MD [Staff Physician] - 7 Days NISSA SPRAGUE MD [Staff Physician] - 7 Days Prescriptions: Gabapentin 800 mg PO QHS #30 capsule AtorvaSTATin [Lipitor] 40 mg PO QHS #30 tablet amLODIPine 10 mg PO DAILY #30 tablet Amoxicillin/K Clav Tab [Augmentin 875 mg] 1 tab PO Q12HR #42 tab predniSONE [Deltasone] 10 mg PO QDAY #3 tablet guaiFENesin/CODEINE [Robitussin AC] 10 ml PO Q4H PRN #60 ml PRN Reason: Cough traMADoL [Ultram 50 MG tab] 50 mg PO Q6H PRN #7 tablet PRN Reason: Pain, Moderate (4-6) <ARACELY PARRISH - Last Filed: 10/06/20 13:39> Providers - Providers Date of Admission: 09/30/20 11:30 Attending physician: ARACELY PARRISH 09/29/20 09:20 Consult to Physician [CONS] Routine Comment: Consulting Provider: OMAR QUIJANO Physician Instructions: Reason For Exam: COVID PUI, CAP 09/29/20 16:00 Consult to Physician [CONS] Routine Comment: Consulting Provider: BESSIE ARTHUR Physician Instructions: Reason For Exam: loculated effusion 10/04/20 09:55 Consult to Physician [CONS] Routine Comment: Consulting Provider: FEDE ANGUIANO Physician Instructions: Reason For Exam: right pleural effusion/empyema Primary care physician: BATTERY LOADER Hospitalization Hospital course: I saw and evaluated the patient. I agree with the findings and the plan of care as documented in the Nurse Practitioner's~note, Exam - Constitutional Vitals: Temp Pulse Resp BP Pulse Ox 98.4 F 60 19 154/84 95 10/06/20 11:10 10/06/20 11:10 10/06/20 11:10 10/06/20 11:10 10/06/20 11:10
[2020-10-06] MEDS: HEPARIN 5,000 UNIT/1 ML VIAL SUB-Q SCH ×2 (12:53→14:36)
[2020-10-06] MEDS: PIPERACIL/TAZOBACTA 4.5/NS 100 4.5 GM/100 ML VIAL IV SCH ×2 (12:58→14:36)
[2020-10-06] MEDS: INDOMETHACIN 25 MG CAP PO SCH (13:05)
[2020-10-06 13:26] VITALS: BP 154/84
[2020-10-10 09:50] LABS: Total Protein,Body Fluid 5.5 (15.0-45.0)
== END 2020-10-06 14:35 | disposition home or self-care (01) | DRG 871 ==
LOC: ED 06:05 → 3A 09:00 → OBSVTOIN 09-30 11:30
PROVIDERS: ADMIT Internal Medicine; ATTEND Internal Medicine
PROC: 4A033R1 Measurement of Arterial Saturation, Peripheral, Percutaneous Approach (ICD-10-PCS; 2020-09-29)
PROC: 0W993ZZ Drainage of Right Pleural Cavity, Percutaneous Approach (ICD-10-PCS; principal; 2020-10-03)
DX: A41.9 Sepsis, unspecified organism (principal); J96.01 Acute respiratory failure with hypoxia; J85.1 Abscess of lung with pneumonia; E87.1 Hypo-osmolality and hyponatremia; J91.8 Pleural effusion in other conditions classified elsewhere; E78.00 Pure hypercholesterolemia, unspecified; I25.10 Atherosclerotic heart disease of native coronary artery without angina pectoris; E78.5 Hyperlipidemia, unspecified; E11.65 Type 2 diabetes mellitus with hyperglycemia; E87.8 Other disorders of electrolyte and fluid balance, not elsewhere classified; N40.0 Benign prostatic hyperplasia without lower urinary tract symptoms; E66.9 Obesity, unspecified; I16.0 Hypertensive urgency; M10.9 Gout, unspecified; I11.0 Hypertensive heart disease with heart failure; I50.9 Heart failure, unspecified; Z20.828 Contact with and (suspected) exposure to other viral communicable diseases; Z79.4 Long term (current) use of insulin; Z68.31 Body mass index [BMI] 31.0-31.9, adult; Z88.8 Allergy status to other drugs, medicaments and biological substances; Z91.19 Patient's noncompliance with other medical treatment and regimen; Z71.3 Dietary counseling and surveillance; Z82.49 Family history of ischemic heart disease and other diseases of the circulatory system
CPT/HCPCS: 32555; 36415; 71045; 71250; 71275; 76604; 76705; 80048; 80076; 81001; 82140; 82550; 82728; 82805; 82947; 82962; 83036; 83605; 83615; 83690; 83735; 84145; 84160; 84484; 84550; 85025; 85027; 85379; 85610; 86140; 87040; 87116; 88112; 88305; 89051; 93005; 93970; 94760; 96372; 96374; G0378; A9270-GY; J0360; J0456; J0696; J1170; J1644; J1815; J2270; J2405; J2543; J2920; J7030; J7050; J7512; Q9967; U0003